=== PATIENT | male | born 1955 | race Caucasian/White ===

== ENCOUNTER 2023-01-08 08:00 | Outpatient (RCR) | payer MEDICARE, SELFPAY | END 2023-01-23 14:00 | disposition home or self-care (01) | LOC: PT 08:00 | DX: M25.512 Pain in left shoulder (principal) | CPT/HCPCS: 97110; 97112; 97140 ==

== ENCOUNTER 2023-05-27 07:27 | Outpatient (OUT) | payer MEDICARE, SELFPAY ==
[2023-05-27 08:05] LABS: Basophils Percent Auto 0.6 % (0.2-2.0); Eosinophils Absolute Auto 0.2 10^3/uL (0.0-0.7); Eosinophils Percent Auto 3.4 % (0.9-7.0); Hematocrit 43.5 % (42.0-54.0); Hemoglobin 14.4 g/dL (14.0-18.0); Immature Granulocytes Abs Auto 0.02 10^3/uL (0.00-0.03); Immature Granulocytes Pct Auto 0.3 % (0.0-0.5); Lymphocytes Absolute Auto 1.5 10^3/uL (1.2-3.8); Mean Corpuscular HGB Conc 33.1 g/dL (29.9-35.2); Mean Corpuscular Hemoglobin 31.3 pg (25.9-34.0); Mean Corpuscular Volume 94.6 fL (80.0-94.0); Mean Platelet Volume 11.4 fL (9.5-13.5); Monocytes Absolute Auto 0.8 10^3/uL (0.3-0.8); Monocytes Percent Auto 12.7 % (1.7-12.0); Neutrophils Absolute Auto 3.9 10^3/uL (1.4-6.5); Platelet Count 239 10^3/uL (150-450); Red Cell Distribution Width 12.6 % (11.0-15.0); White Blood Count 6.5 10^3/uL (4.0-11.0)
[2023-05-27 08:29] LABS: Anion Gap 10.7; BUN Creatinine Ratio 13.5; Calcium 8.6 mg/dL (8.5-10.1); Carbon Dioxide 29.4 mmol/L (21.0-32.0); Chloride 102 mmol/L (98-107); Cholesterol 280 mg/dL (<=200); Estimated GFR (African America >60 (>=60); Estimated GFR (Non-African Ame >60 (>=60); Glucose 114 mg/dL (74-106); HDL Cholesterol 47 mg/dL (40-60); Potassium 4.1 mmol/L (3.5-5.1); Sodium 138 mmol/L (136-145); Triglycerides 90 mg/dL (<=150)
[2023-05-27 08:43] LABS: Estimated Average Glucose 134 mg/dL; Glycohemoglobin A1C 6.3 % (4.5-6.2)
[2023-05-27 09:09] LABS: Prostate Specific Antigen Scrn 1.91 ng/mL (<=4.00)
== END 2023-05-27 07:28 | disposition home or self-care (01) ==
LOC: LAB 07:29
PROVIDERS: PCP Internal Medicine; Visit Provider Internal Medicine
DX: E78.01 Familial hypercholesterolemia (principal); I10 Essential (primary) hypertension; R73.01 Impaired fasting glucose; Z12.5 Encounter for screening for malignant neoplasm of prostate; Z79.899 Other long term (current) drug therapy
CPT/HCPCS: 36415; 80048; 80061; 83036; 85025; G0103

== ENCOUNTER 2023-08-04 10:55 | Emergency (ER) | payer MEDICARE, SELFPAY ==
[2023-08-04 10:57] VITALS: BP 165/108; PULSE 101; RESP 16; TEMP 36.6; O2SAT 97; BMI 25.0
--- NOTE | 2023-08-04 11:09 | CT_ITS ---
[address] [address] Patient Name: DON NATION MRN: [id number] date: 1955 Sex: M Assigned Patient Location: ER Current Patient Location: ER Accession/Order Number: [id number] Exam Date: 08/04/2023 11:50 Report Date: 08/04/2023 12:29 At the request of: BHUPENDRA CALDWELL Procedure: CT abdomen pelvis w con EXAM: CT abdomen pelvis w con HISTORY: midline abdominal pain COMPARISON: CT abdomen and CT pelvis studies dated 12/13/2019 TECHNIQUE: CT abdomen and CT pelvis studies were performed with the use of intravenous contrast. Multiple axial images were obtained. Reformatted coronal and sagittal images were obtained and reviewed. FINDINGS: Abdomen: Mild atelectatic and/or fibrotic changes in the lower lung singleton. Views of the liver demonstrate a few small scattered areas of decreased attenuation measuring 0.6 cm or less, too small to qualify with certainty though likely representing cysts. No obvious splenic mass. Patient status post cholecystectomy. Mildly dilated intrahepatic bile ducts likely related to patient's postcholecystectomy status. Common bile duct grossly unremarkable in size. Adrenal glands appear grossly unremarkable. No obvious pancreatic mass. Mildly dilated pancreatic duct likely related to patient's postcholecystectomy status and similar to prior study. Mild to moderately distended stomach with retained fluid, otherwise unremarkable in appearance. Mild to moderately dilated air and fluid-filled small bowel loops, correlate for gastroenteritis. No obvious small bowel obstruction. Atherosclerotic calcifications in the abdominal aorta. No evidence of aneurysm. No evidence of adenopathy in the retroperitoneum. 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 A few nonobstructing bilateral renal calculi measuring up to 4 mm on the right and 3 mm on the left. No evidence of obstructive uropathy. Areas of decreased attenuation in each kidney, largest on the right measures 1 cm, largest on the left measures 1.1 cm, these likely represent cysts. A few small areas of decreased attenuation in both kidneys measuring less than 0.6 cm 2 small qualify with certainty though likely representing cysts as well. Small fat filled umbilical hernia without bowel content similar to prior study. Pelvis: Bladder appears grossly unremarkable. Prostate gland is mildly enlarged with a few small associated calcifications. A few calcifications compatible with phleboliths. Perirectal fat planes appear grossly intact. Single diverticulum in the sigmoid colon, no definite acute diverticulitis. Mild to moderately dilated fluid-filled small bowel loops with mild degree of fluid in the distal colon. Correlate for gastroenteritis. No obvious bowel obstruction. Atherosclerotic calcifications within portions of the iliofemoral arteries. No evidence of aneurysm. No evidence of adenopathy. The appendix is not definitely identified, no obvious appendicitis. Postoperative changes from L4 through S1 similar to prior study. Slight convexity lower thoracic and lumbar spine to the right. Mild degenerative changes about the hip joints. CT/CT abdomen pelvis w con IMPRESSION: CT abdomen and CT pelvis studies demonstrate findings which can be correlated for gastroenteritis. 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 Likely few small hepatic cysts. Likely bilateral renal cysts. Bilateral nonobstructive renal calculi. No evidence of obstructive uropathy. Single diverticulum in the sigmoid colon, no evidence of acute diverticulitis. Small fat filled umbilical hernia similar to the prior study. Electronically authenticated by: TASHA OLSON Date: 08/04/2023 12:29
[2023-08-04 11:19] VITALS: BP 152/92
[2023-08-04] MEDS: 0.9 % SODIUM CHLORIDE 1,000 ML 999 ML IV (11:21)
[2023-08-04] MEDS: PANTOPRAZOLE SODIUM 40 MG VIAL IV (11:22)
[2023-08-04] MEDS: ONDANSETRON PF 4 MG/2 ML VIAL IV (11:22)
[2023-08-04] MEDS: HYOSCYAMINE SULFATE 0.125 MG TAB.SUBL SL (11:23)
[2023-08-04 11:34] LABS: Alanine Aminotransferase 21 U/L (16-63); Albumin Globulin Ratio 0.8; Albumin Level 3.4 g/dL (3.4-5.0); Alkaline Phosphatase 62 U/L (46-116); Anion Gap 13.3; Aspartate Amino Transferase 10 U/L (15-37); BUN Creatinine Ratio 13.5; Bilirubin Total 0.7 mg/dL (0.2-1.0); Carbon Dioxide 25.9 mmol/L (21.0-32.0); Chloride 99 mmol/L (98-107); Estimated GFR (African America >60 (>=60); Estimated GFR (Non-African Ame >60 (>=60); Globulin 4.5 g/dL; Glucose 120 mg/dL (74-106); Potassium 4.2 mmol/L (3.5-5.1); Sodium 134 mmol/L (136-145); Total Protein 7.9 g/dL (6.4-8.2)
[2023-08-04 11:51] LABS: Basophils Percent Auto 0.2 % (0.2-2.0); Eosinophils Absolute Auto 0.1 10^3/uL (0.0-0.7); Eosinophils Percent Auto 0.9 % (0.9-7.0); Hematocrit 47.8 % (42.0-54.0); Hemoglobin 15.8 g/dL (14.0-18.0); Immature Granulocytes Abs Auto 0.03 10^3/uL (0.00-0.03); Immature Granulocytes Pct Auto 0.3 % (0.0-0.5); Lymphocytes Absolute Auto 0.8 10^3/uL (1.2-3.8); Lymphocytes Percent Auto 9.5 % (20.5-60.0); Mean Corpuscular HGB Conc 33.1 g/dL (29.9-35.2); Mean Corpuscular Hemoglobin 31.3 pg (25.9-34.0); Mean Corpuscular Volume 94.8 fL (80.0-94.0); Mean Platelet Volume 11.4 fL (9.5-13.5); Monocytes Absolute Auto 1.1 10^3/uL (0.3-0.8); Monocytes Percent Auto 12.6 % (1.7-12.0); Neutrophils Absolute Auto 6.6 10^3/uL (1.4-6.5); Neutrophils Percent Auto 76.5 % (43.0-75.0); Platelet Count 230 10^3/uL (150-450); Red Blood Count 5.04 10^6/uL (4.70-6.10); Red Cell Distribution Width 12.1 % (11.0-15.0); White Blood Count 8.6 10^3/uL (4.0-11.0)
[2023-08-04 11:51] LABS: Bilirubin Urine SMALL (NEGATIVE); Blood Urine SMALL (NEGATIVE); Clarity Urine CLEAR (CLEAR); Color Urine YELLOW (YELLOW); Glucose Urine UA NEGATIVE (NEGATIVE); Ketones Urine >=80 mg/dL (NEGATIVE); Leukocyte Esterase Urine NEGATIVE (NEGATIVE); Nitrite Urine NEGATIVE (NEGATIVE); Protein Urine TRACE mg/dL (NEG/TRACE); Specific Gravity Urine >=1.030 (1.005-1.025); Urobilinogen Urine 0.2 EU/dL (0.2-1.0); pH Urine 5.5 (5.0-9.0)
[2023-08-04 11:55] LABS: Urine Microscopic Indicated YES
[2023-08-04 12:10] VITALS: BP 158/81; PULSE 79; RESP 20
[2023-08-04 12:21] LABS: WBC Urine NONE SEEN #/HPF (NONE SEEN)
[2023-08-04 12:22] LABS: Bacteria Urine NONE SEEN #/HPF (NONE SEEN); Mucus Urine LARGE (NONE SEEN); RBC Urine 0-2 #/HPF (0-2); Squamous Epithelial Cell Urine FEW #/LPF (NONE/RARE)
[2023-08-04 12:23] LABS: Urine Culture Indicated NO
--- NOTE | 2023-08-04 13:01 | ED_ITS ---
HPI - General Adult General Chief complaint: Abdominal Pain Stated complaint: STOMACH PAIN Time Seen by Provider: 08/04/23 11:02 Source: patient Mode of arrival: walk-in Limitations: no limitations History of Present Illness HPI narrative: Patient with 2 days of midline abdominal pain and heartburn like symptoms. He had some nausea and diarrhea but no vomiting. No flank pain or urinary symptoms. Diarrhea was watery without blood. No fever or chills. Related Data Home Medications Medication Instructions Recorded Confirmed atenolol 25 mg tablet 25 mg PO Q12H 08/04/23 08/04/23 benazepril 20 mg tablet 20 mg PO DAILY 08/04/23 08/04/23 omeprazole 40 mg capsule,delayed 40 mg PO DAILY 08/04/23 08/04/23 release Previous Rx's Medication Instructions Recorded hyoscyamine sulfate 0.125 mg 0.125 mg PO Q6H PRN abdominal pain 08/04/23 sublingual tablet (Levsin/SL) #20 tabs ondansetron 4 mg disintegrating 4 mg PO Q6H PRN nausea and 08/04/23 tablet vomiting #20 tabs Allergies Allergy/AdvReac Type Severity Reaction Status Date / Time acetaminophen [From Vicodin] AdvReac Severe Vomiting Verified 08/04/23 11:02 codeine AdvReac Severe Vomiting Verified 08/04/23 11:02 hydrocodone [From Vicodin] AdvReac Severe Vomiting Verified 08/04/23 11:02 [facility] PFS Social History Smoking status: Never smoker Exam Narrative Exam Narrative: Nurses notes and vital signs reviewed and patient is not hypoxic. afebrile General: Well-appearing and in no apparent distress. Skin: Warm, dry, no pallor noted. No rash.Eye: Pupils are equal, round and EOMI. No scleral icterus. Ears, Nose, Mouth, and Throat: Oral mucosa is moist Cardiovascular: Regular Rate and Rhythm without murmur, gallop or rub. Respiratory: No accessory muscle use or respiratory distress. Lungs are clear to auscultation, no wheezing, rales or rhonchi Chest Wall: no tenderness Back: No midline thoracic or lumbar vertebral tenderness. No CVA tenderness Musculoskeletal: normal ROM, no calf or popliteal tenderness, no lower extremity edema/swelling GI: Abdomen is soft, non-distended. Normal bowel sounds. No masses appreciated. Epigastric and mid abdominal tenderness to palpation. No rebound, guarding, or rigidity noted. Neurological: A&O x4. No cranial nerve dysfunction observed. No truncal ataxia. Moves all extremities. Sensation intact. Psychiatric: Cooperative and interactive. Normal mood and affect. Constitutional Vital Signs, click to edit/add: Last Vital Signs Temp 97.9 F 08/04/23 10:57 Pulse 79 08/04/23 12:10 Resp 20 08/04/23 12:10 BP 158/81 H 08/04/23 12:10 Pulse Ox 97 08/04/23 10:57 O2 Del Method Room Air 08/04/23 10:57 Course Vital Signs Vital signs: Vital Signs Temperature 97.9 F 08/04/23 10:57 Pulse Rate 101 H 08/04/23 10:57 Respiratory Rate 16 08/04/23 10:57 Blood Pressure 165/108 H 08/04/23 10:57 Pulse Oximetry 97 08/04/23 10:57 Oxygen Delivery Method Room Air 08/04/23 10:57 Temperature 97.9 F 08/04/23 10:57 Pulse Rate 79 08/04/23 12:10 Respiratory Rate 20 08/04/23 12:10 Blood Pressure 158/81 H 08/04/23 12:10 Pulse Oximetry 97 08/04/23 10:57 Oxygen Delivery Method Room Air 08/04/23 10:57 Medical Decision Making MDM Narrative Medical decision making narrative: Peripheral IV was obtained. Blood drawn and sent for evaluation. Urine also obtained and sent for testing. The patient had CT of the abdomen pelvis with IV contrast. He received normal saline IV fluid, IV Protonix and IV Zofran. White blood cell count is normal. Unremarkable CBC. CMP negative. Urinalysis unremarkable. CT shows findings consistent with acute gastroenteritis. The patient was informed of results and given reassurance. He was discharged home with prescription for oral dissolvable Zofran, recommendation to maintain a clear liquid diet for the next 24 hours and then to advance as tolerated. ED return if he worsens. Lab Data Lab results reviewed: Yes I reviewed the patient's lab results Labs: Lab Results 08/04/23 08/04/23 Range/Units 11:11 11:15 WBC 8.6 (4.0-11.0) 10^3/uL RBC 5.04 (4.70-6.10) 10^6/uL Hgb 15.8 (14.0-18.0) g/dL Hct 47.8 (42.0-54.0) % MCV 94.8 H (80.0-94.0) fL MCH 31.3 (25.9-34.0) pg MCHC 33.1 (29.9-35.2) g/dL RDW 12.1 (11.0-15.0) % Plt Count 230 (150-450) 10^3/uL MPV 11.4 (9.5-13.5) fL Neut % (Auto) 76.5 H (43.0-75.0) % Lymph % (Auto) 9.5 L (20.5-60.0) % [place] % (Auto) 12.6 H (1.7-12.0) % Eos % (Auto) 0.9 (0.9-7.0) % Baso % (Auto) 0.2 (0.2-2.0) % Neut # (Auto) 6.6 H (1.4-6.5) 10^3/uL Lymph # (Auto) 0.8 L (1.2-3.8) 10^3/uL [place] # (Auto) 1.1 H (0.3-0.8) 10^3/uL Eos # (Auto) 0.1 (0.0-0.7) 10^3/uL Baso # (Auto) 0.0 (0.0-0.1) 10^3/uL Abs Immat Gran (auto) 0.03 (0.00-0.03) 10^3/uL Imm/Tot Granulo (auto) 0.3 (0.0-0.5) % Sodium 134 L (136-145) mmol/L Potassium 4.2 (3.5-5.1) mmol/L Chloride 99 (98-107) mmol/L Carbon Dioxide 25.9 (21.0-32.0) mmol/L Anion Gap 13.3 BUN 12.0 (7.0-18.0) mg/dL Creatinine 0.89 (0.70-1.30) mg/dL Est GFR ( Amer) >60 (>=60) Est GFR (Non-Af Amer) >60 (>=60) BUN/Creatinine Ratio 13.5 Glucose 120 H (74-106) mg/dL Calcium 10.0 (8.5-10.1) mg/dL Total Bilirubin 0.7 (0.2-1.0) mg/dL AST 10 L (15-37) U/L ALT 21 (16-63) U/L Alkaline Phosphatase 62 (46-116) U/L Total Protein 7.9 (6.4-8.2) g/dL Albumin 3.4 (3.4-5.0) g/dL Globulin 4.5 g/dL Albumin/Globulin Ratio 0.8 Urine Color Yellow (YELLOW) Urine Clarity Clear (CLEAR) Urine pH 5.5 (5.0-9.0) Ur Specific [place] >=1.030 A (1.005-1.025) Urine Protein Trace (NEG/TRACE) mg/dL Urine Glucose (UA) Negative (NEGATIVE) mg/dL Urine Ketones >=80 A (NEGATIVE) mg/dL Urine Occult Blood Small A (NEGATIVE) Urine Nitrite Negative (NEGATIVE) Urine Bilirubin Small A (NEGATIVE) Urine Urobilinogen 0.2 (0.2-1.0) EU/dL Ur Leukocyte Esterase Negative (NEGATIVE) Urine RBC 0-2 (0-2) #/HPF Urine WBC None seen (NONE SEEN) #/HPF Ur Squamous Epith Cells Few A (NONE/RARE) #/LPF Urine Bacteria None seen (NONE SEEN) #/HPF Urine Mucus Large A (NONE SEEN) Ur Culture Indicated? No Imaging Data CT scan - abdomen: Radiologist's impression: Patient Name: DON NATION MRN: [id number] date: 1955 Sex: M Assigned Patient Location: ER Current Patient Location: Accession/Order Number: [id number] Exam Date: 08/04/2023 11:50 Report Date: 08/04/2023 12:29 At the request of: BHUPENDRA CALDWELL Procedure: CT abdomen pelvis w con EXAM: CT abdomen pelvis w con HISTORY: midline abdominal pain COMPARISON: CT abdomen and CT pelvis studies dated 12/13/2019 TECHNIQUE: CT abdomen and CT pelvis studies were performed with the use of intravenous contrast. Multiple axial images were obtained. Reformatted coronal and sagittal images were obtained and reviewed. FINDINGS: Abdomen: Mild atelectatic and/or fibrotic changes in the lower lung singleton. Views of the liver demonstrate a few small scattered areas of decreased attenuation measuring 0.6 cm or less, too small to qualify with certainty though likely representing cysts. No obvious splenic mass. Patient status post cholecystectomy. Mildly dilated intrahepatic bile ducts likely related to patient's postcholecystectomy status. Common bile duct grossly unremarkable in size. Adrenal glands appear grossly unremarkable. No obvious pancreatic mass. Mildly dilated pancreatic duct likely related to patient's postcholecystectomy status and similar to prior study. Mild to moderately distended stomach with retained fluid, otherwise unremarkable in appearance. Mild to moderately dilated air and fluid-filled small bowel loops, correlate for gastroenteritis. No obvious small bowel obstruction. Atherosclerotic calcifications in the abdominal aorta. No evidence of aneurysm. No evidence of adenopathy in the retroperitoneum. 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 A few nonobstructing bilateral renal calculi measuring up to 4 mm on the right and 3 mm on the left. No evidence of obstructive uropathy. Areas of decreased attenuation in each kidney, largest on the right measures 1 cm, largest on the left measures 1.1 cm, these likely represent cysts. A few small areas of decreased attenuation in both kidneys measuring less than 0.6 cm 2 small qualify with certainty though likely representing cysts as well. Small fat filled umbilical hernia without bowel content similar to prior study. Pelvis: Bladder appears grossly unremarkable. Prostate gland is mildly enlarged with a few small associated calcifications. A few calcifications compatible with phleboliths. Perirectal fat planes appear grossly intact. Single diverticulum in the sigmoid colon, no definite acute diverticulitis. Mild to moderately dilated fluid-filled small bowel loops with mild degree of fluid in the distal colon. Correlate for gastroenteritis. No obvious bowel obstruction. Atherosclerotic calcifications within portions of the iliofemoral arteries. No evidence of aneurysm. No evidence of adenopathy. The appendix is not definitely identified, no obvious appendicitis. Postoperative changes from L4 through S1 similar to prior study. Slight convexity lower thoracic and lumbar spine to the right. Mild degenerative changes about the hip joints. IMPRESSION: CT abdomen and CT pelvis studies demonstrate findings which can be correlated for gastroenteritis. 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 Likely few small hepatic cysts. Likely bilateral renal cysts. Bilateral nonobstructive renal calculi. No evidence of obstructive uropathy. Single diverticulum in the sigmoid colon, no evidence of acute diverticulitis. Small fat filled umbilical hernia similar to the prior study. Electronically authenticated by: TASHA OLSON Date: 08/04/2023 12:29 Discharge Plan Discharge Chief Complaint: Abdominal Pain Clinical Impression: Gastroenteritis Patient Disposition: Home, Self-Care Time of Disposition Decision: 13:05 Prescriptions / Home Meds: New ondansetron 4 mg tablet,disintegrating 4 mg PO Q6H PRN (Reason: nausea and vomiting) Qty: 20 0RF hyoscyamine sulfate [Levsin/SL] 0.125 mg tablet, sublingual 0.125 mg PO Q6H PRN (Reason: abdominal pain) Qty: 20 0RF No Action atenolol 25 mg tablet 25 mg PO Q12H benazepril 20 mg tablet 20 mg PO DAILY omeprazole 40 mg capsule,delayed release(DR/EC) 40 mg PO DAILY Instructions: Gastroenteritis (ED) Stand Alone Forms: Portal Instructions Referrals: Tao Martines DO [Primary Care Provider] - 1 week
== END 2023-08-04 13:37 | disposition home or self-care (01) ==
PROVIDERS: Emergency Provider Emergency Medicine; PCP Internal Medicine
DX: K52.9 Noninfective gastroenteritis and colitis, unspecified (principal); Z90.49 Acquired absence of other specified parts of digestive tract
CPT/HCPCS: 36415; 74177; 80053; 81001; 85025; 87507; 96361; 96374; 96375; 99285; Q9967

== ENCOUNTER 2023-11-13 07:20 | Outpatient (OUT) | payer OTHER, SELFPAY ==
--- OUTSIDE RECORDS SUMMARY | 2023-11-13 07:23 | XMS_ITS | CCD ---
Author Organization [facility] Care Team Providers Care Catastrophe Claims Supervisor Name Role Phone TAO MARTINES Primary Care Physician MD Salomon PITTS Attending Unavailable MD Salomon PITTS Attending Unavailable Conrad, Tao Unavailable MARBELLA, DR SERRANO Admitting Unavailable STEPANIC, DR SERRANO Consulting Unavailable STEPOSMANI, DR SERRANO Attending Unavailable BALL, DR LICEA Primary Care Unavailable ZIEBER, DR OLYA West Consulting Unavailable LARA ., DR KIM Campbell Attending Unavailable LARA ., DR KIM Campbell Admitting Unavailable GARCIA ., LIZETT Consulting Unavailable CONRAD, DR LICEA Primary Care Unavailable LARA ., DR KIM Campbell Admitting Unavailable LARA ., DR KIM Campbell Consulting Unavailable LARA ., DR KIM Campbell Attending Unavailable BALL, DR LICEA Primary Care Unavailable LARA ., DR KIM Campbell Consulting Unavailable LARA ., DR KIM Campbell Attending Unavailable LARA ., DR KIM Campbell Admitting Unavailable CONRAD, DR LICEA Primary Care Unavailable ALBERTO IBARRA Consulting Unavailable LARA ., DR KIM Campbell Attending Unavailable LARA ., DR KIM Campbell Admitting Unavailable GARCIA ., LIZETT Consulting Unavailable CONRAD, DR LICEA Primary Care Unavailable CONRAD, DR LICEA Primary Care Unavailable JANESSA ., NICOLE Attending Unavailable JANESSA ., NICOLE Admitting Unavailable MARKER ., DR CHAPMAN Consulting Unavailable CONRAD, DR LICEA Primary Care Unavailable STEPOSMANI, DR SERRANO Attending Unavailable STEPANIC, DR SERRANO Admitting Unavailable JACOBSON ., MR SAMIR Admitting Unavailable JACOBSON ., MR SAMIR Attending Unavailable CONRAD, DR LICEA Primary Care Unavailable CONRAD, DR LICEA Primary Care Unavailable JACOBSON ., MR SAMIR Attending Unavailable JACOBSON ., MR SAMIR Admitting Unavailable PITTS ., DR VOSS Consulting Unavailable PITTS ., DR VOSS Attending Unavailable CONRAD, DR LICEA Primary Care Unavailable KELBY ., DR VOSS Admjaxson Unavailable JOHNIE, DR GLORIA Morin Consulting Unavailable CONRAD, DR LICEA Primary Care Unavailable CONRAD, DR LICEA Consulting Unavailable CONRAD, DR LICEA Attending Unavailable CONRAD, DR LICEA Admitting Unavailable LARA ., DR KIM Campbell Consulting Unavailable JANE ., DR KIM Campbell Attending Unavailable JANE ., DR KIM Campbell Admitting Unavailable DR TAO MARTINES Primary Care Unavailable JANE ., DR KIM Campbell Admitting Unavailable JANE ., DR KIM Campbell Attending Unavailable CONRAD, DR LICEA Primary Care Unavailable Allergies Allergy Classification Reported Allergen(s) Allergy Type Date of Onset Reaction(s) Facility (5 sources) Acetaminophen / HYDROcodone; Translations: [acetaminophen-hy drocodone] Drug Allergy Nausea (finding) [facility] (6 sources) Codeine; Translations: [codeine] Drug Allergy 08-29-19 15 Nausea (finding) [facility] (6 sources) Codeine Drug Allergy Unknown [email or web address] Other (6 sources) HMG-CoA reductase inhibitor Drug allergy Unknown [email or web address] Other (2 sources) Acetaminophen / HYDROcodone Drug Allergy 12-28-19 13 [facility] (2 sources) Codeine Drug Allergy 12-21-19 13 [facility] (4 sources) Vicodin *ANALGESICS - OPIOID* Propensity to adverse reactions 08-29-19 15 Unknown [email or web address] Other (1 source) patient allergy list reviewed by nurse or physicia Propensity to adverse reactions 06-08-20 17 Comment:Done [place] Other Medications Current Medications Medication Drug Class(es) Dates Sig (Normalized) Sig (Original) 24 hr alfuzosin hydrochloride 10 mg extended release oral tablet (1 source) alpha-Adrenergic Melissa Start: 03-21-2022 take 1 tablet by mouth once daily alfuzosin 10 mg ER Tab 10 mg = 1 tab(s), Oral, Daily, # 30 tab(s), Refills(s) 11, Pharmacy: [facility]/pharmacy #[id number], 175, cm, 03/21/22 9:55:00 EDT, Height/Length Dosing, 74, kg, 03/21/22 9:55:00 EDT, Weight Dosing Start Date: 03/21/22 Status: Ordered Atenolol (13 sources) beta-Adrenergic Melissa Start: 12-27-2019 atenolol Oral, Daily, Refills(s) 0 Start Date: 12/27/19 Status: Ordered take 1 tablet by mouth twice chris ly Atenolol 25 MG TAKE 1 TABLET BY MOUTH TWICE A DAY Active Atenolol Not-Fito ing/PRN Atenolol Not-Fito ing benazepril (13 sources) Angiotensin Converting Enzyme Inhibitor Start: 12-27-2019 benazepril Oral, Chris ly, Refills(s) 0 Start Date: 12/27/19 Status: Ordered Benazepril HCl 2 0 MG TAKE 1 TABLET BY MOUTH EVERY DAY FOR 90 DAYS for 90 Active Benazepril HCl N ot-Taking/PRN Benazepril HCl N ot-Taking Zetia (7 sources) Dietary Cholesterol Absorption Inhibitor Start: 06-01-2020 take 1 mg by mouth once daily Zetia mg, Oral, Daily, Refills(s) 0 Start Date: 06/01/20 Status: Ordered Zetia Not-Taking /PRN Zetia Not-Taking Fish Oils (1 source) Start: 12-27-2019 Fish Oil Oral, Refill(s) 0 Start Date: 12/27/19 Status: Ordered hydroCHLOROthiazide 12.5 mg oral capsule (1 source) Thiazide Diuretic Start: 02-17-2022 take 1 capsule by mouth once daily hydrochlorothiazide 12.5 mg Cap 12.5 mg = 1 cap(s), Oral, Daily, # 90 cap(s), Refills(s) 3, Pharmacy: [facility]/pharmacy #[id number], 175, cm, 05/20/21 15:07:00 EDT, Height/Length Dosing, 74, kg, 05/20/21 15:07:00 EDT, Weight Dosing Start Date: 02/17/22 Status: Ordered Omeprazole (13 sources) Proton Pump Inhibitor Start: 06-01-2020 omeprazole Oral, Daily, Refills(s) 0 Start Date: 06/01/20 Status: Ordered Omeprazole 40 MG TAKE 1 CAPSULE DAILY ON AN EMPTY STOMACH FOLLOWED IN 30 MINUTES BY BREAKFAST Active PriLOSEC Not-Fito ing/PRN PriLOSEC Not-Fito ing Protonix (1 source) Proton Pump Inhibitor Start: 12-27-2019 Protonix Oral, Daily, Refills(s) 0 Start Date: 12/27/19 Status: Ordered potassium citrate 10 meq extended release oral tablet (1 source) Start: 05-20-2021 End: 05-15-2022 potassium CITRATE 10 mEq ER Tab 20 mEq, 2 tab(s), Oral, BID for 90 day(s), 360 tab(s), Refill(s) 3, [facility]/pharmacy #[id number], 175, cm, 05/20/21 15:07:00 EDT, Height/Length Dosing, 74, kg, 05/20/21 15:07:00 EDT, Weight Dosing Start Date: 05/20/21 Stop Date: 05/15/22 Status: Ordered rosuvastatin calcium 10 mg oral tablet (1 source) HMG-CoA Reductase Inhibitor Start: 05-28-2023 take 1 tablet by mouth every twenty-four hours Rosuvastatin Calcium 10 MG 1 tablet Orally Once a day for 30 days May, Active traMADol hydrochloride 50 mg oral tablet (3 sources) Opioid Agonist Start: 09-16-2022 take 1 tablet by mouth every twenty-four hours traMADol HCl 50 MG 1 tablet as needed Orally Once a day for 30 days Sep, Active valACYclovir 1000 mg oral tablet (4 sources) Herpesvirus Nucleoside Analog DNA Polymerase Inhibitor, Herpes Simplex Virus Nucleoside Analog DNA Polymerase Inhibitor, Herpes Zoster Virus Nucleoside Analog DNA Polymerase Inhibitor valACYclovir HCl 1 GM TAKE 2 TABLETS BY MOUTH TWICE A DAY Orally Once a day for 1 days Active valACYclovir HCl 1 GM TAKE 2 TABLETS BY MOUTH TWICE A DAY Orally Once a day for 1 days Active Completed/Discontinued Medications Medication Drug Class(es) Dates Sig (Normalized) Sig (Original) paxlovid (300/100) 20 x 150 mg & 10 x 100mg tablet therapy pack (1 source) Start: 07-14-2023 Paxlovid (300/100) 20 x 150 MG & 10 x 100MG as directed Orally bid for 5 days Jul, Not-Taking/PRN tamsulosin (6 sources) alpha-Adrenergic Melissa Flomax Not-Taking/PRN Flomax Not-Takin g Problems Active Problems Problem Classification Problem Date Documented Da te Episodic/Chronic Abdominal pain (20 sources) Abdominal pain; Translations: [Unspecified abdominal pain] Onset: 9 Episodic Acute bronchitis (1 source) Acute bronchitis; Translations: [Acute bronchitis due to other specified organisms] Episodic Anxiety disorders (1 source) Other specified anxiety disorders; Translations: [OTHER SPECIFIED ANXIETY DISORDERS] Onset: 3 Chronic Calculus of urinary tract (20 sources) Kidney stone; Translations: [Calculus of kidney] Onset: 6 Episodic Cardiac dysrhythmias (13 sources) Palpitations; Translations: [Palpitations] Onset: 3 Episodic Diabetes mellitus without complication (9 sources) Impaired fasting glycemia; Translations: [Impaired fasting glucose] Episodic Disorders of lipid metabolism (19 sources) Hyperlipidemia; Translations: [Pure hypercholesterolemia] Onset: 0 12-27-2019 Chronic Esophageal disorders (7 sources) Gastroesophageal reflux disease; Translations: [Gastro-esophageal reflux disease without esophagitis] Onset: 3 12-27-2019 Chronic Essential hypertension (15 sources) Hypertensive disorder; Translations: [Essential hypertension] Onset: 3 12-27-2019 Chronic Gastrointestinal hemorrhage (12 sources) Hemorrhage of rectum and anus; Translations: [Hemorrhage of anus and rectum] Episodic Hyperplasia of prostate (10 sources) Benign prostatic hypertrophy without outflow obstruction; Translations: [Benign prostatic hyperplasia without lower urinary tract symptoms] Onset: 6 Chronic Immunizations and screening for infectious disease (1 source) Vaccination given; Translations: [Encounter for immunization] Episodic Miscellaneous mental health disorders (7 sources) Transient insomnia; Translations: [Adjustment insomnia] Episodic Nonspecific chest pain (1 source) Other chest pain Episodic Other aftercare (2 sources) Other terminal computer operator (current) drug therapy; Translations: [OTH THERAPEUTIC RECREATION SPECIALIST CURRENT DRUG THERAPY] Onset: 3 Episodic Other aftercare (1 source) Long-term current use of drug therapy; Translations: [Other terminal computer operator (current) drug therapy] Episodic Other connective tissue disease (4 sources) Adhesive capsulitis of left shoulder; Translations: [ADHESIVE CAPSULITIS LEFT SHOULDER] Onset: 3 Episodic Other diseases of kidney and ureters (6 sources) Hydroureter; Translations: [Hydroureter] Episodic Other ear and sense organ disorders (7 sources) Hearing loss; Translations: [Unspecified hearing loss, left ear] Chronic Other gastrointestinal disorders (6 sources) Irritable bowel syndrome with diarrhea; Translations: [Irritable bowel syndrome with diarrhea] Chronic Other hereditary and degenerative nervous system conditions (7 sources) Essential tremor; Translations: [Essential tremor] Chronic Other injuries and conditions due to external causes (1 source) History of fall; Translations: [History of falling] Episodic Other lower respiratory disease (1 source) Solitary nodule of lung; Translations: [Solitary pulmonary nodule] Episodic Other nervous system disorders (1 source) Other chronic pain; Translations: [OTHER CHRONIC PAIN] Onset: 2 Chronic Other non-traumatic joint disorders (4 sources) Other specific joint derangements of left shoulder, not elsewhere classified; Translations: [OTH SPEC JOINT DERANG LT SHLDR NEC] Onset: 2 Chronic Other screening for suspected conditions (not mental disorders or infectious disease) (1 source) Radiology result abnormal; Translations: [Other nonspecific (abnormal) findings on radiological and other examination of body structure] Onset: 8 Chronic Other screening for suspected conditions (not mental disorders or infectious disease) (2 sources) Encounter for screening for malignant neoplasm of prostate; Translations: [ENC SCREEN MALIG NEOPLASM PROSTATE] Onset: 2 Episodic Otitis media and related conditions (7 sources) Salpingitis of right eustachian tube; Translations: [Unspecified Eustachian salpingitis, right ear] Episodic Residual codes; unclassified (6 sources) Insomnia co-occurrent and due to medical condition; Translations: [Insomnia due to medical condition] Chronic Residual codes; unclassified (1 source) Insomnia due to medical condition Chronic Residual codes; unclassified (1 source) Acquired absence of other specified parts of digestive tract; Translations: [ACQ ABSENCE OTH PART DIGESTV TRACT] Onset: 3 Episodic Spondylosis; intervertebral disc disorders; other back problems (2 sources) Lumbosacral spondylosis without myelopathy; Translations: [Spondylosis without myelopathy or radiculopathy, lumbar region] Onset: 5 Chronic Substance-related disorders (1 source) Nicotine dependence, cigarettes, uncomplicated; Translations: [NICOTINE DEPEND CIGARETTES UNCOMP] Onset: 3 Chronic Unclassified (1 source) LOW BACK PAIN, UNSPECIFIED; Translations: [LOW BACK PAIN, UNSPECIFIED] Onset: 2 Unclassified (1 source) CONTACT W/AND (SUSP) EXPOS COVID-19; Translations: [CONTACT W/AND (SUSP) EXPOS COVID-19] Onset: 2 Urinary tract infections (1 source) Urinary tract infectious disease; Translations: [Urinary tract infection, site not specified] Episodic Viral infection (8 sources) Herpes simplex type 1 infection; Translations: [Herpesviral infection, unspecified] Episodic Past or Other Problems Problem Classification Problem Date Documented Da te Episodic/Chronic Bacterial infection; unspecified site (1 source) Bacterial infectious disease; Translations: [Bacterial infection, unspecified, in conditions classified elsewhere and of unspecified site] Onset: 03-03-2019 Episodic Conditions associated with dizziness or vertigo (1 source) Benign paroxysmal positional vertigo; Translations: [Benign paroxysmal positional vertigo] Onset: 05-17-2015 Episodic Esophageal disorders (4 sources) Esophageal disorders; Translations: [Gastroesophageal reflux disease with esophagitis without hemorrhage] Fluid and electrolyte disorders (1 source) Dehydration; Translations: [Dehydration] Onset: 08-12-2017 Episodic Intestinal infection (1 source) Viral enteritis; Translations: [Intestinal infection due to other organism, NEC] Onset: 10-20-2017 Episodic Malaise and fatigue (1 source) Malaise and fatigue; Translations: [Other malaise and fatigue] Onset: 10-18-2018 Episodic Nausea and vomiting (1 source) Nausea; Translations: [Nausea] Onset: 08-12-2017 Episodic Other connective tissue disease (4 sources) Other muscle spasm; Translations: [OTHER MUSCLE SPASM] Onset: 02-18-2022 Episodic Other connective tissue disease (1 source) Unspecified rotator cuff tear or rupture of left shoulder, not specified as traumatic; Translations: [UNS ROT CUFF TEAR/RUPT LT SHOULDER] Onset: 02-21-2022 Episodic Other connective tissue disease (1 source) Arthrodesis status; Translations: [ARTHRODESIS STATUS] Onset: 02-21-2022 Episodic Other gastrointestinal disorders (1 source) Diarrhea; Translations: [Diarrhea] Onset: 08-12-2017 Episodic Other liver diseases (1 source) Elevated levels of transaminase & lactic acid dehydrogenase; Translations: [Nonspecific elevation of levels of transaminase or lactic acid dehydrogenase (LDH)] Onset: 11-19-2018 Episodic Other non-traumatic joint disorders (2 sources) Pain in left shoulder; Translations: [PAIN IN LEFT SHOULDER] Onset: 05-26-2022 Episodic Other upper respiratory infections (3 sources) Acute maxillary sinusitis; Translations: [Acute recurrent maxillary sinusitis] Onset: 08-29-2014 Episodic Residual codes; unclassified (4 sources) Other specified postprocedural states; Translations: [OTH SPECIFIED POSTPROCEDURAL STATES] Onset: 08-10-2022 Episodic Spondylosis; intervertebral disc disorders; other back problems (10 sources) Radiculopathy, lumbar region; Translations: [Radiculopathy, lumbosacral region] Onset: 12-27-2013 Episodic Sprains and strains (1 source) Strain of other muscles, fascia and tendons at shoulder and upper arm level, left arm, initial encounter; Translations: [STRN OTH MSC F TEND SHLDR UA LA INT] Onset: 02-21-2022 Episodic Unclassified (1 source) Long-term current use of drug therapy; Translations: [Long-term (current) use of other medications] Onset: 06-22-2016 Viral infection (1 source) COVID-19 Results Test Name Value Interpretation Reference Range Facility CARDIAC LONNIE ADMITon 023 CK [Catalytic activity/Vol] 57 U/L Normal 39-308 [facility] Comment on above: Performed By: #### C ZAC RAY #### [facility] [address] [place] [address] Dr. Sarthak Cleveland CK.MB [Mass/Vol] 0.54 ng/mL Normal <=3.60 [facility] Comment on above: Performed By: #### C CORY, CMP #### [facility] [address] [address] [address] Sarthak Cleveland HSTROP <4.0 Normal 4.0-76.1 [facility] Comment on above: Result Comment: CUT- OFF POINTS HAVE BEEN ESTABLISHED BASED ON THE FOURTH UNIVERSAL DEFINITIONS OF MYOCARDIAL INFARCTION. THE UPPER REFERENCE LIMIT (URL) OF TROPONIN, DEFINED THE 99TH PERCENTILE OF cTnI DISTRIBUTION IN A REFERENCE POPULATION, HAS BEEN CONFIRMED THE DECISION THRESHOLD FOR MT DIAGNOSIS. Performed By: #### C CORY, CMP #### [facility] [address] [address] [address] Sarthak Cleveland MAL 37 ng/mL Normal 16-96 [facility] Comment on above: Performed By: #### C MADM, CMP #### [facility] [address] [place] [address] Dr. Sarthak Clevelnad CBC AUTO DIFFon 11-25-2022 BASO # 0.0 103/ul Normal 0.0-0.1 [facility] Comment on above: Performed By: #### B MP, LIPID, ALT #### [facility] [address] [place] [address] Dr. Sarthak Cleveland Basophils/100 WBC (Bld) 0.5 % Normal 0.2-2.0 [facility] Comment on above: Performed By: #### B MP, LIPID, ALT #### [facility] [address] [place] [address] Dr. Sarthak Cleveland EO # 0.3 103/ul Normal 0.0-0.7 [facility] Comment on above: Performed By: #### B MP, LIPID, ALT #### [facility] [address] [place] [address] Dr. Sarthak Cleveland Eosinophils/100 WBC (Bld) 3.0 % Normal 0.9-7.0 [facility] Comment on above: Performed By: #### B MP, LIPID, ALT #### [facility] [address] [place] [address] Dr. Sarthak Cleveland Erythrocyte distribution width (RBC) [Ratio] 12.4 % Normal 11.0-15.0 [facility] Comment on above: Performed By: #### B MP, LIPID, ALT #### [facility] [address] [place] [address] Dr. Sarthak Cleveland Hematocrit (Bld) [Volume fraction] 47.3 % Normal 42.0-54.0 [facility] Comment on above: Performed By: #### B MP, LIPID, ALT #### [facility] [address] [place] [address] Dr. Sarthak Cleveland Hemoglobin (Bld) [Mass/Vol] 15.9 g/dL Normal 14.0-18.0 [facility] Comment on above: Performed By: #### B MP, LIPID, ALT #### [facility] [address] [address] [address] Sarthak Cleveland IG # 0.04 10e3/ul Critically high 0.00-0.03 [facility] Comment on above: Performed By: #### B MP, LIPID, ALT #### [facility] [address] [address] [address] Sarthak Cleveland IG % 0.5 % Normal 0.0-0.5 [facility] Comment on above: Performed By: #### B MP, LIPID, ALT #### [facility] [address] [address] [address] Sarthak Cleveland LYMPH # 2.2 103/ul Normal 1.2-3.8 [facility] Comment on above: Performed By: #### B MP, LIPID, ALT #### [facility] [address] [address] [address] Sarthak Cleveland Lymphocytes/100 WBC (Bld) 26.6 % Normal 20.5-60.0 [facility] Comment on above: Performed By: #### B MP, LIPID, ALT #### [facility] [address] [address] [address] Sarthak Cleveland MANUAL DIFF REQ NO Normal [facility] Comment on above: Performed By: #### B MP, LIPID, ALT #### [facility] [address] [address] [address] Sarthak Cleveland MCH (RBC) [Entitic mass] 31.7 pg Normal 25.9-34.0 [facility] Comment on above: Performed By: #### B MP, LIPID, ALT #### [facility] [address] [address] [address] Sarthak Cleveland MCHC (RBC) [Mass/Vol] 33.6 g/dL Normal 29.9-35.2 [facility] Comment on above: Performed By: #### B MP, LIPID, ALT #### [facility] [address] [address] [address] Sarthak Cleveland MCV (RBC) [Entitic vol] 94.2 fL Critically high 80.0-94.0 [facility] Comment on above: Performed By: #### B MP, LIPID, ALT #### [facility] [address] [place] [address] Dr. Sarthak Cleveland MONO # 0.8 103/ul Normal 0.3-0.8 [facility] Comment on above: Performed By: #### B MP, LIPID, ALT #### [facility] [address] [place] [address] Dr. Sarthak Cleveland Monocytes/100 WBC (Bld) 9.7 % Normal 1.7-12.0 [facility] Comment on above: Performed By: #### B MP, LIPID, ALT #### [facility] [address] [place] [address] Dr. Sarthak Cleveland NEUT # 5.0 103/ul Normal 1.4-6.5 [facility] Comment on above: Performed By: #### B MP, LIPID, ALT #### [facility] [address] [place] [address] Dr. Sarthak Cleveland Neutrophils/100 WBC (Bld) 59.7 % Normal 43.0-75.0 [facility] Comment on above: Performed By: #### B MP, LIPID, ALT #### [facility] [address] [place] [address] Dr. Sarthak Cleveland Platelet mean volume (Bld) [Entitic vol] 11.0 fL Normal 9.5-13.5 [facility] Comment on above: Performed By: #### B MP, LIPID, ALT #### [facility] [address] [place] [address] Dr. Sarthak Cleveland PLT 241 103/ul Normal 150-450 [facility] Comment on above: Performed By: #### B MP, LIPID, ALT #### [facility] [address] [place] [address] Dr. Sarthak Cleveland RBC 5.02 106/ul Normal 4.70-6.10 [facility] Comment on above: Performed By: #### B MP, LIPID, ALT #### [facility] [address] [place] [address] Dr. Sarthak Cleveland WBC 8.4 103/ul Normal 4.0-11.0 [facility] Comment on above: Performed By: #### B MP, LIPID, ALT #### [facility] [address] [place] [address] Dr. Sarthak Cleveland PROF 14(COMP METB)on 023 Albumin [Mass/Vol] 3.8 g/dL Normal 3.4-5.0 [facility] Comment on above: Performed By: #### C CORY, CMP #### [facility] [address] [place] [address] Dr. Sarthak Cleveland Albumin/Globulin [Mass ratio] 0.9 {ratio} Normal [facility] Comment on above: Performed By: #### C CORY, CMP #### [facility] [address] [place] [address] Dr. Sarthak Cleveland ALP [Catalytic activity/Vol] 57 U/L Normal 46-116 [facility] Comment on above: Performed By: #### C CORY, CMP #### [facility] [address] [place] [address] Dr. Sarthak Cleveland ALT [Catalytic activity/Vol] 21 U/L Normal 16-63 [facility] Comment on above: Performed By: #### C CORY, CMP #### [facility] [address] [place] [address] Dr. Sarthak Cleveland Anion gap [Moles/Vol] 12.3 mmol/L Normal [facility] Comment on above: Performed By: #### C CORY, CMP #### [facility] [address] [place] [address] Dr. Sarthak Cleveland AST [Catalytic activity/Vol] 17 U/L Normal 15-37 [facility] Comment on above: Performed By: #### C CORY, CMP #### [facility] [address] [place] [address] Dr. Sarthak Cleveland Bilirubin [Mass/Vol] 0.3 mg/dL Normal 0.2-1.0 [facility] Comment on above: Performed By: #### C CORY, CMP #### [facility] [address] [place] [address] Dr. Sarthak Cleveland Calcium [Mass/Vol] 9.2 mg/dL Normal 8.5-10.1 [facility] Comment on above: Performed By: #### C CORY, CMP #### [facility] [address] [place] [address] Dr. Sarthak Cleveland Chloride [Moles/Vol] 103 mmol/L Normal 98-107 [facility] Comment on above: Performed By: #### C CORY, CMP #### [facility] [address] [place] [address] Dr. Sarthak Cleveland CO2 [Moles/Vol] 28.7 mmol/L Normal 21.0-32.0 [facility] Comment on above: Performed By: #### C CORY, CMP #### [facility] [address] [place] [address] Dr. Sarthak Cleveland Creatinine [Mass/Vol] 0.83 mg/dL Normal 0.70-1.30 [facility] Comment on above: Performed By: #### C CORY, CMP #### [facility] [address] [place] [address] Dr. Sarthak Cleveland EGFR-AF MICRONESIAN >60 Normal >=60 The [facility] Comment on above: Performed By: #### C CORY, CMP #### [facility] [address] [place] [address] Dr. Sarthak Cleveland EGFR-NON AF MICRONESIAN >60 Normal >=60 [facility] Comment on above: Performed By: #### C CORY, CMP #### [facility] [address] [place] [address] Dr. Sarthak Cleveland Globulin (S) [Mass/Vol] 4.1 g/dL Normal [facility] Comment on above: Performed By: #### C CORY, CMP #### [facility] [address] [place] [address] Dr. Sarthak Cleveland Glucose [Mass/Vol] 89 mg/dL Normal 74-106 [facility] Comment on above: Performed By: #### C CORY, CMP #### [facility] [address] [place] [address] Dr. Sarthak Cleveland Potassium [Moles/Vol] 4.0 mmol/L Normal 3.5-5.1 [facility] Comment on above: Performed By: #### C CORY, CMP #### [facility] [address] [place] [address] Dr. Sarthak Cleveland Protein [Mass/Vol] 7.9 g/dL Normal 6.4-8.2 [facility] Comment on above: Performed By: #### C CORY, CMP #### [facility] [address] [place] [address] Dr. Sarthak Cleveland Sodium [Moles/Vol] 140 mmol/L Normal 136-145 [facility] Comment on above: Performed By: #### C CORY, CMP #### [facility] [address] [place] [address] Dr. Sarthak Cleveland Urea nitrogen [Mass/Vol] 12.0 mg/dL Normal 7.0-18.0 [facility] Comment on above: Performed By: #### Eliana RAY, CMP #### [facility] [address] [place] [address] Dr. Sarthak Cleveland Urea nitrogen/Creatinin e [Mass ratio] 14.5 mg/mg Normal [facility] Comment on above: Performed By: #### C CORY, CMP #### [facility] [address] [place] [address] Dr. Sarthak Cleveland TSHon 11-25-2022 TSH 1.919 uIU/mL Normal 0.358-3.740 [facility] Comment on above: Performed By: #### B MP, LIPID, ALT #### [facility] [address] [place] [address] SHOULDER LT WO CONon 05-10 CT SHOULDER LT WO CON EXAMINATION: CT SHOULDER LT WO CON HISTORY: Derangement of left shoulder joint COMPARISON: No relevant comparison available. TECHNIQUE: Multi-planar CT images were created without IV contrast. Dose reduction techniques were achieved by using automated exposure control and/or adjustment of mA and/or kV according to patient size and/or use of iterative reconstruction technique. FINDINGS: BONES: Moderate degenerative changes of the acromioclavicular joint resulting in mild narrowing of the acromial-humeral interval. Cartilage thinning with marked narrowing of the glenohumeral joint. SOFT TISSUES: Tear of the superior labrum. No appreciable full-thickness tear of the rotator cuff. EFFUSION: No intra-articular contrast within the subacromial-subdeltoid bursa. No joint effusion. OTHER: Negative. IMPRESSION: 1. Superior labral tear. 2. Moderate marked thinning of the glenohumeral articular cartilage. 3. Moderate degenerative change of the acromioclavicular joint. Electronically authenticated by: OLYA PEREYRA Date: 2022-05-27 19:58 Normal [facility] XR ARTHRO SHOULDER LTon 05-10 XR ARTHRO SHOULDER LT EXAMINATION: XR ARTHRO SHOULDER LT HISTORY: Derangement of left shoulder joint COMPARISON: No relevant comparison available. TECHNIQUE: An arthrogram was performed under fluoroscopic guidance using non-ionic contrast material in the usual sterile manner after obtaining informed consent. Standard level fluoroscopic mode of operation utilized. 0.6 minutes fluoroscopy time; 4 images. FINDINGS: JOINT: Left shoulder NEEDLE: 25 gauge, 3.5 spinal needle. MEDICATION: Approximately 8 mL injected into joint space consisting of a mixture of 5 cc Omnipaque-300, 5 cc 1% Xylocaine. TECHNIQUE: Anterior approach under fluoroscopic guidance. CLINICAL: Decreased pain following the injection (7/10 preinjection; 2/10 post injection). COMPLICATIONS: None. BONES: No fracture, significant osseous degenerative changes, or visible bone lesion. BURSA: No visible extension of contrast into the subacromial-subdeltoid bursa at this time. OTHER: Negative. IMPRESSION: 1. Technically successful arthrogram without complication. 2. Please see separate CT arthrogram report. Electronically authenticated by: OLYA PEREYRA Date: 2022-05-27 12:36 Normal [facility] CBC AUTO DIFFon 05-26-2022 BASO # 0.1 103/ul Normal 0.0-0.1 [facility] Comment on above: Performed By: #### B MP, LIPID, ALT #### [facility] [address] [place] [address] Dr. Sarthak Cleveland Basophils/100 WBC (Bld) 0.6 % Normal 0.2-2.0 [facility] Comment on above: Performed By: #### B MP, LIPID, ALT #### [facility] [address] [place] [address] Dr. Sarthak Cleveland EO # 0.2 103/ul Normal 0.0-0.7 [facility] Comment on above: Performed By: #### B MP, LIPID, ALT #### [facility] [address] [place] [address] Dr. Sarthak Cleveland Eosinophils/100 WBC (Bld) 2.4 % Normal 0.9-7.0 [facility] Comment on above: Performed By: #### B MP, LIPID, ALT #### [facility] [address] [place] [address] Dr. Sarthak Cleveland Erythrocyte distribution width (RBC) [Ratio] 12.6 % Normal 11.0-15.0 [facility] Comment on above: Performed By: #### B MP, LIPID, ALT #### [facility] [address] [place] [address] Dr. Sarthak Cleveland Hematocrit (Bld) [Volume fraction] 46.1 % Normal 42.0-54.0 [facility] Comment on above: Performed By: #### B MP, LIPID, ALT #### [facility] [address] [place] [address] Dr. Sarthak Cleveland Hemoglobin (Bld) [Mass/Vol] 15.0 g/dL Normal 14.0-18.0 [facility] Comment on above: Performed By: #### B MP, LIPID, ALT #### [facility] [address] [place] [address] Dr. Sarthak Cleveland IG # 0.07 10e3/ul Critically high 0.00-0.03 [facility] Comment on above: Performed By: #### B MP, LIPID, ALT #### [facility] [address] [place] [address] Dr. Sarthak Cleveland IG % 0.9 % Critically high 0.0-0.5 The [facility] Comment on above: Performed By: #### B MP, LIPID, ALT #### [facility] [address] [address] [address] Sarthak Cleveland LYMPH # 1.9 103/ul Normal 1.2-3.8 [facility] Comment on above: Performed By: #### B MP, LIPID, ALT #### [facility] [address] [address] [address] Sarthak Cleveland Lymphocytes/100 WBC (Bld) 22.7 % Normal 20.5-60.0 [facility] Comment on above: Performed By: #### B MP, LIPID, ALT #### [facility] [address] [address] [address] Sarthak Cleveland MANUAL DIFF REQ NO Normal The [facility] Comment on above: Performed By: #### B MP, LIPID, ALT #### [facility] [address] [place] [address] Dr. Sarthak Cleveland MCH (RBC) [Entitic mass] 31.6 pg Normal 25.9-34.0 [facility] Comment on above: Performed By: #### B MP, LIPID, ALT #### [facility] [address] [place] [address] Dr. Sarthak Cleveland MCHC (RBC) [Mass/Vol] 32.5 g/dL Normal 29.9-35.2 [facility] Comment on above: Performed By: #### B MP, LIPID, ALT #### [facility] [address] [place] [address] Dr. Sarthak Cleveland MCV (RBC) [Entitic vol] 97.1 fL Critically high 80.0-94.0 [facility] Comment on above: Performed By: #### B MP, LIPID, ALT #### [facility] [address] [place] [address] Dr. Sarthak Cleveland MONO # 1.0 103/ul Critically high 0.3-0.8 The [facility] Comment on above: Performed By: #### B MP, LIPID, ALT #### [facility] [address] [place] [address] Dr. Sarthak Cleveland Monocytes/100 WBC (Bld) 11.8 % Normal 1.7-12.0 [facility] Comment on above: Performed By: #### B MP, LIPID, ALT #### [facility] [address] [address] [address] Sarthak Cleveland NEUT # 5.1 103/ul Normal 1.4-6.5 [facility] Comment on above: Performed By: #### B MP, LIPID, ALT #### [facility] [address] [place] [address] Dr. Sarthak Cleveland Neutrophils/100 WBC (Bld) 61.6 % Normal 43.0-75.0 [facility] Comment on above: Performed By: #### B MP, LIPID, ALT #### [facility] [address] [place] [address] Dr. Sarthak Cleveland Platelet mean volume (Bld) [Entitic vol] 10.4 fL Normal 9.5-13.5 [facility] Comment on above: Performed By: #### B MP, LIPID, ALT #### [facility] [address] [place] [address] Dr. Sarthak Cleveland PLT 243 103/ul Normal 150-450 [facility] Comment on above: Performed By: #### B MP, LIPID, ALT #### [facility] [address] [place] [address] Dr. Sarthak Cleveland RBC 4.75 106/ul Normal 4.70-6.10 [facility] Comment on above: Performed By: #### B MP, LIPID, ALT #### [facility] [address] [place] [address] Dr. Sarthak Cleveland WBC 8.2 103/ul Normal 4.0-11.0 [facility] Comment on above: Performed By: #### B MP, LIPID, ALT #### [facility] [address] [place] [address] Dr. Sarthak Cleveland LIPID PROFILEon 05-26-2022 CHOL-HDL RATIO NORM SEE BELOW Normal [facility] Comment on above: Result Comment: 3.3 - 4.4 LOW RISK 4.4 - 7.1 AVERAGE RISK 7.1 - 11.0 MODERATE RISK >11.0 HIGH RISK Performed By: #### B MP, LIPID, ALT #### [facility] [address] [address] [address] Sarthak Cleveland Cholesterol [Mass/Vol] 309 mg/dL Critically high <=200 [facility] Comment on above: Performed By: #### B MP, LIPID, ALT #### [facility] [address] [address] [address] Sarthak Cleveland Cholesterol in HDL [Mass/Vol] 46 mg/dL Normal 40-60 [facility] Comment on above: Performed By: #### B MP, LIPID, ALT #### [facility] [address] [address] [address] Sarthak Cleveland Cholesterol in LDL [Mass/Vol] 242.6 mg/dL Normal [facility] Comment on above: Performed By: #### B MP, LIPID, ALT #### [facility] [address] [address] [address] Sarthak Cleveland Cholesterol.total/ Cholesterol in HDL [Mass ratio] 6.7 {ratio} Normal [facility] Comment on above: Performed By: #### B MP, LIPID, ALT #### [facility] [address] [address] [address] Sarthak Cleveland HDL NORMAL > or = 60 mg/dl - LO W CARDIOVASCULAR RISK <40 mg/dl - HIGH CARDIOVASCULAR RISK Normal [facility] Comment on above: Performed By: #### B MP, LIPID, ALT #### [facility] [address] [address] [address] Sarthak Cleveland LDL CALC NORMAL SEE BELOW Normal The [facility] Comment on above: Result Comment: <100 mg/dl OPTIMAL 100 - 129 mg/dl NEAR OR ABOVE OPTIMAL 130 - 159 mg/dl BORDERLINE HIGH 160 - 189 mg/dl HIGH >190 mg/dl VERY HIGH Performed By: #### B MP, LIPID, ALT #### [facility] [address] [address] [address] Sarthak Cleveland Triglyceride [Mass/Vol] 102 mg/dL Normal <=150 [facility] Comment on above: Performed By: #### B MP, LIPID, ALT #### [facility] [address] [address] [address] Sarthak Cleveland VLDL CALC 20.4 mg/dL Normal [facility] Comment on above: Performed By: #### B MP, LIPID, ALT #### [facility] [address] [address] [address] Sarthak Cleveland PROF CHEM 8 (BAS METB)on Anion gap [Moles/Vol] 11.6 mmol/L Normal [facility] Comment on above: Performed By: #### B MP, LIPID, ALT #### [facility] [address] [place] [address] Dr. Sarthak Cleveland Calcium [Mass/Vol] 8.7 mg/dL Normal 8.5-10.1 [facility] Comment on above: Performed By: #### B MP, LIPID, ALT #### [facility] [address] [place] [address] Dr. Sarthak Cleveland Chloride [Moles/Vol] 104 mmol/L Normal 98-107 [facility] Comment on above: Performed By: #### B MP, LIPID, ALT #### [facility] [address] [place] [address] Dr. Sarthak Cleveland CO2 [Moles/Vol] 28.7 mmol/L Normal 21.0-32.0 The [facility] Comment on above: Performed By: #### B MP, LIPID, ALT #### [facility] [address] [place] [address] Dr. Sarthak Cleveland Creatinine [Mass/Vol] 0.84 mg/dL Normal 0.70-1.30 [facility] Comment on above: Performed By: #### B MP, LIPID, ALT #### [facility] [address] [place] [address] Dr. Sarthak Cleveland EGFR-AF MICRONESIAN >60 Normal >=60 The [facility] Comment on above: Performed By: #### B MP, LIPID, ALT #### [facility] [address] [place] [address] Dr. Sarthak Cleveland EGFR-NON AF MICRONESIAN >60 Normal >=60 [facility] Comment on above: Performed By: #### B MP, LIPID, ALT #### [facility] [address] [address] [address] Sarthak Cleveland Glucose [Mass/Vol] 115 mg/dL Critically high 74-106 [facility] Comment on above: Performed By: #### B MP, LIPID, ALT #### [facility] [address] [place] [address] Dr. Sarthak Cleveland Potassium [Moles/Vol] 4.3 mmol/L Normal 3.5-5.1 [facility] Comment on above: Performed By: #### B MP, LIPID, ALT #### [facility] [address] [place] [address] Dr. Sarthak Cleveland Sodium [Moles/Vol] 140 mmol/L Normal 136-145 [facility] Comment on above: Performed By: #### B MP, LIPID, ALT #### [facility] [address] [place] [address] Dr. Sarthak Cleveland Urea nitrogen [Mass/Vol] 9.0 mg/dL Normal 7.0-18.0 [facility] Comment on above: Performed By: #### B MP, LIPID, ALT #### [facility] [address] [place] [address] Dr. Sarthak Cleveland Urea nitrogen/Creatinin e [Mass ratio] 10.7 mg/mg Normal [facility] Comment on above: Performed By: #### B MP, LIPID, ALT #### [facility] [address] [place] [address] Dr. Sarthak Cleveland PTon 05-26-2022 ALT [Catalytic activity/Vol] 20 U/L Normal 16-63 [facility] Comment on above: Performed By: #### B MP, LIPID, ALT #### [facility] [address] [place] [address] Dr. Sarthak Cleveland [facility] SARS-CoV-2 (COVID-19) RNA LILIANA+probe Ql (Unsp spec) Not detected Normal NOT DETECTED [facility] Comment on above: Result Comment: This test is not yet approved or cleared by the [place] FDA. When there are no FDA-approved or cleared tests available, and other criteria are met, FDA can make tests available under an emergency access mechanism called an Emergency Use Authorization (EUA). The EUA for this test is supported by the Filing Machine Operator of Health and Human Service's (HHS's) declaration that circumstances exist to justify the emergency use of in vitro diagnostics for the detection and/or diagnosis of the virus that causes COVID-19. This EUA will remain in effect (meaning this test can be used) for the duration of the COVID-19 declaration justifying emergency of IVDs, unless it is terminated or revoked by FDA (after which the test may no longer be used). When diagnostic testing is negative, the possibility of a false negative should be considered in the context of a patient's recent exposures and the presence of clinical signs and symptoms consistent with SARS-CoV-2. Performed By: #### [facility] #### [facility] [address] [place] [address] Dr. Sarthak Cleveland RAD - MISCon 03-24-2022 RAD - MIS [id number]: 127 Normal [facility] Ambulatory Visit Summaryon 0 03-21-2022 Ambulatory Visit Summary DON NATION :1955 Visit Date:03/21/2022 Ambulatory Visit Instructions Your Diagnosis BPH without urinary obstruction Kidney stone Tests Performed Urnls Dip Stick Auto w/o Microscopy POC 16648 Your Care Team Attending Physician - Salomon PITTS MD Primary Care Physician - TAO MARTINES DO This Is Your Medications List alfuzosin (alfuzosin 10 mg ER Tab) hydrochlorothiazide (hydrochlorothiazide 12.5 mg Cap) potassium citrate (potassium CITRATE 10 mEq ER Tab) Contact prescribing physician if questions or concerns atenolol benazepril ezetimibe (Zetia) omega-3 polyunsaturated fatty acids (Fish Oil) omeprazole pantoprazole (Protonix) Procedures Performed Fluoroscopy guided ESWL (extracorporeal shockwave lithotripsy) of calculus of right kidney (02/23/2020), ESWL of kidney, Left total orchiectomy, Reconstruction of facial bones, Repair of sliding inguinal hernia. Discharge Vitals Heart Rate (Peripheral) 79 Respiratory Rate 16 Blood Pressure 137/83 Height 175.0 cm Height 175 cm Weight 74.0 kg Weight 74 kg BMI 24.16 What to do next You Need to Schedule the Following Appointments Follow Up with KELBY PULIDO, CLIFF Mario When: In 3 months Comments: f/up new med Where: [address] [place] [id number]- Medications What How Much When Instructions New alfuzosin (alfuzosin 10 mg ER Tab) 1 Tablets By Mouth Every day Refills: 11 Pickup at [facility]/pharmacy #[id number] Unchanged hydrochlorothiazide (hydrochlorothiazide 12.5 mg Cap) 1 Capsules By Mouth Every day Unchanged potassium citrate (potassium CITRATE 10 mEq ER Tab) 2 Tablets By Mouth 2 times a day Duration: 90 Days Unchanged atenolol By Mouth Every day Contact prescribing physician if questions or concerns Unchanged benazepril By Mouth Every day Contact prescribing physician if questions or concerns Unchanged ezetimibe (Zetia) By Mouth Every day Contact prescribing physician if questions or concerns Unchanged omega-3 polyunsaturated fatty acids (Fish Oil) By Mouth Contact prescribing physician if questions or concerns Unchanged omeprazole By Mouth Every day Contact prescribing physician if questions or concerns Unchanged pantoprazole (Protonix) By Mouth Every day Contact prescribing physician if questions or concerns Pharmacy Information [facility]/pharmacy #[id number]: [address], [place] [id number] [phone] Test Results Urnls Dip Stick Auto w/o Microscopy POC 18001 (03/21/2022) Bilirubin Urine Dipstick - Negative Blood Urine Dipstick - Negative Glucose Urine Dipstick - Negative Ketones Urine Dipstick - Negative Leukocytes Urine Dipstick - Negative Nitrite Urine Dipstick - Negative Protein Urine Dipstick - Negative Specific Webster Urine Dipstick - 1.010 Urine Appearance Urine Dipstick - Clear Urine Color Urine Dipstick - Yellow Urobilinogen Urine Dipstick - Normal 0.2-1 EU/dl pH Urine Dipstick - 7 Allergies Vicodin (Nausea) codeine (Nausea) Problems Ongoing - Any problem that you are currently receiving treatment for. BPH without urinary obstruction Kidney stone Historical - Any problem that you are no longer receiving treatment for. Gastro-esophageal reflux Hyperlipidemia Hypertension Education [employer] Benign Prostatic Hyperplasia Benign prostatic hyperplasia (BPH) is an enlarged prostate gland that is caused by the normal aging process and not by cancer. The prostate is a walnut-sized gland that is involved in the production of semen. It is located in front of the rectum and below the bladder. The bladder stores urine and the urethra is the tube that carries the urine out of the body. The prostate may get bigger as a man gets older. An enlarged prostate can press on the urethra. This can make it harder to pass urine. The build-up of urine in the bladder can cause infection. Back pressure and infection may progress to bladder damage and kidney (renal) failure. What are the causes? This condition is part of a normal aging process. However, not all men develop problems from this condition. If the prostate enlarges away from the urethra, urine flow will not be blocked. If it enlarges toward the urethra and compresses it, there will be problems passing urine. What increases the risk? This condition is more likely to develop in men over the age of 50 years. What are the signs or symptoms? Symptoms of this condition include: ? Getting up often during the night to urinate. ? Needing to urinate frequently during the day. ? Difficulty starting urine flow. ? Decrease in size and strength of your urine stream. ? Leaking (dribbling) after urinating. ? Inability to pass urine. This needs immediate treatment. ? Inability to completely empty your bladder. ? Pain when you pass urine. This is more common if there is also an infection. ? Urinary tract infection (UTI). How is this (more content not included)... Normal [facility] Patient Educationon 03-21-20 Patient Education Urology Benign Prostatic Hyperplasia Benign prostatic hyperplasia (BPH) is an enlarged prostate gland that is caused by the normal aging process and not by cancer. The prostate is a walnut-sized gland that is involved in the production of semen. It is located in front of the rectum and below the bladder. The bladder stores urine and the urethra is the tube that carries the urine out of the body. The prostate may get bigger as a man gets older. An enlarged prostate can press on the urethra. This can make it harder to pass urine. The build-up of urine in the bladder can cause infection. Back pressure and infection may progress to bladder damage and kidney (renal) failure. What are the causes? This condition is part of a normal aging process. However, not all men develop problems from this condition. If the prostate enlarges away from the urethra, urine flow will not be blocked. If it enlarges toward the urethra and compresses it, there will be problems passing urine. What increases the risk? This condition is more likely to develop in men over the age of 50 years. What are the signs or symptoms? Symptoms of this condition include: ? Getting up often during the night to urinate. ? Needing to urinate frequently during the day. ? Difficulty starting urine flow. ? Decrease in size and strength of your urine stream. ? Leaking (dribbling) after urinating. ? Inability to pass urine. This needs immediate treatment. ? Inability to completely empty your bladder. ? Pain when you pass urine. This is more common if there is also an infection. ? Urinary tract infection (UTI). How is this diagnosed? This condition is diagnosed based on your medical history, a physical exam, and your symptoms. Tests will also be done, such as: ? A post-void bladder scan. This measures any amount of urine that may remain in your bladder after you finish urinating. ? A digital rectal exam. In a rectal exam, your health care provider checks your prostate by putting a lubricated, gloved finger into your rectum to feel the back of your prostate gland. This exam detects the size of your gland and any abnormal lumps or growths. ? An exam of your urine (urinalysis). ? A prostate specific antigen (PSA) screening. This is a blood test used to screen for prostate cancer. ? An ultrasound. This test uses sound waves to electronically produce a picture of your prostate gland. Your health care provider may refer you to a specialist in kidney and prostate diseases (urologist). How is this treated? Once symptoms begin, your health care provider will monitor your condition (active surveillance or watchful waiting). Treatment for this condition will depend on the severity of your condition. Treatment may include: ? Observation and yearly exams. This may be the only treatment needed if your condition and symptoms are mild. ? Medicines to relieve your symptoms, including: ? Medicines to shrink the prostate. ? Medicines to relax the muscle of the prostate. ? Surgery in severe cases. Surgery may include: ? Prostatectomy. In this procedure, the prostate tissue is removed completely through an open incision or with a laparoscope or robotics. ? Transurethral resection of the prostate (TURP). In this procedure, a tool is inserted through the opening at the tip of the penis (urethra). It is used to cut away tissue of the inner core of the prostate. The pieces are removed through the same opening of the penis. This removes the blockage. ? Transurethral incision (TUIP). In this procedure, small cuts are made in the prostate. This lessens the prostate's pressure on the urethra. ? Transurethral microwave thermotherapy (TUMT). This procedure uses microwaves to create heat. The heat destroys and removes a small amount of prostate tissue. ? Transurethral needle ablation (TUNA). This procedure uses radio frequencies to destroy and remove a small amount of prostate tissue. ? Interstitial laser coagulation (ILC). This procedure uses a laser to destroy and remove a small amount of prostate tissue. ? Transurethral electrovaporization (TUVP). This procedure uses electrodes to destroy and remove a small amount of prostate tissue. ? Prostatic urethral lift. This procedure inserts an implant to push the lobes of the prostate away from the urethra. Follow these instructions at home: ? Take [id number] and prescription medicines only as told by your health care provider. ? Monitor your symptoms for any changes. Contact your health care provider with any changes. ? Avoid drinking large amounts of liquid before going to bed or out in public. ? Avoid or reduce how much caffeine or alcohol you drink. ? Give yourself time when you urinate. ? Keep all follow-up visits as told by your health care provider. This is important. Contact a health care provider if: ? You have unexplained back pain. ? Your symptoms do not get better with treatment. ? You d (more content not included)... [facility] 03-21-2022 Screens [id number]: 127 [facility] Urology Office/Clinic Noteon 03-21-2022 Urology Office/Clinic Note Chief Complaint 10 month follow up with KUB HPI Staff Don is here today for a a 10 month follow up with KULuis. KUB done on 03/20/22 at [facility] impression showed small scattered stable bilateral nephrolithiasis. Previous DX: Kidney stones and BPH without urinary obstruction. S?P ESWL done on 02/23/20. Pt is taking potassium citrate but only takes one pill once a day and HCTZ. Dysuria: _Denies Incomplete bladder emptying: _Denies Hematuria: _Denies Frequency: _Denies Urgency: _Denies Nocturia: _1x Stream: _noticed his stream getting a little weaker but states he does empty Leaking: _Denies Post void dripping: _rare Wearing pads/ Depends: _Denies Urge incontinence: _Denies Stress incontinence: _Denies Incontinence without Sensory Awareness: _Denies Abdominal pain: _Denies Flank pain: _Denies Sexual complaints: _ History of Present Illness Tests reviewed: reviewed UA and KUB. I have reviewed the previous health record information and history for this patient from Dr. Pitts. I have reviewed and verified the staff HPI to be accurate for this encounter. There have been no associated fever, chills, flank pain, or blood in the urine. Denies any urinary infections since last encounter. Review of Systems PHQ Score Initial Depression Screen Score: 0 ROS - Provider Constitutional: denies weight loss, denies hot flashes. Eyes: denies eye problems. Gastrointestinal: denies nausea, denies vomiting. Cardiovascular: denies chest pain or angina. Integumentary: no dryness Musculoskeletal: denies musculoskeletal symptoms. ENMT: denies otolaryngeal symptoms. Respiratory: no shortness of breath. Heme/Lymph: denies easy bleeding tendency, denies easy bruising tendency. Psychiatric: no confusion, no anxiety. Genitourinary: denies dysuria, denies hematuria, denies discharge, denies urinary frequency, denies urinary hesitancy, denies nocturia, denies incontinence, denies genital sores, denies decreased libido, and denies erectile dysfunction. Physical Exam Vitals & Measurements HR: 79(Peripheral) RR: 16 BP: 137/83 HT: 175.0 cm HT: 175 cm WT: 74.0 kg WT: 74 kg BMI: 24.16 General Appearance: alert, no distress, well nourished, well developed male. Genitourinary: normal scrotum, normal testes, normal urethra, normal epididymis, normal vas deferens/spermatic cord. Flank Pain: none. Bladder: nonpalpable. Assessment/Plan 1. BPH without urinary obstruction (N40.0: Benign prostatic hyperplasia without lower urinary tract symptoms) Pt c/o weak stream. Last documented PSA 1.19 drawn 05/2020, pt states he gets it checked annually along with ANNELIESE checks by Dr. Martines. Pt unsure of what the most recent PSA is, will obtain records. IPSS today; 11. Urine clear for infection. Will start Alfuzosin 10mg qd. Discussed the medication side effects, and the patient will monitor closely for these, as well as for symptom improvement. If severe side effects occur, the medication should be stopped and the office notified. [facility] in [place]. All questions/concerns were discussed. Pt. to call the office if he encounters any issues prior. Pt. acknowledges understanding. Will return in 3 months. 2. Kidney stone (N20.0: Calculus of kidney) S/p Rt. ESWL 02/2020. KUB 03/20/22 shows small scattered stable bilat. nephrolithiasis. Pt continues taking HCTZ 12.5mg qd. Pt states shortly after he started Potassium Citrate he passed several stones. Potassium Citrate was prescribed 10mEq 2 tabs BID but pt states when he was taking the prescribed dosage he was having an upset stomach, he decreased to one tab daily. Recommended to increase potassium citrate to BID. Pt to call if this causes an upset stomach. Follow-up With When Contact Information KELBY PULIDO, CL[place] Mario In [address] [place] [address]- Additional Instructions: f/up new med Patient Education Benign Prostatic Hyperplasia IHiwot, personally scribed for Dr. Pitts on 03/21/2022 10:40:40. . Documentation recorded by the scribeHiwot, accurately reflects the services(s) I performed and decisions made by me. Authenticated by Dr. Pitts on 03/21/2022 10:41:49. Problem List/Past Medical History Ongoing BPH without urinary obstruction Kidney stone Historical Gastro-esophageal reflux Hyperlipidemia Hypertension Procedure/Surgical History Fluoroscopy guided ESWL (extracorporeal shockwave lithotripsy) of calculus of right kidney (02/23/2020), ESWL of kidney, Left total orchiectomy, Reconstruction of facial bones, Repair of sliding inguinal hernia. Medications atenolol, Oral, Daily benazepril, Oral, Daily Fish Oil, Oral hydrochlorothiazide 12.5 mg Cap, 12.5 mg= 1 cap(s), Oral, Daily, 3 refills omeprazole, Oral, Daily potassium CITRATE 10 mEq ER Tab, 20 mEq= 2 tab(s), Oral, BID, 3 refills Protonix, Oral, Daily Zetia, Oral, Daily Allergies Vicodin (Naus (more content not included)... [facility] Comment on above: Result Comment: Elec tronically Signed By: Salomon PITTS MD\.br\Date and Time Signed: 03/21/22 10:41 EDT\.br\Electronically Co-Signed By: Hiwot Blank\.br\Date and Time Co-Signed: 03/21/22 10:40 EDT XR KUB 1 VIEWon 03-20-2022 XR KUB 1 VIEW EXAMINATION: XR KUB 1 VIEW HISTORY: Kidney stone COMPARISON: 05/18/2021 FINDINGS: KIDNEY/URETER - RIGHT: Stable nephrolithiasis KIDNEY/URETER - LEFT: Stable punctate nephrolithiasis PELVIS: No visible ureteral calcifications. Any visible calcifications favor phleboliths. BOWEL: No abnormal dilation or deviation. BONES: Lumbosacral decompression and transpedicular fusion OTHER: Negative. No abnormal gaseous collections. IMPRESSION: Small scattered stable bilateral nephrolithiasis Electronically authenticated by: GLORIA JETT Date: 2022-03-20 18:33 Normal [facility] Vital Signs Date Time Vital Sign Value Performing Clinician Facility 05-25-2023 10:00-0400 Body height 175.26 cm [facility] Other [facility] Other 05-25-2023 10:00-0400 Body mass index (BMI) [Ratio] 25.6 kg/m2 [facility] Other [facility] Other 05-25-2023 10:00-0400 Body weight 78.65 kg [facility] Other [facility] Other 05-25-2023 10:00-0400 Diastolic blood pressure 76 mm[Hg] [facility] [employer] Other [facility] Other 05-25-2023 10:00-0400 Respiratory rate 12 /min Tao Ball Other [facility] Other 05-25-2023 10:00-0400 Systolic blood pressure 120 mm[Hg] Tao Ball Other [facility] Other 11-28-2022 11:00-0400 Body height 175.26 cm Tao Ball Other [facility] Other 11-28-2022 11:00-0400 Body mass index (BMI) [Ratio] 24.36 kg/m2 Tao Ball Other [facility] Other 11-28-2022 11:00-0400 Body weight 74.84 kg Tao Ball Other [facility] Other 11-28-2022 11:00-0400 Diastolic blood pressure 76 mm[Hg] Tao Ball Other [facility] Other 11-28-2022 11:00-0400 Respiratory rate 12 /min Tao Ball Other [facility] Other 11-28-2022 11:00-0400 Systolic blood pressure 122 mm[Hg] Tao Ball Other [facility] Other 09-16-2022 15:15-0500 Body height 175.26 cm Tao Ball Other [facility] Other 09-16-2022 15:15-0500 Body mass index (BMI) [Ratio] 24.45 kg/m2 Tao Ball Other [facility] Other 09-16-2022 15:15-0500 Body weight 75.12 kg Tao Ball Other [facility] Other 09-16-2022 15:15-0500 Diastolic blood pressure 70 mm[Hg] Tao Martines Other [facility] Other 09-16-2022 15:15-0500 Respiratory rate 12 /min Tao Martines Other [facility] Other 09-16-2022 15:15-0500 Systolic blood pressure 118 mm[Hg] Tao Martines Other [facility] Other 03-21-2022 09:54-0400 Blood Pressure Location Salomon [employer] [facility] 03-21-2022 09:54-0400 Diastolic blood pressure 83 mm[Hg] Salomon PITTS [facility] 03-21-2022 09:54-0400 Heart rate 79 /min [facility] [employer] [facility] 03-21-2022 09:54-0400 Respiratory rate 16 /min Salomon PITTS [facility] [place] 03-21-2022 09:54-0400 Systolic blood pressure 137 mm[Hg] [facility]omon PITTS [facility] En[facility]ters Encounter Date Encounter Type Care Provider Facility Start: 07-14-2023 End: 07-14-2023 ambulatory Tao Martines Other [facility] Other Start: 07-14-2023 Office outpatient vi sit 15 minutes [facility]ines [facility] Start: 05-28-2023 End: 05-28-2023 ambulatory Tao Martines Other [facility] Other Start: 05-28-2023 Telephone encounter Tao Martines [facility] Start: 05-25-2023 End: 05-25-2023 ambulatory Tao Martines Other [facility] Other Start: 05-25-2023 Patient encounter procedure Tao Martines [facility] Start: 05-04-2023 End: 05-04-2023 ambulatory Tao Martines Other [facility] Other Start: 05-04-2023 Telephone encounter Tao Martines ROB Martines [facility] Start: 12-09-2022 End: 01-07-[address] TAO MARTINES Facility:[facility] Start: 11-28-2022 End: 11-28-2022 ambulatory Tao Martines Other [facility] Other Start: 11-28-2022 Office outpatient vi sit 25 minutes Tao Martines [facility] Start: 11-25-2022 End: 11-26-[address] TAO MARTINES Facility:[facility] Start: 09-16-2022 End: 09-16-2022 ambulatory Tao Martines Other [facility] Other Start: 09-16-2022 Office outpatient vi sit 15 minutes Tao Martines [facility] Start: 08-10-2022 End: 11-08-[address] TAO MARTINES Facility:[facility] Start: 07-30-2022 End: 08-09-2022 ambulatory MR SAMIR JACOBSON . Facility:[facility] Start: 07-11-2022 ambulatory MD Salomon PITTS Fac ility:[facility] Start: 07-10-[address] KIM LARA . Faci lity:[facility] Start: 05-27-2022 End: 05-27-[address] ZACH TYSON Facility:[facility] Start: 05-26-2022 End: 05-27-[address] TAO MARTINES Facility:[facility] Start: 05-22-2022 End: 10-14-[address] KIM LARA . Facility:[facility] Start: 05-22-2022 Adult health examination Eliezer Martines Other [facility] Other Start: 05-06-2022 Encounter for preprocedural laboratory examination DR KIM LARA . [facility] Start: 05-06-2022 End: 05-06-[address] KIM LARA . Facility:[facility] Start: 05-02-2022 End: 05-03-[address] KIM LARA . Facility:[facility] Start: 05-02-2022 End: 05-03-2022 Encounter for preprocedural laboratory examination DR KIM LARA . Facility: Start: 03-21-2022 End: 03-22-2022 ambulatory MD Salomon PITTS Facility:[facility] Start: 03-21-2022 End: 03-21-2022 Patient encounter procedure Salomon PITTS [facility] Start: 03-20-2022 End: 03-21-[address] SALOMON PITTS . Facility: Start: 03-14-[address] KIM LARA . Faci lity:[facility] Start: 02-18-2022 End: 02-19-[address] KIM LARA . Facility: Start: 05-14-2020 End: 05-14-2020 Preoperative cardiovascular examination Tao Martines Other [facility] [email or web address] Other Procedures Date Procedure Procedure Detail Performing Clinician Start: 05-26-[address] ZACH TYSON Comment on above: Performed By: #### B MP, LIPID, ALT #### [facility] [address] [place] [address] Dr. Sarthak Cleveland Start: 02-23-2020 Fluoroscopy guided extracorporeal shockwave lithotripsy of calculus of right kidney Salomon PITTS Comment on above: 2012 Start: 05-02-2016 Screening for malign ant neoplasm of colon Tao Martines Other Start: 05-02-2016 Screening for malign ant neoplasm of prostate Tao Martines Other Start: 03-28-2015 General examination of patient Tao Martines Other Depression screening Valerie Martines Other Extracorporeal shock wave lithotripsy of calculus of kidney Salomon PITTS Left total orchidectomy Patr sasha PITTS Reconstruction of fa cial bones Salomonpatrick PITTS Repair of sliding in guinal hernia Salomon PITTS Screening for malign ant neoplasm of prostate Tao Martines Other Immunizations Immunization Date Immunization Notes Care Provider Shannan meier 06-02-2023 Prevnar 20 Tao Martines Other [facility] Other 05-25-2023 influenza, high dose seasonal, preservative-free Tao Martines Other [facility] Other 05-22-2022 influenza virus vaccine, split virus (incl. purified surface antigen) aTo Martines Other [facility] Other 05-21-2021 influenza virus vaccine, split virus (incl. purified surface antigen) Tao Martines Other [facility] Other Payers Date Payer Category Payer Medicare [id number] 2.1 [id number] 1959 Unknown [id number] 1959 Unknown [id number] [id number] 1955 Unknown [id number] 2.16.8 [id number] 1955 Unknown [id number] 2.16.8 40.1.027489.3.579.2.727 1955 Unknown [id number] 2.16.84 0.1.639835.3.579.2.593 1955 Unknown [id number] 2.16.84 0.1.843692.3.579.2.593 1955 Unknown [id number] 2.16.84 0.1.261780.3.579.2.593 1955 Unknown [id number] 2.16.84 0.1.117536.3.579.2.593 1955 Unknown [id number] 2.16.84 0.1.347558.3.579.2.593 1955 Unknown [id number] 2.16.84 0.1.607049.3.579.2.593 1955 Unknown [id number] 2.16.84 0.1.594652.3.579.2.593 1955 Unknown [id number] 2.16.84 0.1.305514.3.579.2.593 1955 Unknown [id number] 2.16.84 0.1.542585.3.579.2.593 1955 Unknown [id number] 2.16.84 0.1.707260.3.579.2.593 1955 Unknown [id number] 2.16.84 0.1.177538.3.579.2.593 1955 Unknown [id number] 2.16.84 0.1.635073.3.579.2.593 1955 Unknown [id number] 2.16.84 0.1.569546.3.579.2.593 Social History Date Type Detail Facility Start: 03-21-2022 Tobacco smoking status Never s moked tobacco (finding) [facility] Sex Assigned At Male [facility] Functional Status Date Assessment Result Facility 03-21-2022 Functional Status N/A [facility] Clinical Notes 02-18-2022 to 07-14-2023 Note Date & Type Note Facility 07-14-2023 Evaluation note Encounter Date Diagnosis Assessment Notes Jul, COVID-19 (ICD-10 - U07.1) Instructed to use Robitussin or Mucinex for cough, saline or Flonase NS for congestion, Tylenol for pain and fever. Self isolate at home. - Cannot work - avoid contact with others - avoid pets - wipe counters, door knobs if touched - if can't avoid leaving home, must wear mask to protect others - need to stay isolated for 10 days from onset of symptoms - to discontinue isolation must be 5 days AND must be without fever for 24 hours AND symptoms must be improving. Always wear a mask in public places for complete 10 days Jul, Primary hypertension (ICD-10 - I10) Increases risk of complications. Avoid NSAIDs and Sudafed This patient is instructed to consume a healthy, low-fat, low-salt diet. They are also encouraged to continue exercise to achieve/mainta in a normal BMI. [facility] Other 10-19-2023 Evaluation note* Encounter Date Diagnosis Assessment Notes Treatment Notes Treatment Clinical Notes May, Elevated cholesterol (ICD-10 - E78.00) [facility] Other 10-16-2023 Evaluation note* Encounter Date Diagnosis Assessment Notes Treatment Notes Treatment Clinical Notes May, Medicare annual wellness visit, initial (ICD-10 - Z00.00) Personalized health advice was given to the beneficiary including a written plan for screenings discussed and provided. Advanced care planning reviewed and/or information given as requested. Additional counseling was provided here today in regards to, [ ]. The above visit was performed by [ ] under direct supervision of [ ]. Document reviewed and amended by provider signed below. May, IFG (impaired fastin g glucose) (ICD-10 - R73.01) This patient is following a comprehensive diabetic treatment plan. They are checking their feet daily for calluses and nonhealing ulcers. They are being seen for yearly dilated eye examinations. Goals: SBP less than 130, LDL less than 100, FBS less than 140, A1C less than 7%. May, Essential hypertension (ICD-10 - I10) This patient is instructed to consume a healthy, low-fat, low-salt diet. They are also encouraged to continue exercise to achieve/maintain a normal BMI. May, Hyperlipidemia type II (ICD-10 - E78.01) Instructed on diet and exercise with continued statin therapy.Discussed the beneficial effects of lowering cholesterol in reducing the risk for cerebrovascular and cardiovascular disease. May, Palpitation (ICD-10 - R00.2) Avoid stimulants, continue BB May, Gastroesophageal reflux disease with esophagitis without hemorrhage (ICD-10 - K21.00) Diet instructions: Smaller portions, avoid eating and laying flat, avoid eating or drinking prior to bedtime. Weight loss. 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 They are also encouraged to continue exercise to achieve/maintain a normal BMI. Nov, Hyperlipidemia type II (ICD-10 - E78.01) Diet and exercise with continued statin therapy. Nov, Palpitation (ICD-10 - R00.2) No change on telemetry in ER. Continue present meds. Completed Holter in past w/o serious dysrhythmias Nov, Gastroesophageal reflux disease with esophagitis without hemorrhage (ICD-10 - K21.00) Diet instructions: Smaller portions, avoid eating and laying flat, avoid eating or drinking prior to bedtime. Weight loss. Nov, Chest pressure (ICD-10 - R07.89) Stress test once shoulder therapy completed. 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 They are also encouraged to continue exercise to achieve/maintain a normal BMI. [facility] Other 10-13-2022 NoteCONSULTATION CONSULTATION DATE: 05/22/2022 This is a 66-year-old gentleman returning to the clinic status post caudal epidural steroid injection completed on 05/06/2022. The patient had 100% relief and it is ongoing. He is complaining of 7 out of 10 pain today; however, to his left shoulder. He is seeing Dr. Caon for the shoulder and it was noted per imaging he has multiple tears in both . He has a pending shoulder arthroscopy procedure but it is not scheduled yet. Medications currently include antihypertensive and CBD topical rubs. He stopped NSAIDs and Tylenol secondary to GI distress. The patient has no aggravating factors to his back at this time. REVIEW OF SYSTEMS, PAST MEDICAL HISTORY, ALLERGIES AND IMAGES: Have been reviewed and noted in the chart. PHYSICAL EXAM: VITAL SIGNS: Blood pressure 128/80, heart rate is 88, temperature is 97.3. Height is 5'9 , weighs 73.1 kg. GENERAL APPEARANCE: Pleasant, appropriate and in no acute distress. FOCUSED EXAM: BACK: Range of motion is functional to lateral rotation and flexion/extension. Paravertebral muscles are non-spasmodic. Nati's point is nontender bilaterally. MUSCULOSKELETAL: Motor is 5 out of 5 strength bilaterally, slight muscle weakness noted to bilateral anterior tibialis; extensors are intact. The patient walks with a stable gait. NEUROLOGICAL: Radicular sensory is intact. Negative polyneuropathy; 2/2 patellar and Achilles reflexes. DIAGNOSIS: Right L5 radiculitis, chronic lower back pain, left shoulder pain. PLAN: I recommended lidocaine 1% patch to be placed topically over his left shoulder for pain. He will return to the clinic in early July and at that time we will re-evaluate the need for a follow-up, 3-month caudal epidural steroid injection. The patient agrees with the plan of care and all questions were answered.[id number] Discharge instructions Patient Education 03/21/2022 10:30:52 Benign Prostatic Hyperplasia Benign Prostatic Hyperplasia Benign prostatic hyperplasia (BPH) is an enlarged prostate gland that is caused by the normal agingprocess and not by cancer. The prostate is a walnut-sized gland that is involved in the production of semen. It is located in front of the rectum and below the bladder. The bladder stores urine and the urethra is the tube that carries the urine out of the body. The prostate may get bigger as a man gets older. An enlarged prostate can press on the urethra. This can make it harder to pass urine. The build-up of urine in the bladder can cause infection. Back pressure and infection may progress to bladder damage and kidney (renal) failure. What are the causes? This condition is part of a normal aging process. However, not all men develop problems from this condition. If the prostate enlarges away from the urethra, urine flow will not be blocked. If it enlarges toward the urethra and compresses it, there will be problems passing urine. What increases the risk? This condition is more likely to develop in men over the age of 50 years. What are the signs or symptoms? Symptoms of this condition include: Getting up often during the night to urinate. Needing to urinate frequently during the day. Difficulty starting urine flow. Decrease in size and strength of your urine stream. Leaking (dribbling) after urinating. Inability to pass urine. This needs immediate treatment. Inability to completely empty your bladder. Pain when you pass urine. This is more common if there is also an infection. Urinary tract infection (UTI). How is this diagnosed? This condition is diagnosed based on your medical history, a physical exam, and your symptoms. Tests will also be done, such as: A post-void bladder scan. This measures any amount of urine that may remain in your bladder after you finish urinating. A digital rectal exam. In a rectal exam, your health care provider checks your prostate by putting a lubricated, gloved finger into your rectum to feel the back of your prostate gland. This exam detects the size of your gland and any abnormal lumps or growths. An exam of your urine (urinalysis). A prostate specific antigen (PSA) screening. This is a blood test used to screen for prostate cancer. An ultrasound. This test uses sound waves to electronically produce a picture of your prostate gland. Your health care provider may refer you to a specialist in kidney and prostate diseases (urologist). How is this treated? Once symptoms begin, your health care provider will monitor your condition (active surveillance or watchful waiting). Treatment for this condition will depend on the severity of your condition. Treatment may include: Observation and yearly exams. This may be the only treatment needed if your condition and symptoms are mild. Medicines to relieve your symptoms, including: ?Medicines to shrink the prostate. ?Medicines to relax the muscle of the prostate. Surgery in severe cases. Surgery may include: ?Prostatectomy. In this procedure, the prostate tissue is removed completely through an open incision or with a laparoscope or robotics. ?Transurethral resection of the prostate (TURP). In this procedure, a tool is inserted through the opening at the tip of the penis (urethra). It is used to cut away tissue of the inner core of the prostate. The pieces are removed through the same opening of the penis. This removes the blockage. ?Transurethral incision (TUIP). In this procedure, small cuts are made in the prostate. This lessens the prostate's pressure on the urethra. ?Transurethral microwave thermotherapy (TUMT). This procedure uses microwaves to create heat. The heat destroys and removes a small amount of prostate tissue. ?Transurethral needle ablation (TUNA). This procedure uses radio frequencies to destroy and remove a small amount of prostate tissue. ?Interstitial laser coagulation (ILC). This procedure uses a laser to destroy and remove a small amount of prostate tissue. ?Transurethral electrovaporization (TUVP). This procedure uses electrodes to destroy and remove a small amount of prostate tissue. ?Prostatic urethral lift. This procedure inserts an implant to push the lobes of the prostate away from the urethra. Follow these instructions at home: Take [id number] and prescription medicines only as told by your health care provider. Monitor your symptoms for any changes. Contact your health care provider with any changes. Avoid drinking large amounts of liquid before going to bed or out in public. Avoid or reduce how much caffeine or alcohol you drink. Give yourself time when you urinate. Keep all follow-up visits as told by your health care provider. This is important. Contact a health care provider if: You have unexplained back pain. Your symptoms do not get better with treatment. You develop side effects from the medicine you are taking. Your urine becomes very dark or has a bad smell. Your lower abdomen becomes distended and you have trouble passing your urine. Get help right away if: You have a fever or chills. You suddenly cannot urinate. You feel lightheaded, or very dizzy, or you faint. There are large amounts of blood or clots in the urine. Your urinary problems become hard to manage. You develop moderate to severe low back or flank pain. The flank is the side of your body between the ribs and the hip. These symptoms may represent a serious problem that is an emergency. Do not wait to see if the symptoms will go away. Get medical help right away. Call your local emergency services (911 in the [place] Do not drive yourself to the hospital. Summary Benign prostatic hyperplasia (BPH) is an enlarged prostate that is caused by the normal aging process and not by cancer. An enlarged prostate can press on the urethra. This can make it hard to pass urine. This condition is part of a normal aging process and is more likely to develop in men over the age of 50 years. Get help right away if you suddenly cannot urinate. This information is not intended to replace advice given to you by your health care provider. Make sure you discuss any questions you have with your health care provider. Document Released: 07/27/2006 Document Revised: 06/21/2019 Document Reviewed: 08/31/2017 [employer] Patient Education 2020 [employer] Follow Up Care 05/20/2021 16:25:31 With:KELBY PULIDO, Salomon West, URL Address: [address] [place] [id number]- When:Within 3 Month(s) Comments:f/up [facility] 07-12-2022 NoteCONSULTATION PROCEDURE DATE: 02/18/2022 PREOPERATIVE DIAGNOSIS: Left deltoid spasm, deltoid tear. POSTOPERATIVE DIAGNOSIS: Left deltoid spasm, deltoid tear. PROCEDURE: Left deltoid trigger point injection. Subsequent to obtaining informed consent, the patient was placed in the sitting position. Alcohol prep was used to sterilize the site. A 25 gauge needle was advanced and it comes to rest along the left deltoid. Negative aspiration.. Marcaine 0.125% along with Kenalog 20 mg are injected to two separate sites. Negative heme. The patient tolerates the procedure well, without any overt complication. Post procedurally, he reports improvement of his pain symptomatology and range of motion. [facility] Signed and Approved by: DR KIM LARA . 02/25/2022 09:28:00[facility]07-12-2022 NoteCONSULTATION CONSULTATION DATE: 02/18/2022 CHIEF COMPLAINT: 1. Low back pain, right lower extremity pain at times 5-6/10. 2. Left arm pain. HISTORY OF PRESENT ILLNESS: This is a very pleasant, 66-year-old gentleman who is known to the [facility]. The patient has had a remote lumbar fusion and has L5 neuritis, radiculitis on the right hand side. This has been recurring on the patient. The patient has undergone a RACZ procedure which has afforded the patient significant improvement, where the patient has been able to function and maintain his job. The patient recently hurt his left upper arm and has difficulty in being able to lift his left arm. The patient has difficulty in reaching across, daily activity. Heat mitigates the patient's pain symptomatology. The patient has had an injection along the AC joint, which had afforded him relief; however, now the pain is more focused in his deltoid region. The patient currently takes Robaxin on a p.r.n. basis; ibuprofen on a regular basis, along with applying CBD oil. The patient's PAST MEDICAL HISTORY / SURGICAL HISTORY / REVIEW OF SYSTEMS are noted on the chart, along with the MEDICATION LIST / ALLERGIES and RADIOLOGICAL IMAGES. PHYSICAL EXAMINATION: FOCUSED EVALUATION: Upon evaluation of the low back, no overt tenderness is present along the posterior elements bilaterally. No paravertebral spasming. Hypoesthesia is present along the L5 distribution on the left hand side. MUSCULOSKELETAL: Motor is intact. The patient does not have any deficits with the extensor hallucis or extensor digitorum bilaterally. L4 is intact. Anterior tibial is intact. UPPER EXTREMITY: With regards to his upper extremity, the patient has asymmetry and has a retracted muscle along the medial aspect of the deltoid region. This was approximately 3+ months ago. Significant jump response and reproduction of the patient's pain symptomatology is noted with the deltoid tear. The patient would like to maintain a conservative route with regards to the deltoid tear. The patient states he is close to halfway and does not wish to see an orthopedist, where in the past, approximately 13+ years ago, he was seen by Dr. Nakul Wynn, orthopedist, with regards to his right shoulder pain. IMPRESSION: Current working diagnosis on the patient is: 1. Rotator cuff syndrome, tear along the left deltoid. 2. Remote lumbar fusion, lumbar radiculitis L5 on the right hand side. PLAN: We will schedule the patient for a RACZ procedure to be able to attain the L5 nerve root via the caudal canal. We will use Wydase for the scar tissue entrapment along the L5 nerve root. This has afforded the patient significant improvement in the past. In addition to this, we will look to proceed with a left deltoid trigger point injection for the deltoid spasm. The patient understands and would like to proceed. CC: Tao Martines D.O. [facility] Signed and Approved by: DR KIM LARA . 02/25/2022 09:28[facility]00[facility] App[facility]ments Appointment Date:07/11/2022 08:00:00 AM Scheduled Provider:Salomon PITTS MD Location:[facility] Appointment Type:URO Office Visit [facility] evaluation noteNo RawporterNoCasterStats Other History general Narrative - Reported* Type Description Date Medical History History of nephrolithiasis Medical History Tremor, essential Medical History Gastroesophageal ref lux disease with esophagitis without hemorrhage Medical History Benign non-nodular p rostatic hyperplasia with lower urinary tract symptoms Medical History IFG (impaired fasting glucose) Medical History Hyperlipidemia type II Medical History Essential hypertension Medical History 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 st ress Medical History Irritable bowel syndrome with di arrhea Medical History Abdominal pain, right lower quad rant Medical History Herpes simplex type 1 infection Medical History Hearing problem of left ear Medical History Inflammation of right eustachian tube Medical History Left ureteral stone Medical History Hydroureter Medical History Palpitation Medical History Abdominal pain, acute, left lowe r quadrant Surgical History HERNIA REPAIR Surgical History CHOLECYSTECTOMOY Surgical History APPENDECTOMOY Surgical History TESTICLE REMOVED Surgical History FRAGMENTING OF KIDNEY STONE 202 0 Hospitalization History SEE SURGICAL HX [facility] Other Hospital course Narrative No data available for this section [facility] progress note No data available for this section [facility] Summary Purpose Family History No Family History Records FoundNo Family History Records Found Advance Directives No Advanced Directives Records FoundNo Advanced Directives Records Found Additional Source Comments Care Team (unrecognized sect ion and content) Personnel Name: TAO MARTINES DO Address: [facility] (unrecognized sect ion and content) No Status Records FoundNo Status Records Found INFORMATION SOURCE (unrecogn ized section and content) DATE CREATED AUTHOR 07/09/2022 [facility] DATE CREATED AUTHOR AUTHOR'S ORGANIZ ATION 01/16/2023 [facility] REASON FOR VISIT (unrecogniz ed section and content) Not Sleeping WellTBHNo [facility]for [facility] resultsCOVID [phone] FOR RECORDS PERTAINING TO PATIENTS WHO ARE OR HAVE BEEN ENROLLED IN A CHEMICAL DEPENDENCY/SUBSTANCEABUSE PROGRAM, SOME INFORMATION MAY BE OMITTED. This clinical summary was aggregated from multiple sources. Caution should be exercised in using it in the provision of clinical care. This summary normalizes information from multiple sources, and as a consequence, information in this document may materially change the coding, format and clinical context of patient data. In addition, data may be omitted in some cases. CLINICAL DECISIONS SHOULD BE BASED ON THE PRIMARY CLINICAL RECORDS. [employer] provides no warranty or guarantee of the accuracy or completeness of information in this document.
[2023-11-13 08:09] LABS: Chol HDL Ratio 5.4; Cholesterol 284 mg/dL (<=200); HDL Cholesterol 53 mg/dL (40-60); Triglycerides 112 mg/dL (<=150); VLDL CHOLESTEROL 22.4 mg/dL
== END 2023-11-13 07:21 | disposition home or self-care (01) ==
LOC: LAB 07:21
PROVIDERS: PCP Internal Medicine; Visit Provider Internal Medicine
DX: E78.01 Familial hypercholesterolemia (principal)
CPT/HCPCS: 36415; 80061

== ENCOUNTER 2024-05-12 09:23 | Outpatient (OUT) | payer OTHER, SELFPAY ==
--- OUTSIDE RECORDS SUMMARY | 2024-05-12 09:40 | XMS_ITS | CCD ---
Author Organization [facility] [place] [facility] Team Providers Care Motorized Squad Sergeant Name Role Phone TAO MARTINES Primary Care Physician MD Salomon PITTS Attending Unavailable MD Salomon PITTS Attending Unavailable Conrad, Tao Unavailable MARBELLA, DR SERRANO Admitting Unavailable STEPANIC, DR SERRANO Consulting Unavailable STEPOSMANI, DR SERRANO Attending Unavailable BALL, DR LICEA Primary Care Unavailable ZIEBER, DR OLYA West Consulting Unavailable LARA ., DR KIM Campbell Attending Unavailable LARA ., DR KIM Cmapbell Admitting Unavailable GARCIA ., LIZETT Consulting Unavailable CONRAD, DR LICEA Primary Care Unavailable LAAR ., DR KIM Campbell Admitting Unavailable LARA [...] CONRAD, DR LICEA Primary Care Unavailable JANESSA .NICOLE Attending Unavailable JANESSA ., NICOLE Admitting Unavailable [...] Primary Care Unavailable KELBY ., DR VOSS Admitting Unavailable JOHNIE, DR GLORIA Morin Consulting Unavailable [...] Drug Allergy Nausea (finding) [facility] (7 sources) Codeine; Translations: [codeine] Drug Allergy 08-29-19 15 Nausea (finding) [facility] (6 sources) Codeine Drug Allergy Unknown [facility] Offe[facility] Other (6 sources) HMG-CoA reductase inhibitor Drug allergy Unknown [facility] Offees Other (2 sources) Acetaminophen / HYDROcodone Drug Allergy 12-28-19 13 [facility] (2 sources) Codeine Drug Allergy 12-21-19 13 [facility] (4 sources) Vicodin *ANALGESICS - OPIOID* Propensity to adverse reactions 08-29-19 15 Unknown [facility] Other (1 source) patient allergy list reviewed by nurse or physicia Propensity to adverse reactions 06-08-20 17 Comment:Done [facility] Other (1 source) Acetaminophen Drug Allergy 11-14-19 24 Unknown Reaction [facility] (1 source) HYDROcodone Drug Allergy 08-04-20 23 Vomiting [facility] (1 source) Fufhbve-MDB-NqZ Reductase Inhibitor Allergy to substance 11-14-19 24 Unknown Reaction [facility] Medications Current Medications Medication Drug Class(es) Dates Sig (Normalized) Sig (Original) 24 hr alfuzosin hydrochloride 10 mg extended release oral tablet (1 source) alpha-Adrenergic Melissa Start: 03-21-2022 take 1 tablet by mouth once daily alfuzosin 10 mg ER Tab 10 mg = 1 tab(s), Oral, Daily, # 30 tab(s), Refills(s) 11, Pharmacy: [facility]/pharmacy #[id number], 175, cm, 03/21/22 9:55:00 EDT, Height/Length Dosing, 74, kg, 03/21/22 9:55:00 EDT, Weight Dosing Start Date: 03/21/22 Status: Ordered atenolol 25 mg oral tablet (16 sources) beta-Adrenergic Melissa Start: 11-17-2023 take 25 mg by mouth once daily Atenolol Active 25 MG PO Daily November 17, 2023 2:09pm Start: 11-14-2023 End: 11-17-2023 take 25 mg by mouth twice daily Atenolol Discontinued 25 MG PO Twice daily November 14, 2023 12:00am November 17, 2023 2:09pm Start: 12-27-2019 atenolol Oral, Daily, Refills(s) 0 Start Date: 12/27/19 Status: Ordered Start: 11-11-2017 End: 11-14-2023 take 0.5 tablet by mouth once daily in the morning Atenolol Discontinued 0.5 TAB PO Every morning November 11, 2017 12:00am November 14, 2023 9:56am take 1 tablet by armond th twice daily Atenolol 25 MG TAKE 1 TABLET BY MOUTH TWICE A DAY Active Atenolol Not-Fito ing/PRN Atenolol Not-Fito ing benazepril hydrochloride 20 mg oral tablet (15 sources) Angiotensin Converting Enzyme Inhibitor Start: 12-27-2019 benazepril Oral, Daily, Refills(s) 0 Start Date: 12/27/19 Status: Ordered Start: 11-11-2017 End: 11-14-2023 take 20 mg by mouth once daily Benazepril Active 20 MG PO Daily November 14, 2023 12:00am Benazepril HCl N ot-Taking/PRN Benazepril HCl N ot-Taking Zetia (8 sources) Dietary Cholesterol Absorption Inhibitor Start: 06-01-2020 take 1 mg by mouth once daily Zetia mg, Oral, Daily, Refills(s) 0 Start Date: 06/01/20 Status: Ordered Start: 11-11-2017 End: 11-14-2023 Ezetimibe Discontinued 1 CAP PO As Directed November 11, 2017 12:00am November 14, 2023 9:56am Zetia Not-Taking /PRN Zetia Not-Taking Fish Oils (1 source) Start: 12-27-2019 Fish Oil Oral, Refill(s) 0 Start Date: 12/27/19 Status: Ordered hydroCHLOROthiazide 12.5 mg oral capsule (1 source) Thiazide Diuretic Start: 02-17-2022 take 1 capsule by mouth once daily hydrochlorothiazide 12.5 mg Cap 12.5 mg = 1 cap(s), Oral, Daily, # 90 cap(s), Refills(s) 3, Pharmacy: [facility]/pharmacy #[id number], 175, cm, 05/20/21 15:07:00 EDT, Height/Length Dosing, 74, kg, 05/20/21 15:07:00 EDT, Weight Dosing Start Date: 02/17/22 Status: Ordered omeprazole 40 mg delayed release oral capsule (15 sources) Proton Pump Inhibitor Start: 11-14-2023 take 40 mg by mouth once daily Omeprazole Active 40 MG PO Daily November 14, 2023 12:00am Start: 06-01-2020 omeprazole Ora l, Daily, Refills(s) 0 Start Date: 06/01/20 Status: Ordered Start: 05-17-2018 End: 11-14-2023 take 1 tablet by mouth once daily Omeprazole Magnesium (Prilosec Otc) 20 mg Tablet,Delayed Release (Dr/Ec) Discontinued 20 MG PO Daily May 17, 2018 12:00am November 14, 2023 9:57am Omeprazole 40 MG TAKE 1 CAPSULE DAILY [...] for 90 day(s), 360 tab(s), Refill(s) 3, [facility]/pharmacy #[id number], 175, cm, 05/20/21 15:07:00 EDT, Height/Length [...] Sep, Active valACYclovir 1000 mg oral tablet (5 sources) Herpesvirus Nucleoside Analog DNA Polymerase Inhibitor, Herpes Simplex Virus Nucleoside Analog DNA Polymerase Inhibitor, Herpes Zoster Virus Nucleoside Analog DNA Polymerase Inhibitor Start: 11-14-2023 take 2000 mg by mouth twice daily Valacyclovir Active 2000 MG PO Twice daily November 14, 2023 12:00am valACYclovir HCl 1 GM TAKE 2 TABLETS BY MOUTH TWICE A DAY Orally Once a day for 1 days Active valACYclovir HCl 1 GM TAKE 2 TABLETS BY MOUTH TWICE A DAY Orally Once a day for 1 days Active Completed/Discontinued Medications Medication Drug Class(es) Dates Sig (Normalized) Sig (Original) acetaminophen 500 mg oral tablet (1 source) Start: 01-06-2020 End: 11-14-2023 take 2 tablets by mouth every six hours Acetaminophen (Tylenol Extra Strength) 500 mg Tablet Discontinued 1000 MG PO Q6H January 06, 2020 12:00am November 14, 2023 9:56am Cbd Oil (1 source) Start: 01-06-2020 End: 11-14-2023 Cbd Oil Discontinued TOPICAL January 06, 2020 12:00am November 14, 2023 9:56am cephalexin 500 mg oral capsule (3 sources) Cephalosporin Antibacterial Start: 01-11-2020 End: 11-14-2023 take 500 mg by mouth every six hours Cephalexin Discontinued 500 MG PO Q6H January 11, 2020 12:00am November 14, 2023 9:56am Start: 11-16-2017 End: 01-06-2020 take 500 mg by mouth every twelve hours Cephalexin Discontinued 500 MG PO Q12H May 17, 2018 12:00am January 06, 2020 10:29am ketorolac tromethamine 10 mg oral tablet (3 sources) Nonsteroidal Anti-inflammatory Drug, Cyclooxygenase Inhibitor Start: 01-11-2020 End: 11-14-2023 take 10 mg by mouth every six hours Ketorolac Discontinued 10 MG PO Q6H 20 January 11, 2020 12:00am November 14, 2023 9:56am Start: 05-17-2018 End: 05-22-2018 Ketorolac Discontinued 10 MG PO EVERY 4-6 HOURS 20 May 17, 2018 12:00am May 22, 2018 12:02am do not exceed 4 doses per 24 hrs Start: 11-16-2017 End: 11-21-2017 take 10 mg by mouth every six hours Ketorolac Discontinued 10 MG PO Q6H 27 12November 16, 2017 12:00am November 21, 2017 12:01am Multivitamin preparation (1 source) Start: 05-17-2018 End: 01-06-2020 take 1 tablet by mouth once daily Multivitamin Discontinued 1 TAB PO Daily May 17, 2018 12:00am January 06, 2020 10:30am [place] 9-Rxz-Nqg-Fish Oil (Fish Oil) 1,000 mg (120 mg-180 mg) Capsule (1 source) Start: 05-17-2018 End: 11-14-2023 [place] 7-Ysm-Lmy-Fish Oil (Fish Oil) 1,000 mg (120 mg-180 mg) Capsule Discontinued 3000 MG PO Daily May 17, 2018 12:00am November 14, 2023 9:57am paxlovid (300/100) 20 x 150 mg & 10 x 100mg tablet therapy pack (1 source) Start: 07-14-2023 Paxlovid (300/ 100) 20 x 150 MG & 10 x 100MG as directed Orally bid for 5 days Jul, Not-Taking/PRN tamsulosin hydrochloride 0.4 mg oral capsule (7 sources) alpha-Adrenergi c Melissa Start: 11-11-2017 End: 01-06-2020 Tamsulosin Discontinued 1 TAB PO As Directed November 11, 2017 12:00am January 06, 2020 10:31am Flomax Not-Takin g/PRN Flomax Not-Takin g Problems Active Problems Problem [...] of kidney] Onset: 6 Episodic Cardiac dysrhythmias (14 sources) Palpitations; Translations: [Palpitations] Onset: 3 Episodic Diabetes mellitus without complication (11 sources) Impaired fasting glycemia; Translations: [Impaired fasting glucose] Episodic Disorders of lipid metabolism (19 sources) Hyperlipidemia; Translations: [Pure hypercholesterolemia] Onset: 0 12-27-2019 Chronic Esophageal disorders (9 sources) Gastroesophageal reflux disease; Translations: [Gastro-esophageal reflux disease without esophagitis] Onset: 3 12-27-2019 Chronic Essential hypertension (17 sources) Hypertensive disorder; Translations: [Essential hypertension] Onset: 3 12-27-2019 Chronic Gastrointestinal hemorrhage (12 sources) Hemorrhage of rectum and anus; Translations: [Hemorrhage of anus and rectum] Episodic Hyperplasia of prostate (12 sources) Benign prostatic hypertrophy without outflow obstruction; Translations: [Benign prostatic hyperplasia without lower urinary tract symptoms] Onset: 6 Chronic Immunizations and screening for infectious disease (1 source) Vaccination given; Translations: [Encounter for immunization] Episodic Miscellaneous mental health disorders (8 sources) Transient insomnia; Translations: [Adjustment insomnia] 11-14-2023 Episodic Nonspecific chest pain (1 source) Other chest pain Episodic Other aftercare (2 sources) Other long term care administrator (current) drug therapy; Translations: [OTH [facility] CURRENT DRUG THERAPY] Onset: 3 Episodic Other aftercare (1 source) Long-term current use of drug therapy; Translations: [Other custodial (current) drug therapy] Episodic Other connective tissue disease (4 sources) Adhesive capsulitis of left shoulder; Translations: [ADHESIVE CAPSULITIS LEFT SHOULDER] Onset: 3 Episodic Other diseases of kidney and ureters (6 sources) Hydroureter; Translations: [Hydroureter] Episodic Other ear and sense organ disorders (7 sources) Hearing loss; Translations: [Unspecified hearing loss, left ear] Chronic Other gastrointestinal disorders (7 sources) Irritable bowel syndrome with diarrhea; Translations: [Irritable bowel syndrome with diarrhea] 11-14-2023 Chronic Other hereditary and degenerative nervous system conditions (8 sources) Essential tremor; Translations: [Essential tremor] 11-14-2023 Chronic Other injuries and conditions due to [...] infection, site not specified] Episodic Viral infection (9 sources) Herpes simplex type 1 infection; Translations: [...] Test Name Value Interpretation Reference Range Facility Cholesterol in LDL Calc [Mas s/Vol]on 11-13-2023 Cholesterol in LDL [Mass/Vol] 209.0 mg/dL [facility] Comment on above: <100 mg/dl [id number] 0-129 mg/dl NEAR OR ABOVE [id number] mg/dl BORDERLINE [id number] mg/dl HIGH>190 mg/dl VERY HIGH Cholesterol in VLDL Calc [Ma ss/Vol]on 11-13-2023 Cholesterol in VLDL [Mass/Vol] 22.4 mg/dL [facility] Laboratory - Chemistry and C hemistry - challengeon 11-13-2023 Cholesterol [Mass/Vol] 284 mg/dL <=200 [facility] Cholesterol in HDL [Mass/Vol] 53 mg/dL 40-60 [facility] Comment on above: > or =60 mg/dl - LOW CARDIOVASCULAR RISK<40 mg/dl - HIGH CARDIOVASCULAR RISK Triglyceride [Mass/Vol] 112 mg/dL <=150 [facility] No Panel Informationon 11-12 Prostate Specific Antigen Screen 1.00 ng/mL <=4.00 [facility] Serum or plasma total choles terol/high density lipoprotein (HDL) cholesterol mass mahamed 11-13-2023 Cholesterol.total/ Cholesterol in HDL [Mass ratio] 5.4 {ratio} [facility] Comment on above: 3.3 - 4.4 LOW RISK4. 4 - 7.1 AVERAGE RISK7.1 - 11.0 MODERATE RISK>11.0 HIGH RISK CARDIAC LONNIE ADMITon 023 CK [Catalytic activity/Vol] 57 U/L Normal 39-308 [facility] Comment on above: Performed By: #### C CORY, CMP #### [facility] [address] [place] [address] Dr. Sarthak Cleveland CK.MB [Mass/Vol] 0.54 ng/mL Normal <=3.60 [facility] Comment on above: Performed By: #### C CORY, CMP #### [facility] [address] [address] [address] Sarthak Cleveland HSTROP <4.0 Normal 4.0-76.1 [facility] Comment on above: Result Comment: CUT- OFF POINTS HAVE BEEN ESTABLISHED BASED ON THE FOURTH UNIVERSAL DEFINITIONS OF MYOCARDIAL INFARCTION. THE UPPER REFERENCE LIMIT (URL) OF TROPONIN, DEFINED THE 99TH PERCENTILE OF cTnI DISTRIBUTION IN A REFERENCE POPULATION, HAS BEEN CONFIRMED THE DECISION THRESHOLD FOR [place] DIAGNOSIS. Performed By: #### C CORY, CMP #### [facility] [address] [address] [address] Sarthak Cleveland MAL 37 ng/mL Normal 16-96 [facility] Comment on above: Performed By: #### C EDISONM, CMP #### [facility] [address] [place] [address] Dr. Sarthak Cleveland CBC AUTO DIFFon 11-25-2022 BASO # 0.0 103/ul Normal 0.0-0.1 [facility] Comment on above: Performed By: #### B MP, LIPID, ALT #### [facility] [address] [address] [address] Sarthak Cleveland Basophils/100 WBC (Bld) 0.5 % Normal 0.2-2.0 [facility] Comment on above: Performed By: #### B MP, LIPID, ALT #### [facility] [address] [place] [address] Dr. Sarthak Cleveland EO # 0.3 103/ul Normal 0.0-0.7 [facility] Comment on above: Performed By: #### B MP, LIPID, ALT #### [facility] [address] [place] [address] Dr. Sarthak Cleveland Eosinophils/100 WBC (Bld) 3.0 % Normal 0.9-7.0 [facility] Comment on above: Performed By: #### B MP, LIPID, ALT #### [facility] [address] [place] [address] Dr. Sarthak Cleveland Erythrocyte distribution width (RBC) [Ratio] 12.4 % Normal 11.0-15.0 [facility] Comment on above: Performed By: #### B MP, LIPID, ALT #### [facility] [address] [place] [address] Dr. Sarthak Cleveland Hematocrit (Bld) [Volume fraction] 47.3 % Normal 42.0-54.0 [facility] Comment on above: Performed By: #### B MP, LIPID, ALT #### [facility] [address] [place] [address] Dr. Sarthak Cleveland Hemoglobin (Bld) [Mass/Vol] 15.9 g/dL Normal 14.0-18.0 [facility] Comment on above: Performed By: #### B MP, LIPID, ALT #### [facility] [address] [place] [address] Dr. Sarthak Cleveland IG # 0.04 10e3/ul Critically high 0.00-0.03 [facility] Comment on above: Performed By: #### B MP, LIPID, ALT #### [facility] [address] [place] [address] Dr. Sarthak Cleveland IG % 0.5 % Normal 0.0-0.5 [facility] Comment on above: Performed By: #### B MP, LIPID, ALT #### [facility] [address] [place] [address] Dr. Sarthak Cleveland LYMPH # 2.2 103/ul Normal 1.2-3.8 [facility] Comment on above: Performed By: #### B MP, LIPID, ALT #### [facility] [address] [place] [address] Dr. Sarthak Cleveland Lymphocytes/100 WBC (Bld) 26.6 % Normal 20.5-60.0 [facility] Comment on above: Performed By: #### B MP, LIPID, ALT #### [facility] [address] [place] [address] Dr. Sarthak Cleveland MANUAL DIFF REQ NO Normal [facility] Comment on above: Performed By: #### B MP, LIPID, ALT #### [facility] [address] [place] [address] Dr. Sarthak Cleveland MCH (RBC) [Entitic mass] 31.7 pg Normal 25.9-34.0 [facility] Comment on above: Performed By: #### B MP, LIPID, ALT #### [facility] [address] [place] [address] Dr. Sarthak Cleveland MCHC (RBC) [Mass/Vol] 33.6 g/dL Normal 29.9-35.2 [facility] Comment on above: Performed By: #### B MP, LIPID, ALT #### [facility] [address] [place] [address] Dr. Sarthak Cleveland MCV (RBC) [Entitic vol] 94.2 fL Critically high 80.0-94.0 [facility] Comment on above: Performed By: #### B MP, LIPID, ALT #### [facility] [address] [place] [address] Dr. Sarthak Cleveland MONO # 0.8 103/ul Normal 0.3-0.8 [facility] Comment on above: Performed By: #### B MP, LIPID, ALT #### [facility] [address] [place] [address] Dr. Sarthak Cleveland Monocytes/100 WBC (Bld) 9.7 % Normal 1.7-12.0 [facility] Comment on above: Performed By: #### B MP, LIPID, ALT #### [facility] [address] [address] [address] Sarthak Cleveland NEUT # 5.0 103/ul Normal 1.4-6.5 [facility] Comment on above: Performed By: #### B MP, LIPID, ALT #### [facility] [address] [place] [address] Dr. Sarthak Cleveland Neutrophils/100 WBC (Bld) 59.7 % Normal 43.0-75.0 [facility] Comment on above: Performed By: #### B MP, LIPID, ALT #### [facility] [address] [place] [address] Dr. Sarthak Cleveland Platelet mean volume (Bld) [Entitic vol] 11.0 fL Normal 9.5-13.5 [facility] Comment on above: Performed By: #### B MP, LIPID, ALT #### [facility] [address] [place] [address] Dr. Sarthak Cleveland PLT 241 103/ul Normal 150-450 [facility] Comment on above: Performed By: #### B MP, LIPID, ALT #### [facility] [address] [place] [address] Dr. Sarthak Cleveland RBC 5.02 106/ul Normal 4.70-6.10 [facility] Comment on above: Performed By: #### B MP, LIPID, ALT #### [facility] [address] [address] [address] Sarthak Cleveland WBC 8.4 103/ul Normal 4.0-11.0 [facility] Comment on above: Performed By: #### B MP, LIPID, ALT #### [facility] [address] [place] [address] Dr. Sarthak Cleveland PROF 14(COMP METB)on 023 Albumin [Mass/Vol] 3.8 g/dL Normal 3.4-5.0 [facility] Comment on above: Performed By: #### C MADM, CMP #### [facility] [address] [place] [address] Dr. Sarthak Cleveland Albumin/Globulin [Mass ratio] 0.9 {ratio} Normal [facility] Comment on above: Performed By: #### C MADM, CMP #### [facility] [address] [place] [address] Dr. Sarthak Cleveland ALP [Catalytic activity/Vol] 57 U/L Normal 46-116 [facility] Comment on above: Performed By: #### C MADM, CMP #### [facility] [address] [place] [address] Dr. Sarthak Cleveland ALT [Catalytic activity/Vol] 21 U/L Normal 16-63 [facility] Comment on above: Performed By: #### C MADM, CMP #### [facility] [address] [place] [address] Dr. Sarthak Cleveland Anion gap [Moles/Vol] 12.3 mmol/L Normal [facility] Comment on above: Performed By: #### C MADM, CMP #### [facility] [address] [place] [address] Dr. Sarthak Cleveland AST [Catalytic activity/Vol] 17 U/L Normal 15-37 [facility] Comment on above: Performed By: #### C MADM, CMP #### [facility] [address] [place] [address] Dr. Sarthak Cleveland Bilirubin [Mass/Vol] 0.3 mg/dL Normal 0.2-1.0 [facility] Comment on above: Performed By: #### C MADM, CMP #### [facility] [address] [place] [address] Dr. Sarthak Cleveland Calcium [Mass/Vol] 9.2 mg/dL Normal 8.5-10.1 [facility] Comment on above: Performed By: #### C MADM, CMP #### [facility] [address] [place] [address] Dr. Sarthak Cleveland Chloride [Moles/Vol] 103 mmol/L Normal 98-107 [facility] Comment on above: Performed By: #### C MADM, CMP #### [facility] [address] [place] [address] Dr. Sarthak Cleveland CO2 [Moles/Vol] 28.7 mmol/L Normal 21.0-32.0 [facility] Comment on above: Performed By: #### C EDISONM, CMP #### [facility] [address] [place] [address] Dr. Sarthak Cleveland Creatinine [Mass/Vol] 0.83 mg/dL Normal 0.70-1.30 [facility] Comment on above: Performed By: #### C MADM, CMP #### [facility] [address] [address] [address] Sarthak Cleveland EGFR-AF CITIZEN [place] >60 Normal >=60 [facility] Comment on above: Performed By: #### C EDISONM, CMP #### [facility] [address] [place] [address] Dr. Sarthak Cleveland EGFR-NON AF CITIZEN OF [place] >60 Normal >=60 [facility] Comment on above: Performed By: #### C EDISONM, CMP #### [facility] [address] [place] [address] Dr. Sarthak Cleveland Globulin (S) [Mass/Vol] 4.1 g/dL Normal [facility] Comment on above: Performed By: #### C EDISONM, CMP #### [facility] [address] [place] [address] Dr. Sarthak Cleveland Glucose [Mass/Vol] 89 mg/dL Normal 74-106 [facility] Comment on above: Performed By: #### C EDISONM, CMP #### [facility] [address] [place] [address] Dr. Sarthak Cleveland Potassium [Moles/Vol] 4.0 mmol/L Normal 3.5-5.1 [facility] Comment on above: Performed By: #### C MADM, CMP #### [facility] [address] [place] [address] Dr. Sarthak Cleveland Protein [Mass/Vol] 7.9 g/dL Normal 6.4-8.2 [facility] Comment on above: Performed By: #### C MADM, CMP #### [facility] [address] [place] [address] Dr. Sarthak Cleveland Sodium [Moles/Vol] 140 mmol/L Normal 136-145 [facility] Comment on above: Performed By: #### C CORY, CMP #### [facility] [address] [place] [address] Dr. Sarthak Cleveland Urea nitrogen [Mass/Vol] 12.0 mg/dL Normal 7.0-18.0 [facility] Comment on above: Performed By: #### C CORY, CMP #### [facility] [address] [place] [address] Dr. Sarthak Cleveland Urea nitrogen/Creatinin e [Mass ratio] 14.5 mg/mg Normal [facility] Comment on above: Performed By: #### C CORY, CMP #### [facility] [address] [place] [address] Dr. Sarthak Cleveland TSHon 11-25-2022 TSH 1.919 uIU/mL Normal 0.358-3.740 [facility] Comment on above: Performed By: #### B MP, LIPID, ALT #### [facility] [address] [place] [address] [address] SHOULDER LT WO [...] by: OLYA PEREYRA Date: 2022-05-27 19:58 Normal [facility] XR ARTHRO SHOULDER LTon 05-10 XR ARTHRO [...] OLYA PEREYRA Date: 2022-05-27 12:36 Normal [facility] CBC AUTO DIFFon 05-26-2022 BASO # 0.1 103/ul Normal 0.0-0.1 [facility] Comment on above: Performed By: #### B MP, LIPID, ALT #### [facility] [address] [address] [address] Sarthak Cleveland Basophils/100 WBC (Bld) 0.6 % Normal 0.2-2.0 [facility] Comment on above: Performed By: #### B MP, LIPID, ALT #### [facility] [address] [address] [address] Sarthak Cleveland EO # 0.2 103/ul Normal 0.0-0.7 [facility] Comment on above: Performed By: #### B MP, LIPID, ALT #### [facility] [address] [address] [address] Sarthak Cleveland Eosinophils/100 WBC (Bld) 2.4 % Normal 0.9-7.0 [facility] Comment on above: Performed By: #### B MP, LIPID, ALT #### [facility] [address] [address] [address] Sarthak Cleveland Erythrocyte distribution width (RBC) [Ratio] 12.6 % Normal 11.0-15.0 [facility] Comment on above: Performed By: #### B MP, LIPID, ALT #### [facility] [address] [place] [address] Dr. Sarthak Cleveland Hematocrit (Bld) [Volume fraction] 46.1 % Normal 42.0-54.0 [facility] Comment on above: Performed By: #### B MP, LIPID, ALT #### [facility] [address] [place] [address] Dr. Sarthak Cleveland Hemoglobin (Bld) [Mass/Vol] 15.0 g/dL Normal 14.0-18.0 [facility] Comment on above: Performed By: #### B MP, LIPID, ALT #### [facility] [address] [place] [address] Dr. Sarthak Cleveland IG # 0.07 10e3/ul Critically high 0.00-0.03 [facility] Comment on above: Performed By: #### B MP, LIPID, ALT #### [facility] [address] [place] [address] Dr. Sarthak Cleveland IG % 0.9 % Critically high 0.0-0.5 [facility] Comment on above: Performed By: #### B MP, LIPID, ALT #### [facility] [address] [place] [address] Dr. Sarthak Cleveland LYMPH # 1.9 103/ul Normal 1.2-3.8 [facility] Comment on above: Performed By: #### B MP, LIPID, ALT #### [facility] [address] [place] [address] Dr. Sarthak Cleveland Lymphocytes/100 WBC (Bld) 22.7 % Normal 20.5-60.0 [facility] Comment on above: Performed By: #### B MP, LIPID, ALT #### [facility] [address] [place] [address] Dr. Sarthak Cleveland MANUAL DIFF REQ NO Normal [facility] Comment on above: Performed By: #### B MP, LIPID, ALT #### [facility] [address] [address] [address] Sarthak Cleveland MCH (RBC) [Entitic mass] 31.6 pg Normal 25.9-34.0 [facility] Comment on above: Performed By: #### B MP, LIPID, ALT #### [facility] [address] [address] [address] Sarthak Cleveland MCHC (RBC) [Mass/Vol] 32.5 g/dL Normal 29.9-35.2 [facility] Comment on above: Performed By: #### B MP, LIPID, ALT #### [facility] [address] [place] [address] Dr. Sarthak Cleveland MCV (RBC) [Entitic vol] 97.1 fL Critically high 80.0-94.0 [facility] Comment on above: Performed By: #### B MP, LIPID, ALT #### [facility] [address] [place] [address] Dr. Sarthak Cleveland MONO # 1.0 103/ul Critically high 0.3-0.8 [facility] Comment on above: Performed By: #### B MP, LIPID, ALT #### [facility] [address] [place] [address] Dr. Sarthak Cleveland Monocytes/100 WBC (Bld) 11.8 % Normal 1.7-12.0 [facility] Comment on above: Performed By: #### B MP, LIPID, ALT #### [facility] [address] [place] [address] Dr. Sarthak Cleveland NEUT # 5.1 103/ul Normal 1.4-6.5 [facility] Comment on above: Performed By: #### B MP, LIPID, ALT #### [facility] [address] [address] [address] Sarthak Cleveland Neutrophils/100 WBC (Bld) 61.6 % Normal 43.0-75.0 [facility] Comment on above: Performed By: #### B MP, LIPID, ALT #### [facility] [address] [address] [address] Sarthak Cleveland Platelet mean volume (Bld) [Entitic vol] 10.4 fL Normal 9.5-13.5 [facility] Comment on above: Performed By: #### B MP, LIPID, ALT #### [facility] [address] [address] [address] Sarthak Cleveland PLT 243 103/ul Normal 150-450 [facility] Comment on above: Performed By: #### B MP, LIPID, ALT #### [facility] [address] [address] [address] Sarthak Cleveland RBC 4.75 106/ul Normal 4.70-6.10 [facility] Comment on above: Performed By: #### B MP, LIPID, ALT #### [facility] [address] [place] [address] Dr. Sarthak Cleveland WBC 8.2 103/ul Normal 4.0-11.0 [facility] Comment on above: Performed By: #### B MP, LIPID, ALT #### [facility] [address] [place] [address] Dr. Sarthak Cleveland LIPID PROFILEon 05-26-2022 CHOL-HDL RATIO NORM SEE BELOW Normal [facility] Comment on above: Result Comment: 3.3 - 4.4 LOW RISK 4.4 - 7.1 AVERAGE RISK 7.1 - 11.0 MODERATE RISK >11.0 HIGH RISK Performed By: #### B MP, LIPID, ALT #### [facility] [address] [place] [address] Dr. Sarthak Cleveland Cholesterol [Mass/Vol] 309 mg/dL Critically high <=200 [facility] Comment on above: Performed By: #### B MP, LIPID, ALT #### [facility] [address] [place] [address] Dr. Sarthak Cleveland Cholesterol in HDL [Mass/Vol] 46 mg/dL Normal 40-60 [facility] Comment on above: Performed By: #### B MP, LIPID, ALT #### [facility] [address] [address] [address] Sarthak Cleveland Cholesterol in LDL [Mass/Vol] 242.6 mg/dL Normal [facility] Comment on above: Performed By: #### B MP, LIPID, ALT #### [facility] [address] [address] [address] Sarthak Cleveland Cholesterol.total/ Cholesterol in HDL [Mass ratio] 6.7 {ratio} Normal [facility] Comment on above: Performed By: #### B MP, LIPID, ALT #### [facility] [address] [address] [address] Sarthak Cleveland HDL NORMAL > or = 60 mg/dl - LO W CARDIOVASCULAR RISK <40 mg/dl - HIGH CARDIOVASCULAR RISK Normal [facility] Comment on above: Performed By: #### B MP, LIPID, ALT #### [facility] [address] [address] [address] Sarthak Cleveland LDL CALC NORMAL SEE BELOW Normal [facility] Comment on above: Result Comment: <100 mg/dl OPTIMAL 100 - 129 mg/dl NEAR OR ABOVE OPTIMAL 130 - 159 mg/dl BORDERLINE HIGH 160 - 189 mg/dl HIGH >190 mg/dl VERY HIGH Performed By: #### B MP, LIPID, ALT #### [facility] [address] [address] [address] Sarthak Cleveland Triglyceride [Mass/Vol] 102 mg/dL Normal <=150 [facility] Comment on above: Performed By: #### B MP, LIPID, ALT #### [facility] [address] [address] [address] Sarthak Cleveland VLDL CALC 20.4 mg/dL Normal [facility] Comment on above: Performed By: #### B MP, LIPID, ALT #### [facility] [address] [address] [address] Sarthak Cleveland PROF CHEM 8 (BAS METB)on Anion gap [Moles/Vol] 11.6 mmol/L Normal [facility] Comment on above: Performed By: #### B MP, LIPID, ALT #### [facility] [address] [address] [address] Sarthak Cleveland Calcium [Mass/Vol] 8.7 mg/dL Normal 8.5-10.1 [facility] Comment on above: Performed By: #### B MP, LIPID, ALT #### [facility] [address] [address] [address] Sarthak Cleveland Chloride [Moles/Vol] 104 mmol/L Normal 98-107 [facility] Comment on above: Performed By: #### B MP, LIPID, ALT #### [facility] [address] [address] [address] Sarthak Cleveland CO2 [Moles/Vol] 28.7 mmol/L Normal 21.0-32.0 [facility] Comment on above: Performed By: #### B MP, LIPID, ALT #### [facility] [address] [place] [address] Dr. Sarthak Cleveland Creatinine [Mass/Vol] 0.84 mg/dL Normal 0.70-1.30 [facility] Comment on above: Performed By: #### B MP, LIPID, ALT #### [facility] [address] [place] [address] Dr. Sarthak Cleveland EGFR-AF CITIZEN [place] >60 Normal >=60 [facility] Comment on above: Performed By: #### B MP, LIPID, ALT #### [facility] [address] [place] [address] Dr. Sarthak Cleveland EGFR-NON AF CITIZEN OF [place] >60 Normal >=60 [facility] Comment on above: Performed By: #### B MP, LIPID, ALT #### [facility] [address] [address] [address] Sarthak Cleveland Glucose [Mass/Vol] 115 mg/dL Critically high 74-106 [facility] Comment on above: Performed By: #### B MP, LIPID, ALT #### [facility] [address] [place] [address] Dr. Sarthak Cleveland Potassium [Moles/Vol] 4.3 mmol/L Normal 3.5-5.1 [facility] Comment on above: Performed By: #### B MP, LIPID, ALT #### [facility] [address] [place] [address] Dr. Sarthak Cleveland Sodium [Moles/Vol] 140 mmol/L Normal 136-145 [facility] Comment on above: Performed By: #### B MP, LIPID, ALT #### [facility] [address] [address] [address] Sarthak Cleveland Urea nitrogen [Mass/Vol] 9.0 mg/dL Normal 7.0-18.0 [facility] Comment on above: Performed By: #### B MP, LIPID, ALT #### [facility] [address] [address] [address] Sarthak Cleveland Urea nitrogen/Creatinin e [Mass ratio] 10.7 mg/mg Normal [facility] Comment on above: Performed By: #### B MP, LIPID, ALT #### [facility] [address] [place] [address] Dr. Sarthak Cleveland SGPTon 05-26-2022 ALT [Catalytic activity/Vol] 20 U/L Normal 16-63 [facility] Comment on above: Performed By: #### B MP, LIPID, ALT #### [facility] [address] [address] [address] Sarthak Cleveland [facility] SARS-CoV-2 (COVID-19) RNA LILIANA+probe Ql (Unsp spec) Not detected Normal NOT DETECTED [facility] Comment on above: Result Comment: This test is not yet approved or cleared by the [place] FDA. When there are no FDA-approved or cleared tests available, and other criteria are met, FDA can make tests available under an emergency access mechanism called an Emergency Use Authorization (EUA). The EUA for this test is supported by the Site Director of Health and Human Service's (HHS's) declaration [...] consistent with SARS-CoV-2. Performed By: #### C [facility] #### [facility] [address] [place] [address] Dr. Sarthak Cleveland RAD - MISCon 03-24-2022 RAD - MIS [id number]: 127 Normal [facility] Ambulatory Visit Summaryon 0 03-21-2022 Ambulatory Visit Summary DON NATION :1955 Visit Date:03/21/2022 Ambulatory Visit Instructions Your Diagnosis BPH without urinary obstruction Kidney stone Tests Performed Urnls Dip Stick Auto w/o Microscopy POC 53809 Your Care Team Attending Physician - KELBY PULIDO, Salomon West Primary Care Physician - TAO MARTINES DO [...] Following Appointments Follow Up with KELBY PULIDO, Salomon West, CLIFF When: In 3 months Comments: f/up [facility] Where: [facility] [place] [address]- Medications What How Much When Instructions New alfuzosin (alfuzosin 10 mg ER Tab) 1 Tablets By Mouth Every day Refills: 11 Pickup at [facility]/pharmacy #[id number] Unchanged hydrochlorothiazide (hydrochlorothiazide 12.5 mg Cap) 1 [...] physician if questions or concerns Pharmacy Information [facility]/pharmacy #[id number]: [address], [place] [id number] [phone] Test Results Urnls Dip Stick Auto w/o Microscopy POC 91366 (03/21/2022) Bilirubin Urine Dipstick - Negative Blood Urine Dipstick - Negative Glucose Urine Dipstick - Negative Ketones Urine Dipstick - Negative Leukocytes Urine Dipstick - Negative Nitrite Urine Dipstick - Negative Protein Urine Dipstick - Negative Specific Rippey Urine Dipstick - 1.010 Urine Appearance Urine [...] is this (more content not included)... Normal [facility] Patient Educationon 03-21-20 Patient Education Urology Benign [...] Follow these instructions at home: ? Take glez-hhb-khablfg and prescription medicines only as told by [...] You d (more content not included)... Normal [facility] Screenson 03-21-2022 Screens [id number]: 127 Normal [facility] Urology Office/Clinic Noteon 03-21-2022 Urology Office/Clinic Note Chief Complaint 10 month follow up with KUB HPI Staff Don is here today for a a 10 month follow up with KUB. KUB done on 03/20/22 at [facility] impression showed small scattered stable bilateral nephrolithiasis. [...] should be stopped and the office notified. [facility] [place]. All questions/concerns were discussed. Pt. to call [...] upset stomach. Follow-up With When Contact Information Salomon PITTS MD, URL In [address] [place] [address]- Additional Instructions: f/up new med Patient Education Benign Prostatic Hyperplasia I, Hiwot Blank, personally scribed for Dr. Pitts on 03/21/2022 [...] Vicodin (Naus (more content not included)... Normal [facility] Comment on above: Result Comment: Elec tronically Signed By: Salomon PITTS MD\.br\Date and Time Signed: 03/21/22 10:41 EDT\.br\Electronically Co-Signed By: Hiwot Blank\Date and Time Co-Signed: 03/21/22 10:40 EDT XR [...] by: GLORIA JETT Date: 2022-03-20 18:33 Normal [facility] Vital Signs Date Time Vital Sign Value Performing Clinician Facility 11-17-2023 14:10-0400 Body height 175.26 cm [facility] 11-17-2023 14:10-0400 Body mass index (BMI) [Ratio] 25.5 kg/m2 [facility] 11-17-2023 14:10-0400 Body weight 78.58 kg [facility] 11-17-2023 14:10-0400 Diastolic blood pressure 75 mm[Hg] [facility] 11-17-2023 14:10-0400 Heart rate 61 /min [facility] 11-17-2023 14:10-0400 Respiratory rate 12 /min [facility] 11-17-2023 14:10-0400 Systolic blood pressure 145 mm[Hg] [facility] 05-25-2023 10:00-0400 Body height 175.26 cm [employer] Other [facility] Other 05-25-2023 10:00-0400 Body mass index (BMI) [Ratio] 25.6 kg/m2 [employer] Other [facility] Other 05-25-2023 10:00-0400 Body weight 78.65 kg Tao Ball Other [facility] Other 05-25-2023 10:00-0400 Diastolic blood pressure 76 mm[Hg] Tao Ball Other [facility] Other 05-25-2023 10:00-0400 Respiratory rate 12 /min Tao Ball Other [facility] Other 05-25-2023 10:00-0400 Systolic blood pressure 120 mm[Hg] Tao Ball Other [facility] Other 11-28-2022 11:00-0400 Body height 175.26 cm Tao Ball Other [facility] Other 11-28-2022 11:00-0400 Body mass index (BMI) [Ratio] 24.36 kg/m2 Tao Ball Other [facility] Other 11-28-2022 11:00-0400 Body weight 74.84 kg Tao Ball Other [facility] Other 11-28-2022 11:00-0400 Diastolic blood pressure 76 mm[Hg] Tao Ball Other [facility] Other 11-28-2022 11:00-0400 Respiratory rate 12 /min Tao Ball Other [facility] Other 11-28-2022 11:00-0400 Systolic blood pressure 122 mm[Hg] Tao Ball Other [facility] Other 09-16-2022 15:15-0500 Body height 175.26 cm Tao Ball Other [facility] Other 09-16-2022 15:15-0500 Body mass index (BMI) [Ratio] 24.45 kg/m2 Tao Ball Other [facility] Other 09-16-2022 15:15-0500 Body weight 75.12 kg Tao Ball Other [facility] Other 09-16-2022 15:15-0500 Diastolic blood pressure 70 mm[Hg] Tao Ball Other [facility] Other 09-16-2022 15:15-0500 Respiratory rate 12 /min Tao Ball Other [facility] Other 09-16-2022 15:15-0500 Systolic blood pressure 118 mm[Hg] Tao Ball Other [facility] Other 03-21-2022 09:54-0400 Blood Pressure Location Salomon PITTS [facility] 03-21-2022 09:54-0400 Diastolic blood pressure 83 mm[Hg] Salomonpatrick PITTS [facility] 03-21-2022 09:54-0400 Heart rate 79 /min Salomon PITTS [facility] 03-21-2022 09:54-0400 Respiratory rate 16 /min Salomon PITTS [facility] 03-21-2022 09:54-0400 Systolic blood pressure 137 mm[Hg] Salomon PITTS [facility] Encounters Encounter Date Encounter Type Care Provider Facility Start: 11-17-2023 End: 11-17-2023 [facility] Work Phone: Start: 11-17-2023 End: 11-17-2023 Patient encounter procedure [facility] Work Phone: Start: 11-13-2023 Non-patient / Non-visit [facility] Work Phone: Start: 07-14-2023 End: 07-14-2023 ambulatory Tao Martines Other [facility] Other Start: 07-14-2023 Office outpatient vi sit 15 minutes Tao Ball [facility] Start: 05-28-2023 End: 05-28-2023 ambulatory Tao Martines Other [facility] Other Start: 05-28-2023 Telephone encounter Tao Martines [facility] Start: 05-25-2023 End: 05-25-2023 ambulatory Tao Martines Other [facility] Other Start: 05-25-2023 Patient encounter procedure Tao Martines [facility] Start: 05-04-2023 End: 05-04-2023 ambulatory Tao Martines Other [facility] Other Start: 05-04-2023 Telephone encounter Tao Martines [facility] Start: 12-09-2022 End: 01-07-[address] TAO MARTINES Facility:[facility] Start: 11-28-2022 End: 11-28-2022 ambulatory Tao Martines Other [facility] Other Start: 11-28-2022 Office outpatient vi sit 25 minutes Tao Martines [facility] Start: 11-25-2022 End: 11-26-[address] TAO MARTINES Facility:[facility] Start: 09-16-2022 End: 09-16-2022 ambulatory Tao Martines Other [facility] Other Start: 09-16-2022 Office outpatient vi sit 15 minutes Tao Martines [facility] Start: 08-10-2022 End: 11-08-[address] TAO MARTINES Facility:[facility] Start: 07-30-2022 End: 08-09-2022 ambulatory MR SAMIR JACOBSON . Facility:[facility] Start: 07-11-2022 ambulatory MD Salomon PITTS Fac ility:[facility] Start: 07-10-[address] KIM LARA . Faci lity:[facility] Start: 05-27-2022 End: 05-27-[address] ZACH TYSON Facility:[facility] Start: 05-26-2022 End: 05-27-[address] TAO MARTINES Facility:[facility] Start: 05-22-2022 End: 05-23-[address] KIM LARA . Facility:[facility] Start: 05-22-2022 Adult health examination Eliezer Martines Other [facility] Other Start: 05-06-2022 Encounter for preprocedural laboratory examination DR KIM LARA . [facility] Start: 05-06-2022 End: 05-06-[address] KIM LARA . Facility:[facility] Start: 05-02-2022 End: 05-03-[address] KIM LARA . Facility:[facility] Start: 05-02-2022 End: 05-03-2022 Encounter for preprocedural laboratory examination DR KIM LARA . Facility:[facility] Start: 03-21-2022 End: 03-22-2022 ambulatory MD Salomon PITTS Facility:[facility] Start: 03-21-2022 End: 03-21-2022 Patient encounter procedure Salomon PITTS [facility] Start: 03-20-2022 End: 03-21-[address] SALOMON PITTS . Facility:[facility] Start: 03-14-[address] KIM LARA . Faci lity:[facility] Start: 02-18-2022 End: 02-19-[address] KIM LARA . Facility:[facility] Start: 05-14-2020 End: 05-14-2020 Preoperative cardiovascular examination Tao Martines Other [facility] Other Procedures Date Procedure Procedure Detail Performing Clinician Start: 05-26-[address] ZACH TYSON Comment on above: Performed By: #### B MP, LIPID, ALT #### [facility] [address] [address] [address] Sarthak Cleveland Start: 02-23-2020 Fluoroscopy guided [...] kidney Salomon PITTS Left total orchidectomy Patr ick PITTS Reconstruction of fa cial bones Salomonpatrick PITTS Repair of sliding in guinal hernia Salomonpatrick PITTS Screening for malign ant neoplasm of prostate Tao Martines Other Immunizations Immunization Date Immunization Notes Care Provider Shannan meier 06-02-2023 Prevnar 20 Tao Martines Other [facility] 05-25-2023 influenza virus vaccine, unspecified formulation [facility] 05-25-2023 influenza, high dose seasonal, preservative-free Tao Martines Other [facility] Other 05-22-2022 influenza virus vaccine, split virus (incl. purified surface antigen) Tao Martines Other [facility] Other 05-22-2022 influenza virus vaccine, unspecified formulation [facility] 05-21-2021 influenza virus vaccine, split virus (incl. purified surface antigen) Tao Martines Other [facility] Other 05-21-2021 influenza virus vaccine, unspecified formulation [facility] Payers Date Payer Category Payer Medicare [id number] 1959 Unknown [id number] 1959 Unknown [id number] 2.16 .[id number] 1955 Unknown [id number] 2.16.840.1.924361.3.579.2.727 1955 Unknown [id number] 2.16.840.1.310853.3.579.2.727 1955 Unknown [id number] 2.16.840.1.792205.3.579.2.593 1955 Unknown [id number] 2.16.840.1.283113.3.579.2.593 1955 Unknown [id number] 2.16.840.1.011437.3.579.2.593 1955 Unknown [id number] 2.16.840.1.273313.3.579.2.593 1955 Unknown [id number] 2.16.840.1.631003.3.579.2.593 1955 Unknown [id number] 2.16.840.1.074646.3.579.2.593 1955 Unknown [id number] 2.16.840.1.848491.3.579.2.593 1955 Unknown [id number] 2.16.840.1.677989.3.579.2.593 1955 Unknown [id number] 2.16.840.1.440544.3.579.2.593 1955 Unknown [id number] 2.16.840.1.624205.3.579.2.593 1955 Unknown [id number] 2.16.840.1.442776.3.579.2.593 1955 Unknown [id number] 2.16.840.1.720262.3.579.2.593 1955 Unknown [id number] 2.16.840.1.124932.3.579.2.593 Medicare [facility] PF [id number] [id number] Self-pay Self Pay [id number] Social History Date Type Detail Facility Start: 03-21-2022 End: 08-04-2023 Tobacco smoking status Never smoked tobacco (finding) [facility] Sex Assigned At Male [facility] Start: 1955 Sex Assigned At Male F [facility] Functional Status Date Assessment Result Facility 03-21-2022 Functional Status N/A [facility] Clinical Notes 02-18-2022 to 07-14-2023 Note Date [...] exercise to achieve/mainta in a normal BMI. [facility] Other 10-19-2023 Evaluation note* Encounter Date Diagnosis Assessment Notes Treatment Notes Treatment Clinical Notes May, Elevated cholesterol (ICD-10 - E78.00) [facility] Other 10-16-2023 Evaluation note* Encounter Date Diagnosis [...] use (ICD-10 - Z79.899) Check labs: CBC 16 May, 2023 Screening PSA (prostate specific antigen) (ICD-10 - Z12.5) yearly ANNELIESE and PSA [facility] Other 04-21-2023 Evaluation note* Encounter Date Diagnosis [...] for increased CP, dyspnea, palpitations or lightheadedness [facility] Other 02-07-2023 Evaluation note* Encounter Date Diagnosis [...] continue exercise to achieve/maintain a normal BMI. [facility] Other 10-13-2022 NoteCONSULTATION CONSULTATION DATE: 05/22/2022 This is a 66-year-old gentleman returning to the clinic status post caudal epidural steroid injection completed on 05/06/2022. The patient had 100% relief and it is ongoing. He is complaining of 7 out of 10 pain today; however, to his left shoulder. He is seeing Dr. Cano for the shoulder and it was noted [...] of care and all questions were answered.[id number] Discharge instructions Patient Education 03/21/2022 10:30:52 [...] urethra. Follow these instructions at home: Take tumk-ccq-edhqhap and prescription medicines only as told by [...] 07/27/2006 Document Revised: 06/21/2019 Document Reviewed: 08/31/2017 [employer] Patient Education 2020 [employer]. Follow Up Care 05/20/2021 16:25:31 With:KELBY PULIDO, Salomon West, URL Address: [address] [place] [address]- When:Within 3 Month(s) Comments:f/up [facility] 07-12-2022 NoteCONSULTATION PROCEDURE DATE: 02/18/2022 PREOPERATIVE [...] his pain symptomatology and range of motion. [facility] Signed and Approved by: DR KIM LARA . 02/25/2022 09:28:00[facility]07-12-2022 NoteCONSULTATION CONSULTATION DATE: 02/18/2022 CHIEF COMPLAINT: [...] The patient states he is close to alf and does not wish to see an [...] like to proceed. CC: Tao Martines D.O. [facility] Signed and Approved by: DR KIM LARA . 02/25/2022 09:28:00[facility] Future Appointments Appointment Date:07/11/2022 08:00:00 AM Scheduled Provider:Salomon PITTS MD Location:[facility] Appointment Type:URO Office Visit [facility] evaluation noteNo InformationNortLiveData Other Evaluation note* Diagnosis Onset Date Resolution Status Benign prostatic hyperplasia with lower urinary tract symptoms acute Gastroesophageal reflux dise ase with esophagitis without hemorrhage acute IFG (impaired fasting glucose) acute Primary hypertension acute [facility] Work Phone: History general Narrative - Reported* Type Description [...] 202 0 Hospitalization History SEE SURGICAL HX H2scan Other Hospital course Narrative No data available for this section [facility] progress note No data available for this section [facility] Summary Purpose Family History Relationship Condition Age at Onset Recorded Date/T nicholas father Myocardial infarction Unknown Not Specified Diabetes mellitus Unknown Status post carotid endarterectomy Unknow n Hypertension Unknown brother Malignant neoplasm Unknown Diabetes mellitus Unknown Calculus of kidney Unknown brother Diabetes mellitus Unknown sister Fibromyalgia Unknown sister Migraine headache Unknown sister Calculus of kidney Unknown father Unknown Heart disease Unknown Advance Directives Advance Directive Response Recorded Date/ Time Advance Directives No November 11 9:00am Chief Complaint and Reason for Visit Chief Complaint 6 month Reason for Visit Benign prostatic hyp erplasia with lower urinary tract symptoms Gastroesophageal reflux disease with esophagitis without hemorrhage IFG (impaired fasting glucose) Primary hypertension Additional Source Comments Care Team (unrecognized sect ion and content) Team Status: Active Member Role Status Dates Tao Martines DO Primary Care Provider Active Team Status: Active Member Role Status Dates Tao Martines DO Primary Care Provide r, Attending Provider Active Start: November 13, 2023 Team Status: Inactive Member Role Status Dates Tao Martines DO Primary Care Provide r, Attending Provider Active Start: November 17, 2023 End: November 17, 2023 (unrecognized sect ion and content) No Status Records FoundNo Status Records Found INFORMATION SOURCE (unrecogn ized section and content) DATE CREATED AUTHOR 07/09/2022 [facility] DATE CREATED AUTHOR AUTHOR'S ORGANIZ ATION 01/16/2023 [facility] REASON FOR VISIT (unrecogniz ed section and content) Not Sleeping WellTBHNo [facility]for [facility] resultsCOVID [phone] Goals (unrecognized section and content) Goals may be documented in a n alternate section FOR RECORDS PERTAINING TO PATIENTS WHO ARE [...] BE BASED ON THE PRIMARY CLINICAL RECORDS. [facility]. provides no warranty or guarantee of the accuracy or completeness of information in this document.
--- NOTE | 2024-05-12 09:59 | P.CN_ITS ---
Consult Note: HPI Data of Consult Patient: known to practice within the last 3 years Requesting Physician: Priya Sky NP Primary Care Provider: Tao Martines, Consult Narrative Reason for consult: re-establish Narrative: Go Martinez a pleasant 68 year old male with longstanding low back pain post L4-5 L5-S1 fusion, historically has had significant improvement with caudal ESIs >50% improvement greater than 3 months. Patient has noticed over the last 2 weeks increasing pain, today pain tightness increasing to 8/10 with twisting, pulling, sitting, car rides, bending, activity, lifting. pain improved with sleep and lying. Patient has longstanding hx of numbness tingling and weakness to bilateral legs/feet. Patient failed tylenol and motrin, as well as topical lidocaine. no falls since last visit. has engaged in HEP greater than 6 weeks without benefit. cc:: CC: Priya Sky NP Review of Systems ROS Status of ROS 10 or more systems reviewed and unremark able except as noted in history and below Musculoskeletal Reports: back pain, extremity pain and joint pain PFSH PFSH Social History Smoking status: Never smoker Meds Home Medications and Allergies Home Medications ?Medication ?Instructions ?Recorded ?Confirmed ?Type atenolol 25 mg tablet 25 mg PO Q12H 08/04/23 08/04/23 History benazepril 20 mg tablet 20 mg PO DAILY 08/04/23 08/04/23 History hyoscyamine sulfate 0.125 mg 0.125 mg PO Q6H PRN abdominal pain 08/04/23 Rx sublingual tablet (Levsin/SL) #20 tabs omeprazole 40 mg capsule,delayed 40 mg PO DAILY 08/04/23 08/04/23 History release ondansetron 4 mg disintegrating 4 mg PO Q6H PRN nausea and 08/04/23 Rx tablet vomiting #20 tabs Allergies Allergy/AdvReac Type Severity Reaction Status Date / Time acetaminophen [From Vicodin] AdvReac Severe Vomiting Verified 08/04/23 11:02 codeine AdvReac Severe Vomiting Verified 08/04/23 11:02 hydrocodone [From Vicodin] AdvReac Severe Vomiting Verified 08/04/23 11:02 Exam Constitutional Documenting provider has reviewed patient's vital signs: yes Common normals: no apparent distress, oriented x3, healthy appearing, alert and well nourished General appearance: cooperative HENMT Common normals: normocephalic, hearing grossly normal bilaterally and moist oral mucous membranes Head and scalp: normocephalic Eye Common normals: PERRL Pupil: PERRL Neck & C-Spine Common normals: full ROM General: normal visual inspection Chest Common normals: inspection of chest normal Respiratory Common normals: normal respiratory effort, no retractions and no use of accessory muscles Back & Pelvis Lumbar spine/lower back: ROM limited, pain with ROM, straight leg raise positive right and straight leg raise positive left Sacroiliac joints: SI joint(s) abnormal Other: bilateral sij positive letty(patricks), gaenslens, thigh thrust, compression test, left greater than right decreased sensation to L5-S1 pattern strength 4/5 in BLE Extremity Common normals: normal to inspection and full ROM Neuro Common normals: oriented x3, CN's II-XII intact bilaterally, moves all extremities, no focal motor deficits, no sensory deficits noted and deep tendon reflexes 2+ bilaterally Sensorium/orientation: alert Motor exam: no movement abnormalities noted and strength abnormal Psych Common normals: mental status grossly normal, thought process normal, cooperative, affect normal, speech normal and activity/motor behavior normal Speech: normal speech Thought process: normal thought process Results Additional Findings Additional findings: If on a controlled substance or opioids, I have checked an [place] report on this patient and there are no aberrancies noted in the prescribing history.??If on a controlled substance or opioid a drug screen was completed and reviewed within the last year, and if there has not been a drug screen completed we ordered one today to monitor higher risk, state monitored pain medication use. As part of providing excellent, safe, comprehensive care, the following was completed at our patient's visit: 1. A medication reconciliation and review to ensure accurate knowledge of current/active medications, including asking our patients to inform us about any [id number] medications or herbal remedies/nutritional supplements/alternative remedies. 2. A review to specifically ensure our patients have had annual screening for screening for depression, screening for tobacco use, and screening for unhealthy alcohol use. For concerning screenings had a discussion with the patient, provided patient education, and recommended follow-up with primary care provider when appropriate. If patient noted with a risk of falling, they received education on strength, gait, and balance training to prevent future risk of falling. Assessment and Plan Assessment and Plan (1) Sacroiliac joint dysfunction: (2) Lumbar radiculopathy: (3) Failed back syndrome: Plan bilateral SIJ injection under fluoroscopy, risks vs benefits reviewed consider caudal ZEKE if needed defer medication management per pt request continue HEP as tolerated f/u after injection
== END 2024-05-12 09:24 | disposition home or self-care (01) ==
LOC: PM 09:24
PROVIDERS: PCP Internal Medicine; Visit Provider Nurse Practitioner
DX: M53.3 Sacrococcygeal disorders, not elsewhere classified (principal); M54.16 Radiculopathy, lumbar region; M96.1 Postlaminectomy syndrome, not elsewhere classified
CPT/HCPCS: G0463

== ENCOUNTER 2024-05-23 06:55 | Day surgery (SDC) | payer OTHER, SELFPAY ==
--- OUTSIDE RECORDS SUMMARY | 2024-05-23 06:58 | XMS_ITS | CCD ---
Author Organization [facility] Team Providers Care Timber Skidder Name Role Phone TAO MARTINES Primary Care [...] Drug Allergy Nausea (finding) [facility] (7 sources) Codeine; Translations: [codeine] Drug Allergy 08-29-19 15 Nausea (finding) [facility] (6 sources) Codeine Drug Allergy Unknown [facility] Other (6 sources) HMG-CoA reductase inhibitor Drug allergy Unknown [facility] Other (2 sources) Acetaminophen / HYDROcodone Drug Allergy 12-28-19 13 [facility] Rep[facility] (2 sources) Codeine Drug Allergy 12-21-19 13 [facility] (4 sources) Vicodin *ANALGESICS - OPIOID* Propensity to adverse reactions 08-29-19 15 Unknown [email or web address] Other (1 source) patient allergy list reviewed by nurse or physicia Propensity to adverse reactions 06-08-20 17 Comment:Done [facility] Other (1 source) Acetaminophen Drug Allergy 11-14-19 24 Unknown Reaction [facility] (1 source) HYDROcodone Drug Allergy 08-04-20 23 Vomiting [facility] (1 source) Qjyimvi-FID-LvM Reductase Inhibitor Allergy to substance 11-14-19 24 Unknown Reaction [facility] Medications Current Medications Medication Drug Class(es) Dates Sig (Normalized) Sig (Original) 24 hr alfuzosin hydrochloride 10 mg extended release oral tablet (1 source) alpha-Adrenergic Melissa Start: 03-21-2022 take 1 tablet by mouth once daily alfuzosin 10 mg ER Tab 10 mg = 1 tab(s), Oral, Daily, # 30 tab(s), Refills(s) 11, Pharmacy: [facility]/pharmacy #[id number], 175, cm, 03/21/22 9:55:00 EDT, Height/Length [...] Daily, # 90 cap(s), Refills(s) 3, Pharmacy: [facility]/pharmacy #[id number], 175, cm, 05/20/21 15:07:00 EDT, Height/Length [...] for 90 day(s), 360 tab(s), Refill(s) 3, [facility]/pharmacy #[id number], 175, cm, 05/20/21 15:07:00 EDT, Height/Length [...] 17, 2018 12:00am January 06, 2020 10:30am [place] 6-Acb-Nmz-Fish Oil (Fish Oil) 1,000 mg (120 mg-180 mg) Capsule (1 source) Start: 05-17-2018 End: 11-14-2023 [place] 1-Myq-Vap-Fish Oil (Fish Oil) 1,000 mg (120 mg-180 [...] pain Episodic Other aftercare (2 sources) Other fpc (current) drug therapy; 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] Onset: 3 Episodic Other aftercare (1 source) Long-term current use of drug therapy; 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] Episodic Other connective [...] 11-13-2023 Cholesterol in LDL [Mass/Vol] 209.0 mg/dL [facility] Comment on above: <100 mg/dl [id number] 0-129 mg/dl NEAR OR ABOVE [id number] mg/dl BORDERLINE [id number] mg/dl HIGH>190 mg/dl VERY HIGH Cholesterol in VLDL Calc [Ma ss/Vol]on 11-13-2023 Cholesterol in VLDL [Mass/Vol] 22.4 mg/dL [facility] Laboratory - Chemistry and C hemistry - challengeon 11-13-2023 Cholesterol [Mass/Vol] 284 mg/dL <=200 [facility] Cholesterol in HDL [Mass/Vol] 53 mg/dL 40-60 [facility] Comment on above: > or =60 mg/dl - LOW CARDIOVASCULAR RISK<40 mg/dl - HIGH CARDIOVASCULAR RISK Triglyceride [Mass/Vol] 112 mg/dL <=150 [facility] No Panel Informationon 11-12 Prostate Specific Antigen Screen 1.00 ng/mL <=4.00 [facility] Serum or plasma total choles terol/high density lipoprotein (HDL) cholesterol mass mahamed 11-13-2023 Cholesterol.total/ Cholesterol in HDL [Mass ratio] 5.4 {ratio} [facility] Comment on above: 3.3 - 4.4 LOW RISK4. 4 - 7.1 AVERAGE RISK7.1 - 11.0 MODERATE RISK>11.0 HIGH RISK CARDIAC LONNIE ADMITon 023 CK [Catalytic activity/Vol] 57 U/L Normal 39-308 [facility] Comment on above: Performed By: #### C CORY, CMP #### [facility] [address] [place] [address] Dr. Sarthak Cleveland CK.MB [Mass/Vol] 0.54 ng/mL Normal <=3.60 [facility] Comment on above: Performed By: #### C CORY, CMP #### [facility] [address] [address] [address] Sarthak Celveland HSTROP <4.0 Normal 4.0-76.1 [facility] Comment on above: Result Comment: CUT- OFF POINTS HAVE BEEN ESTABLISHED BASED ON THE FOURTH UNIVERSAL DEFINITIONS OF MYOCARDIAL INFARCTION. THE UPPER REFERENCE LIMIT (URL) OF TROPONIN, DEFINED THE 99TH PERCENTILE OF cTnI DISTRIBUTION IN A REFERENCE POPULATION, HAS BEEN CONFIRMED THE DECISION THRESHOLD FOR [place] DIAGNOSIS. Performed By: #### C CORY, CMP #### [facility] [address] [address] [address] Sarthak Cleveland MAL 37 ng/mL Normal 16-96 [facility] Comment on above: Performed By: #### C EDISONM, CMP #### [facility] [address] [place] [address] Dr. Sarthak Cleveland CBC AUTO DIFFon 11-25-2022 BASO # 0.0 103/ul Normal 0.0-0.1 [facility] Comment on above: Performed By: #### B MP, LIPID, ALT #### [facility] [address] [address] [address] Sarthak Cleveland Basophils/100 WBC (Bld) 0.5 % Normal 0.2-2.0 [facility] Comment on above: Performed By: #### B MP, LIPID, ALT #### [facility] [address] [place] [address] Dr. Sarthak Cleveland EO # 0.3 103/ul Normal 0.0-0.7 [facility] Comment on above: Performed By: #### B MP, LIPID, ALT #### [facility] [address] [place] [address] Dr. Sarthak Cleveland Eosinophils/100 WBC (Bld) 3.0 % Normal 0.9-7.0 [facility] Comment on above: Performed By: #### B MP, LIPID, ALT #### [facility] [address] [place] [address] Dr. Sarthak Cleveland Erythrocyte distribution width (RBC) [Ratio] 12.4 % Normal 11.0-15.0 [facility] Comment on above: Performed By: #### B MP, LIPID, ALT #### [facility] [address] [place] [address] Dr. Sarthak Cleveland Hematocrit (Bld) [Volume fraction] 47.3 % Normal 42.0-54.0 [facility] Comment on above: Performed By: #### B MP, LIPID, ALT #### [facility] [address] [place] [address] Dr. Sarthak Cleveland Hemoglobin (Bld) [Mass/Vol] 15.9 g/dL Normal 14.0-18.0 [facility] Comment on above: Performed By: #### B MP, LIPID, ALT #### [facility] [address] [place] [address] Dr. Sarthak Cleveland IG # 0.04 10e3/ul Critically high 0.00-0.03 [facility] Comment on above: Performed By: #### B MP, LIPID, ALT #### [facility] [address] [place] [address] Dr. Sarthak Cleveland IG % 0.5 % Normal 0.0-0.5 [facility] Comment on above: Performed By: #### B MP, LIPID, ALT #### [facility] [address] [place] [address] Dr. Sarthak Cleveland LYMPH # 2.2 103/ul Normal 1.2-3.8 [facility] Comment on above: Performed By: #### B MP, LIPID, ALT #### [facility] [address] [place] [address] Dr. Sarthak Cleveland Lymphocytes/100 WBC (Bld) 26.6 % Normal 20.5-60.0 [facility] Comment on above: Performed By: #### B MP, LIPID, ALT #### [facility] [address] [place] [address] Dr. Sarthak Cleveland MANUAL DIFF REQ NO Normal [facility] Comment on above: Performed By: #### B MP, LIPID, ALT #### [facility] [address] [place] [address] Dr. Sarthak Cleveland MCH (RBC) [Entitic mass] 31.7 pg Normal 25.9-34.0 [facility] Comment on above: Performed By: #### B MP, LIPID, ALT #### [facility] [address] [place] [address] Dr. Sarthak Cleveland MCHC (RBC) [Mass/Vol] 33.6 g/dL Normal 29.9-35.2 [facility] Comment on above: Performed By: #### B MP, LIPID, ALT #### [facility] [address] [place] [address] Dr. Sarthak Cleveland MCV (RBC) [Entitic vol] 94.2 fL Critically high 80.0-94.0 [facility] Comment on above: Performed By: #### B MP, LIPID, ALT #### [facility] [address] [place] [address] Dr. Sarthak Cleveland MONO # 0.8 103/ul Normal 0.3-0.8 [facility] Comment on above: Performed By: #### B MP, LIPID, ALT #### [facility] [address] [place] [address] Dr. Sarthak Cleveland Monocytes/100 WBC (Bld) 9.7 % Normal 1.7-12.0 [facility] Comment on above: Performed By: #### B MP, LIPID, ALT #### [facility] [address] [address] [address] Sarthak Cleveland NEUT # 5.0 103/ul Normal 1.4-6.5 [facility] Comment on above: Performed By: #### B MP, LIPID, ALT #### [facility] [address] [place] [address] Dr. Sarthak Cleveland Neutrophils/100 WBC (Bld) 59.7 % Normal 43.0-75.0 [facility] Comment on above: Performed By: #### B MP, LIPID, ALT #### [facility] [address] [place] [address] Dr. Sarthak Cleveland Platelet mean volume (Bld) [Entitic vol] 11.0 fL Normal 9.5-13.5 [facility] Comment on above: Performed By: #### B MP, LIPID, ALT #### [facility] [address] [place] [address] Dr. Sarthak Cleveland PLT 241 103/ul Normal 150-450 [facility] Comment on above: Performed By: #### B MP, LIPID, ALT #### [facility] [address] [place] [address] Dr. Sarthak Cleveland RBC 5.02 106/ul Normal 4.70-6.10 [facility] Comment on above: Performed By: #### B MP, LIPID, ALT #### [facility] [address] [address] [address] Sarthak Cleveland WBC 8.4 103/ul Normal 4.0-11.0 [facility] Comment on above: Performed By: #### B MP, LIPID, ALT #### [facility] [address] [place] [address] Dr. Sarthak Cleveland PROF 14(COMP METB)on 023 Albumin [Mass/Vol] 3.8 g/dL Normal 3.4-5.0 [facility] Comment on above: Performed By: #### C MADM, CMP #### [facility] [address] [place] [address] Dr. Sarthak Cleveland Albumin/Globulin [Mass ratio] 0.9 {ratio} Normal [facility] Comment on above: Performed By: #### C MADM, CMP #### [facility] [address] [place] [address] Dr. Sarthak Cleveland ALP [Catalytic activity/Vol] 57 U/L Normal 46-116 [facility] Comment on above: Performed By: #### C MADM, CMP #### [facility] [address] [place] [address] Dr. Sarthak Cleveland ALT [Catalytic activity/Vol] 21 U/L Normal 16-63 [facility] Comment on above: Performed By: #### C MADM, CMP #### [facility] [address] [place] [address] Dr. Sarthak Cleveland Anion gap [Moles/Vol] 12.3 mmol/L Normal [facility] Comment on above: Performed By: #### C MADM, CMP #### [facility] [address] [place] [address] Dr. Sarthak Cleveland AST [Catalytic activity/Vol] 17 U/L Normal 15-37 [facility] Comment on above: Performed By: #### C MADM, CMP #### [facility] [address] [place] [address] Dr. Sarthak Cleveland Bilirubin [Mass/Vol] 0.3 mg/dL Normal 0.2-1.0 [facility] Comment on above: Performed By: #### C MADM, CMP #### [facility] [address] [place] [address] Dr. Sarthak Cleveland Calcium [Mass/Vol] 9.2 mg/dL Normal 8.5-10.1 [facility] Comment on above: Performed By: #### C MADM, CMP #### [facility] [address] [place] [address] Dr. Sarthak Cleveland Chloride [Moles/Vol] 103 mmol/L Normal 98-107 [facility] Comment on above: Performed By: #### C MADM, CMP #### [facility] [address] [place] [address] Dr. Sarthak Cleveland CO2 [Moles/Vol] 28.7 mmol/L Normal 21.0-32.[address] [facility] Comment on above: Performed By: #### C EDISONM, CMP #### [facility] [address] [place] [address] Dr. Sarthak Cleveland Creatinine [Mass/Vol] 0.83 mg/dL Normal 0.70-1.30 [facility] Comment on above: Performed By: #### C MADM, CMP #### [facility] [address] [address] [address] Sarthak Cleveland EGFR-AF [place] >60 Normal >=[address] [facility] Comment on above: Performed By: #### C EDISONM, CMP #### [facility] [address] [place] [address] Dr. Sarthak Cleveland EGFR-NON AF [place] >60 Normal >=60 [facility] Comment on above: Performed By: #### C EDISONM, CMP #### [facility] [address] [place] [address] Dr. Sarthak Cleveland Globulin (S) [Mass/Vol] 4.1 g/dL Normal [facility] Comment on above: Performed By: #### C EDISONM, CMP #### [facility] [address] [place] [address] Dr. Sarthak Cleveland Glucose [Mass/Vol] 89 mg/dL Normal 74-106 [facility] Comment on above: Performed By: #### C EDISONM, CMP #### [facility] [address] [place] [address] Dr. Sarthak Cleveland Potassium [Moles/Vol] 4.0 mmol/L Normal 3.5-5.1 [facility] Comment on above: Performed By: #### C MADM, CMP #### [facility] [address] [place] [address] Dr. Sarthak Cleveland Protein [Mass/Vol] 7.9 g/dL Normal 6.4-8.2 [facility] Comment on above: Performed By: #### C MADM, CMP #### [facility] [address] [place] [address] Dr. Sarthak Cleveland Sodium [Moles/Vol] 140 mmol/L Normal 136-145 [facility] Comment on above: Performed By: #### C CORY, CMP #### [facility] [address] [place] [address] Dr. Sarthak Cleveland Urea nitrogen [Mass/Vol] 12.0 mg/dL Normal 7.0-18.0 [facility] Comment on above: Performed By: #### C CORY, CMP #### [facility] [address] [place] [address] Dr. Sarthak Cleveland Urea nitrogen/Creatinin e [Mass ratio] 14.5 mg/mg Normal [facility] Comment on above: Performed By: #### C CORY, CMP #### [facility] [address] [place] [address] Dr. Sarthak Cleveland TSHon 11-25-2022 TSH 1.919 uIU/mL Normal 0.358-3.740 [facility] Comment on above: Performed By: #### B MP, LIPID, ALT #### [facility] [address] [place] [address] SHOULDER LT WO [...] by: OLYA PEREYRA Date: 2022-05-27 19:58 Normal [facility] XR ARTHRO SHOULDER LTon 05-10 [...] OLYA PEREYRA Date: 2022-05-27 12:36 Normal [facility] CBC AUTO DIFFon 05-26-2022 BASO # 0.1 103/ul Normal 0.0-0.1 [facility] Comment on above: Performed By: #### B MP, LIPID, ALT #### [facility] [address] [address] [address] Sarthak Cleveland Basophils/100 WBC (Bld) 0.6 % Normal 0.2-2.0 [facility] Comment on above: Performed By: #### B MP, LIPID, ALT #### [facility] [address] [address] [address] Sarthak Cleveland EO # 0.2 103/ul Normal 0.0-0.7 [facility] Comment on above: Performed By: #### B MP, LIPID, ALT #### [facility] [address] [address] [address] Sarthak Cleveland Eosinophils/100 WBC (Bld) 2.4 % Normal 0.9-7.0 [facility] Comment on above: Performed By: #### B MP, LIPID, ALT #### [facility] [address] [address] [address] Sarthak Cleveland Erythrocyte distribution width (RBC) [Ratio] 12.6 % Normal 11.0-15.0 [facility] Comment on above: Performed By: #### B MP, LIPID, ALT #### [facility] [address] [place] [address] Dr. Sarthak Cleveland Hematocrit (Bld) [Volume fraction] 46.1 % Normal 42.0-54.0 [facility] Comment on above: Performed By: #### B MP, LIPID, ALT #### [facility] [address] [place] [address] Dr. Sarthak Cleveland Hemoglobin (Bld) [Mass/Vol] 15.0 g/dL Normal 14.0-18.0 [facility] Comment on above: Performed By: #### B MP, LIPID, ALT #### [facility] [address] [place] [address] Dr. Sarthak Cleveland IG # 0.07 10e3/ul Critically high 0.00-0.03 [facility] Comment on above: Performed By: #### B MP, LIPID, ALT #### [facility] [address] [place] [address] Dr. Sarthak Cleveland IG % 0.9 % Critically high 0.0-0.5 [facility] Comment on above: Performed By: #### B MP, LIPID, ALT #### [facility] [address] [place] [address] Dr. Sarthak Cleveland LYMPH # 1.9 103/ul Normal 1.2-3.8 [facility] Comment on above: Performed By: #### B MP, LIPID, ALT #### [facility] [address] [place] [address] Dr. Sarthak Cleveland Lymphocytes/100 WBC (Bld) 22.7 % Normal 20.5-60.0 [facility] Comment on above: Performed By: #### B MP, LIPID, ALT #### [facility] [address] [place] [address] Dr. Sarthak Cleveland MANUAL DIFF REQ NO Normal [facility] Comment on above: Performed By: #### B MP, LIPID, ALT #### [facility] [address] [address] [address] Sarthak Cleveland MCH (RBC) [Entitic mass] 31.6 pg Normal 25.9-34.0 [facility] Comment on above: Performed By: #### B MP, LIPID, ALT #### [facility] [address] [address] [address] Sarthak Cleveland MCHC (RBC) [Mass/Vol] 32.5 g/dL Normal 29.9-35.2 [facility] Comment on above: Performed By: #### B MP, LIPID, ALT #### [facility] [address] [place] [address] Dr. Sarthak Cleveland MCV (RBC) [Entitic vol] 97.1 fL Critically high 80.0-94.0 [facility] Comment on above: Performed By: #### B MP, LIPID, ALT #### [facility] [address] [place] [address] Dr. Sarthak Cleveland MONO # 1.0 103/ul Critically high 0.3-0.8 [facility] Comment on above: Performed By: #### B MP, LIPID, ALT #### [facility] [address] [place] [address] Dr. Sarthak Cleveland Monocytes/100 WBC (Bld) 11.8 % Normal 1.7-12.0 [facility] Comment on above: Performed By: #### B MP, LIPID, ALT #### [facility] [address] [place] [address] Dr. Sarthak Cleveland NEUT # 5.1 103/ul Normal 1.4-6.5 [facility] Comment on above: Performed By: #### B MP, LIPID, ALT #### [facility] [address] [address] [address] Sarthak Cleveland Neutrophils/100 WBC (Bld) 61.6 % Normal 43.0-75.0 [facility] Comment on above: Performed By: #### B MP, LIPID, ALT #### [facility] [address] [address] [address] Sarthak Cleveland Platelet mean volume (Bld) [Entitic vol] 10.4 fL Normal 9.5-13.5 [facility] Comment on above: Performed By: #### B MP, LIPID, ALT #### [facility] [address] [address] [address] Sarthak Cleveland PLT 243 103/ul Normal 150-450 [facility] Comment on above: Performed By: #### B MP, LIPID, ALT #### [facility] [address] [address] [address] Sarthak Cleveland RBC 4.75 106/ul Normal 4.70-6.10 [facility] Comment on above: Performed By: #### B MP, LIPID, ALT #### [facility] [address] [place] [address] Dr. Sarthak Cleveland WBC 8.2 103/ul Normal 4.0-11.0 [facility] Comment on above: Performed By: #### B MP, LIPID, ALT #### [facility] [address] [place] [address] Dr. Sarthak Cleveland LIPID PROFILEon 05-26-2022 CHOL-HDL RATIO NORM SEE BELOW Normal [facility] Comment on above: Result Comment: 3.3 - 4.4 LOW RISK 4.4 - 7.1 AVERAGE RISK 7.1 - 11.0 MODERATE RISK >11.0 HIGH RISK Performed By: #### B MP, LIPID, ALT #### [facility] [address] [place] [address] Dr. Sarthak Cleveland Cholesterol [Mass/Vol] 309 mg/dL Critically high <=200 [facility] Comment on above: Performed By: #### B MP, LIPID, ALT #### [facility] [address] [place] [address] Dr. Sarthak Cleveland Cholesterol in HDL [Mass/Vol] 46 mg/dL Normal 40-60 [facility] Comment on above: Performed By: #### B MP, LIPID, ALT #### [facility] [address] [address] [address] Sarthak Cleveland Cholesterol in LDL [Mass/Vol] 242.6 mg/dL Normal [facility] Comment on above: Performed By: #### B MP, LIPID, ALT #### [facility] [address] [address] [address] Sarthak Cleveland Cholesterol.total/ Cholesterol in HDL [Mass ratio] 6.7 {ratio} Normal [facility] Comment on above: Performed By: #### B MP, LIPID, ALT #### [facility] [address] [address] [address] Sarthak Cleveland HDL NORMAL > or = 60 mg/dl - LO W CARDIOVASCULAR RISK <40 mg/dl - HIGH CARDIOVASCULAR RISK Normal [facility] Comment on above: Performed By: #### B MP, LIPID, ALT #### [facility] [address] [address] [address] Sarthak Cleveland LDL CALC NORMAL SEE BELOW Normal [facility] Comment on above: Result Comment: <100 mg/dl OPTIMAL 100 - 129 mg/dl NEAR OR ABOVE OPTIMAL 130 - 159 mg/dl BORDERLINE HIGH 160 - 189 mg/dl HIGH >190 mg/dl VERY HIGH Performed By: #### B MP, LIPID, ALT #### [facility] [address] [address] [address] Sarthak Cleveland Triglyceride [Mass/Vol] 102 mg/dL Normal <=150 [facility] Comment on above: Performed By: #### B MP, LIPID, ALT #### [facility] [address] [address] [address] Sarthak Cleveland VLDL CALC 20.4 mg/dL Normal [facility] Comment on above: Performed By: #### B MP, LIPID, ALT #### [facility] [address] [address] [address] Sarthak Cleveland PROF CHEM 8 (BAS METB)on Anion gap [Moles/Vol] 11.6 mmol/L Normal [facility] Comment on above: Performed By: #### B MP, LIPID, ALT #### [facility] [address] [address] [address] Sarthak Cleveland Calcium [Mass/Vol] 8.7 mg/dL Normal 8.5-10.1 [facility] Comment on above: Performed By: #### B MP, LIPID, ALT #### [facility] [address] [address] [address] Sarthak Cleveland Chloride [Moles/Vol] 104 mmol/L Normal 98-107 [facility] Comment on above: Performed By: #### B MP, LIPID, ALT #### [facility] [address] [address] [address] Sarthak Cleveland CO2 [Moles/Vol] 28.7 mmol/L Normal 21.0-32.0 [facility] Comment on above: Performed By: #### B MP, LIPID, ALT #### [facility] [address] [place] [address] Dr. Sarthak Cleveland Creatinine [Mass/Vol] 0.84 mg/dL Normal 0.70-1.30 [facility] Comment on above: Performed By: #### B MP, LIPID, ALT #### [facility] [address] [place] [address] Dr. Sarthak Cleveland EGFR-AF [place] >60 Normal >=60 [facility] Comment on above: Performed By: #### B MP, LIPID, ALT #### [facility] [address] [place] [address] Dr. Sarthak Cleveland EGFR-NON AF [place] >60 Normal >=60 [facility] Comment on above: Performed By: #### B MP, LIPID, ALT #### [facility] [address] [address] [address] Sarthak Cleveland Glucose [Mass/Vol] 115 mg/dL Critically high 74-106 [facility] Comment on above: Performed By: #### B MP, LIPID, ALT #### [facility] [address] [place] [address] Dr. Sarthak Cleveland Potassium [Moles/Vol] 4.3 mmol/L Normal 3.5-5.1 [facility] Comment on above: Performed By: #### B MP, LIPID, ALT #### [facility] [address] [place] [address] Dr. Sarthak Cleveland Sodium [Moles/Vol] 140 mmol/L Normal 136-145 [facility] Comment on above: Performed By: #### B MP, LIPID, ALT #### [facility] [address] [address] [address] Sarthak Cleveland Urea nitrogen [Mass/Vol] 9.0 mg/dL Normal 7.0-18.0 [facility] Comment on above: Performed By: #### B MP, LIPID, ALT #### [facility] [address] [address] [address] Sarthak Cleveland Urea nitrogen/Creatinin e [Mass ratio] 10.7 mg/mg Normal [facility] Comment on above: Performed By: #### B MP, LIPID, ALT #### [facility] [address] [place] [address] Dr. Sarthak Cleveland SGPTon 05-26-2022 ALT [Catalytic activity/Vol] 20 U/L Normal 16-63 [facility] Comment on above: Performed By: #### B MP, LIPID, ALT #### [facility] [address] [address] [address] Sarthak Cleveland [facility] SARS-CoV-2 (COVID-19) RNA LILIANA+probe Ql (Unsp spec) Not detected Normal NOT DETECTED [facility] Comment on above: Result Comment: This test is not yet approved or cleared by the [place] FDA. When there are no FDA-approved or cleared tests available, and other criteria are met, FDA can make tests available under an emergency access mechanism called an Emergency Use Authorization (EUA). The EUA for this test is supported by the Machine Operator Transplanter of Health and Human Service's (HHS's) declaration [...] consistent with SARS-CoV-2. Performed By: #### C [facility] #### [facility] [address] [place] [address] Dr. Sarthak Cleveland RAD - MISCon 03-24-2022 RAD - MIS [id number]: 127 Normal [facility] Ambulatory Visit Summaryon 0 03-21-2022 Ambulatory Visit Summary DON NATION :1955 Visit Date:03/21/2022 Ambulatory Visit Instructions Your Diagnosis BPH without urinary obstruction Kidney stone Tests Performed Urnls Dip Stick Auto w/o Microscopy POC 62188 Your Care Team Attending Physician - KELBY [...] When: In 3 months Comments: f/up [facility] Where: [facility] [place] [address]- Medications What How Much When Instructions New alfuzosin (alfuzosin 10 mg ER Tab) 1 Tablets By Mouth Every day Refills: 11 Pickup at [facility]/pharmacy #[id number] Unchanged hydrochlorothiazide (hydrochlorothiazide 12.5 mg Cap) 1 [...] physician if questions or concerns Pharmacy Information [facility]/pharmacy #[id number]: [address], [place] [id number] [phone] Test Results Urnls Dip Stick Auto w/o Microscopy POC 29725 (03/21/2022) Bilirubin Urine Dipstick - Negative Blood Urine Dipstick - Negative Glucose Urine Dipstick - Negative Ketones Urine Dipstick - Negative Leukocytes Urine Dipstick - Negative Nitrite Urine Dipstick - Negative Protein Urine Dipstick - Negative Specific Colt Urine Dipstick - 1.010 Urine Appearance Urine [...] is this (more content not included)... Normal [facility] Patient Educationon 03-21-20 Patient Education Urology Benign [...] Follow these instructions at home: ? Take ljzf-zxq-ffwkdpg and prescription medicines only as told by [...] You d (more content not included)... Normal [facility] Screenson 03-21-2022 Screens [id number]: 127 Normal [facility] Urology Office/Clinic Noteon 03-21-2022 Urology Office/Clinic Note Chief Complaint 10 month follow up with KUB HPI Staff Don is here today for a a 10 month follow up with KUB. KUB done on 03/20/22 at [facility] impression showed small scattered stable bilateral [...] stopped and the office notified. [facility] [place]. All questions/concerns were discussed. Pt. to call [...] Salomon PITTS MD, URL In [address] [place] [address]- Additional Instructions: f/up new med Patient Education [...] Vicodin (Naus (more content not included)... Normal [facility] Comment on above: Result Comment: Elec tronically [...] by: GLORIA JETT Date: 2022-03-20 18:33 Normal [facility] Vital Signs Date Time Vital Sign Value Performing Clinician Facility 11-17-2023 14:10-0400 Body height 175.26 cm [facility] 11-17-2023 14:10-0400 Body mass index (BMI) [Ratio] 25.5 kg/m2 [facility] 11-17-2023 14:10-0400 Body weight 78.58 kg [facility] 11-17-2023 14:10-0400 Diastolic blood pressure 75 mm[Hg] [facility] 11-17-2023 14:10-0400 Heart rate 61 /min [facility] 11-17-2023 14:10-0400 Respiratory rate 12 /min [facility] 11-17-2023 14:10-0400 Systolic blood pressure 145 mm[Hg] [facility] 05-25-2023 10:00-0400 Body height 175.26 cm [employer] Other [facility] [employer] Other 05-25-2023 10:00-0400 Body mass index (BMI) [Ratio] 25.6 kg/m2 [employer] Other [facility] Other 05-25-2023 10:00-0400 Body weight 78.65 kg Tao Ball Other [facility] Other 05-25-2023 10:00-0400 Diastolic blood pressure 76 mm[Hg] Tao Ball Other [facility] Other 05-25-2023 10:00-0400 Respiratory rate 12 /min Tao Ball Other [facility] Other 05-25-2023 10:00-0400 Systolic blood pressure 120 mm[Hg] Tao Ball Other [facility] Other 11-28-2022 11:00-0400 Body height 175.26 cm Tao Ball Other [facility] Other 11-28-2022 11:00-0400 Body mass index (BMI) [Ratio] 24.36 kg/m2 Tao Ball Other [facility] Other 11-28-2022 11:00-0400 Body weight 74.84 kg Tao Ball Other [facility] Other 11-28-2022 11:00-0400 Diastolic blood pressure 76 mm[Hg] Tao Ball Other [facility] Other 11-28-2022 11:00-0400 Respiratory rate 12 /min Tao Ball Other [facility] Other 11-28-2022 11:00-0400 Systolic blood pressure 122 mm[Hg] Tao Ball Other [facility] Other 09-16-2022 15:15-0500 Body height 175.26 cm Tao Ball Other [facility] Other 09-16-2022 15:15-0500 Body mass index (BMI) [Ratio] 24.45 kg/m2 Tao Ball Other [facility] Other 09-16-2022 15:15-0500 Body weight 75.12 kg Tao Ball Other [facility] Other 09-16-2022 15:15-0500 Diastolic blood pressure 70 mm[Hg] Tao Ball Other [facility] Other 09-16-2022 15:15-0500 Respiratory rate 12 /min Tao Ball Other [facility] Other 09-16-2022 15:15-0500 Systolic blood pressure 118 mm[Hg] Tao Ball Other [facility] Other 03-21-2022 09:54-0400 Blood Pressure Location Salomon PITTS [facility] 03-21-2022 09:54-0400 Diastolic blood pressure 83 mm[Hg] Salomonpatrick PITTS [facility] 03-21-2022 09:54-0400 Heart rate 79 /min Salomon PITTS [facility] 03-21-2022 09:54-0400 Respiratory rate 16 /min Salomon PITTS [facility] 03-21-2022 09:54-0400 Systolic blood pressure 137 mm[Hg] Salomon PITTS [facility] Encounters Encounter Date Encounter Type Care Provider Facility Start: 11-17-2023 End: 11-17-2023 [facility] Work Phone: Start: 11-17-2023 End: 11-17-2023 Patient encounter procedure [facility] Work Phone: Start: 11-13-2023 Non-patient / Non-visit [facility] Work Phone: Start: 07-14-2023 End: 07-14-2023 ambulatory Tao Martines Other [facility] Other Start: 07-14-2023 Office outpatient vi sit 15 minutes Tao Ball [facility] Start: 05-28-2023 End: 05-28-2023 ambulatory Tao Martines Other [facility] Other Start: 05-28-2023 Telephone encounter Tao Martines [facility] Start: 05-25-2023 End: 05-25-2023 ambulatory Tao Martines Other [facility] Other Start: 05-25-2023 Patient encounter procedure Tao Martines [facility] Start: 05-04-2023 End: 05-04-2023 ambulatory Tao Martines Other [facility] Other Start: 05-04-2023 Telephone encounter Tao Martines [facility] Start: 12-09-2022 End: 01-07-[address] TAO MARTINES Facility:[facility] Start: 11-28-2022 End: 11-28-2022 ambulatory Tao Martines Other [facility] Other Start: 11-28-2022 Office outpatient vi sit 25 minutes Tao Martines [facility] Start: 11-25-2022 End: 11-26-[address] TAO MARTINES Facility:[facility] Start: 09-16-2022 End: 09-16-2022 ambulatory Tao Martines Other [facility] Other Start: 09-16-2022 Office outpatient vi sit 15 minutes Tao Martines [facility] Start: 08-10-2022 End: 11-08-[address] TAO MARTINES Facility:[facility] Start: 07-30-2022 End: 08-09-2022 ambulatory MR SAMIR JACOBSON . Facility:[facility] Start: 07-11-2022 ambulatory MD Salomon PITTS Fac ility:[facility] Start: 07-10-[address] KIM LARA . Faci lity:[facility] Start: 05-27-2022 End: 05-27-[address] ZACH TYSON Facility:[facility] Start: 05-26-2022 End: 05-27-[address] TAO MARTINES Facility:[facility] Start: 05-22-2022 End: 05-23-[address] KIM LARA . Facility:[facility] Start: 05-22-2022 Adult health examination Eliezer Martines Other [facility] Other Start: 05-06-2022 Encounter for preprocedural laboratory examination DR KIM LARA . [facility] Start: 05-06-2022 End: 05-06-[address] KIM LARA . Facility:[facility] Start: 05-02-2022 End: 05-03-[address] KIM LARA . Facility:[facility] Start: 05-02-2022 End: 05-03-2022 Encounter for preprocedural laboratory examination DR KIM LARA . Facility:[facility] Start: 03-21-2022 End: 03-22-2022 ambulatory MD Salomon PITTS Facility:[facility] Start: 03-21-2022 End: 03-21-2022 Patient encounter procedure Salomon PITTS [facility] Start: 03-20-2022 End: 03-21-[address] SALOMON PITTS . Facility:[facility] Start: 03-14-[address] KIM LARA . Faci lity:[facility] Start: 02-18-2022 End: 02-19-[address] KIM LARA . Facility:[facility] Start: 05-14-2020 End: 05-14-2020 Preoperative cardiovascular examination Tao Martines Other [email or web address] Other Procedures Date Procedure Procedure Detail Performing Clinician Start: 05-26-[address] ZACH TYSON Comment on above: Performed By: #### B MP, LIPID, ALT #### [facility] [address] [address] [address] Sarthak Cleveland Start: 02-23-2020 Fluoroscopy guided [...] meier 06-02-2023 Prevnar 20 Tao Martines Other [facility] 05-25-2023 influenza virus vaccine, unspecified formulation [facility] 05-25-2023 influenza, high dose seasonal, preservative-free Tao Martines Other [facility] Other 05-22-2022 influenza virus vaccine, split virus (incl. purified surface antigen) Tao Martines Other [facility] Other 05-22-2022 influenza virus vaccine, unspecified formulation [facility] 05-21-2021 influenza virus vaccine, split virus (incl. purified surface antigen) Tao Martines Other [facility] Other 05-21-2021 influenza virus vaccine, unspecified formulation [facility] Payers Date Payer Category Payer Medicare [id number] 1959 Unknown [id number] 1959 Unknown [id number] 2.16 .[id number] 1955 Unknown [id number] 2.16.840.1.203461.3.579.2.727 1955 Unknown [id number] 2.16.840.1.945585.3.579.2.727 1955 Unknown [id number] 2.16.840.1.785459.3.579.2.593 1955 Unknown [id number] 2.16.840.1.747057.3.579.2.593 1955 Unknown [id number] 2.16.840.1.191861.3.579.2.593 1955 Unknown [id number] 2.16.840.1.639996.3.579.2.593 1955 Unknown [id number] 2.16.840.1.616221.3.579.2.593 1955 Unknown [id number] 2.16.840.1.973112.3.579.2.593 1955 Unknown [id number] 2.16.840.1.685315.3.579.2.593 1955 Unknown [id number] 2.16.840.1.024423.3.579.2.593 1955 Unknown [id number] 2.16.840.1.861205.3.579.2.593 1955 Unknown [id number] 2.16.840.1.011266.3.579.2.593 1955 Unknown [id number] 2.16.840.1.010605.3.579.2.593 1955 Unknown [id number] 2.16.840.1.188870.3.579.2.593 1955 Unknown [id number] 2.16.840.1.407585.3.579.2.593 Medicare [employer] [facility] PF [id number] [id number] Self-pay Self Pay [id number] Social History Date Type Detail Facility Start: 03-21-2022 End: 08-04-2023 Tobacco smoking status Never smoked tobacco (finding) [facility] Sex Assigned At Male [facility] Start: 1955 Sex Assigned At Male F [facility] Functional Status Date Assessment Result Facility 03-21-2022 Functional Status N/A [facility] Clinical Notes 02-18-2022 to 07-14-2023 Note [...] exercise to achieve/mainta in a normal BMI. [facility] Other 10-19-2023 Evaluation note* Encounter Date Diagnosis Assessment Notes Treatment Notes Treatment Clinical Notes May, Elevated cholesterol (ICD-10 - E78.00) [facility] Other 10-16-2023 Evaluation note* Encounter Date Diagnosis [...] (ICD-10 - Z12.5) yearly ANNELIESE and PSA [facility] Other 04-21-2023 Evaluation note* Encounter Date Diagnosis [...] for increased CP, dyspnea, palpitations or lightheadedness [facility] Other 02-07-2023 Evaluation note* Encounter Date Diagnosis [...] continue exercise to achieve/maintain a normal BMI. [facility] Other 10-13-2022 NoteCONSULTATION CONSULTATION DATE: 05/22/2022 This [...] of care and all questions were answered.[id number] Hospital Discharge instructions Patient Education 03/21/2022 10:30:52 [...] urethra. Follow these instructions at home: Take kvpp-rlk-kmdlvdq and prescription medicines only as told by [...] 07/27/2006 Document Revised: 06/21/2019 Document Reviewed: 08/31/2017 [employer] Patient Education 2020 [employer]. Follow Up Care 05/20/2021 16:25:31 With:KELBY PULIDO, Salomon West, URL Address: [address] [place] [address]- When:Within 3 Month(s) Comments:f/up [facility] 07-12-2022 NoteCONSULTATION PROCEDURE DATE: 02/18/2022 PREOPERATIVE [...] his pain symptomatology and range of motion. [facility] Signed and Approved by: DR KIM LARA . 02/25/2022 09:28:00[facility]07-12-2022 NoteCONSULTATION CONSULTATION DATE: 02/18/2022 CHIEF COMPLAINT: 1. [...] The patient states he is close to correction and does not wish to see an [...] like to proceed. CC: Tao Martines D.O. [facility] Signed and Approved by: DR KIM LARA . 02/25/2022 09:28:00[facility] Future Appointments Appointment Date:07/11/2022 08:00:00 AM Scheduled Provider:Salomon PITTS MD Location:[facility] Appointment Type:URO Office Visit [facility] evaluation noteNo InformationNortHOTEL Top-Level Domain Other Evaluation note* Diagnosis Onset Date Resolution Status Benign prostatic hyperplasia with lower urinary tract symptoms acute Gastroesophageal reflux dise ase with esophagitis without hemorrhage acute IFG (impaired fasting glucose) acute Primary hypertension acute [facility] Work Phone: History general Narrative - Reported* [...] 202 0 Hospitalization History SEE SURGICAL HX [facility] Other Hospital course Narrative No data available for this section [facility] progress note No data available for this section [facility] Summary Purpose Family History Relationship Condition [...] section and content) DATE CREATED AUTHOR 07/09/2022 [facility] DATE CREATED AUTHOR AUTHOR'S ORGANIZ ATION 01/16/2023 [facility] REASON FOR VISIT (unrecogniz ed section and content) Not Sleeping WellTBHNo Infor [facility] resultsCOVID [phone] Goals (unrecognized section and content) Goals may [...] BE BASED ON THE PRIMARY CLINICAL RECORDS. [employer] [facility]. provides no warranty or guarantee of the accuracy or completeness of information in this document.
[2024-05-23 07:04] VITALS: BP 122/80; PULSE 60; TEMP 36.3; O2SAT 99
[2024-05-23 07:41] VITALS: BP 131/71; PULSE 62; O2SAT 94
[2024-05-23 07:42] VITALS: BP 138/76; PULSE 62; O2SAT 94
[2024-05-23] MEDS: LIDOCAINE HCL 2% 400 MG/20 ML MDV INJ (07:44)
[2024-05-23] MEDS: TRIAMCINOLONE ACETONIDE 40 MG/ML VIAL 80 MG INJ (07:44)
[2024-05-23] MEDS: IOHEXOL 240 MG/ML - 10 ML VIAL 24 MG INJ (07:44)
[2024-05-23] MEDS: BUPIVACAINE HCL 0.25% PF 25 MG/10 ML VIAL 4 ML INJ (07:44)
--- NOTE | 2024-05-23 07:46 | W.PM.PROCNOT ---
Date of procedure: 05/23/24 Pre-op diagnosis: Pain due to bilateral sacroiliitis Post-op diagnosis: same as pre-op Procedure: Procedure: Bilateral sacroiliac joint injection Medications: Bupivacaine 0.25% 3cc, kenalog 40mg x2 After informed consent was obtained, the patient was brought to the medical procedure unit and placed in the prone position, when a timeout was completed verifying correct patient, procedure, site, positioning, implant, and/or special equipment.? The skin overlying the area was prepped and draped in standard sterile fashion using alcohol.? A 25-gauge needle was inserted towards the left sacroiliac joint under direct fluoroscopic imaging.? Needle tip was advanced until the joint was encountered.? We instilled a total of 2 mL of solution.? The same procedure was then completed on the right side.? Postoperatively needles were removed.? The patient tolerated the procedure well without complication.? The patient reported reduction in pain symptoms postoperatively. Anesthesia: Local Surgeon: Belgica Cano Pathology: none sent Condition: stable Disposition: no change
== END 2024-05-23 07:50 | disposition home or self-care (01) ==
LOC: SURGOUT 06:55
PROVIDERS: PCP Internal Medicine; Visit Provider Anesthesiology
DX: M46.1 Sacroiliitis, not elsewhere classified (principal)
CPT/HCPCS: 27096; J0665; J3301; Q9966

== ENCOUNTER 2024-05-31 09:17 | Outpatient (OUT) | payer OTHER, SELFPAY ==
--- OUTSIDE RECORDS SUMMARY | 2024-05-31 09:21 | XMS_ITS | CCD ---
Author Organization [facility] Team Providers Care Patient Services Clerk Name Role Phone TAO MARTINES Primary Care [...] JANE ., DR KIM Campbell Admitting Unavailable CONRAD, DR LICEA Primary Care Unavailable JANE ., DR KIM Campbell Admitting Unavailable JANE ., DR KIM Campbell Attending Unavailable CONRAD, DR LICEA Primary Care Unavailable Allergies Allergy Classification Reported Allergen(s) Allergy Type Date of Onset Reaction(s) Facility (5 sources) Acetaminophen / HYDROcodone; Translations: [acetaminophen-hy drocodone] Drug Allergy Nausea (finding) [facility] (8 sources) Codeine; Translations: [codeine] Drug Allergy 08-29-19 15 Nausea (finding) [facility] (6 sources) Codeine Drug Allergy Unknown [employer] [facility] Other (6 sources) HMG-CoA reductase inhibitor Drug allergy Unknown [employer] [facility] Other (2 sources) Acetaminophen / HYDROcodone Drug Allergy 12-28-19 13 [facility] (2 sources) Codeine Drug Allergy 12-21-19 13 [facility] (4 sources) Vicodin *ANALGESICS - OPIOID* Propensity to adverse reactions 08-29-19 15 Unknown [facility] Other (1 source) patient allergy list reviewed by nurse or physicia Propensity to adverse reactions 06-08-20 17 Comment:Done [facility] Other (2 sources) Acetaminophen Drug Allergy 11-14-19 24 Unknown Reaction [facility] (2 sources) HYDROcodone Drug Allergy 08-04-20 23 Vomiting [facility] (2 sources) Dpgvbhm-MMT-ZsE Reductase Inhibitor Allergy to substance 11-14-19 24 Unknown Reaction [facility] Medications Current Medications Medication Drug Class(es) Dates Sig (Normalized) Sig (Original) 24 hr alfuzosin hydrochloride 10 mg extended release oral tablet (1 source) alpha-Adrenergic Melissa Start: 03-21-2022 take 1 tablet by mouth once daily alfuzosin 10 mg ER Tab 10 mg = 1 tab(s), Oral, Daily, # 30 tab(s), Refills(s) 11, Pharmacy: [facility]/pharmacy #[id number], 175, cm, 03/21/22 9:55:00 EDT, Height/Length Dosing, 74, kg, 03/21/22 9:55:00 EDT, Weight Dosing Start Date: 03/21/22 Status: Ordered atenolol 25 mg oral tablet (20 sources) beta-Adrenergic Melissa Start: 03-17-2024 take 1 tablet by mouth twice daily Atenolol Active 0 .ROUTE .COMPLEX 180 March 17, 2024 9:51am TAKE 1 TABLET BY MOUTH TWICE A DAY Start: 11-17-2023 End: 03-17-2024 take 25 mg by mouth once daily Atenolol Discontinued 2 5 MG PO Daily November 17, 2023 2:09pm March 17, 2024 9:51am Start: 11-14-2023 End: 11-17-2023 take 25 mg [...] ing benazepril hydrochloride 20 mg oral tablet (17 sources) Angiotensin Converting Enzyme Inhibitor Start: 12-27-2019 benazepril Oral, Daily, Refills(s) 0 Start Date: 12/27/19 Status: Ordered Start: 11-11-2017 End: 11-14-2023 take 20 mg by mouth once daily Benazepril Active 20 MG PO Daily November 14, 2023 12:00am Benazepril HCl N ot-Taking/PRN Benazepril HCl N ot-Taking Zetia (9 sources) Dietary Cholesterol Absorption Inhibitor Start: 06-01-2020 [...] Daily, # 90 cap(s), Refills(s) 3, Pharmacy: [facility]/pharmacy #[id number], 175, cm, 05/20/21 15:07:00 EDT, Height/Length Dosing, 74, kg, 05/20/21 15:07:00 EDT, Weight Dosing Start Date: 02/17/22 Status: Ordered omeprazole 40 mg delayed release oral capsule (18 sources) Proton Pump Inhibitor Start: 04-27-2024 Omeprazole Active 0 .ROUTE .COMPLEX 90 April 27, 2024 8:36am TAKE 1 CAPSULE DAILY ON AN EMPTY STOMACH FOLLOWED IN 30 MINUTES BY BREAKFAST Start: 11-14-2023 End: 04-27-2024 take 40 mg by mouth once daily Omeprazole Discontinued 40 MG PO Daily November 14, 2023 12:00am April 27, 2024 8:36am Start: 06-01-2020 omeprazole Ora l, Daily, Refills(s) [...] for 90 day(s), 360 tab(s), Refill(s) 3, [facility]/pharmacy #[id number], 175, cm, 05/20/21 15:07:00 EDT, [...] a day for 30 days Sep, Active Completed/Discontinued Medications Medication Drug Class(es) Dates Sig (Normalized) Sig (Original) acetaminophen 500 mg oral tablet (2 sources) Start: 01-06-2020 End: 11-14-2023 take 2 tablets by mouth every six hours Acetaminophen (Tylenol Extra Strength) 500 mg Tablet Discontinued 1000 MG PO Q6H January 06, 2020 12:00am November 14, 2023 9:56am Cbd Oil (2 sources) Start: 01-06-2020 End: 11-14-2023 Cbd Oil Discontinued TOPICAL January 06, 2020 12:00am November 14, 2023 9:56am cephalexin 500 mg oral capsule (6 sources) Cephalosporin Antibacterial Start: 01-11-2020 End: 11-14-2023 take 500 mg by mouth every six hours Cephalexin Discontinued 500 MG PO Q6H January 11, 2020 12:00am November 14, 2023 9:56am Start: 11-16-2017 End: 01-06-2020 take 500 mg by mouth every twelve hours Cephalexin Discontinued 500 MG PO Q12H May 17, 2018 12:00am January 06, 2020 10:29am ketorolac tromethamine 10 mg oral tablet (6 sources) Nonsteroidal Anti-inflammatory Drug, Cyclooxygenase Inhibitor Start: [...] 12:00am November 21, 2017 12:01am Multivitamin preparation (2 sources) Start: 05-17-2018 End: 01-06-2020 take 1 tablet by mouth once daily Multivitamin Discontinued 1 TAB PO Daily May 17, 2018 12:00am January 06, 2020 10:30am [place] 6-Top-Nft-Fish Oil (Fish Oil) 1,000 mg (120 mg-180 mg) Capsule (2 sources) Start: 05-17-2018 End: 11-14-2023 [place] 7-Uvj-Pxg-Fish Oil (Fish Oil) 1,000 mg (120 mg-180 [...] Not-Taking/PRN tamsulosin hydrochloride 0.4 mg oral capsule (8 sources) alpha-Adrenergi c Melissa Start: 11-11-2017 End: 01-06-2020 Tamsulosin Discontinued 1 TAB PO As Directed November 11, 2017 12:00am January 06, 2020 10:31am Flomax Not-Takin g/PRN Flomax Not-Takin g valACYclovir 1000 mg oral tablet (7 sources) Herpesvirus Nucleoside Analog DNA Polymerase Inhibitor, Herpes Simplex Virus Nucleoside Analog DNA Polymerase Inhibitor, Herpes Zoster Virus Nucleoside Analog DNA Polymerase Inhibitor Start: 04-27-2024 End: 05-31-2024 take 2 tablets by mouth twice daily Valacyclovir Discontinued 0 .ROUTE .COMPLEX 4 April 27, 2024 10:26pm May 31, 2024 8:34am TAKE 2 TABLETS BY MOUTH TWICE A DAY FOR 1 DAY Start: 11-14-2023 End: 04-27-2024 take 2000 mg by mouth twice daily Valacyclovir Discontinued 2000 MG PO Twice daily November 14, 2023 12:00am April 27, 2024 10:26pm valACYclovir HCl 1 GM TAKE 2 TABLETS BY MOUTH TWICE A DAY Orally Once a day for 1 days Active valACYclovir HCl 1 GM TAKE 2 TABLETS BY MOUTH TWICE A DAY Orally Once a day for 1 days Active Problems Active Problems Problem Classification Problem Date [...] of kidney] Onset: 6 Episodic Cardiac dysrhythmias (15 sources) Palpitations; Translations: [Palpitations] Onset: 3 Episodic Diabetes mellitus without complication (13 sources) Impaired fasting glycemia; Translations: [Impaired fasting glucose] Episodic Disorders of lipid metabolism (20 sources) Hyperlipidemia; Translations: [Pure hypercholesterolemia] Onset: 0 12-27-2019 Chronic Esophageal disorders (11 sources) Gastroesophageal reflux disease; Translations: [Gastro-esophageal reflux disease without esophagitis] Onset: 3 12-27-2019 Chronic Essential hypertension (19 sources) Hypertensive disorder; Translations: [Essential hypertension] Onset: 3 12-27-2019 Chronic Gastrointestinal hemorrhage (12 sources) Hemorrhage of rectum and anus; Translations: [Hemorrhage of anus and rectum] Episodic Hyperplasia of prostate (14 sources) Benign prostatic hypertrophy without outflow obstruction; Translations: [Benign prostatic hyperplasia without lower urinary tract symptoms] Onset: 6 Chronic Immunizations and screening for infectious disease (1 source) Vaccination given; Translations: [Encounter for immunization] Episodic Miscellaneous mental health disorders (9 sources) Transient insomnia; Translations: [Adjustment insomnia] 11-14-2023 Episodic Nonspecific chest pain (1 source) Other chest pain Episodic Other aftercare (2 sources) Other long term care administrator (current) drug therapy; Translations: [OTH FORK LIFT MECHANIC CURRENT DRUG THERAPY] Onset: 3 Episodic Other aftercare (1 source) Long-term current use of drug therapy; Translations: [Other longterm (current) drug therapy] Episodic Other connective tissue disease (4 sources) Adhesive capsulitis of left shoulder; Translations: [ADHESIVE CAPSULITIS LEFT SHOULDER] Onset: 3 Episodic Other diseases of kidney and ureters (6 sources) Hydroureter; Translations: [Hydroureter] Episodic Other ear and sense organ disorders (7 sources) Hearing loss; Translations: [Unspecified hearing loss, left ear] Chronic Other gastrointestinal disorders (8 sources) Irritable bowel syndrome with diarrhea; Translations: [Irritable bowel syndrome with diarrhea] 11-14-2023 Chronic Other hereditary and degenerative nervous system conditions (9 sources) Essential tremor; Translations: [Essential tremor] 11-14-2023 [...] conditions (not mental disorders or infectious disease) (6 sources) Encounter for screening for malignant neoplasm of prostate; Translations: [Patient encounter status] Onset: 2 Episodic Otitis media and related [...] OTH PART DIGESTV TRACT] Onset: 3 Episodic Residual codes; unclassified (5 sources) Other specified postprocedural states; Translations: [Other postprocedural status] Onset: 3 Episodic Residual codes; unclassified (1 source) History of colonoscopy; Translations: [Other specified postprocedural states] 05-31-2024 Episodic Spondylosis; intervertebral disc disorders; other back [...] infection, site not specified] Episodic Viral infection (10 sources) Herpes simplex type 1 infection; Translations: [...] [Acute recurrent maxillary sinusitis] Onset: 08-29-2014 Episodic Spondylosis; intervertebral disc disorders; other back [...] 11-13-2023 Cholesterol in LDL [Mass/Vol] 209.0 mg/dL [facility] Comment on above: <100 mg/dl [id number] 0-129 mg/dl NEAR OR ABOVE [id number] mg/dl BORDERLINE [id number] mg/dl HIGH>190 mg/dl VERY HIGH Cholesterol in VLDL Calc [Ma ss/Vol]on 11-13-2023 Cholesterol in VLDL [Mass/Vol] 22.4 mg/dL [facility] Laboratory - Chemistry and C hemistry - challengeon 11-13-2023 Cholesterol [Mass/Vol] 284 mg/dL <=200 [facility] Cholesterol in HDL [Mass/Vol] 53 mg/dL 40-60 [facility] Comment on above: > or =60 mg/dl - LOW CARDIOVASCULAR RISK<40 mg/dl - HIGH CARDIOVASCULAR RISK Triglyceride [Mass/Vol] 112 mg/dL <=150 [facility] No Panel Informationon 11-12 Prostate Specific Antigen Screen 1.00 ng/mL <=4.00 [facility] Serum or plasma total choles terol/high density lipoprotein (HDL) cholesterol mass mahamed 11-13-2023 Cholesterol.total/ Cholesterol in HDL [Mass ratio] 5.4 {ratio} [facility] Comment on above: 3.3 - 4.4 LOW RISK4. 4 - 7.1 AVERAGE RISK7.1 - 11.0 MODERATE RISK>11.0 HIGH RISK CARDIAC LONNIE ADMITon 023 CK [Catalytic activity/Vol] 57 U/L Normal 39-308 [facility] Comment on above: Performed By: #### C CORY CMP #### [facility] [address] [address] [address] Sarthak Cleveland CK.MB [Mass/Vol] 0.54 ng/mL Normal <=3.60 [facility] Comment on above: Performed By: #### C CORY, CMP #### [facility] [address] [address] [address] Sarthak Cleveland HSTROP <4.0 Normal 4.0-76.1 [facility] Comment on above: Result Comment: CUT- OFF POINTS HAVE BEEN ESTABLISHED BASED ON THE FOURTH UNIVERSAL DEFINITIONS OF MYOCARDIAL INFARCTION. THE UPPER REFERENCE LIMIT (URL) OF TROPONIN, DEFINED THE 99TH PERCENTILE OF cTnI DISTRIBUTION IN A REFERENCE POPULATION, HAS BEEN CONFIRMED THE DECISION THRESHOLD FOR CA DIAGNOSIS. Performed By: #### C CORY, CMP #### [facility] [address] [place] [address] Dr. Sarthak Cleveland MAL 37 ng/mL Normal 16-96 [facility] Comment on above: Performed By: #### C EDISONM, CMP #### [facility] [address] [place] [address] Dr. Sarthak Cleveland CBC AUTO DIFFon 11-25-2022 BASO # 0.0 103/ul Normal 0.0-0.1 [facility] Comment on above: Performed By: #### B MP, LIPID, ALT #### [facility] [address] [place] [address] Dr. Sarthak Cleveland Basophils/100 WBC (Bld) 0.5 % Normal 0.2-2.0 [facility] Comment on above: Performed By: #### B MP, LIPID, ALT #### [facility] [address] [place] [address] Dr. Sarthak Cleveland EO # 0.3 103/ul Normal 0.0-0.7 [facility] Comment on above: Performed By: #### B MP, LIPID, ALT #### [facility] [address] [place] [address] Dr. Sarthak Cleveland Eosinophils/100 WBC (Bld) 3.0 % Normal 0.9-7.0 [facility] Comment on above: Performed By: #### B MP, LIPID, ALT #### [facility] [address] [place] [address] Dr. Sarthak Cleveland Erythrocyte distribution width (RBC) [Ratio] 12.4 % Normal 11.0-15.0 [facility] Comment on above: Performed By: #### B MP, LIPID, ALT #### [facility] [address] [place] [address] Dr. Sarthak Cleveland Hematocrit (Bld) [Volume fraction] 47.3 % Normal 42.0-54.0 [facility] Comment on above: Performed By: #### B MP, LIPID, ALT #### [facility] [address] [address] [address] Sarthak Cleveland Hemoglobin (Bld) [Mass/Vol] 15.9 g/dL Normal 14.0-18.0 [facility] Comment on above: Performed By: #### B MP, LIPID, ALT #### [facility] [address] [place] [address] Dr. Sarthak Cleveland IG # 0.04 10e3/ul Critically high 0.00-0.03 [facility] Comment on above: Performed By: #### B MP, LIPID, ALT #### [facility] [address] [place] [address] Dr. Sarthak Cleveland IG % 0.5 % Normal 0.0-0.5 [facility] Comment on above: Performed By: #### B MP, LIPID, ALT #### [facility] [address] [place] [address] Dr. Sarthak Cleveland LYMPH # 2.2 103/ul Normal 1.2-3.8 [facility] Comment on above: Performed By: #### B MP, LIPID, ALT #### [facility] [address] [place] [address] Dr. Sarthak Cleveland Lymphocytes/100 WBC (Bld) 26.6 % Normal 20.5-60.0 [facility] Comment on above: Performed By: #### B MP, LIPID, ALT #### [facility] [address] [place] [address] Dr. Sarthak Cleveland MANUAL DIFF REQ NO Normal [facility] Comment on above: Performed By: #### B MP, LIPID, ALT #### [facility] [address] [place] [address] Dr. Sarthak Cleveland MCH (RBC) [Entitic mass] 31.7 pg Normal 25.9-34.0 [facility] Comment on above: Performed By: #### B MP, LIPID, ALT #### [facility] [address] [place] [address] Dr. Sarthak Cleveland MCHC (RBC) [Mass/Vol] 33.6 g/dL Normal 29.9-35.2 [facility] Comment on above: Performed By: #### B MP, LIPID, ALT #### [facility] [address] [place] [address] Dr. Sarthak Cleveland MCV (RBC) [Entitic vol] 94.2 fL Critically high 80.0-94.0 [facility] Comment on above: Performed By: #### B MP, LIPID, ALT #### [facility] [address] [place] [address] Dr. Sarthak Cleveland MONO # 0.8 103/ul Normal 0.3-0.8 [facility] Comment on above: Performed By: #### B MP, LIPID, ALT #### [facility] [address] [place] [address] Dr. Sarthak Cleveland Monocytes/100 WBC (Bld) 9.7 % Normal 1.7-12.0 [facility] Comment on above: Performed By: #### B MP, LIPID, ALT #### [facility] [address] [place] [address] Dr. Sarthak Cleveland NEUT # 5.0 103/ul Normal 1.4-6.5 [facility] Comment on above: Performed By: #### B MP, LIPID, ALT #### [facility] [address] [place] [address] Dr. Sarthak Cleveland Neutrophils/100 WBC (Bld) 59.7 % Normal 43.0-75.0 [facility] Comment on above: Performed By: #### B MP, LIPID, ALT #### [facility] [address] [place] [address] Dr. Sarthak Cleveland Platelet mean volume (Bld) [Entitic vol] 11.0 fL Normal 9.5-13.5 [facility] Comment on above: Performed By: #### B MP, LIPID, ALT #### [facility] [address] [place] [address] Dr. Sarthak Cleveland PLT 241 103/ul Normal 150-450 [facility] Comment on above: Performed By: #### B MP, LIPID, ALT #### [facility] [address] [address] [address] Sarthak Cleveland RBC 5.02 106/ul Normal 4.70-6.10 [facility] Comment on above: Performed By: #### B MP, LIPID, ALT #### [facility] [address] [address] [address] Sarthak Cleveland WBC 8.4 103/ul Normal 4.0-11.0 [facility] Comment on above: Performed By: #### B MP, LIPID, ALT #### [facility] [address] [address] [address] Sarthak Cleveland PROF 14(COMP METB)on 023 Albumin [Mass/Vol] 3.8 g/dL Normal 3.4-5.0 [facility] Comment on above: Performed By: #### C MADM, CMP #### [facility] [address] [place] [address] Dr. Sarthak Cleveland Albumin/Globulin [Mass ratio] 0.9 {ratio} Normal [facility] Comment on above: Performed By: #### C MADM, CMP #### [facility] [address] [address] [address] Sarthak Cleveland ALP [Catalytic activity/Vol] 57 U/L Normal 46-116 [facility] Comment on above: Performed By: #### C MADM, CMP #### [facility] [address] [address] [address] Sarthak Cleveland ALT [Catalytic activity/Vol] 21 U/L Normal 16-63 [facility] Comment on above: Performed By: #### C MADM, CMP #### [facility] [address] [address] [address] Sarthak Cleveland Anion gap [Moles/Vol] 12.3 mmol/L Normal [facility] Comment on above: Performed By: #### C MADM, CMP #### [facility] [address] [address] [address] Sarthak Cleveland AST [Catalytic activity/Vol] 17 U/L Normal 15-37 [facility] Comment on above: Performed By: #### C MADM, CMP #### [facility] [address] [address] [address] Sarthak Cleveland Bilirubin [Mass/Vol] 0.3 mg/dL Normal 0.2-1.0 [facility] Comment on above: Performed By: #### C MADM, CMP #### [facility] [address] [place] [address] Dr. Sarthak Cleveland Calcium [Mass/Vol] 9.2 mg/dL Normal 8.5-10.1 [facility] Comment on above: Performed By: #### C MADM, CMP #### [facility] [address] [place] [address] Dr. Sarthak Cleveland Chloride [Moles/Vol] 103 mmol/L Normal 98-107 [facility] Comment on above: Performed By: #### C MADM, CMP #### [facility] [address] [place] [address] Dr. Sarthak Cleveland CO2 [Moles/Vol] 28.7 mmol/L Normal 21.0-32.0 [facility] Comment on above: Performed By: #### C MADM, CMP #### [facility] [address] [place] [address] Dr. Sarthak Cleveland Creatinine [Mass/Vol] 0.83 mg/dL Normal 0.70-1.30 [facility] Comment on above: Performed By: #### C MADM, CMP #### [facility] [address] [place] [address] Dr. Sarthak Cleveland EGFR-AF CAMEROONIAN >60 Normal >=60 [facility] Comment on above: Performed By: #### C MADM, CMP #### [facility] [address] [place] [address] Dr. Sarthak Cleveland EGFR-NON AF CAMEROONIAN >60 Normal >=60 [facility] Comment on above: Performed By: #### C MADM, CMP #### [facility] [address] [place] [address] Dr. Sarthak Cleveland Globulin (S) [Mass/Vol] 4.1 g/dL Normal [facility] Comment on above: Performed By: #### C MADM, CMP #### [facility] [address] [address] [address] Sarthak Cleveland Glucose [Mass/Vol] 89 mg/dL Normal 74-106 [facility] Comment on above: Performed By: #### C MADM, CMP #### [facility] [address] [address] [address] Sarthak Cleveland Potassium [Moles/Vol] 4.0 mmol/L Normal 3.5-5.1 [facility] Comment on above: Performed By: #### C MADM, CMP #### [facility] [address] [address] [address] Sarthak Cleveland Protein [Mass/Vol] 7.9 g/dL Normal 6.4-8.2 [facility] Comment on above: Performed By: #### C EDISONM, CMP #### [facility] [address] [address] [address] Sarthak Cleveland Sodium [Moles/Vol] 140 mmol/L Normal 136-145 [facility] Comment on above: Performed By: #### C EDISONM, CMP #### [facility] [address] [address] [address] Sarthak Cleveland Urea nitrogen [Mass/Vol] 12.0 mg/dL Normal 7.0-18.0 [facility] Comment on above: Performed By: #### C EDISONM, CMP #### [facility] [address] [address] [address] Sarthak Cleveland Urea nitrogen/Creatinin e [Mass ratio] 14.5 mg/mg Normal [facility] Comment on above: Performed By: #### C EDISONM, CMP #### [facility] [address] [address] [address] Sarthak Cleveland TSHon 11-25-2022 TSH 1.919 uIU/mL Normal 0.358-3.740 [facility] Comment on above: Performed By: #### B MP, LIPID, ALT #### [facility] [address] [address] [address] SHOULDER LT WO CONon 10-2 CT SHOULDER LT WO CON EXAMINATION: CT [...] by: OLYA PEREYRA Date: 2022-05-27 19:58 Normal [facility] XR ARTHRO SHOULDER LTon 05-10 XR [...] by: OLYA PEREYRA Date: 2022-05-27 12:36 Normal [facility] CBC AUTO DIFFon 05-26-2022 BASO # 0.1 103/ul Normal 0.0-0.1 [facility] Comment on above: Performed By: #### B MP, LIPID, ALT #### [facility] [address] [place] [address] Dr. Sarthak Cleveland Basophils/100 WBC (Bld) 0.6 % Normal 0.2-2.0 [facility] Comment on above: Performed By: #### B MP, LIPID, ALT #### [facility] [address] [place] [address] Dr. Sarthak Cleveland EO # 0.2 103/ul Normal 0.0-0.7 [facility] Comment on above: Performed By: #### B MP, LIPID, ALT #### [facility] [address] [place] [address] Dr. Sarthak Cleveland Eosinophils/100 WBC (Bld) 2.4 % Normal 0.9-7.0 [facility] Comment on above: Performed By: #### B MP, LIPID, ALT #### [facility] [address] [place] [address] Dr. Sarthak Cleveland Erythrocyte distribution width (RBC) [Ratio] 12.6 % Normal 11.0-15.0 [facility] Comment on above: Performed By: #### B MP, LIPID, ALT #### [facility] [address] [place] [address] Dr. Sarthak Cleveland Hematocrit (Bld) [Volume fraction] 46.1 % Normal 42.0-54.0 [facility] Comment on above: Performed By: #### B MP, LIPID, ALT #### [facility] [address] [place] [address] Dr. Sarthak Cleveland Hemoglobin (Bld) [Mass/Vol] 15.0 g/dL Normal 14.0-18.0 [facility] Comment on above: Performed By: #### B MP, LIPID, ALT #### [facility] [address] [place] [address] Dr. Sarthak Cleveland IG # 0.07 10e3/ul Critically high 0.00-0.03 [facility] Comment on above: Performed By: #### B MP, LIPID, ALT #### [facility] [address] [address] [address] Sarthak Cleveland IG % 0.9 % Critically high 0.0-0.5 [facility] Comment on above: Performed By: #### B MP, LIPID, ALT #### [facility] [address] [address] [address] Sarthak Cleveland LYMPH # 1.9 103/ul Normal 1.2-3.8 [facility] Comment on above: Performed By: #### B MP, LIPID, ALT #### [facility] [address] [place] [address] Dr. Sarthak Cleveland Lymphocytes/100 WBC (Bld) 22.7 % Normal 20.5-60.0 [facility] Comment on above: Performed By: #### B MP, LIPID, ALT #### [facility] [address] [place] [address] Dr. Sarthak Cleveland MANUAL DIFF REQ NO Normal [facility] Comment on above: Performed By: #### B MP, LIPID, ALT #### [facility] [address] [place] [address] Dr. Sarthak Cleveland MCH (RBC) [Entitic mass] 31.6 pg Normal 25.9-34.0 [facility] Comment on above: Performed By: #### B MP, LIPID, ALT #### [facility] [address] [place] [address] Dr. Sarthak Cleveland MCHC (RBC) [Mass/Vol] 32.5 g/dL Normal 29.9-35.2 [facility] Comment on above: Performed By: #### B MP, LIPID, ALT #### [facility] [address] [place] [address] Dr. Sarthak Cleveland MCV (RBC) [Entitic vol] 97.1 fL Critically high 80.0-94.0 [facility] Comment on above: Performed By: #### B MP, LIPID, ALT #### [facility] [address] [place] [address] Dr. Sarthak Cleveland MONO # 1.0 103/ul Critically high 0.3-0.8 [facility] Comment on above: Performed By: #### B MP, LIPID, ALT #### [facility] [address] [address] [address] Sarthak Cleveland Monocytes/100 WBC (Bld) 11.8 % Normal 1.7-12.0 [facility] Comment on above: Performed By: #### B MP, LIPID, ALT #### [facility] [address] [place] [address] Dr. Sarthak Cleveland NEUT # 5.1 103/ul Normal 1.4-6.5 [facility] Comment on above: Performed By: #### B MP, LIPID, ALT #### [facility] [address] [place] [address] Dr. Sarthak Cleveland Neutrophils/100 WBC (Bld) 61.6 % Normal 43.0-75.0 [facility] Comment on above: Performed By: #### B MP, LIPID, ALT #### [facility] [address] [place] [address] Dr. Sarthak Cleveland Platelet mean volume (Bld) [Entitic vol] 10.4 fL Normal 9.5-13.5 [facility] Comment on above: Performed By: #### B MP, LIPID, ALT #### [facility] [address] [place] [address] Dr. Sarthak Cleveland PLT 243 103/ul Normal 150-450 [facility] Comment on above: Performed By: #### B MP, LIPID, ALT #### [facility] [address] [place] [address] Dr. Sarthak Cleveland RBC 4.75 106/ul Normal 4.70-6.10 [facility] Comment on above: Performed By: #### B MP, LIPID, ALT #### [facility] [address] [place] [address] Dr. Sarthak Cleveland WBC 8.2 103/ul Normal 4.0-11.0 [facility] Comment on above: Performed By: #### B MP, LIPID, ALT #### [facility] [address] [place] [address] Dr. Sarthak Cleveland LIPID PROFILEon 05-26-2022 CHOL-HDL RATIO NORM SEE BELOW Normal [facility] Comment on above: Result Comment: 3.3 - 4.4 LOW RISK 4.4 - 7.1 AVERAGE RISK 7.1 - 11.0 MODERATE RISK >11.0 HIGH RISK Performed By: #### B MP, LIPID, ALT #### [facility] [address] [address] [address] Sarthak Cleveland Cholesterol [Mass/Vol] 309 mg/dL Critically high <=200 [facility] Comment on above: Performed By: #### B MP, LIPID, ALT #### [facility] [address] [address] [address] Sarthak Cleveland Cholesterol in HDL [Mass/Vol] 46 mg/dL Normal 40-60 [facility] Comment on above: Performed By: #### B MP, LIPID, ALT #### [facility] [address] [place] [address] Dr. Sarthak Cleveland Cholesterol in LDL [Mass/Vol] 242.6 mg/dL Normal [facility] Comment on above: Performed By: #### B MP, LIPID, ALT #### [facility] [address] [place] [address] Dr. Sarthak Cleveland Cholesterol.total/ Cholesterol in HDL [Mass ratio] 6.7 {ratio} Normal [facility] Comment on above: Performed By: #### B MP, LIPID, ALT #### [facility] [address] [place] [address] Dr. Sarthak Cleveland HDL NORMAL > or = 60 mg/dl - LO W CARDIOVASCULAR RISK <40 mg/dl - HIGH CARDIOVASCULAR RISK Normal [facility] Comment on above: Performed By: #### B MP, LIPID, ALT #### [facility] [address] [place] [address] Dr. Sarthak Cleveland LDL CALC NORMAL SEE BELOW Normal [facility] Comment on above: Result Comment: <100 mg/dl OPTIMAL 100 - 129 mg/dl NEAR OR ABOVE OPTIMAL 130 - 159 mg/dl BORDERLINE HIGH 160 - 189 mg/dl HIGH >190 mg/dl VERY HIGH Performed By: #### B MP, LIPID, ALT #### [facility] [address] [address] [address] Sarthak Cleveland Triglyceride [Mass/Vol] 102 mg/dL Normal <=150 [facility] Comment on above: Performed By: #### B MP, LIPID, ALT #### [facility] [address] [address] [address] Sarthak Cleveland VLDL CALC 20.4 mg/dL Normal [facility] Comment on above: Performed By: #### B MP, LIPID, ALT #### [facility] [address] [address] [address] Sarthak Cleveland PROF CHEM 8 (BAS METB)on Anion gap [Moles/Vol] 11.6 mmol/L Normal [facility] Comment on above: Performed By: #### B MP, LIPID, ALT #### [facility] [address] [address] [address] Sarthak Cleveland Calcium [Mass/Vol] 8.7 mg/dL Normal 8.5-10.1 [facility] Comment on above: Performed By: #### B MP, LIPID, ALT #### [facility] [address] [address] [address] Sarthak Cleveland Chloride [Moles/Vol] 104 mmol/L Normal 98-107 [facility] Comment on above: Performed By: #### B MP, LIPID, ALT #### [facility] [address] [address] [address] Sarthak Cleveland CO2 [Moles/Vol] 28.7 mmol/L Normal 21.0-32.0 [facility] Comment on above: Performed By: #### B MP, LIPID, ALT #### [facility] [address] [address] [address] Sarthak Cleveland Creatinine [Mass/Vol] 0.84 mg/dL Normal 0.70-1.30 [facility] Comment on above: Performed By: #### B MP, LIPID, ALT #### [facility] [address] [address] [address] Sarthak Cleveland EGFR-AF CAMEROONIAN >60 Normal >=60 [facility] Comment on above: Performed By: #### B MP, LIPID, ALT #### [facility] [address] [address] [address] Sarthak Cleveland EGFR-NON AF CAMEROONIAN >60 Normal >=60 [facility] Comment on above: Performed By: #### B MP, LIPID, ALT #### [facility] [address] [address] [address] Sarthak Cleveland Glucose [Mass/Vol] 115 mg/dL Critically high 74-106 [facility] Comment on above: Performed By: #### B MP, LIPID, ALT #### [facility] [address] [address] [address] Sarthak Cleveland Potassium [Moles/Vol] 4.3 mmol/L Normal 3.5-5.1 [facility] Comment on above: Performed By: #### B MP, LIPID, ALT #### [facility] [address] [place] [address] Dr. Sarthak Cleveland Sodium [Moles/Vol] 140 mmol/L Normal 136-145 [facility] Comment on above: Performed By: #### B MP, LIPID, ALT #### [facility] [address] [place] [address] Dr. Sarthak Cleveland Urea nitrogen [Mass/Vol] 9.0 mg/dL Normal 7.0-18.0 [facility] Comment on above: Performed By: #### B MP, LIPID, ALT #### [facility] [address] [place] [address] Dr. Sarthak Cleveland Urea nitrogen/Creatinin e [Mass ratio] 10.7 mg/mg Normal [facility] Comment on above: Performed By: #### B MP, LIPID, ALT #### [facility] [address] [place] [address] Dr. Sarthak Cleveland [facility] 05-26-2022 ALT [Catalytic activity/Vol] 20 U/L Normal 16-63 [facility] Comment on above: Performed By: #### B MP, LIPID, ALT #### [facility] [address] [place] [address] Dr. Sarthak Cleveland Covid-19 PCR (CVDTB)on 04-11 SARS-CoV-2 (COVID-19) RNA LILIANA+probe Ql (Unsp spec) Not detected Normal NOT DETECTED [facility] Comment on above: Result Comment: This test is not yet approved or cleared by the [place] FDA. When there are no FDA-approved or cleared tests available, and other criteria are met, FDA can make tests available under an emergency access mechanism called an Emergency Use Authorization (EUA). The EUA for this test is supported by the [employer] of Health and Human Service's (HHS's) declaration [...] consistent with SARS-CoV-2. Performed By: #### [facility] #### [facility] [address] [place] [address] Dr. Sarthak Cleveland [facility] RAD - MIS [id number]: 127 Normal [facility] Ambulatory Visit Summaryon 0 03-21-2022 Ambulatory Visit Summary DON NATION :1955 Visit Date:03/21/2022 Ambulatory Visit Instructions Your Diagnosis BPH without urinary obstruction Kidney stone Tests Performed Urnls Dip Stick Auto w/o Microscopy POC 14814 Your Care Team Attending Physician - KELBY [...] 3 months Comments: f/up new med Where: [facility] [id number]- Medications What How Much When Instructions New alfuzosin (alfuzosin 10 mg ER Tab) 1 Tablets By Mouth Every day Refills: 11 Pickup at [facility]/pharmacy #[id number] Unchanged hydrochlorothiazide (hydrochlorothiazide 12.5 mg Cap) [...] physician if questions or concerns Pharmacy Information [facility]/pharmacy #[id number]: [address], [place] [phone] Test Results Urnls Dip Stick Auto w/o Microscopy POC 56313 (03/21/2022) Bilirubin Urine Dipstick - Negative Blood Urine Dipstick - Negative Glucose Urine Dipstick - Negative Ketones Urine Dipstick - Negative Leukocytes Urine Dipstick - Negative Nitrite Urine Dipstick - Negative Protein Urine Dipstick - Negative Specific [place] Urine Dipstick - 1.010 Urine Appearance Urine [...] is this (more content not included)... Normal [facility] Patient Educationon 03-21-20 Patient Education Urology Benign [...] Follow these instructions at home: ? Take rmhv-ucq-cfplqzy and prescription medicines only as told by [...] You d (more content not included)... Normal [facility] Screenson 03-21-2022 Screens [id number]: 127 Normal [facility] Urology Office/Clinic Noteon 03-21-2022 Urology Office/Clinic Note Chief Complaint 10 month follow up with KUB HPI Staff Don is here today for a a 10 month follow up with KUB. KUB done on 03/20/22 at [facility] impression showed small scattered stable bilateral [...] stopped and the office notified. [facility] [place]. All questions/concerns were discussed. Pt. to call [...] Follow-up With When Contact Information KELBY PULIDO, Salomon [place], [place] In [address] [place], [place] [id number]- Additional Instructions: f/up new med Patient Education Benign Prostatic Hyperplasia I, Hiwot Blank, personally scribed for Dr. Pitts on 03/21/2022 10:40:40. . Documentation recorded by the scribe, Hiwot Blank, accurately reflects the services(s) I performed and [...] Vicodin (Naus (more content not included)... Normal [facility] Comment on above: Result Comment: Elec tronically Signed By: Salomon PITTS MD\.br\Date and Time Signed: 03/21/22 10:41 EDT\.br\Electronically Co-Signed By: Hiwot Blank.br\Date and Time Co-Signed: 03/21/22 10:40 EDT XR [...] by: GLORIA JETT Date: 2022-03-20 18:33 Normal [facility] Vital Signs Date Time Vital Sign Value Performing Clinician Facility 05-31-2024 08:33-0400 Body height 175.26 cm [facility] 05-31-2024 08:33-0400 Body mass index (BMI) [Ratio] 24.7 kg/m2 [facility] 05-31-2024 08:33-0400 Body weight 75.97 kg [facility] 05-31-2024 08:33-0400 Diastolic blood pressure 79 mm[Hg] [facility] 05-31-2024 08:33-0400 Heart rate 56 /min [facility] 05-31-2024 08:33-0400 Respiratory rate 12 /min [facility] 05-31-2024 08:33-0400 Systolic blood pressure 133 mm[Hg] [facility] 11-17-2023 14:10-0400 Body height 175.26 cm [facility] 11-17-2023 14:10-0400 Body mass index (BMI) [Ratio] 25.5 kg/m2 [facility] 11-17-2023 14:10-0400 Body weight 78.58 kg [facility] 11-17-2023 14:10-0400 Diastolic blood pressure 75 mm[Hg] [facility] 11-17-2023 14:10-0400 Heart rate 61 /min [facility] 11-17-2023 14:10-0400 Respiratory rate 12 /min [facility] 11-17-2023 14:10-0400 Systolic blood pressure 145 mm[Hg] [facility] 05-25-2023 10:00-0400 Body height 175.26 cm Tao Ball Other [facility] Other 05-25-2023 10:00-0400 Body mass index (BMI) [Ratio] 25.6 kg/m2 Tao Ball Other [facility] Other 05-25-2023 10:00-0400 Body weight 78.65 kg Tao Ball Other [employer] [facility] Other 05-25-2023 10:00-0400 Diastolic blood pressure 76 mm[Hg] Tao Ball Other [facility] Other 05-25-2023 10:00-0400 Respiratory rate 12 /min Tao Ball Other [facility] Other 05-25-2023 10:00-0400 Systolic blood pressure 120 mm[Hg] Tao Ball Other [facility] Other 11-28-2022 11:00-0400 Body height 175.26 cm Tao Ball Other [facility] Other 11-28-2022 11:00-0400 Body mass index (BMI) [Ratio] 24.36 kg/m2 Tao Ball Other [facility] Other 11-28-2022 11:00-0400 Body weight 74.84 kg Tao Ball Other [facility] Other 11-28-2022 11:00-0400 Diastolic blood pressure 76 mm[Hg] Tao Ball Other [facility] Other 11-28-2022 11:00-0400 Respiratory rate 12 /min Tao Ball Other [facility] Other 11-28-2022 11:00-0400 Systolic blood pressure 122 mm[Hg] Tao Ball Other [facility] Other 09-16-2022 15:15-0500 Body height 175.26 cm Tao Ball Other [facility] Other 09-16-2022 15:15-0500 Body mass index (BMI) [Ratio] 24.45 kg/m2 Tao Ball Other [facility] Other 09-16-2022 15:15-0500 Body weight 75.12 kg Tao Ball Other [facility] Other 09-16-2022 15:15-0500 Diastolic blood pressure 70 mm[Hg] Tao Ball Other [facility] Other 09-16-2022 15:15-0500 Respiratory rate 12 /min Tao Martines Other [facility] Other 09-16-2022 15:15-0500 Systolic blood pressure 118 mm[Hg] Tao Martines Other [facility] Other 03-21-2022 09:54-0400 Blood Pressure Location Salomon PITTS [facility] 03-21-2022 09:54-0400 Diastolic blood pressure 83 mm[Hg] Salomon PITTS [facility] 03-21-2022 09:54-0400 Heart rate 79 /min Salomonpatrick PITTS [facility] 03-21-2022 09:54-0400 Respiratory rate 16 /min Salomon PITTS [facility] 03-21-2022 09:54-0400 Systolic blood pressure 137 mm[Hg] Salomon PITTS [facility] Encounters Encounter Date Encounter Type Care Provider Facility Start: 05-31-2024 End: 05-31-2024 ambulatory [facility] Work Phone: Start: 05-31-2024 End: 05-31-2024 Patient encounter procedure [facility] Work Phone: Start: 05-27-2024 Patient encounter procedure [facility] Start: 11-17-2023 End: 11-17-2023 ambulatory [facility] Work Phone: Start: 11-17-2023 End: 11-17-2023 Patient encounter procedure [facility] Work Phone: Start: 11-13-2023 Non-patient / Non-visit [facility] [employer] [facility] Work Phone: Start: 07-14-2023 End: 07-14-2023 ambulatory Tao Martines Other [facility] Other Start: 07-14-2023 Office outpatient vi sit 15 minutes Tao Martines [facility] Start: 05-28-2023 End: 05-28-2023 ambulatory Tao Martines Other [facility] Other Start: 05-28-2023 Telephone encounter Tao Martines [facility] Start: 05-25-2023 End: 05-25-2023 ambulatory Tao Martines Other [facility] Other Start: 05-25-2023 Patient encounter procedure Tao Martines [facility] Start: 05-04-2023 End: 05-04-2023 ambulatory Tao Martines Other [facility] Other Start: 05-04-2023 Telephone encounter Tao Conrad [facility] Start: 12-09-2022 End: 01-07-[address] TAO MARTINES Facility:[facility] Start: 11-28-2022 End: 11-28-2022 ambulatory Tao Martines Other [facility] Other Start: 11-28-2022 Office outpatient vi sit 25 minutes Tao Martines [facility] Start: 11-25-2022 End: 11-26-[address] TAO MARTINES Facility:[facility] Start: 09-16-2022 End: 09-16-2022 ambulatory Tao Martines Other [facility] Other Start: 09-16-2022 Office outpatient vi sit 15 minutes Tao Martines [facility] Start: 08-10-2022 End: 11-08-[address] TAO MARTINES Facility:[facility] Start: 07-30-2022 End: 08-09-2022 ambulatory MR SAMIR JACOBSON . Facility:[facility] Start: 07-11-2022 ambulatory MD Salomon PITTS Fac ility:[facility] Start: 07-10-[address] KIM LARA . Faci lity:[facility] Start: 05-27-2022 End: 05-27-[address] ZACH TYSON Facility:[facility] Start: 05-26-2022 End: 05-27-[address] TAO MARTINES Facility:[facility] Start: 05-22-2022 End: 05-23-[address] KIM LARA . Facility:[facility] Start: 05-22-2022 Adult health examination Eliezer Martines Other [facility] Other Start: 05-06-2022 Encounter for preprocedural laboratory examination DR KIM LARA . [facility] Start: 05-06-2022 End: 05-06-[address] KIM LARA . Facility:[facility] Start: 05-02-2022 End: 05-03-[address] KIM LARA . Facility:[facility] Start: 05-02-2022 End: 05-03-2022 Encounter for preprocedural laboratory examination DR KIM LARA . Facility:[facility] Start: 03-21-2022 End: 03-22-2022 ambulatory MD Salomon PITTS Facility:[facility] Start: 03-21-2022 End: 03-21-2022 Patient encounter procedure Salomon PITTS [facility] Start: 03-20-2022 End: 03-21-[address] SALOMON PITTS . Facility:[facility] Start: 03-14-[address] KIM LARA . Faci lity:[facility] Start: 02-18-2022 End: 02-19-[address] KIM LARA . Facility:[facility] Start: 05-14-2020 End: 05-14-2020 Preoperative cardiovascular examination Tao Martines Other [facility] Other Procedures Date Procedure Procedure Detail Performing Clinician Start: 05-26-[address] ZACH TYSON Comment on above: Performed By: #### B MP, LIPID, ALT #### [facility] [address] [place] [address] Dr. Sarthak Cleveland Start: 02-23-2020 Fluoroscopy guided [...] ant neoplasm of prostate Tao Martines Other Plan of Treatment Date Care Activity Detail Author Comprehensive metabo lic 2000 panel - Serum or Plasma [facility] Immunizations Immunization Date Immunization Notes Care Provider Shannan meier 05-31-2024 influenza, high dose seasonal, preservative-free [facility] 06-02-2023 Prevnar 20 Tao Martines Other [facility] 05-25-2023 influenza virus vaccine, unspecified formulation [facility] 05-25-2023 influenza, high dose seasonal, preservative-free Tao Martines Other [facility] Other 05-22-2022 influenza virus vaccine, split virus (incl. purified surface antigen) Tao Martines Other [facility] Other 05-22-2022 influenza virus vaccine, unspecified formulation [facility] 05-21-2021 influenza virus vaccine, split virus (incl. purified surface antigen) Tao Ball Other [facility] Other 05-21-2021 influenza virus vaccine, unspecified formulation [facility] Payers Date Payer Category Payer Medicare [id number] 1959 Unknown [id number] 1959 Unknown [id number] 2.16 .840.1.125714.19 1955 Unknown [id number] 2.16.840.1.183604.3.579.2.727 1955 Unknown [id number] 2.16.840.1.436999.3.579.2.727 1955 Unknown [id number] 2.16.840.1.066524.3.579.2.593 1955 Unknown [id number] 2.16.840.1.873645.3.579.2.593 1955 Unknown [id number] 2.16.840.1.725721.3.579.2.593 1955 Unknown [id number] 2.16.840.1.403155.3.579.2.593 1955 Unknown [id number] 2.16.840.1.344647.3.579.2.593 1955 Unknown [id number] 2.16.840.1.744831.3.579.2.593 1955 Unknown [id number] 2.16.840.1.667732.3.579.2.593 1955 Unknown [id number] 2.16.840.1.566021.3.579.2.593 1955 Unknown [id number] 2.16.840.1.338560.3.579.2.593 1955 Unknown [id number] 2.16.840.1.323268.3.579.2.593 1955 Unknown [id number] 2.16.840.1.638986.3.579.2.593 1955 Unknown [id number] 2.16.840.1.030868.3.579.2.593 1955 Unknown [id number] 2.16.840.1.850743.3.579.2.593 Medicare [employer] [facility] [id number] [id number] Self-pay Self Pay [id number] Social History Date Type Detail Facility Start: 03-21-2022 End: 08-04-2023 Tobacco smoking status Never smoked tobacco (finding) [facility] Sex Assigned At Male [facility] Start: 1955 Sex Assigned At Male [facility] Functional Status Date Assessment Result Facility 03-21-2022 Functional Status N/A [facility] Clinical Notes 02-18-2022 to 07-14-2023 Note Date [...] exercise to achieve/mainta in a normal BMI. [facility] Other 10-19-2023 Evaluation note* Encounter Date Diagnosis Assessment Notes Treatment Notes Treatment Clinical Notes May, Elevated cholesterol (ICD-10 - E78.00) [facility] Other 10-16-2023 Evaluation note* Encounter Date Diagnosis [...] (ICD-10 - Z12.5) yearly ANNELIESE and PSA [facility] Other 04-21-2023 Evaluation note* Encounter Date Diagnosis [...] for increased CP, dyspnea, palpitations or lightheadedness [facility] Other 02-07-2023 Evaluation note* Encounter Date Diagnosis [...] continue exercise to achieve/maintain a normal BMI. [facility] Other 10-13-2022 NoteCONSULTATION CONSULTATION DATE: 05/22/2022 This [...] of care and all questions were answered.[id number] Discharge instructions Patient Education 03/21/2022 10:30:52 [...] urethra. Follow these instructions at home: Take hfia-dly-bnhvmdm and prescription medicines only as told by [...] 07/27/2006 Document Revised: 06/21/2019 Document Reviewed: 08/31/2017 [employer] Patient Education [employer]. Follow Up Care 05/20/2021 16:25:31 With:KELBY PULIDO, Salomon West, URL Address: [address] [place] [address]- When:Within 3 Month(s) Comments:f/up [facility] 07-12-2022 NoteCONSULTATION PROCEDURE DATE: 02/18/2022 PREOPERATIVE DIAGNOSIS: [...] his pain symptomatology and range of motion. [facility] Signed and Approved by: DR KIM LARA . 02/25/2022 09:28:00[facility]07-12-2022 NoteCONSULTATION CONSULTATION DATE: 02/18/2022 CHIEF COMPLAINT: 1. Low back pain, right lower extremity pain at times 5-/10. 2. Left arm pain. HISTORY OF PRESENT [...] The patient states he is close to [facility]dc and does not wish to see an [...] like to proceed. CC: Tao Martines D.O. [facility] Signed and Approved by: DR KIM LARA . 02/25/2022 09:28[facility]00[facility] Future App[facility]ments Appointment Date:07/11/2022 08:00:00 AM Scheduled Provider:Salomon PITTS MD Location:[facility] Appointment Type:URO Office Visit [facility] evaluation noteNo As It IsNoSwitchboard Other Evaluation note* Diagnosis Onset Date Resolution Status Benign prostatic hyperplasia with lower urinary tract symptoms acute Gastroesophageal reflux dise ase with esophagitis without hemorrhage acute IFG (impaired fasting glucose) acute Primary hypertension acute [facility] Work Phone: Evaluation note* Diagnosis Onset Date Resolution Status Benign prostatic hyperplasia with lower urinary tract symptoms acute Gastroesophageal reflux dise ase with esophagitis without hemorrhage acute H/O colonoscopy acute Hypercholesterolemia acute IFG (impaired fasting glucose) acute Medicare annual wellness visit, subsequent acute Primary hypertension acute Screening for colon cancer a cute Screening PSA (prostate specific antigen) [facility] Work Phone: History general Narrative - Reported* [...] 202 0 Hospitalization History SEE SURGICAL HX [facility] Other Hospital course Narrative No data available for this section [facility] [place] progress note No data available for this section [facility] Summary Purpose Family History Relationship Condition Age at Onset Recorded Date/T nicholas father Myocardial infarction Unknown Not Specified Diabetes mellitus Unknown Status post carotid endarterectomy Unknow n Hypertension Unknown brother Malignant neoplasm Unknown Diabetes mellitus Unknown Calculus of kidney Unknown brother Diabetes mellitus Unknown sister Fibromyalgia Unknown sister Migraine headache Unknown sister Calculus of kidney Unknown father Unknown Heart disease Unknown Relationship Condition Age at Onset Recorded Date/T nicholas father Myocardial infarction Unknown mother Diabetes mellitus Unknown Status post carotid endarterectomy Unknow n Hypertension Unknown brother Malignant neoplasm Unknown Diabetes mellitus Unknown Calculus of kidney Unknown brother Diabetes mellitus Unknown sister Fibromyalgia Unknown sister Migraine headache Unknown sister Calculus of kidney Unknown father Unknown Heart disease Unknown Advance Directives Advance Directive Response Recorded Date/ Time Advance Directives No November 11 18 9:00am Chief Complaint and Reason for Visit Chief Complaint 6 month Reason for Visit Benign prostatic hyp erplasia with lower urinary tract symptoms Gastroesophageal reflux disease with esophagitis without hemorrhage IFG (impaired fasting glucose) Primary hypertension Chief Complaint Medicare Wellness Reason for Visit Benign prostatic hyp erplasia with lower urinary tract symptoms Gastroesophageal reflux disease with esophagitis without hemorrhage H/O colonoscopy Hypercholesterolemia IFG (impaired fasting glucose) Medicare annual wellness visit, subsequent Primary hypertension Screening for colon cancer Screening PSA (prostate specific antigen) Additional Source Comments Care Team (unrecognized sect ion and content) Team Status: Active Member Role Status Dates Tao Martines DO Primary Care Provider Active Team Status: Inactive Member Role Status Dates Tao Martines DO Primary Care Provide r, Attending Provider Active Start: May 31, 2024 End: May 31, 2024 Team Status: Active Member Role Status Dates Tao Martines DO Primary Care Provider Active Team Status: Active Member Role Status Dates Tao Martines DO Primary Care Provide r, Attending Provider Active Start: November 13, 2023 Team Status: Inactive Member Role Status Dates Tao Martines DO Primary Care Provide r, Attending Provider Active Start: November 17, 2023 End: November 17, 2023 Team Status: Inactive Member Role Status Dates Tao Martines Primary Care Provide r, Attending Provider Active Start: May 31, 2024 End: May 31, 2024 (unrecognized sect ion and content) No Status Records FoundNo Status Records Found INFORMATION SOURCE (unrecogn ized section and content) DATE CREATED AUTHOR 07/09/[address] [facility] DATE CREATED AUTHOR AUTHOR'S ORGANIZ ATION 01/16/2023 [facility] REASON FOR VISIT (unrecogniz ed section and content) Not [facility]ing [employer] [facility] resultsCOVID [phone] Goals (unrecognized section and content) Goals may [...] BE BASED ON THE PRIMARY CLINICAL RECORDS. [employer] [facility]. provides no warranty or guarantee of the accuracy or completeness of information in this document.
[2024-05-31 09:40] LABS: Basophils Percent Auto 0.2 % (0.2-2.0); Eosinophils Percent Auto 0.3 % (0.9-7.0); Hematocrit 47.6 % (42.0-54.0); Hemoglobin 15.9 g/dL (14.0-18.0); Immature Granulocytes Abs Auto 0.16 10^3/uL (0.00-0.03); Immature Granulocytes Pct Auto 1.2 % (0.0-0.5); Lymphocytes Absolute Auto 1.9 10^3/uL (1.2-3.8); Lymphocytes Percent Auto 13.3 % (20.5-60.0); Mean Corpuscular HGB Conc 33.4 g/dL (29.9-35.2); Mean Corpuscular Hemoglobin 31.6 pg (25.9-34.0); Mean Corpuscular Volume 94.6 fL (80.0-94.0); Mean Platelet Volume 10.7 fL (9.5-13.5); Monocytes Absolute Auto 1.1 10^3/uL (0.3-0.8); Monocytes Percent Auto 7.8 % (1.7-12.0); Neutrophils Absolute Auto 10.8 10^3/uL (1.4-6.5); Neutrophils Percent Auto 77.2 % (43.0-75.0); Platelet Count 268 10^3/uL (150-450); Red Blood Count 5.03 10^6/uL (4.70-6.10); Red Cell Distribution Width 12.6 % (11.0-15.0); White Blood Count 13.9 10^3/uL (4.0-11.0)
[2024-05-31 09:56] LABS: Alanine Aminotransferase 28 U/L (16-63); Albumin Globulin Ratio 0.8; Albumin Level 3.4 g/dL (3.4-5.0); Alkaline Phosphatase 54 U/L (46-116); Anion Gap 11.6; Aspartate Amino Transferase 13 U/L (15-37); BUN Creatinine Ratio 15.3; Bilirubin Total 0.5 mg/dL (0.2-1.0); Calcium 9.2 mg/dL (8.5-10.1); Carbon Dioxide 29.8 mmol/L (21.0-32.0); Chloride 103 mmol/L (98-107); Chol HDL Ratio 4.7; Cholesterol 283 mg/dL (<=200); Estimated GFR (African America >60 (>=60 mL/min/1.73m^2); Estimated GFR (Non-African Ame >60 (>=60 mL/min/1.73m^2); Globulin 4.2 g/dL; Glucose 111 mg/dL (74-106); HDL Cholesterol 60 mg/dL (40-60); Potassium 4.4 mmol/L (3.5-5.1); Sodium 140 mmol/L (136-145); Total Protein 7.6 g/dL (6.4-8.2); Triglycerides 86 mg/dL (<=150); VLDL CHOLESTEROL 17.2 mg/dL
[2024-05-31 10:36] LABS: Prostate Specific Antigen Scrn 0.76 ng/mL (<=4.00)
[2024-05-31 10:54] LABS: Estimated Average Glucose 131 mg/dL; Glycohemoglobin A1C 6.2 % (4.5-6.2)
== END 2024-05-31 09:18 | disposition home or self-care (01) ==
LOC: LAB 09:18
PROVIDERS: PCP Internal Medicine; Visit Provider Internal Medicine
DX: R73.01 Impaired fasting glucose (principal); I10 Essential (primary) hypertension; E78.00 Pure hypercholesterolemia, unspecified; Z12.5 Encounter for screening for malignant neoplasm of prostate
CPT/HCPCS: 36415; 80053; 80061; 83036; 85025; G0103

== ENCOUNTER 2024-06-01 08:22 | Outpatient (OUT) | payer OTHER, SELFPAY ==
--- OUTSIDE RECORDS SUMMARY | 2024-06-01 08:26 | XMS_ITS | CCD ---
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 Generating Station Mechanic Name Role Phone TAO MARTINES Primary Care Physician [phone] MD Salomon PITTS Attending Unavailable MD Salomon [...] Drug Allergy Nausea (finding) [facility] (8 sources) Codeine; Translations: [codeine] Drug Allergy 08-29-19 15 Nausea (finding) [facility] (6 sources) Codeine Drug Allergy Unknown [facility] Other (6 sources) HMG-CoA reductase inhibitor Drug allergy Unknown [facility] Other (2 sources) Acetaminophen / HYDROcodone Drug Allergy 12-28-19 13 [facility] (2 sources) Codeine Drug Allergy 12-21-19 13 [facility] (4 sources) Vicodin *ANALGESICS - OPIOID* Propensity to adverse reactions 08-29-19 15 Unknown [employer] Other (1 source) patient allergy list reviewed by nurse or physicia Propensity to adverse reactions 06-08-20 17 Comment:Done [employer] Other (2 sources) Acetaminophen Drug Allergy 11-14-19 24 Unknown Reaction [facility] (2 sources) HYDROcodone Drug Allergy 08-04-20 23 Vomiting [facility] (2 sources) Vuueefi-EPX-VyM Reductase Inhibitor Allergy to substance 11-14-19 24 Unknown Reaction [facility] Medications Current Medications Medication Drug Class(es) Dates Sig (Normalized) Sig (Original) 24 hr alfuzosin hydrochloride 10 mg extended release oral tablet (1 source) alpha-Adrenergic Melissa Start: 03-21-2022 take 1 tablet by mouth once daily alfuzosin 10 mg ER Tab 10 mg = 1 tab(s), Oral, Daily, # 30 tab(s), Refills(s) 11, Pharmacy: [facility]/pharmacy #[id number], 175, cm, 03/21/22 9:55:00 EDT, [...] Daily, # 90 cap(s), Refills(s) 3, Pharmacy: [facility]/pharmacy #[id number], 175, cm, 05/20/21 15:07:00 EDT, [...] for 90 day(s), 360 tab(s), Refill(s) 3, [facility]/pharmacy #[id number], 175, cm, 05/20/21 15:07:00 EDT, [...] 17, 2018 12:00am January 06, 2020 10:30am [place] 9-Ptx-Qbx-Fish Oil (Fish Oil) 1,000 mg (120 mg-180 mg) Capsule (2 sources) Start: 05-17-2018 End: 11-14-2023 [place] 1-Mmo-Csn-Fish Oil (Fish Oil) 1,000 mg (120 mg-180 [...] Episodic Other aftercare (2 sources) 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; 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] Onset: 3 Episodic Other [...] 11-13-2023 Cholesterol in LDL [Mass/Vol] 209.0 mg/dL [facility] Comment on above: <100 mg/dl [id number] 0-129 mg/dl NEAR OR ABOVE [id number] mg/dl BORDERLINE [id number] mg/dl HIGH>190 mg/dl VERY HIGH Cholesterol in VLDL Calc [Ma ss/Vol]on 11-13-2023 Cholesterol in VLDL [Mass/Vol] 22.4 mg/dL [facility] Laboratory - Chemistry and C hemistry - challengeon 11-13-2023 Cholesterol [Mass/Vol] 284 mg/dL <=200 [facility] Cholesterol in HDL [Mass/Vol] 53 mg/dL 40-60 [facility] Comment on above: > or =60 mg/dl - LOW CARDIOVASCULAR RISK<40 mg/dl - HIGH CARDIOVASCULAR RISK Triglyceride [Mass/Vol] 112 mg/dL <=150 [facility] No Panel Informationon 11-12 Prostate Specific Antigen Screen 1.00 ng/mL <=4.00 [facility] Serum or plasma total choles terol/high density lipoprotein (HDL) cholesterol mass mahamed 11-13-2023 Cholesterol.total/ Cholesterol in HDL [Mass ratio] 5.4 {ratio} [facility] Comment on above: 3.3 - 4.4 LOW RISK4. 4 - 7.1 AVERAGE RISK7.1 - 11.0 MODERATE RISK>11.0 HIGH RISK CARDIAC LONNIE ADMITon 023 CK [Catalytic activity/Vol] 57 U/L Normal 39-308 [facility] Comment on above: Performed By: #### C CORY CMP #### [facility] [address] [address] [address] Sarthak Cleveland CK.MB [Mass/Vol] 0.54 ng/mL Normal <=3.60 [facility] Comment on above: Performed By: #### C CORY, CMP #### [facility] [address] [address] [address] Sarthak Cleveland HSTROP <4.0 Normal 4.0-76.1 [facility] Comment on above: Result Comment: CUT- OFF POINTS HAVE BEEN ESTABLISHED BASED ON THE FOURTH UNIVERSAL DEFINITIONS OF MYOCARDIAL INFARCTION. THE UPPER REFERENCE LIMIT (URL) OF TROPONIN, DEFINED THE 99TH PERCENTILE OF cTnI DISTRIBUTION IN A REFERENCE POPULATION, HAS BEEN CONFIRMED THE DECISION THRESHOLD FOR PA DIAGNOSIS. Performed By: #### C CORY, CMP #### [facility] [address] [place] [address] Dr. Sarthak Cleveland MAL 37 ng/mL Normal 16-96 [facility] Comment on above: Performed By: #### C EDISONM, CMP #### [facility] [address] [place] [address] Dr. Sarthak Cleveland CBC AUTO DIFFon 11-25-2022 BASO # 0.0 103/ul Normal 0.0-0.1 [facility] Comment on above: Performed By: #### B MP, LIPID, ALT #### [facility] [address] [place] [address] Dr. Sarthak Cleveland Basophils/100 WBC (Bld) 0.5 % Normal 0.2-2.0 [facility] Comment on above: Performed By: #### B MP, LIPID, ALT #### [facility] [address] [place] [address] Dr. Sarthak Cleveland EO # 0.3 103/ul Normal 0.0-0.7 [facility] Comment on above: Performed By: #### B MP, LIPID, ALT #### [facility] [address] [place] [address] Dr. Sarthak Cleveland Eosinophils/100 WBC (Bld) 3.0 % Normal 0.9-7.0 [facility] Comment on above: Performed By: #### B MP, LIPID, ALT #### [facility] [address] [place] [address] Dr. Sarthak Cleveland Erythrocyte distribution width (RBC) [Ratio] 12.4 % Normal 11.0-15.0 [facility] Comment on above: Performed By: #### B MP, LIPID, ALT #### [facility] [address] [place] [address] Dr. Sarthak Cleveland Hematocrit (Bld) [Volume fraction] 47.3 % Normal 42.0-54.0 [facility] Comment on above: Performed By: #### B MP, LIPID, ALT #### [facility] [address] [address] [address] Sarthak Cleveland Hemoglobin (Bld) [Mass/Vol] 15.9 g/dL Normal 14.0-18.0 [facility] Comment on above: Performed By: #### B MP, LIPID, ALT #### [facility] [address] [place] [address] Dr. Sarthak Cleveland IG # 0.04 10e3/ul Critically high 0.00-0.03 [facility] Comment on above: Performed By: #### B MP, LIPID, ALT #### [facility] [address] [place] [address] Dr. Sarthak Cleveland IG % 0.5 % Normal 0.0-0.5 [facility] Comment on above: Performed By: #### B MP, LIPID, ALT #### [facility] [address] [place] [address] Dr. Sarthak Cleveland LYMPH # 2.2 103/ul Normal 1.2-3.8 [facility] Comment on above: Performed By: #### B MP, LIPID, ALT #### [facility] [address] [place] [address] Dr. Sarthak Cleveland Lymphocytes/100 WBC (Bld) 26.6 % Normal 20.5-60.0 [facility] Comment on above: Performed By: #### B MP, LIPID, ALT #### [facility] [address] [place] [address] Dr. Sarthak Cleveland MANUAL DIFF REQ NO Normal [facility] Comment on above: Performed By: #### B MP, LIPID, ALT #### [facility] [address] [place] [address] Dr. Sarthak Cleveland MCH (RBC) [Entitic mass] 31.7 pg Normal 25.9-34.0 [facility] Comment on above: Performed By: #### B MP, LIPID, ALT #### [facility] [address] [place] [address] Dr. Sarthak Cleveland MCHC (RBC) [Mass/Vol] 33.6 g/dL Normal 29.9-35.2 [facility] Comment on above: Performed By: #### B MP, LIPID, ALT #### [facility] [address] [place] [address] Dr. Sarthak Cleveland MCV (RBC) [Entitic vol] 94.2 fL Critically high 80.0-94.0 [facility] Comment on above: Performed By: #### B MP, LIPID, ALT #### [facility] [address] [place] [address] Dr. Sarthak Cleveland MONO # 0.8 103/ul Normal 0.3-0.8 [facility] Comment on above: Performed By: #### B MP, LIPID, ALT #### [facility] [address] [place] [address] Dr. Sarthak Cleveland Monocytes/100 WBC (Bld) 9.7 % Normal 1.7-12.0 [facility] Comment on above: Performed By: #### B MP, LIPID, ALT #### [facility] [address] [place] [address] Dr. Sarthak Cleveland NEUT # 5.0 103/ul Normal 1.4-6.5 [facility] Comment on above: Performed By: #### B MP, LIPID, ALT #### [facility] [address] [place] [address] Dr. Sarthak Cleveland Neutrophils/100 WBC (Bld) 59.7 % Normal 43.0-75.0 [facility] Comment on above: Performed By: #### B MP, LIPID, ALT #### [facility] [address] [place] [address] Dr. Sarthak Cleveland Platelet mean volume (Bld) [Entitic vol] 11.0 fL Normal 9.5-13.5 [facility] Comment on above: Performed By: #### B MP, LIPID, ALT #### [facility] [address] [place] [address] Dr. Sarthak Cleveland PLT 241 103/ul Normal 150-450 [facility] Comment on above: Performed By: #### B MP, LIPID, ALT #### [facility] [address] [address] [address] Sarthak Cleveland RBC 5.02 106/ul Normal 4.70-6.10 [facility] Comment on above: Performed By: #### B MP, LIPID, ALT #### [facility] [address] [address] [address] Sarthak Cleveland WBC 8.4 103/ul Normal 4.0-11.0 [facility] Comment on above: Performed By: #### B MP, LIPID, ALT #### [facility] [address] [address] [address] Sarthak Cleveland PROF 14(COMP METB)on 023 Albumin [Mass/Vol] 3.8 g/dL Normal 3.4-5.0 [facility] Comment on above: Performed By: #### C MADM, CMP #### [facility] [address] [place] [address] Dr. Sarthak Cleveland Albumin/Globulin [Mass ratio] 0.9 {ratio} Normal [facility] Comment on above: Performed By: #### C MADM, CMP #### [facility] [address] [address] [address] Sarthak Cleveland ALP [Catalytic activity/Vol] 57 U/L Normal 46-116 [facility] Comment on above: Performed By: #### C MADM, CMP #### [facility] [address] [address] [address] Sarthak Cleveland ALT [Catalytic activity/Vol] 21 U/L Normal 16-63 [facility] Comment on above: Performed By: #### C MADM, CMP #### [facility] [address] [address] [address] Sarthak Cleveland Anion gap [Moles/Vol] 12.3 mmol/L Normal [facility] Comment on above: Performed By: #### C MADM, CMP #### [facility] [address] [address] [address] Sarthak Cleveland AST [Catalytic activity/Vol] 17 U/L Normal 15-37 [facility] Comment on above: Performed By: #### C MADM, CMP #### [facility] [address] [address] [address] Sarthak Cleveland Bilirubin [Mass/Vol] 0.3 mg/dL Normal 0.2-1.0 [facility] Comment on above: Performed By: #### C MADM, CMP #### [facility] [address] [place] [address] Dr. Sarthak Cleveland Calcium [Mass/Vol] 9.2 mg/dL Normal 8.5-10.1 [facility] Comment on above: Performed By: #### C MADM, CMP #### [facility] [address] [place] [address] Dr. Sarthak Cleveland Chloride [Moles/Vol] 103 mmol/L Normal 98-107 [facility] Comment on above: Performed By: #### C MADM, CMP #### [facility] [address] [place] [address] Dr. Sarthak Cleveland CO2 [Moles/Vol] 28.7 mmol/L Normal 21.0-32.0 [facility] Comment on above: Performed By: #### C MADM, CMP #### [facility] [address] [place] [address] Dr. Sarthak Cleveland Creatinine [Mass/Vol] 0.83 mg/dL Normal 0.70-1.30 [facility] Comment on above: Performed By: #### C MADM, CMP #### [facility] [address] [place] [address] Dr. Sarthak Cleveland EGFR-AF [place] >60 Normal >=60 [facility] Comment on above: Performed By: #### C MADM, CMP #### [facility] [address] [place] [address] Dr. Sarthak Cleveland EGFR-NON AF [place] >60 Normal >=60 [facility] Comment on above: Performed By: #### C MADM, CMP #### [facility] [address] [place] [address] Dr. Sarthak Cleveland Globulin (S) [Mass/Vol] 4.1 g/dL Normal [facility] Comment on above: Performed By: #### C MADM, CMP #### [facility] [address] [address] [address] Sarthak Cleveland Glucose [Mass/Vol] 89 mg/dL Normal 74-106 [facility] Comment on above: Performed By: #### C MADM, CMP #### [facility] [address] [address] [address] Sarthak Cleveland Potassium [Moles/Vol] 4.0 mmol/L Normal 3.5-5.1 [facility] Comment on above: Performed By: #### C MADM, CMP #### [facility] [address] [address] [address] Sarthak Cleveland Protein [Mass/Vol] 7.9 g/dL Normal 6.4-8.2 [facility] Comment on above: Performed By: #### C EDISONM, CMP #### [facility] [address] [address] [address] Sarthak Cleveland Sodium [Moles/Vol] 140 mmol/L Normal 136-145 [facility] Comment on above: Performed By: #### C EDISONM, CMP #### [facility] [address] [address] [address] Sarthak Cleveland Urea nitrogen [Mass/Vol] 12.0 mg/dL Normal 7.0-18.0 [facility] Comment on above: Performed By: #### C EDISONM, CMP #### [facility] [address] [address] [address] Sarthak Clevealnd Urea nitrogen/Creatinin e [Mass ratio] 14.5 mg/mg Normal [facility] Comment on above: Performed By: #### C EDISONM, CMP #### [facility] [address] [address] [address] Sarthak Cleveland TSHon 11-25-2022 TSH 1.919 uIU/mL Normal 0.358-3.740 [facility] Comment on above: Performed By: #### B MP, LIPID, ALT #### [facility] [address] [address] [address] SHOULDER LT WO [...] by: OLYA PEREYRA Date: 2022-05-27 19:58 Normal [facility] XR ARTHRO SHOULDER LTon 05-10 [...] by: OLYA PEREYRA Date: 2022-05-27 12:36 Normal [facility] CBC AUTO DIFFon 05-26-2022 BASO # 0.1 103/ul Normal 0.0-0.1 [facility] Comment on above: Performed By: #### B MP, LIPID, ALT #### [facility] [address] [place] [address] Dr. Sarthak Cleveland Basophils/100 WBC (Bld) 0.6 % Normal 0.2-2.0 [facility] Comment on above: Performed By: #### B MP, LIPID, ALT #### [facility] [address] [place] [address] Dr. Sarthak Cleveland EO # 0.2 103/ul Normal 0.0-0.7 [facility] Comment on above: Performed By: #### B MP, LIPID, ALT #### [facility] [address] [place] [address] Dr. Sarthak Cleveland Eosinophils/100 WBC (Bld) 2.4 % Normal 0.9-7.0 [facility] Comment on above: Performed By: #### B MP, LIPID, ALT #### [facility] [address] [place] [address] Dr. Sarthak Cleveland Erythrocyte distribution width (RBC) [Ratio] 12.6 % Normal 11.0-15.0 [facility] Comment on above: Performed By: #### B MP, LIPID, ALT #### [facility] [address] [place] [address] Dr. Sarthak Cleveland Hematocrit (Bld) [Volume fraction] 46.1 % Normal 42.0-54.0 [facility] Comment on above: Performed By: #### B MP, LIPID, ALT #### [facility] [address] [place] [address] Dr. Sarthak Cleveland Hemoglobin (Bld) [Mass/Vol] 15.0 g/dL Normal 14.0-18.0 [facility] Comment on above: Performed By: #### B MP, LIPID, ALT #### [facility] [address] [place] [address] Dr. Sarthak Cleveland IG # 0.07 10e3/ul Critically high 0.00-0.03 [facility] Comment on above: Performed By: #### B MP, LIPID, ALT #### [facility] [address] [address] [address] Sarthak Cleveland IG % 0.9 % Critically high 0.0-0.5 [facility] Comment on above: Performed By: #### B MP, LIPID, ALT #### [facility] [address] [address] [address] Sarthak Cleveland LYMPH # 1.9 103/ul Normal 1.2-3.8 [facility] Comment on above: Performed By: #### B MP, LIPID, ALT #### [facility] [address] [place] [address] Dr. Sarthak Cleveland Lymphocytes/100 WBC (Bld) 22.7 % Normal 20.5-60.0 [facility] Comment on above: Performed By: #### B MP, LIPID, ALT #### [facility] [address] [place] [address] Dr. Sarthak Cleveland MANUAL DIFF REQ NO Normal [facility] Comment on above: Performed By: #### B MP, LIPID, ALT #### [facility] [address] [place] [address] Dr. Sarthak Cleveland MCH (RBC) [Entitic mass] 31.6 pg Normal 25.9-34.0 [facility] Comment on above: Performed By: #### B MP, LIPID, ALT #### [facility] [address] [place] [address] Dr. Sarthak Cleveland MCHC (RBC) [Mass/Vol] 32.5 g/dL Normal 29.9-35.2 [facility] Comment on above: Performed By: #### B MP, LIPID, ALT #### [facility] [address] [place] [address] Dr. Sarthak Cleveland MCV (RBC) [Entitic vol] 97.1 fL Critically high 80.0-94.0 [facility] Comment on above: Performed By: #### B MP, LIPID, ALT #### [facility] [address] [place] [address] Dr. Sarthak Cleveland MONO # 1.0 103/ul Critically high 0.3-0.8 [facility] Comment on above: Performed By: #### B MP, LIPID, ALT #### [facility] [address] [address] [address] Sarthak Cleveland Monocytes/100 WBC (Bld) 11.8 % Normal 1.7-12.0 [facility] Comment on above: Performed By: #### B MP, LIPID, ALT #### [facility] [address] [place] [address] Dr. Sarthak Cleveland NEUT # 5.1 103/ul Normal 1.4-6.5 [facility] Comment on above: Performed By: #### B MP, LIPID, ALT #### [facility] [address] [place] [address] Dr. Sarthak Cleveland Neutrophils/100 WBC (Bld) 61.6 % Normal 43.0-75.0 [facility] Comment on above: Performed By: #### B MP, LIPID, ALT #### [facility] [address] [place] [address] Dr. Sarthak Cleveland Platelet mean volume (Bld) [Entitic vol] 10.4 fL Normal 9.5-13.5 [facility] Comment on above: Performed By: #### B MP, LIPID, ALT #### [facility] [address] [place] [address] Dr. Sarthak Cleveland PLT 243 103/ul Normal 150-450 [facility] Comment on above: Performed By: #### B MP, LIPID, ALT #### [facility] [address] [place] [address] Dr. Sarthak Cleveland RBC 4.75 106/ul Normal 4.70-6.10 [facility] Comment on above: Performed By: #### B MP, LIPID, ALT #### [facility] [address] [place] [address] Dr. Sarthak Cleveland WBC 8.2 103/ul Normal 4.0-11.0 [facility] Comment on above: Performed By: #### B MP, LIPID, ALT #### [facility] [address] [place] [address] Dr. Sarthak Cleveland LIPID PROFILEon 05-26-2022 CHOL-HDL RATIO NORM SEE BELOW Normal [facility] Comment on above: Result Comment: 3.3 - 4.4 LOW RISK 4.4 - 7.1 AVERAGE RISK 7.1 - 11.0 MODERATE RISK >11.0 HIGH RISK Performed By: #### B MP, LIPID, ALT #### [facility] [address] [address] [address] Sarthak Cleveland Cholesterol [Mass/Vol] 309 mg/dL Critically high <=200 [facility] Comment on above: Performed By: #### B MP, LIPID, ALT #### [facility] [address] [address] [address] Sarthak Cleveland Cholesterol in HDL [Mass/Vol] 46 mg/dL Normal 40-60 [facility] Comment on above: Performed By: #### B MP, LIPID, ALT #### [facility] [address] [place] [address] Dr. Sarthak Cleveland Cholesterol in LDL [Mass/Vol] 242.6 mg/dL Normal [facility] Comment on above: Performed By: #### B MP, LIPID, ALT #### [facility] [address] [place] [address] Dr. Sarthak Cleveland Cholesterol.total/ Cholesterol in HDL [Mass ratio] 6.7 {ratio} Normal [facility] Comment on above: Performed By: #### B MP, LIPID, ALT #### [facility] [address] [place] [address] Dr. Sarthak Cleveland HDL NORMAL > or = 60 mg/dl - LO W CARDIOVASCULAR RISK <40 mg/dl - HIGH CARDIOVASCULAR RISK Normal [facility] Comment on above: Performed By: #### B MP, LIPID, ALT #### [facility] [address] [place] [address] Dr. Sarthak Cleveland LDL CALC NORMAL SEE BELOW Normal [facility] Comment on above: Result Comment: <100 mg/dl OPTIMAL 100 - 129 mg/dl NEAR OR ABOVE OPTIMAL 130 - 159 mg/dl BORDERLINE HIGH 160 - 189 mg/dl HIGH >190 mg/dl VERY HIGH Performed By: #### B MP, LIPID, ALT #### [facility] [address] [address] [address] Sarthak Cleveland Triglyceride [Mass/Vol] 102 mg/dL Normal <=150 [facility] Comment on above: Performed By: #### B MP, LIPID, ALT #### [facility] [address] [address] [address] Sarthak Cleveland VLDL CALC 20.4 mg/dL Normal [facility] Comment on above: Performed By: #### B MP, LIPID, ALT #### [facility] [address] [address] [address] Sarthak Cleveland PROF CHEM 8 (BAS METB)on Anion gap [Moles/Vol] 11.6 mmol/L Normal [facility] Comment on above: Performed By: #### B MP, LIPID, ALT #### [facility] [address] [address] [address] Sarthak Cleveland Calcium [Mass/Vol] 8.7 mg/dL Normal 8.5-10.1 [facility] Comment on above: Performed By: #### B MP, LIPID, ALT #### [facility] [address] [address] [address] Sarthak Cleveland Chloride [Moles/Vol] 104 mmol/L Normal 98-107 [facility] Comment on above: Performed By: #### B MP, LIPID, ALT #### [facility] [address] [address] [address] Sarthak Cleveland CO2 [Moles/Vol] 28.7 mmol/L Normal 21.0-32.0 [facility] Comment on above: Performed By: #### B MP, LIPID, ALT #### [facility] [address] [address] [address] Sarthak Cleveland Creatinine [Mass/Vol] 0.84 mg/dL Normal 0.70-1.30 [facility] Comment on above: Performed By: #### B MP, LIPID, ALT #### [facility] [address] [address] [address] Sarthak Cleveland EGFR-AF [place]IZ[place] >60 Normal >=60 [facility] Comment on above: Performed By: #### B MP, LIPID, ALT #### [facility] [address] [address] [address] Sarthak Cleveland EGFR-NON AF [place] CITIZ[place] >60 Normal >=60 [facility] Comment on above: Performed By: #### B MP, LIPID, ALT #### [facility] [address] [address] [address] Sarthak Cleveland Glucose [Mass/Vol] 115 mg/dL Critically high 74-106 [facility] Comment on above: Performed By: #### B MP, LIPID, ALT #### [facility] [address] [address] [address] Sarthak Cleveland Potassium [Moles/Vol] 4.3 mmol/L Normal 3.5-5.1 [facility] Comment on above: Performed By: #### B MP, LIPID, ALT #### [facility] [address] [place] [address] Dr. Sarthak Cleveland Sodium [Moles/Vol] 140 mmol/L Normal 136-145 [facility] Comment on above: Performed By: #### B MP, LIPID, ALT #### [facility] [address] [place] [address] Dr. Sarthak Cleveland Urea nitrogen [Mass/Vol] 9.0 mg/dL Normal 7.0-18.0 [facility] Comment on above: Performed By: #### B MP, LIPID, ALT #### [facility] [address] [place] [address] Dr. Sarthak Cleveland Urea nitrogen/Creatinin e [Mass ratio] 10.7 mg/mg Normal [facility] Comment on above: Performed By: #### B MP, LIPID, ALT #### [facility] [address] [place] [address] [facility] 05-26-2022 ALT [Catalytic activity/Vol] 20 U/L Normal 16-63 [facility] Comment on above: Performed By: #### B MP, LIPID, ALT #### [facility] [address] [place] [address] Dr. Sarthak Cleveland Covid-19 PCR (CVDTB)on 04-11 SARS-CoV-2 (COVID-19) RNA LILIANA+probe Ql (Unsp spec) Not detected Normal NOT DETECTED [facility] Comment on above: Result Comment: This test is not yet approved or cleared by the [place] FDA. When there are no FDA-approved or cleared tests available, and other criteria are met, FDA can make tests available under an emergency access mechanism called an Emergency Use Authorization (EUA). The EUA for this test is supported by the Handle Rounder Operator of Health and Human Service's (HHS's) [...] consistent with SARS-CoV-2. Performed By: #### [facility] #### [facility] [address] [place] [address] Dr. Sarthak Cleveland [facility] - MIS [id number]: 127 Normal [facility] Ambulatory Visit Summaryon 0 03-21-2022 Ambulatory Visit Summary DON NATION :1955 Visit Date:03/21/2022 Ambulatory Visit Instructions Your Diagnosis BPH without urinary obstruction Kidney stone Tests Performed Urnls Dip Stick Auto w/o Microscopy POC 62137 Your Care Team Attending Physician - KELBY [...] 3 months Comments: f/up new med Where: [facility] [address] [id number]- Medications What How Much When Instructions New alfuzosin (alfuzosin 10 mg ER Tab) 1 Tablets By Mouth Every day Refills: 11 Pickup at [facility]/pharmacy #[id number] Unchanged hydrochlorothiazide (hydrochlorothiazide 12.5 mg Cap) [...] physician if questions or concerns Pharmacy Information [facility]/pharmacy #[id number]: [address], [place] [id number] [phone] Test Results Urnls Dip Stick Auto w/o Microscopy POC 49351 (03/21/2022) Bilirubin Urine Dipstick - Negative Blood Urine Dipstick - Negative Glucose Urine Dipstick - Negative Ketones Urine Dipstick - Negative Leukocytes Urine Dipstick - Negative Nitrite Urine Dipstick - Negative Protein Urine Dipstick - Negative Specific [place] Urine Dipstick - 1.010 Urine Appearance Urine [...] is this (more content not included)... Normal [facility] Patient Educationon 03-21-20 Patient Education Urology [...] Follow these instructions at home: ? Take qocp-vew-plohioy and prescription medicines only as told by [...] You d (more content not included)... Normal [facility] Screenson 03-21-2022 Screens [id number]: 127 Normal [facility] Urology Office/Clinic Noteon 03-21-2022 Urology Office/Clinic Note Chief Complaint 10 month follow up with KUB HPI Staff Don is here today for a a 10 month follow up with KUB. KUB done on 03/20/22 at [facility] impression showed small scattered stable bilateral nephrolithiasis. [...] stopped and the office notified. [facility] [place]. All questions/concerns were discussed. Pt. to call [...] PULIDO, Salomon West, CLIFF In [address] [place], [place] [id number]- Additional Instructions: f/up new med Patient Education [...] Vicodin (Naus (more content not included)... Normal [facility] Comment on above: Result Comment: Elec [...] by: GLORIA JETT Date: 2022-03-20 18:33 Normal [facility] Vital Signs Date Time Vital Sign Value Performing Clinician Facility 05-31-2024 08:33-0400 Body height 175.26 cm [facility] 05-31-2024 08:33-0400 Body mass index (BMI) [Ratio] 24.7 kg/m2 [facility] 05-31-2024 08:33-0400 Body weight 75.97 kg [facility] 05-31-2024 08:33-0400 Diastolic blood pressure 79 mm[Hg] [facility] 05-31-2024 08:33-0400 Heart rate 56 /min [facility] 05-31-2024 08:33-0400 Respiratory rate 12 /min [facility] 05-31-2024 08:33-0400 Systolic blood pressure 133 mm[Hg] [facility] 11-17-2023 14:10-0400 Body height 175.26 cm [facility] 11-17-2023 14:10-0400 Body mass index (BMI) [Ratio] 25.5 kg/m2 [facility] 11-17-2023 14:10-0400 Body weight 78.58 kg [facility] 11-17-2023 14:10-0400 Diastolic blood pressure 75 mm[Hg] [facility] 11-17-2023 14:10-0400 Heart rate 61 /min [facility] 11-17-2023 14:10-0400 Respiratory rate 12 /min [facility] 11-17-2023 14:10-0400 Systolic blood pressure 145 mm[Hg] [facility] 05-25-2023 10:00-0400 Body height 175.26 cm Tao Ball Other [facility] [employer] Other 05-25-2023 10:00-0400 Body mass index (BMI) [Ratio] 25.6 kg/m2 Tao Ball Other [facility] [employer] Other 05-25-2023 10:00-0400 Body weight 78.65 kg Tao Ball Other [facility] [employer] Other 05-25-2023 10:00-0400 Diastolic blood pressure 76 mm[Hg] Tao Ball Other [facility] [employer] Other 05-25-2023 10:00-0400 Respiratory rate 12 /min Tao Ball Other [facility] [employer] Other 05-25-2023 10:00-0400 Systolic blood pressure 120 mm[Hg] Tao Ball Other [employer] Other 11-28-2022 11:00-0400 Body height 175.26 cm Tao Ball Other [employer] Other 11-28-2022 11:00-0400 Body mass index (BMI) [Ratio] 24.36 kg/m2 Tao Ball Other [employer] Other 11-28-2022 11:00-0400 Body weight 74.84 kg Tao Ball Other [employer] Other 11-28-2022 11:00-0400 Diastolic blood pressure 76 mm[Hg] Tao Ball Other [employer] Other 11-28-2022 11:00-0400 Respiratory rate 12 /min Tao Ball Other [employer] Other 11-28-2022 11:00-0400 Systolic blood pressure 122 mm[Hg] Tao Ball Other [employer] Other 09-16-2022 15:15-0500 Body height 175.26 cm Tao Ball Other [employer] Other 09-16-2022 15:15-0500 Body mass index (BMI) [Ratio] 24.45 kg/m2 Tao Ball Other [employer] Other 09-16-2022 15:15-0500 Body weight 75.12 kg Tao Ball Other [employer] Other 09-16-2022 15:15-0500 Diastolic blood pressure 70 mm[Hg] Tao Ball Other [employer] Other 09-16-2022 15:15-0500 Respiratory rate 12 /min Tao Martines Other [facility] [employer] Other 09-16-2022 15:15-0500 Systolic blood pressure 118 mm[Hg] Tao Martines Other [facility] [employer] Other 03-21-2022 09:54-0400 Blood Pressure Location Salomon PITTS [facility] 03-21-2022 09:54-0400 Diastolic blood pressure 83 mm[Hg] Salomon PITTS [facility] 03-21-2022 09:54-0400 Heart rate 79 /min Salomonpatrick PITTS [facility] 03-21-2022 09:54-0400 Respiratory rate 16 /min Salomon PITTS [facility] 03-21-2022 09:54-0400 Systolic blood pressure 137 mm[Hg] Salomon PITTS [facility] Encounters Encounter Date Encounter Type Care Provider Facility Start: 05-31-2024 End: 05-31-2024 ambulatory [facility] Work Phone: Start: 05-31-2024 End: 05-31-2024 Patient encounter procedure [facility] Physician [facility] Work Phone: Start: 05-27-2024 Patient encounter procedure [facility] Start: 11-17-2023 End: 11-17-2023 ambulatory [facility] Work Phone: Start: 11-17-2023 End: 11-17-2023 Patient encounter procedure [facility] Physician [facility] Work Phone: Start: 11-13-2023 Non-patient / Non-visit [facility] [employer] Work Phone: Start: 07-14-2023 End: 07-14-2023 ambulatory Tao Martines Other [employer] Other Start: 07-14-2023 Office outpatient vi sit 15 minutes Tao Martines [facility] Start: 05-28-2023 End: 05-28-2023 ambulatory Tao Martines Other [employer] Other Start: 05-28-2023 Telephone encounter Tao Martines [facility] Start: 05-25-2023 End: 05-25-2023 ambulatory Tao Martines Other [employer] Other Start: 05-25-2023 Patient encounter procedure Tao Martines [facility] Start: 05-04-2023 End: 05-04-2023 ambulatory Tao Martines Other [employer] Other Start: 05-04-2023 Telephone encounter Tao Conrad [facility] Start: 12-09-2022 End: 01-07-[address] TAO MARTINES Facility:[facility] Start: 11-28-2022 End: 11-28-2022 ambulatory Tao Martines Other [employer] Other Start: 11-28-2022 Office outpatient vi sit 25 minutes Tao Martines [facility] Start: 11-25-2022 End: 11-26-[address] TAO MARTINES Facility:[facility] Start: 09-16-2022 End: 09-16-2022 ambulatory Tao Martines Other [employer] Other Start: 09-16-2022 Office outpatient vi sit 15 minutes Tao Martines [facility] Start: 08-10-2022 End: 11-08-[address] TAO MARTINES Facility:[facility] Start: 07-30-2022 End: 08-09-2022 ambulatory MR SAMIR JACOBSON . Facility:[facility] Start: 07-11-2022 ambulatory MD Salomon PITTS Fac ility:[facility] Start: 07-10-[address] KIM LARA . Faci lity:[facility] Start: 05-27-2022 End: 05-27-[address] ZACH TYSON Facility:[facility] Start: 05-26-2022 End: 05-27-[address] TAO MARTINES Facility:[facility] Start: 05-22-2022 End: 05-23-[address] KIM LARA . Facility:[facility] Start: 05-22-2022 Adult health examination Eliezer Martines Other [employer] Other Start: 05-06-2022 Encounter for preprocedural laboratory examination DR KIM LARA . [facility] Start: 05-06-2022 End: 05-06-[address] KIM LARA . Facility:[facility] Start: 05-02-2022 End: 05-03-[address] KIM LARA . Facility:[facility] Start: 05-02-2022 End: 05-03-2022 Encounter for preprocedural laboratory examination DR KIM LARA . Facility:[facility] Start: 03-21-2022 End: 03-22-2022 ambulatory MD Salomon PITTS Facility:[facility] Start: 03-21-2022 End: 03-21-2022 Patient encounter procedure Salomon PITTS [facility] Start: 03-20-2022 End: 03-21-[address] SALOMON PITTS . Facility:[facility] Start: 03-14-[address] KIM LARA . Faci lity:[facility] Start: 02-18-2022 End: 02-19-[address] KIM LARA . Facility:[facility] Start: 05-14-2020 End: 05-14-2020 Preoperative cardiovascular examination Tao Martines Other [employer] Other Procedures Date Procedure Procedure Detail Performing Clinician Start: 05-26-[address] ZACH TYSON Comment on above: Performed By: #### B MP, LIPID, ALT #### [facility] [address] [place] [address] Dr. Sarthak Cleveland Start: 02-23-2020 Fluoroscopy guided [...] lic 2000 panel - Serum or Plasma [facility] Immunizations Immunization Date Immunization Notes Care Provider Shannan meier 05-31-2024 influenza, high dose seasonal, preservative-free [facility] 06-02-2023 Prevnar 20 Tao Martines Other [facility] 05-25-2023 influenza virus vaccine, unspecified formulation [facility] 05-25-2023 influenza, high dose seasonal, preservative-free Tao Martines Other [employer] Other 05-22-2022 influenza virus vaccine, split virus (incl. purified surface antigen) Tao Martines Other [employer] Other 05-22-2022 influenza virus vaccine, unspecified formulation [facility] 05-21-2021 influenza virus vaccine, split virus (incl. purified surface antigen) Tao Ball Other [employer] Other 05-21-2021 influenza virus vaccine, unspecified formulation [facility] Payers Date Payer Category Payer Medicare [id number] 1959 Unknown [id number] 1959 Unknown [id number] 2.16 .[id number] 1955 Unknown [id number] 2.16.840.1.888382.3.579.2.727 1955 Unknown [id number] 2.16.840.1.835846.3.579.2.727 1955 Unknown [id number] 2.16.840.1.183410.3.579.2.593 1955 Unknown [id number] 2.16.840.1.550513.3.579.2.593 1955 Unknown [id number] 2.16.840.1.740015.3.579.2.593 1955 Unknown [id number] 2.16.840.1.544298.3.579.2.593 1955 Unknown [id number] 2.16.840.1.971428.3.579.2.593 1955 Unknown [id number] 2.16.840.1.606032.3.579.2.593 1955 Unknown [id number] 2.16.840.1.386780.3.579.2.593 1955 Unknown [id number] 2.16.840.1.609457.3.579.2.593 1955 Unknown [id number] 2.16.840.1.917241.3.579.2.593 1955 Unknown [id number] 2.16.840.1.443333.3.579.2.593 1955 Unknown [id number] 2.16.840.1.425083.3.579.2.593 1955 Unknown [id number] 2.16.840.1.922567.3.579.2.593 1955 Unknown [id number] 2.16.840.1.813085.3.579.2.593 Medicare [facility] DEGWGF [id number] Self-pay Self Pay [id number] Social History Date Type Detail Facility Start: 03-21-2022 End: 08-04-2023 Tobacco smoking status Never smoked tobacco (finding) [facility] Sex Assigned At Male [facility] Start: 1955 Sex Assigned At Male F [facility] Functional Status Date Assessment Result Facility 03-21-2022 Functional Status N/A [facility] Clinical Notes 02-18-2022 to 07-14-2023 Note [...] exercise to achieve/mainta in a normal BMI. [employer] Other 10-19-2023 Evaluation note* Encounter Date Diagnosis Assessment Notes Treatment Notes Treatment Clinical Notes May, Elevated cholesterol (ICD-10 - E78.00) [employer] Other 10-16-2023 Evaluation note* Encounter Date Diagnosis [...] (ICD-10 - Z12.5) yearly ANNELIESE and PSA [employer] Other 04-21-2023 Evaluation note* Encounter Date Diagnosis [...] for increased CP, dyspnea, palpitations or lightheadedness [employer] Other 02-07-2023 Evaluation note* Encounter Date Diagnosis [...] continue exercise to achieve/maintain a normal BMI. [employer] Other 10-13-2022 NoteCONSULTATION CONSULTATION DATE: 05/22/2022 This [...] of care and all questions were answered.[id number] Discharge instructions Patient Education 03/21/2022 10:30:52 [...] urethra. Follow these instructions at home: Take xjwn-whs-mnfgckx and prescription medicines only as told by [...] 07/27/2006 Document Revised: 06/21/2019 Document Reviewed: 08/31/2017 [employer] Patient Education [employer]. Follow Up Care 05/20/2021 16:25:31 With:KELBY PULIDO, Salomon West, URL Address: [address] [place] [address]- When:Within 3 Month(s) Comments:f/up [facility] 07-12-2022 NoteCONSULTATION PROCEDURE DATE: 02/18/2022 PREOPERATIVE [...] his pain symptomatology and range of motion. [facility] Signed and Approved by: DR KIM LARA . 02/25/2022 09:28:00[facility]07-12-2022 NoteCONSULTATION CONSULTATION DATE: 02/18/2022 CHIEF [...] The patient states he is close to longterm and does not wish to see an [...] like to proceed. CC: Tao Martines D.O. [facility] Signed and Approved by: DR KIM LARA . 02/25/2022 09:28:00[facility] Future Appointments Appointment Date:07/11/2022 08:00:00 AM Scheduled Provider:Salomon PITTS MD Location:[facility] Appointment Type:URO Office Visit [facility] evaluation noteNo DoYouRememberNoEventials Other Evaluation note* Diagnosis Onset Date Resolution Status Benign prostatic hyperplasia with lower urinary tract symptoms acute Gastroesophageal reflux dise ase with esophagitis without hemorrhage acute IFG (impaired fasting glucose) acute Primary hypertension acute [facility] Work Phone: Evaluation note* Diagnosis Onset Date Resolution Status Benign prostatic hyperplasia with lower urinary tract symptoms acute Gastroesophageal reflux dise ase with esophagitis without hemorrhage acute H/O colonoscopy acute Hypercholesterolemia acute IFG (impaired fasting glucose) acute Medicare annual wellness visit, subsequent acute Primary hypertension acute Screening for colon cancer a cute Screening PSA (prostate specific antigen) [facility] Work Phone: History general Narrative - Reported* [...] 202 0 Hospitalization History SEE SURGICAL HX [employer] Other Hospital course Narrative No data available for this section [facility] [place] progress note No data available for this section [facility] Summary Purpose Family History Relationship Condition [...] and content) DATE CREATED AUTHOR 07/09/[address] [facility] DATE CREATED AUTHOR AUTHOR'S ORGANIZ ATION 01/16/2023 [facility] [place] [facility] REASON FOR VISIT (unrecogniz ed section and content) Not Sleeping WellTBo Infor [facility] resultsCOVID [phone] Goals (unrecognized section and content) Goals may [...] BE BASED ON THE PRIMARY CLINICAL RECORDS. [facility]. provides no warranty or guarantee of the accuracy or completeness of information in this document.
--- NOTE | 2024-06-01 08:31 | PM.CN ---
Consult Note: HPI Data of Consult Patient: known to practice within the last 3 years Requesting Physician: Priya Sky NP Primary Care Provider: Tao Martines DO Consult Narrative Reason for consult: low back, SIJ pain Narrative: Go Martinez a pleasant 68 year old male with longstanding low back pain post L4-5 L5-S1 fusion, historically has had significant improvement with caudal ESIs >50% improvement greater than 3 months. Patient has longstanding hx of numbness tingling and weakness to bilateral legs/feet. Patient failed tylenol and motrin, as well as topical lidocaine. no falls since last visit. has engaged in HEP greater than 6 weeks without benefit. recently underwent bilateral SIJ injection with 90% improvement ongoing, patient noticing significant pain relief and improved ability to complete ADLs cc:: CC: Priya Sky NP Review of Systems ROS Status of ROS 10 or more systems reviewed and unremarkable except as noted in history and below Musculoskeletal Reports: back pain, extremity pain and joint pain PFSH PFSH Social History Smoking status: Never smoker Meds Home Medications and Allergies Home Medications ?Medication ?Instructions ?Recorded ?Confirmed ?Type atenolol 25 mg tablet 25 mg PO Q12H 08/04/23 05/23/24 History benazepril 20 mg tablet 20 mg PO DAILY 08/04/23 05/23/24 History hyoscyamine sulfate 0.125 mg 0.125 mg PO Q6H PRN abdominal pain 08/04/23 05/23/24 Rx sublingual tablet (Levsin/SL) #20 tabs omeprazole 40 mg capsule,delayed 40 mg PO DAILY 08/04/23 05/23/24 History release ondansetron 4 mg disintegrating 4 mg PO Q6H PRN nausea and 08/04/23 05/23/24 Rx tablet vomiting #20 tabs Allergies Allergy/AdvReac Type Severity Reaction Status Date / Time acetaminophen (From Vicodin) AdvReac Severe Vomiting Verified 05/23/24 07:07 codeine AdvReac Severe Vomiting Verified 05/23/24 07:07 hydrocodone (From Vicodin) AdvReac Severe Vomiting Verified 05/23/24 07:07 Exam Constitutional Documenting provider has reviewed patient's vital signs: yes Common normals: no apparent distress, oriented x3, healthy appearing, alert and well nourished General appearance: cooperative HENMT Common normals: normocephalic, hearing grossly normal bilaterally and moist oral mucous membranes Head and scalp: normocephalic Eye Common normals: PERRL Pupil: PERRL Neck & C-Spine Common normals: full ROM General: normal visual inspection Chest Common normals: inspection of chest normal Respiratory Common normals: normal respiratory effort, no retractions and no use of accessory muscles Back & Pelvis Lumbar spine/lower back: ROM limited and pain with ROM Sacroiliac joints: SI joints normal Other: bilateral sij negative letty(patricks), gaenslens, thigh thrust, compression test decreased sensation to L5-S1 pattern strength 5/5 in BLE Extremity Common normals: normal to inspection and full ROM Neuro Common normals: oriented x3, CN's II-XII intact bilaterally, moves all extremities, no focal motor deficits, no sensory deficits noted and deep tendon reflexes 2+ bilaterally Sensorium/orientation: alert Motor exam: strength 5/5 throughout and no movement abnormalities noted Psych Common normals: mental status grossly normal, thought process normal, cooperative, affect normal, speech normal and activity/motor behavior normal Speech: normal speech Thought process: normal thought process Results Additional Findings Additional findings: If on a controlled substance or opioids, I have checked an [place] report on this patient and there are no aberrancies noted in the prescribing history.??If on a controlled substance or opioid a drug screen was completed and reviewed within the last year, and if there has not been a drug screen completed we ordered one today to monitor higher risk, state monitored pain medication use. As part of providing excellent, safe, comprehensive care, the following was completed at our patient's visit: 1. A medication reconciliation and review to ensure accurate knowledge of current/active medications, including asking our patients to inform us about any [id number] medications or herbal remedies/nutritional supplements/alternative remedies. 2. A review to specifically ensure our patients have had annual screening for screening for depression, screening for tobacco use, and screening for unhealthy alcohol use. For concerning screenings had a discussion with the patient, provided patient education, and recommended follow-up with primary care provider when appropriate. If patient noted with a risk of falling, they received education on strength, gait, and balance training to prevent future risk of falling. Assessment and Plan Assessment and Plan (1) Sacroiliac joint dysfunction: (2) Lumbar radiculopathy: (3) Failed back syndrome: Plan bilateral SIJ injection providing significant ongoing relief defer medication management per pt request continue HEP as tolerated f/u 3 months, sooner if needed
== END 2024-06-01 08:23 | disposition home or self-care (01) ==
LOC: PM 08:23
PROVIDERS: PCP Internal Medicine; Visit Provider Nurse Practitioner
DX: M53.3 Sacrococcygeal disorders, not elsewhere classified (principal); M54.16 Radiculopathy, lumbar region; M96.1 Postlaminectomy syndrome, not elsewhere classified
CPT/HCPCS: G0463

== ENCOUNTER 2024-06-03 08:56 | Outpatient (OUT) | payer OTHER, SELFPAY ==
--- OUTSIDE RECORDS SUMMARY | 2024-06-03 09:14 | XMS_ITS | CCD ---
Author Organization [facility] Providers Care Instructor [employer] Name Role Phone TAO MARTINES Primary Care [...] Allergy Nausea (finding) [facility] (8 sources) Codeine; Translations: [codeine] Drug Allergy 08-29-19 15 Nausea (finding) [facility] (6 sources) Codeine Drug Allergy Unknown [employer] [facility] Other (6 sources) HMG-CoA reductase inhibitor Drug allergy Unknown [employer] [facility] [employer] Other (2 sources) Acetaminophen / HYDROcodone Drug Allergy 12-28-19 13 [facility] (2 sources) Codeine Drug Allergy 12-21-19 13 [facility] (4 sources) Vicodin *ANALGESICS - OPIOID* Propensity to adverse reactions 08-29-19 15 Unknown [place] Other (1 source) patient allergy list reviewed by nurse or physicia Propensity to adverse reactions 06-08-20 17 Comment:Done [place] Other (2 sources) Acetaminophen Drug Allergy 11-14-19 24 Unknown Reaction [facility] (2 sources) HYDROcodone Drug Allergy 08-04-20 23 Vomiting [facility] (2 sources) Sxknvas-OQF-TrZ Reductase Inhibitor Allergy to substance 11-14-19 24 Unknown Reaction [facility] Medications Current Medications Medication Drug Class(es) Dates Sig (Normalized) Sig (Original) 24 hr alfuzosin hydrochloride 10 mg extended release oral tablet (1 source) alpha-Adrenergic Melissa Start: 03-21-2022 take 1 tablet by mouth once daily alfuzosin 10 mg ER Tab 10 mg = 1 tab(s), Oral, Daily, # 30 tab(s), Refills(s) 11, Pharmacy: [facility]/pharmacy #[id number], 175, cm, 03/21/22 9:55:00 EDT, Height/Length [...] Daily, # 90 cap(s), Refills(s) 3, Pharmacy: [facility]/pharmacy #[id number], 175, cm, 05/20/21 15:07:00 EDT, Height/Length [...] for 90 day(s), 360 tab(s), Refill(s) 3, [facility]/pharmacy #[id number], 175, cm, 05/20/21 15:07:00 EDT, Height/Length [...] 17, 2018 12:00am January 06, 2020 10:30am [place] 9-Swn-Ixg-Fish Oil (Fish Oil) 1,000 mg (120 mg-180 mg) Capsule (2 sources) Start: 05-17-2018 End: 11-14-2023 [place] 2-Oxw-Bma-Fish Oil (Fish Oil) 1,000 mg (120 mg-180 [...] pain Episodic Other aftercare (2 sources) Other terminologist (current) drug therapy; Translations: [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 CURRENT DRUG THERAPY] Onset: 3 Episodic Other aftercare (1 source) Long-term current use of drug therapy; Translations: [Other nursing home (current) drug therapy] Episodic Other connective tissue [...] 11-13-2023 Cholesterol in LDL [Mass/Vol] 209.0 mg/dL [facility] Comment on above: <100 mg/dl [id number] 0-129 mg/dl NEAR OR ABOVE [id number] mg/dl BORDERLINE [id number] mg/dl HIGH>190 mg/dl VERY HIGH Cholesterol in VLDL Calc [Ma ss/Vol]on 11-13-2023 Cholesterol in VLDL [Mass/Vol] 22.4 mg/dL [facility] Laboratory - Chemistry and C hemistry - challengeon 11-13-2023 Cholesterol [Mass/Vol] 284 mg/dL <=200 [facility] Cholesterol in HDL [Mass/Vol] 53 mg/dL 40-60 [facility] Comment on above: > or =60 mg/dl - LOW CARDIOVASCULAR RISK<40 mg/dl - HIGH CARDIOVASCULAR RISK Triglyceride [Mass/Vol] 112 mg/dL <=150 [facility] No Panel Informationon 11-12 Prostate Specific Antigen Screen 1.00 ng/mL <=4.00 [facility] Serum or plasma total choles terol/high density lipoprotein (HDL) cholesterol mass mahamed 11-13-2023 Cholesterol.total/ Cholesterol in HDL [Mass ratio] 5.4 {ratio} [facility] Comment on above: 3.3 - 4.4 LOW RISK4. 4 - 7.1 AVERAGE RISK7.1 - 11.0 MODERATE RISK>11.0 HIGH RISK CARDIAC LONNIE ADMITon 023 CK [Catalytic activity/Vol] 57 U/L Normal 39-308 [facility] Comment on above: Performed By: #### C CORY CMP #### [facility] [address] [address] [address] Sarthak Cleveland CK.MB [Mass/Vol] 0.54 ng/mL Normal <=3.60 [facility] Comment on above: Performed By: #### C CORY, CMP #### [facility] [address] [address] [address] Sarthak Cleveland HSTROP <4.0 Normal 4.0-76.1 [facility] Comment on above: Result Comment: CUT- OFF POINTS HAVE BEEN ESTABLISHED BASED ON THE FOURTH UNIVERSAL DEFINITIONS OF MYOCARDIAL INFARCTION. THE UPPER REFERENCE LIMIT (URL) OF TROPONIN, DEFINED THE 99TH PERCENTILE OF cTnI DISTRIBUTION IN A REFERENCE POPULATION, HAS BEEN CONFIRMED THE DECISION THRESHOLD FOR CT DIAGNOSIS. Performed By: #### C CORY, CMP #### [facility] [address] [place] [address] Dr. Sarthak Cleveland MAL 37 ng/mL Normal 16-96 [facility] Comment on above: Performed By: #### C EDISONM, CMP #### [facility] [address] [place] [address] Dr. Sarthak Cleveland CBC AUTO DIFFon 11-25-2022 BASO # 0.0 103/ul Normal 0.0-0.1 [facility] Comment on above: Performed By: #### B MP, LIPID, ALT #### [facility] [address] [place] [address] Dr. Sarthak Cleveland Basophils/100 WBC (Bld) 0.5 % Normal 0.2-2.0 [facility] Comment on above: Performed By: #### B MP, LIPID, ALT #### [facility] [address] [place] [address] Dr. Sarthak Cleveland EO # 0.3 103/ul Normal 0.0-0.7 [facility] Comment on above: Performed By: #### B MP, LIPID, ALT #### [facility] [address] [place] [address] Dr. Sarthak Cleveland Eosinophils/100 WBC (Bld) 3.0 % Normal 0.9-7.0 [facility] Comment on above: Performed By: #### B MP, LIPID, ALT #### [facility] [address] [place] [address] Dr. Sarthak Cleveland Erythrocyte distribution width (RBC) [Ratio] 12.4 % Normal 11.0-15.0 [facility] Comment on above: Performed By: #### B MP, LIPID, ALT #### [facility] [address] [place] [address] Dr. Sarthak Cleveland Hematocrit (Bld) [Volume fraction] 47.3 % Normal 42.0-54.0 [facility] Comment on above: Performed By: #### B MP, LIPID, ALT #### [facility] [address] [address] [address] Sarthak Cleveland Hemoglobin (Bld) [Mass/Vol] 15.9 g/dL Normal 14.0-18.0 [facility] Comment on above: Performed By: #### B MP, LIPID, ALT #### [facility] [address] [place] [address] Dr. Sarthak Cleveland IG # 0.04 10e3/ul Critically high 0.00-0.03 [facility] Comment on above: Performed By: #### B MP, LIPID, ALT #### [facility] [address] [place] [address] Dr. Sarthak Cleveland IG % 0.5 % Normal 0.0-0.5 [facility] Comment on above: Performed By: #### B MP, LIPID, ALT #### [facility] [address] [place] [address] Dr. Sarthak Cleveland LYMPH # 2.2 103/ul Normal 1.2-3.8 [facility] Comment on above: Performed By: #### B MP, LIPID, ALT #### [facility] [address] [place] [address] Dr. Sarthak Cleveland Lymphocytes/100 WBC (Bld) 26.6 % Normal 20.5-60.0 [facility] Comment on above: Performed By: #### B MP, LIPID, ALT #### [facility] [address] [place] [address] Dr. Sarthak Cleveland MANUAL DIFF REQ NO Normal [facility] Comment on above: Performed By: #### B MP, LIPID, ALT #### [facility] [address] [place] [address] Dr. Sarthak Clevealnd MCH (RBC) [Entitic mass] 31.7 pg Normal 25.9-34.0 [facility] Comment on above: Performed By: #### B MP, LIPID, ALT #### [facility] [address] [place] [address] Dr. Sarthak Cleveland MCHC (RBC) [Mass/Vol] 33.6 g/dL Normal 29.9-35.2 [facility] Comment on above: Performed By: #### B MP, LIPID, ALT #### [facility] [address] [place] [address] Dr. Sarthak Cleveland MCV (RBC) [Entitic vol] 94.2 fL Critically high 80.0-94.0 [facility] Comment on above: Performed By: #### B MP, LIPID, ALT #### [facility] [address] [place] [address] Dr. Sarthak Cleveland MONO # 0.8 103/ul Normal 0.3-0.8 [facility] Comment on above: Performed By: #### B MP, LIPID, ALT #### [facility] [address] [place] [address] Dr. Sarthak Cleveland Monocytes/100 WBC (Bld) 9.7 % Normal 1.7-12.0 [facility] Comment on above: Performed By: #### B MP, LIPID, ALT #### [facility] [address] [place] [address] Dr. Sarthak Cleveland NEUT # 5.0 103/ul Normal 1.4-6.5 [facility] Comment on above: Performed By: #### B MP, LIPID, ALT #### [facility] [address] [place] [address] Dr. Sarthak Cleveland Neutrophils/100 WBC (Bld) 59.7 % Normal 43.0-75.0 [facility] Comment on above: Performed By: #### B MP, LIPID, ALT #### [facility] [address] [place] [address] Dr. Sarthak Cleveland Platelet mean volume (Bld) [Entitic vol] 11.0 fL Normal 9.5-13.5 [facility] Comment on above: Performed By: #### B MP, LIPID, ALT #### [facility] [address] [place] [address] Dr. Sarthak Cleveland PLT 241 103/ul Normal 150-450 [facility] Comment on above: Performed By: #### B MP, LIPID, ALT #### [facility] [address] [address] [address] Sarthak Cleveland RBC 5.02 106/ul Normal 4.70-6.10 [facility] Comment on above: Performed By: #### B MP, LIPID, ALT #### [facility] [address] [address] [address] Sarthak Cleveland WBC 8.4 103/ul Normal 4.0-11.0 [facility] Comment on above: Performed By: #### B MP, LIPID, ALT #### [facility] [address] [address] [address] Sarthak Cleveland PROF 14(COMP METB)on 023 Albumin [Mass/Vol] 3.8 g/dL Normal 3.4-5.0 [facility] Comment on above: Performed By: #### C MADM, CMP #### [facility] [address] [place] [address] Dr. Sarthak Cleveland Albumin/Globulin [Mass ratio] 0.9 {ratio} Normal [facility] Comment on above: Performed By: #### C MADM, CMP #### [facility] [address] [address] [address] Sarthak Cleveland ALP [Catalytic activity/Vol] 57 U/L Normal 46-116 [facility] Comment on above: Performed By: #### C MADM, CMP #### [facility] [address] [address] [address] Sarthak Cleveland ALT [Catalytic activity/Vol] 21 U/L Normal 16-63 [facility] Comment on above: Performed By: #### C MADM, CMP #### [facility] [address] [address] [address] Sarthak Cleveland Anion gap [Moles/Vol] 12.3 mmol/L Normal [facility] Comment on above: Performed By: #### C MADM, CMP #### [facility] [address] [address] [address] Sarthak Cleveland AST [Catalytic activity/Vol] 17 U/L Normal 15-37 [facility] Comment on above: Performed By: #### C MADM, CMP #### [facility] [address] [address] [address] Sarthak Cleveland Bilirubin [Mass/Vol] 0.3 mg/dL Normal 0.2-1.0 [facility] Comment on above: Performed By: #### C MADM, CMP #### [facility] [address] [place] [address] Dr. Sarthak Cleveland Calcium [Mass/Vol] 9.2 mg/dL Normal 8.5-10.1 [facility] Comment on above: Performed By: #### C MADM, CMP #### [facility] [address] [place] [address] Dr. Sarthak Cleveland Chloride [Moles/Vol] 103 mmol/L Normal 98-107 [facility] Comment on above: Performed By: #### C MADM, CMP #### [facility] [address] [place] [address] Dr. Sarthak Cleveland CO2 [Moles/Vol] 28.7 mmol/L Normal 21.0-32.0 [facility] Comment on above: Performed By: #### C MADM, CMP #### [facility] [address] [place] [address] Dr. Sarthak Cleveland Creatinine [Mass/Vol] 0.83 mg/dL Normal 0.70-1.30 [facility] Comment on above: Performed By: #### C MADM, CMP #### [facility] [address] [place] [address] Dr. Sarthak Cleveland EGFR-AF IVORIAN >60 Normal >=60 [facility] Comment on above: Performed By: #### C MADM, CMP #### [facility] [address] [place] [address] Dr. Sarthak Cleveland EGFR-NON AF IVORIAN >60 Normal >=60 [facility] Comment on above: Performed By: #### C MADM, CMP #### [facility] [address] [place] [address] Dr. Sarthak Cleveland Globulin (S) [Mass/Vol] 4.1 g/dL Normal [facility] Comment on above: Performed By: #### C MADM, CMP #### [facility] [address] [address] [address] Sarthak Cleveland Glucose [Mass/Vol] 89 mg/dL Normal 74-106 [facility] Comment on above: Performed By: #### C MADM, CMP #### [facility] [address] [address] [address] Sarthak Cleveland Potassium [Moles/Vol] 4.0 mmol/L Normal 3.5-5.1 [facility] Comment on above: Performed By: #### C MADM, CMP #### [facility] [address] [address] [address] Sarthak Cleveland Protein [Mass/Vol] 7.9 g/dL Normal 6.4-8.2 [facility] Comment on above: Performed By: #### C EDISONM, CMP #### [facility] [address] [address] [address] Sarthak Cleveland Sodium [Moles/Vol] 140 mmol/L Normal 136-145 [facility] Comment on above: Performed By: #### C EDISONM, CMP #### [facility] [address] [address] [address] Sarthak Cleveland Urea nitrogen [Mass/Vol] 12.0 mg/dL Normal 7.0-18.0 [facility] Comment on above: Performed By: #### C EDISONM, CMP #### [facility] [address] [address] [address] Sarthak Cleveland Urea nitrogen/Creatinin e [Mass ratio] 14.5 mg/mg Normal [facility] Comment on above: Performed By: #### C EDISONM, CMP #### [facility] [address] [address] [address] Sarthak Cleveland TSHon 11-25-2022 TSH 1.919 uIU/mL Normal 0.358-3.740 [facility] Comment on above: Performed By: #### B MP, LIPID, ALT #### [facility] [address] [address] [address] SHOULDER LT WO [...] by: OLYA PEREYRA Date: 2022-05-27 19:58 Normal [facility] XR ARTHRO SHOULDER LTon 05-10 XR [...] by: OLYA PEREYRA Date: 2022-05-27 12:36 Normal [facility] CBC AUTO DIFFon 05-26-2022 BASO # 0.1 103/ul Normal 0.0-0.1 [facility] Comment on above: Performed By: #### B MP, LIPID, ALT #### [facility] [address] [place] [address] Dr. Sarthak Cleveland Basophils/100 WBC (Bld) 0.6 % Normal 0.2-2.0 [facility] Comment on above: Performed By: #### B MP, LIPID, ALT #### [facility] [address] [place] [address] Dr. Sarthak Cleveland EO # 0.2 103/ul Normal 0.0-0.7 [facility] Comment on above: Performed By: #### B MP, LIPID, ALT #### [facility] [address] [place] [address] Dr. Sarthak Cleveland Eosinophils/100 WBC (Bld) 2.4 % Normal 0.9-7.0 [facility] Comment on above: Performed By: #### B MP, LIPID, ALT #### [facility] [address] [place] [address] Dr. Sarthak Cleveland Erythrocyte distribution width (RBC) [Ratio] 12.6 % Normal 11.0-15.0 [facility] Comment on above: Performed By: #### B MP, LIPID, ALT #### [facility] [address] [place] [address] Dr. Sarthak Cleveland Hematocrit (Bld) [Volume fraction] 46.1 % Normal 42.0-54.0 [facility] Comment on above: Performed By: #### B MP, LIPID, ALT #### [facility] [address] [place] [address] Dr. Sarthak Cleveland Hemoglobin (Bld) [Mass/Vol] 15.0 g/dL Normal 14.0-18.0 [facility] Comment on above: Performed By: #### B MP, LIPID, ALT #### [facility] [address] [place] [address] Dr. Sarthak Cleveland IG # 0.07 10e3/ul Critically high 0.00-0.03 [facility] Comment on above: Performed By: #### B MP, LIPID, ALT #### [facility] [address] [address] [address] Sarthak Cleveland IG % 0.9 % Critically high 0.0-0.5 [facility] Comment on above: Performed By: #### B MP, LIPID, ALT #### [facility] [address] [address] [address] Sarthak Cleveland LYMPH # 1.9 103/ul Normal 1.2-3.8 [facility] Comment on above: Performed By: #### B MP, LIPID, ALT #### [facility] [address] [place] [address] Dr. Sarthak Cleveland Lymphocytes/100 WBC (Bld) 22.7 % Normal 20.5-60.0 [facility] Comment on above: Performed By: #### B MP, LIPID, ALT #### [facility] [address] [place] [address] Dr. Sarthak Cleveland MANUAL DIFF REQ NO Normal [facility] Comment on above: Performed By: #### B MP, LIPID, ALT #### [facility] [address] [place] [address] Dr. Sarthak Cleveland MCH (RBC) [Entitic mass] 31.6 pg Normal 25.9-34.0 [facility] Comment on above: Performed By: #### B MP, LIPID, ALT #### [facility] [address] [place] [address] Dr. Sarthak Cleveland MCHC (RBC) [Mass/Vol] 32.5 g/dL Normal 29.9-35.2 [facility] Comment on above: Performed By: #### B MP, LIPID, ALT #### [facility] [address] [place] [address] Dr. Sarthak Cleveland MCV (RBC) [Entitic vol] 97.1 fL Critically high 80.0-94.0 [facility] Comment on above: Performed By: #### B MP, LIPID, ALT #### [facility] [address] [place] [address] Dr. Sarthak Cleveland MONO # 1.0 103/ul Critically high 0.3-0.8 [facility] Comment on above: Performed By: #### B MP, LIPID, ALT #### [facility] [address] [address] [address] Sarthak Cleveland Monocytes/100 WBC (Bld) 11.8 % Normal 1.7-12.0 [facility] Comment on above: Performed By: #### B MP, LIPID, ALT #### [facility] [address] [place] [address] Dr. Sarthak Cleveland NEUT # 5.1 103/ul Normal 1.4-6.5 [facility] Comment on above: Performed By: #### B MP, LIPID, ALT #### [facility] [address] [place] [address] Dr. Sarthak Cleveland Neutrophils/100 WBC (Bld) 61.6 % Normal 43.0-75.0 [facility] Comment on above: Performed By: #### B MP, LIPID, ALT #### [facility] [address] [place] [address] Dr. Sarthak Cleveland Platelet mean volume (Bld) [Entitic vol] 10.4 fL Normal 9.5-13.5 [facility] Comment on above: Performed By: #### B MP, LIPID, ALT #### [facility] [address] [place] [address] Dr. Sarthak Cleveland PLT 243 103/ul Normal 150-450 [facility] Comment on above: Performed By: #### B MP, LIPID, ALT #### [facility] [address] [place] [address] Dr. Sarthak Cleveland RBC 4.75 106/ul Normal 4.70-6.10 [facility] Comment on above: Performed By: #### B MP, LIPID, ALT #### [facility] [address] [place] [address] Dr. Sarthak Cleveland WBC 8.2 103/ul Normal 4.0-11.0 [facility] Comment on above: Performed By: #### B MP, LIPID, ALT #### [facility] [address] [place] [address] Dr. Sarthak Cleveland LIPID PROFILEon 05-26-2022 CHOL-HDL RATIO NORM SEE BELOW Normal [facility] Comment on above: Result Comment: 3.3 - 4.4 LOW RISK 4.4 - 7.1 AVERAGE RISK 7.1 - 11.0 MODERATE RISK >11.0 HIGH RISK Performed By: #### B MP, LIPID, ALT #### [facility] [address] [address] [address] Sarthak Cleveland Cholesterol [Mass/Vol] 309 mg/dL Critically high <=200 [facility] Comment on above: Performed By: #### B MP, LIPID, ALT #### [facility] [address] [address] [address] Sarthak Cleveland Cholesterol in HDL [Mass/Vol] 46 mg/dL Normal 40-60 [facility] Comment on above: Performed By: #### B MP, LIPID, ALT #### [facility] [address] [place] [address] Dr. Sarthak Cleveland Cholesterol in LDL [Mass/Vol] 242.6 mg/dL Normal [facility] Comment on above: Performed By: #### B MP, LIPID, ALT #### [facility] [address] [place] [address] Dr. Sarthak Cleveland Cholesterol.total/ Cholesterol in HDL [Mass ratio] 6.7 {ratio} Normal [facility] Comment on above: Performed By: #### B MP, LIPID, ALT #### [facility] [address] [place] [address] Dr. Sarthak Cleveland HDL NORMAL > or = 60 mg/dl - LO W CARDIOVASCULAR RISK <40 mg/dl - HIGH CARDIOVASCULAR RISK Normal [facility] Comment on above: Performed By: #### B MP, LIPID, ALT #### [facility] [address] [place] [address] Dr. Sarthak Cleveland LDL CALC NORMAL SEE BELOW Normal [facility] Comment on above: Result Comment: <100 mg/dl OPTIMAL 100 - 129 mg/dl NEAR OR ABOVE OPTIMAL 130 - 159 mg/dl BORDERLINE HIGH 160 - 189 mg/dl HIGH >190 mg/dl VERY HIGH Performed By: #### B MP, LIPID, ALT #### [facility] [address] [address] [address] Sarthak Cleveland Triglyceride [Mass/Vol] 102 mg/dL Normal <=150 [facility] Comment on above: Performed By: #### B MP, LIPID, ALT #### [facility] [address] [address] [address] Sarthak Cleveland VLDL CALC 20.4 mg/dL Normal [facility] Comment on above: Performed By: #### B MP, LIPID, ALT #### [facility] [address] [address] [address] Sarthak Cleveland PROF CHEM 8 (BAS METB)on Anion gap [Moles/Vol] 11.6 mmol/L Normal [facility] Comment on above: Performed By: #### B MP, LIPID, ALT #### [facility] [address] [address] [address] Sarthak Cleveland Calcium [Mass/Vol] 8.7 mg/dL Normal 8.5-10.1 [facility] Comment on above: Performed By: #### B MP, LIPID, ALT #### [facility] [address] [address] [address] Sarthak Cleveland Chloride [Moles/Vol] 104 mmol/L Normal 98-107 [facility] Comment on above: Performed By: #### B MP, LIPID, ALT #### [facility] [address] [address] [address] Sarthak Cleveland CO2 [Moles/Vol] 28.7 mmol/L Normal 21.0-32.0 [facility] Comment on above: Performed By: #### B MP, LIPID, ALT #### [facility] [address] [address] [address] Sarthak Cleveland Creatinine [Mass/Vol] 0.84 mg/dL Normal 0.70-1.30 [facility] Comment on above: Performed By: #### B MP, LIPID, ALT #### [facility] [address] [address] [address] Sarthak Cleveland EGFR-AF IVORIAN >60 Normal >=60 [facility] Comment on above: Performed By: #### B MP, LIPID, ALT #### [facility] [address] [address] [address] Sarthak Cleveland EGFR-NON AF IVORIAN >60 Normal >=60 [facility] Comment on above: Performed By: #### B MP, LIPID, ALT #### [facility] [address] [address] [address] Sarthak Cleveland Glucose [Mass/Vol] 115 mg/dL Critically high 74-106 [facility] Comment on above: Performed By: #### B MP, LIPID, ALT #### [facility] [address] [address] [address] Sarthak Cleveland Potassium [Moles/Vol] 4.3 mmol/L Normal 3.5-5.1 [facility] Comment on above: Performed By: #### B MP, LIPID, ALT #### [facility] [address] [place] [address] Dr. Sarthak Cleveland Sodium [Moles/Vol] 140 mmol/L Normal 136-145 [facility] Comment on above: Performed By: #### B MP, LIPID, ALT #### [facility] [address] [place] [address] Dr. Sarthak Cleveland Urea nitrogen [Mass/Vol] 9.0 mg/dL Normal 7.0-18.0 [facility] Comment on above: Performed By: #### B MP, LIPID, ALT #### [facility] [address] [place] [address] Dr. Sarthak Cleveland Urea nitrogen/Creatinin e [Mass ratio] 10.7 mg/mg Normal [facility] Comment on above: Performed By: #### B MP, LIPID, ALT #### [facility] [address] [place] [address] Dr. Sarthak Cleveland [employer] [facility] [employer] [facility] 05-26-2022 ALT [Catalytic activity/Vol] 20 U/L Normal 16-63 [facility] Comment on above: Performed By: #### B MP, LIPID, ALT #### [facility] [address] [place] [address] Dr. Sarthak Cleveland Covid-19 PCR (CVDTB)on 04-11 SARS-CoV-2 (COVID-19) RNA LILIANA+probe Ql (Unsp spec) Not detected Normal NOT DETECTED [facility] Comment on above: Result Comment: This test is not yet approved or cleared by the [place] FDA. When there are no FDA-approved or cleared tests available, and other criteria are met, FDA can make tests available under an emergency access mechanism called an Emergency Use Authorization (EUA). The EUA for this test is supported by the [employer] Clerk of Health and Human Service's (HHS's) declaration [...] consistent with SARS-CoV-2. Performed By: #### [facility] #### [facility] [address] [place] [address] Dr. Sarthak Cleveland RAD - MISFormerly [facility] 03-24-2022 RAD - MIS [id number]: 127 Normal [facility] Ambulatory Visit Summaryon 0 03-21-2022 Ambulatory Visit Summary DON NATION :1955 Visit Date:03/21/2022 Ambulatory Visit Instructions Your Diagnosis BPH without urinary obstruction Kidney stone Tests Performed Urnls Dip Stick Auto w/o Microscopy POC 56678 Your Care Team Attending Physician - KELBY [...] 3 months Comments: f/up new med Where: [facility] [id number]- Medications What How Much When Instructions New alfuzosin (alfuzosin 10 mg ER Tab) 1 Tablets By Mouth Every day Refills: 11 Pickup at [facility]/pharmacy #[id number] Unchanged hydrochlorothiazide (hydrochlorothiazide 12.5 mg Cap) [...] physician if questions or concerns Pharmacy Information [facility]/pharmacy #[id number]: [address], [place] [id number] [phone] Test Results Urnls Dip Stick Auto w/o Microscopy POC 66678 (03/21/2022) Bilirubin Urine Dipstick - Negative Blood Urine Dipstick - Negative Glucose Urine Dipstick - Negative Ketones Urine Dipstick - Negative Leukocytes Urine Dipstick - Negative Nitrite Urine Dipstick - Negative Protein Urine Dipstick - Negative Specific Ocate Urine Dipstick - 1.010 Urine Appearance Urine [...] is this (more content not included)... Normal [facility] Patient Educationon 03-21-20 Patient Education [...] Follow these instructions at home: ? Take uyvy-ekh-dmgoxha and prescription medicines only as told by [...] You d (more content not included)... Normal [facility] Screenson 03-21-2022 Screens [id number]: 127 Normal [facility] Urology Office/Clinic Noteon 03-21-2022 Urology Office/Clinic Note Chief Complaint 10 month follow up with KUB HPI Staff Don is here today for a a 10 month follow up with KUB. KUB done on 03/20/22 at [facility] impression showed small scattered stable bilateral [...] stopped and the office notified. [facility] [place]. All questions/concerns were discussed. Pt. to call [...] PULIDO, Salomon [place], CLIFF In [address] [place], [place] [id number]- Additional Instructions: f/up new med Patient Education [...] Vicodin (Naus (more content not included)... Normal [facility] Comment on above: Result Comment: [...] by: GLORIA JETT Date: 2022-03-20 18:33 Normal [facility] Vital Signs Date Time Vital Sign Value Performing Clinician Facility 05-31-2024 08:33-0400 Body height 175.26 cm [facility] 05-31-2024 08:33-0400 Body mass index (BMI) [Ratio] 24.7 kg/m2 [facility] 05-31-2024 08:33-0400 Body weight 75.97 kg [facility] 05-31-2024 08:33-0400 Diastolic blood pressure 79 mm[Hg] [facility] 05-31-2024 08:33-0400 Heart rate 56 /min [facility] 05-31-2024 08:33-0400 Respiratory rate 12 /min [facility] 05-31-2024 08:33-0400 Systolic blood pressure 133 mm[Hg] [facility] 11-17-2023 14:10-0400 Body height 175.26 cm [facility] 11-17-2023 14:10-0400 Body mass index (BMI) [Ratio] 25.5 kg/m2 [facility] 11-17-2023 14:10-0400 Body weight 78.58 kg [facility] 11-17-2023 14:10-0400 Diastolic blood pressure 75 mm[Hg] [facility] 11-17-2023 14:10-0400 Heart rate 61 /min [facility] 11-17-2023 14:10-0400 Respiratory rate 12 /min [facility] 11-17-2023 14:10-0400 Systolic blood pressure 145 mm[Hg] [facility] 05-25-2023 10:00-0400 Body height 175.26 cm Tao Ball Other [facility] [employer] Other 05-25-2023 10:00-0400 Body mass index (BMI) [Ratio] 25.6 kg/m2 Tao Ball Other [facility] [employer] Other 05-25-2023 10:00-0400 Body weight 78.65 kg Tao Ball Other [employer] [facility] [employer] Other 05-25-2023 10:00-0400 Diastolic blood pressure 76 mm[Hg] Tao Ball Other [facility] [employer] Other 05-25-2023 10:00-0400 Respiratory rate 12 /min Tao Ball Other [facility] [employer] Other 05-25-2023 10:00-0400 Systolic blood pressure 120 mm[Hg] Tao Ball Other [place] Other 11-28-2022 11:00-0400 Body height 175.26 cm Tao Ball Other [place] Other 11-28-2022 11:00-0400 Body mass index (BMI) [Ratio] 24.36 kg/m2 Tao Ball Other [place] Other 11-28-2022 11:00-0400 Body weight 74.84 kg Tao Ball Other [place] Other 11-28-2022 11:00-0400 Diastolic blood pressure 76 mm[Hg] Tao Ball Other [place] Other 11-28-2022 11:00-0400 Respiratory rate 12 /min Tao Ball Other [place] Other 11-28-2022 11:00-0400 Systolic blood pressure 122 mm[Hg] Tao Ball Other [place] Other 09-16-2022 15:15-0500 Body height 175.26 cm Tao Ball Other [place] Other 09-16-2022 15:15-0500 Body mass index (BMI) [Ratio] 24.45 kg/m2 Tao Ball Other [place] Other 09-16-2022 15:15-0500 Body weight 75.12 kg Tao Ball Other [place] Other 09-16-2022 15:15-0500 Diastolic blood pressure 70 mm[Hg] Tao Ball Other [place] Other 09-16-2022 15:15-0500 Respiratory rate 12 /min Tao Martines Other [facility] [employer] Other 09-16-2022 15:15-0500 Systolic blood pressure 118 mm[Hg] Tao Martines Other [facility] [employer] Other 03-21-2022 09:54-0400 Blood Pressure Location Salomon PITTS [facility] 03-21-2022 09:54-0400 Diastolic blood pressure 83 mm[Hg] Salomon PITTS [facility] 03-21-2022 09:54-0400 Heart rate 79 /min Salomonpatrick PITTS [facility] 03-21-2022 09:54-0400 Respiratory rate 16 /min Salomon PITTS [facility] 03-21-2022 09:54-0400 Systolic blood pressure 137 mm[Hg] Salomon PITTS [facility] Encounters Encounter Date Encounter Type Care Provider Facility Start: 05-31-2024 End: 05-31-2024 ambulatory [facility] Work Phone: Start: 05-31-2024 End: 05-31-2024 Patient encounter procedure [facility] Work Phone: Start: 05-27-2024 Patient encounter procedure [facility] Start: 11-17-2023 End: 11-17-2023 ambulatory [facility] Work Phone: Start: 11-17-2023 End: 11-17-2023 Patient encounter procedure [facility] Work Phone: Start: 11-13-2023 Non-patient / Non-visit [facility] [employer] Work Phone: Start: 07-14-2023 End: 07-14-2023 ambulatory Tao Martines Other [place] Other Start: 07-14-2023 Office outpatient vi sit 15 minutes Tao Martines [facility] Start: 05-28-2023 End: 05-28-2023 ambulatory Tao Martines Other [place] Other Start: 05-28-2023 Telephone encounter Tao Martines [facility] Start: 05-25-2023 End: 05-25-2023 ambulatory Tao Martines Other [place] Other Start: 05-25-2023 Patient encounter procedure Tao Martines [facility] Start: 05-04-2023 End: 05-04-2023 ambulatory Tao Martines Other [place] Other Start: 05-04-2023 Telephone encounter Tao Conrad [facility] Start: 12-09-2022 End: 01-07-[address] TAO MARTINES Facility:[facility] Start: 11-28-2022 End: 11-28-2022 ambulatory Tao Martines Other [place] Other Start: 11-28-2022 Office outpatient vi sit 25 minutes Tao Martines [facility] Start: 11-25-2022 End: 11-26-[address] TAO MARTINES Facility:[facility] Start: 09-16-2022 End: 09-16-2022 ambulatory Tao Martines Other [place] Other Start: 09-16-2022 Office outpatient vi sit 15 minutes Tao Martines [facility] Start: 08-10-2022 End: 11-08-[address] TAO MARTINES Facility:[facility] Start: 07-30-2022 End: 08-09-2022 ambulatory MR SAMIR JACOBSON . Facility:[facility] Start: 07-11-2022 ambulatory MD Salomon PITTS Fac ility:[facility] Start: 07-10-[address] KIM LARA . Faci lity:[facility] Start: 05-27-2022 End: 05-27-[address] ZACH TYSON Facility:[facility] Start: 05-26-2022 End: 05-27-[address] TAO MARTINES Facility:[facility] Start: 05-22-2022 End: 05-23-[address] KIM LARA . Facility:[facility] Start: 05-22-2022 Adult health examination Eliezer Martines Other [place] Other Start: 05-06-2022 Encounter for preprocedural laboratory examination DR KIM LARA . [facility] Start: 05-06-2022 End: 05-06-[address] KIM LARA . Facility:[facility] Start: 05-02-2022 End: 05-03-[address] KIM LARA . Facility:[facility] Start: 05-02-2022 End: 05-03-2022 Encounter for preprocedural laboratory examination DR KIM LARA . Facility:[facility] Start: 03-21-2022 End: 03-22-2022 ambulatory MD Salomon PITTS Facility:[facility] Start: 03-21-2022 End: 03-21-2022 Patient encounter procedure Salomon PITTS [facility] Start: 03-20-2022 End: 03-21-[address] SALOMON PITTS . Facility:[facility] Start: 03-14-[address] KIM LARA . Faci lity:[facility] Start: 02-18-2022 End: 02-19-[address] KIM LARA . Facility:[facility] Start: 05-14-2020 End: 05-14-2020 Preoperative cardiovascular examination Tao Martines Other [place] Other Procedures Date Procedure Procedure Detail Performing Clinician Start: 05-26-[address] ZACH TYSON Comment on above: Performed By: #### B MP, LIPID, ALT #### [facility] [address] [place] [address] Dr. Sarthak Cleveland Start: 02-23-2020 Fluoroscopy guided [...] lic 2000 panel - Serum or Plasma [facility] Immunizations Immunization Date Immunization Notes Care Provider Shannan meier 05-31-2024 influenza, high dose seasonal, preservative-free [facility] 06-02-2023 Prevnar 20 Tao Martines Other [facility] 05-25-2023 influenza virus vaccine, unspecified formulation [facility] 05-25-2023 influenza, high dose seasonal, preservative-free Tao Martines Other [place] Other 05-22-2022 influenza virus vaccine, split virus (incl. purified surface antigen) Tao Martines Other [place] Other 05-22-2022 influenza virus vaccine, unspecified formulation [facility] 05-21-2021 influenza virus vaccine, split virus (incl. purified surface antigen) Tao Ball Other [place] Other 05-21-2021 influenza virus vaccine, unspecified formulation [facility] Payers Date Payer Category Payer Medicare [id number] 1959 Unknown [id number] 1959 Unknown [id number] 2.16 .[id number] 1955 Unknown [id number] 2.16.840.1.895309.3.579.2.727 1955 Unknown [id number] 2.16.840.1.763536.3.579.2.727 1955 Unknown [id number] 2.16.840.1.882295.3.579.2.593 1955 Unknown [id number] 2.16.840.1.769910.3.579.2.593 1955 Unknown [id number] 2.16.840.1.323825.3.579.2.593 1955 Unknown [id number] 2.16.840.1.355385.3.579.2.593 1955 Unknown [id number] 2.16.840.1.421959.3.579.2.593 1955 Unknown [id number] 2.16.840.1.654886.3.579.2.593 1955 Unknown [id number] 2.16.840.1.612430.3.579.2.593 1955 Unknown [id number] 2.16.840.1.718063.3.579.2.593 1955 Unknown [id number] 2.16.840.1.160006.3.579.2.593 1955 Unknown [id number] 2.16.840.1.677333.3.579.2.593 1955 Unknown [id number] 2.16.840.1.017771.3.579.2.593 1955 Unknown [id number] 2.16.840.1.920296.3.579.2.593 1955 Unknown [id number] 2.16.840.1.415694.3.579.2.593 Medicare [facility] DEGWGF [id number] Self-pay Self Pay [id number] Social History Date Type Detail Facility Start: 03-21-2022 End: 08-04-2023 Tobacco smoking status Never smoked tobacco (finding) [facility] Sex Assigned At Male [facility] Start: 1955 Sex Assigned At Male F [facility] Functional Status Date Assessment Result Facility 03-21-2022 Functional Status N/A [facility] Clinical Notes 02-18-2022 to 07-14-2023 Note [...] exercise to achieve/mainta in a normal BMI. [facility] Other 10-19-2023 Evaluation note* Encounter Date Diagnosis Assessment Notes Treatment Notes Treatment Clinical Notes May, Elevated cholesterol (ICD-10 - E78.00) [facility] Other 10-16-2023 Evaluation note* Encounter Date Diagnosis [...] (ICD-10 - Z12.5) yearly ANNELIESE and PSA [facility] Other 04-21-2023 Evaluation note* Encounter Date Diagnosis [...] for increased CP, dyspnea, palpitations or lightheadedness [facility] Other 02-07-2023 Evaluation note* Encounter Date Diagnosis [...] continue exercise to achieve/maintain a normal BMI. [facility] Other 10-13-2022 NoteCONSULTATION CONSULTATION DATE: 05/22/2022 This [...] of care and all questions were answered.[id number] Discharge instructions Patient Education 03/21/2022 10:30:52 [...] urethra. Follow these instructions at home: Take yxfr-tlz-oaineld and prescription medicines only as told by [...] 07/27/2006 Document Revised: 06/21/2019 Document Reviewed: 08/31/2017 [email or web address] Patient Education [employer]. Follow Up Care 05/20/2021 16:25:31 With:KELBY PULIDO, Salomon [place], URL Address: [address] [place] [address]- When:Within 3 Month(s) Comments:f/up [facility] 07-12-2022 NoteCONSULTATION PROCEDURE DATE: 02/18/2022 PREOPERATIVE [...] his pain symptomatology and range of motion. [facility] Signed and Approved by: DR KIM LARA . 02/25/2022 09:28:00[facility]07-12-2022 NoteCONSULTATION CONSULTATION DATE: 02/18/2022 CHIEF COMPLAINT: [...] The patient states he is close to [facility] and does not wish to see an [...] like to proceed. CC: Tao Martines D.O. [facility] Signed and Approved by: DR KIM LARA . 02/25/2022 09:28:00[facility] Future Appointments Appointment Date:07/11/2022 08:00:00 AM Scheduled Provider:Salomon PITTS MD Location:[facility] Appointment Type:URO Office Visit [facility] evaluation noteNo [employer] Other Evaluation note* Diagnosis Onset Date Resolution Status Benign prostatic hyperplasia with lower urinary tract symptoms acute Gastroesophageal reflux dise ase with esophagitis without hemorrhage acute IFG (impaired fasting glucose) acute Primary hypertension acute [facility] Work Phone: Evaluation note* Diagnosis Onset Date Resolution Status Benign prostatic hyperplasia with lower urinary tract symptoms acute Gastroesophageal reflux dise ase with esophagitis without hemorrhage acute H/O colonoscopy acute Hypercholesterolemia acute IFG (impaired fasting glucose) acute Medicare annual wellness visit, subsequent acute Primary hypertension acute Screening for colon cancer a cute Screening PSA (prostate specific antigen) [place] Work Phone: History general Narrative - Reported* [...] 202 0 Hospitalization History SEE SURGICAL HX [place] Other Hospital course Narrative No data available for this section [facility] [place] progress note No data available for this section [facility] Summary Purpose Family History Relationship Condition [...] and content) DATE CREATED AUTHOR 07/09/2022 [facility] DATE CREATED AUTHOR AUTHOR'S ORGANIZ ATION 01/16/2023 [facility] [place] [facility] REASON FOR VISIT (unrecogniz ed section and content) Not Sleeping WellTBo [facility] resultsCOVID [phone] Goals (unrecognized section and content) Goals may [...] BE BASED ON THE PRIMARY CLINICAL RECORDS. [facility]. provides no warranty or guarantee of the accuracy or completeness of information in this document.
[2024-06-03 09:19] LABS: Bilirubin Urine NEGATIVE (NEGATIVE); Blood Urine NEGATIVE (NEGATIVE); Clarity Urine CLEAR (CLEAR); Color Urine LT. YELLOW (YELLOW); Glucose Urine UA NEGATIVE (NEGATIVE); Ketones Urine NEGATIVE (NEGATIVE); Leukocyte Esterase Urine NEGATIVE (NEGATIVE); Nitrite Urine NEGATIVE (NEGATIVE); Protein Urine NEGATIVE (NEG/TRACE); Urobilinogen Urine 0.2 EU/dL (0.2-1.0)
[2024-06-03 09:31] LABS: Bacteria Urine NONE SEEN #/HPF (NONE SEEN); Cast Seen? NONE SEEN #/LPF (NONE SEEN); Crystals Seen? None Seen #/HPF (None Seen); Mucus Urine TRACE (NONE SEEN); RBC Urine NONE SEEN #/HPF (0-2); Squamous Epithelial Cell Urine NONE SEEN #/LPF (NONE/RARE); WBC Urine 0-2 #/HPF (NONE SEEN)
== END 2024-06-03 08:57 | disposition home or self-care (01) ==
LOC: LAB 08:59
PROVIDERS: PCP Internal Medicine; Visit Provider Internal Medicine
DX: R35.89 Other polyuria (principal)
CPT/HCPCS: 81001; 87086

== ENCOUNTER 2024-08-31 08:09 | Outpatient (OUT) | payer OTHER, SELFPAY ==
--- OUTSIDE RECORDS SUMMARY | 2024-08-31 08:19 | XMS_ITS | CCD ---
Author Organization [facility] Team Providers Care Revenue Officer Name Role Phone TAO MARTINES Primary Care [...] DR KIM Campbell Admitting Unavailable CONRAD, DR LCIEA Primary Care Unavailable ALBERTO IBARRA Consulting Unavailable [...] Unavailable CONRAD, DR LICEA Primary Care Unavailable Rachael PULIDO, Belgica Campos Attending Unavailable Allergies Allergy Classification Reported Allergen(s) Allergy Type Date of Onset Reaction(s) Facility (5 sources) Acetaminophen / HYDROcodone; Translations: [acetaminophen-hy drocodone] Drug Allergy Nausea (finding) [facility] (8 sources) Codeine; Translations: [codeine] Drug Allergy 08-29-19 15 Nausea (finding) [facility] (6 sources) Codeine Drug Allergy Unknown [facility] Other (6 sources) HMG-CoA reductase inhibitor Drug allergy Unknown [facility] Other (2 sources) Acetaminophen / HYDROcodone Drug Allergy 12-28-19 13 [facility] (2 sources) Codeine Drug Allergy 12-21-19 13 [facility] (4 sources) Vicodin *ANALGESICS - OPIOID* Propensity to adverse reactions 08-29-19 15 Unknown [facility] Other (1 source) patient allergy list reviewed by nurse or physicia Propensity to adverse reactions 06-08-20 17 Comment:Done [facility] Other (2 sources) Acetaminophen Drug Allergy 11-14-19 24 Unknown Reaction [facility] (2 sources) HYDROcodone Drug Allergy 08-04-20 23 Vomiting [facility] (2 sources) Fugoxwo-SNK-ZdL Reductase Inhibitor Allergy to substance 11-14-19 24 Unknown Reaction [facility] Medications Current Medications Medication Drug Class(es) Dates Sig (Normalized) Sig (Original) 24 hr alfuzosin hydrochloride 10 mg extended release oral tablet (1 source) alpha-Adrenergic Melissa Start: 03-21-2022 take 1 tablet by mouth once daily alfuzosin 10 mg ER Tab 10 mg = 1 tab(s), Oral, Daily, # 30 tab(s), Refills(s) 11, Pharmacy: [facility]/pharmacy #[id number], 175, cm, 03/21/22 9:55:00 EDT, Height/Length [...] Daily, # 90 cap(s), Refills(s) 3, Pharmacy: [facility]/pharmacy #[id number], 175, cm, 05/20/21 15:07:00 EDT, Height/Length [...] for 90 day(s), 360 tab(s), Refill(s) 3, [facility]/pharmacy #[id number], 175, cm, 05/20/21 15:07:00 EDT, Height/Length [...] 17, 2018 12:00am January 06, 2020 10:30am [place] 6-Bat-Dql-Fish Oil (Fish Oil) 1,000 mg (120 mg-180 mg) Capsule (2 sources) Start: 05-17-2018 End: 11-14-2023 [place] 7-Iyy-Kyt-Fish Oil (Fish Oil) 1,000 mg (120 mg-180 [...] pain Episodic Other aftercare (2 sources) 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; Translations: [OTH [facility] CURRENT DRUG THERAPY] Onset: 3 Episodic Other aftercare (1 source) Long-term current use of drug therapy; Translations: [Other usp (current) drug therapy] Episodic Other connective tissue [...] 11-13-2023 Cholesterol in LDL [Mass/Vol] 209.0 mg/dL [facility] Comment on above: <100 mg/dl [id number] 0-129 mg/dl NEAR OR ABOVE [id number] mg/dl BORDERLINE [id number] mg/dl HIGH>190 mg/dl VERY HIGH Cholesterol in VLDL Calc [Ma ss/Vol]on 11-13-2023 Cholesterol in VLDL [Mass/Vol] 22.4 mg/dL [facility] Laboratory - Chemistry and C hemistry - challengeon 11-13-2023 Cholesterol [Mass/Vol] 284 mg/dL <=200 [facility] Cholesterol in HDL [Mass/Vol] 53 mg/dL 40-60 [facility] Comment on above: > or =60 mg/dl - LOW CARDIOVASCULAR RISK<40 mg/dl - HIGH CARDIOVASCULAR RISK Triglyceride [Mass/Vol] 112 mg/dL <=150 [facility] No Panel Informationon 11-12 Prostate Specific Antigen Screen 1.00 ng/mL <=4.00 [facility] Serum or plasma total choles terol/high density lipoprotein (HDL) cholesterol mass mahamed 11-13-2023 Cholesterol.total/ Cholesterol in HDL [Mass ratio] 5.4 {ratio} [facility] Comment on above: 3.3 - 4.4 LOW RISK4. 4 - 7.1 AVERAGE RISK7.1 - 11.0 MODERATE RISK>11.0 HIGH RISK CARDIAC LONNIE ADMITon 023 CK [Catalytic activity/Vol] 57 U/L Normal 39-308 [facility] Comment on above: Performed By: #### C CORY, CMP #### [facility] [address] [address] [address] Sarthak Cleveland CK.MB [Mass/Vol] 0.54 ng/mL Normal <=3.60 [facility] Comment on above: Performed By: #### C CORY, CMP #### [facility] [address] [place], [place] [address] Dr. Sarthak Cleveland HSTROP <4.0 Normal 4.0-76.1 [facility] Comment on above: Result Comment: CUT- OFF POINTS HAVE BEEN ESTABLISHED BASED ON THE FOURTH UNIVERSAL DEFINITIONS OF MYOCARDIAL INFARCTION. THE UPPER REFERENCE LIMIT (URL) OF TROPONIN, DEFINED THE 99TH PERCENTILE OF cTnI DISTRIBUTION IN A REFERENCE POPULATION, HAS BEEN CONFIRMED THE DECISION THRESHOLD FOR PA DIAGNOSIS. Performed By: #### C MADM, CMP #### [facility] [address] [place] [address] Dr. Sarthak Cleveland MAL 37 ng/mL Normal 16-96 [facility] Comment on above: Performed By: #### C MADM, CMP #### [facility] [address] [address] [address] Sarthak Cleveland CBC AUTO DIFFon 11-25-2022 BASO # 0.0 103/ul Normal 0.0-0.1 [facility] Comment on above: Performed By: #### B MP, LIPID, ALT #### [facility] [address] [place] [address] Dr. Sarthak Cleveland Basophils/100 WBC (Bld) 0.5 % Normal 0.2-2.0 [facility] Comment on above: Performed By: #### B MP, LIPID, ALT #### [facility] [address] [address] [address] Sarthak Cleveland EO # 0.3 103/ul Normal 0.0-0.7 [facility] Comment on above: Performed By: #### B MP, LIPID, ALT #### [facility] [address] [place] [address] Dr. Sarthak Cleveland Eosinophils/100 WBC (Bld) 3.0 % Normal 0.9-7.0 [facility] Comment on above: Performed By: #### B MP, LIPID, ALT #### [facility] [address] [place] [address] Dr. Sarthak Cleveland Erythrocyte distribution width (RBC) [Ratio] 12.4 % Normal 11.0-15.0 [facility] Comment on above: Performed By: #### B MP, LIPID, ALT #### [facility] [address] [place] [address] Dr. Sarthak Cleveland Hematocrit (Bld) [Volume fraction] 47.3 % Normal 42.0-54.0 [facility] Comment on above: Performed By: #### B MP, LIPID, ALT #### [facility] [address] [place] [address] Dr. Sarthak Cleveland Hemoglobin (Bld) [Mass/Vol] 15.9 g/dL Normal 14.0-18.0 [facility] Comment on above: Performed By: #### B MP, LIPID, ALT #### [facility] [address] [place] [address] Dr. Sarthak Cleveland IG # 0.04 10e3/ul Critically high 0.00-0.03 [facility] Comment on above: Performed By: #### B MP, LIPID, ALT #### [facility] [address] [place] [address] Dr. Sarthak Cleveland IG % 0.5 % Normal 0.0-0.5 [facility] Comment on above: Performed By: #### B MP, LIPID, ALT #### [facility] [address] [place] [address] Dr. Sarthak Cleveland LYMPH # 2.2 103/ul Normal 1.2-3.8 [facility] Comment on above: Performed By: #### B MP, LIPID, ALT #### [facility] [address] [place] [address] Dr. Sarthak Cleveland Lymphocytes/100 WBC (Bld) 26.6 % Normal 20.5-60.0 [facility] Comment on above: Performed By: #### B MP, LIPID, ALT #### [facility] [address] [place] [address] Dr. Sarthak Cleveland MANUAL DIFF REQ NO Normal [facility] Comment on above: Performed By: #### B MP, LIPID, ALT #### [facility] [address] [place] [address] Dr. Sarthak Cleveland MCH (RBC) [Entitic mass] 31.7 pg Normal 25.9-34.0 [facility] Comment on above: Performed By: #### B MP, LIPID, ALT #### [facility] [address] [place] [address] Dr. Sarthak Cleveland MCHC (RBC) [Mass/Vol] 33.6 g/dL Normal 29.9-35.2 [facility] Comment on above: Performed By: #### B MP, LIPID, ALT #### [facility] [address] [place] [address] Dr. Sarthak Cleveland MCV (RBC) [Entitic vol] 94.2 fL Critically high 80.0-94.0 [facility] Comment on above: Performed By: #### B MP, LIPID, ALT #### [facility] [address] [place] [address] Dr. Sarthak Cleveland MONO # 0.8 103/ul Normal 0.3-0.8 [facility] Comment on above: Performed By: #### B MP, LIPID, ALT #### [facility] [address] [place] [address] Dr. Sarthak Cleveland Monocytes/100 WBC (Bld) 9.7 % Normal 1.7-12.0 [facility] Comment on above: Performed By: #### B MP, LIPID, ALT #### [facility] [address] [place] [address] Dr. Sarthak Cleveland NEUT # 5.0 103/ul Normal 1.4-6.5 [facility] Comment on above: Performed By: #### B MP, LIPID, ALT #### [facility] [address] [place] [address] Dr. Sarthak Cleveland Neutrophils/100 WBC (Bld) 59.7 % Normal 43.0-75.0 [facility] Comment on above: Performed By: #### B MP, LIPID, ALT #### [facility] [address] [place] [address] Dr. Sarthak Cleveland Platelet mean volume (Bld) [Entitic vol] 11.0 fL Normal 9.5-13.5 [facility] Comment on above: Performed By: #### B MP, LIPID, ALT #### [facility] [address] [place] [address] Dr. Sarthak Cleveland PLT 241 103/ul Normal 150-450 [facility] Comment on above: Performed By: #### B MP, LIPID, ALT #### [facility] [address] [address] [address] Sarthak Cleveland RBC 5.02 106/ul Normal 4.70-6.10 [facility] Comment on above: Performed By: #### B MP, LIPID, ALT #### [facility] [address] [place] [address] Dr. Sarthak Cleveland WBC 8.4 103/ul Normal 4.0-11.0 [facility] Comment on above: Performed By: #### B MP, LIPID, ALT #### [facility] [address] [address] [address] Sarthak Cleveland PROF 14(COMP METB)on 023 Albumin [Mass/Vol] 3.8 g/dL Normal 3.4-5.0 [facility] Comment on above: Performed By: #### C MADM, CMP #### [facility] [address] [place] [address] Dr. Sarthak Cleveland Albumin/Globulin [Mass ratio] 0.9 {ratio} Normal [facility] Comment on above: Performed By: #### C MADM, CMP #### [facility] [address] [place] [address] Dr. Sarthak Cleveland ALP [Catalytic activity/Vol] 57 U/L Normal 46-116 [facility] Comment on above: Performed By: #### C MADM, CMP #### [facility] [address] [address] [address] Sarthak Cleveland ALT [Catalytic activity/Vol] 21 U/L Normal 16-63 [facility] Comment on above: Performed By: #### C MADM, CMP #### [facility] [address] [address] [address] Sarthak Cleveland Anion gap [Moles/Vol] 12.3 mmol/L Normal [facility] Comment on above: Performed By: #### C MADM, CMP #### [facility] [address] [place] [address] Dr. Sarthak Cleveland AST [Catalytic activity/Vol] 17 U/L Normal 15-37 [facility] Comment on above: Performed By: #### C MADM, CMP #### [facility] [address] [address] [address] Sarthak Cleveland Bilirubin [Mass/Vol] 0.3 mg/dL Normal 0.2-1.0 [facility] Comment on above: Performed By: #### C MADM, CMP #### [facility] [address] [place] [address] Dr. Sarthak Cleveland Calcium [Mass/Vol] 9.2 mg/dL Normal 8.5-10.1 [facility] Comment on above: Performed By: #### C MADM, CMP #### [facility] [address] [place] [address] Dr. Sarthak Cleveland Chloride [Moles/Vol] 103 mmol/L Normal 98-107 [facility] Comment on above: Performed By: #### C MADM, CMP #### [facility] [address] [place] [address] Dr. Sarthak Cleveland CO2 [Moles/Vol] 28.7 mmol/L Normal 21.0-32.0 [facility] Comment on above: Performed By: #### C MADM, CMP #### [facility] [address] [place] [address] Dr. Sarthak Cleveland Creatinine [Mass/Vol] 0.83 mg/dL Normal 0.70-1.30 [facility] Comment on above: Performed By: #### C EDISONM, CMP #### [facility] [address] [place] [address] Dr. Sarthak Cleveland EGFR-AF GUATEMALAN >60 Normal >=60 [facility] Comment on above: Performed By: #### C MADM, CMP #### [facility] [address] [place] [address] Dr. Sarthak Cleveland EGFR-NON AF GUATEMALAN >60 Normal >=60 [facility] Comment on above: Performed By: #### C MADM, CMP #### [facility] [address] [place] [address] Dr. Sarthak Cleveland Globulin (S) [Mass/Vol] 4.1 g/dL Normal [facility] Comment on above: Performed By: #### C MADM, CMP #### [facility] [address] [address] [address] Sarthak Cleveland Glucose [Mass/Vol] 89 mg/dL Normal 74-106 [facility] Comment on above: Performed By: #### C EDISONM, CMP #### [facility] [address] [place] [address] Dr. Sarthak Cleveland Potassium [Moles/Vol] 4.0 mmol/L Normal 3.5-5.1 [facility] Comment on above: Performed By: #### C EDISONM, CMP #### [facility] [address] [place] [address] Dr. Sarthak Cleveland Protein [Mass/Vol] 7.9 g/dL Normal 6.4-8.2 [facility] Comment on above: Performed By: #### C EDISONM, CMP #### [facility] [address] [place] [address] Dr. Sarthak Cleveland Sodium [Moles/Vol] 140 mmol/L Normal 136-145 [facility] Comment on above: Performed By: #### C CORY, CMP #### [facility] [address] [place] [address] Dr. Sarthak Cleveland Urea nitrogen [Mass/Vol] 12.0 mg/dL Normal 7.0-18.0 [facility] Comment on above: Performed By: #### C CORY, CMP #### [facility] [address] [place] [address] Dr. Sarthak Cleveland Urea nitrogen/Creatinin e [Mass ratio] 14.5 mg/mg Normal [facility] Comment on above: Performed By: #### C EDISONM, CMP #### [facility] [address] [place] [address] Dr. Sarthak Cleveland TSHon 11-25-2022 TSH 1.919 uIU/mL Normal 0.358-3.740 [facility] Comment on above: Performed By: #### B MP, LIPID, ALT #### [facility] [address] [place] [address] [address] SHOULDER LT WO [...] by: OLYA PEREYRA Date: 2022-05-27 19:58 Normal [facility] XR ARTHRO SHOULDER LTon 05-10 XR [...] OLYA PEREYRA Date: 2022-05-27 12:36 Normal [facility] CBC AUTO DIFFon 05-26-2022 BASO # 0.1 103/ul Normal 0.0-0.1 [facility] Comment on above: Performed By: #### B MP, LIPID, ALT #### [facility] [address] [place] [address] Dr. Sarthak Cleveland Basophils/100 WBC (Bld) 0.6 % Normal 0.2-2.0 [facility] Comment on above: Performed By: #### B MP, LIPID, ALT #### [facility] [address] [place] [address] Dr. Sarthak Cleveland EO # 0.2 103/ul Normal 0.0-0.7 [facility] Comment on above: Performed By: #### B MP, LIPID, ALT #### [facility] [address] [place] [address] Dr. Sarthak Cleveland Eosinophils/100 WBC (Bld) 2.4 % Normal 0.9-7.0 [facility] Comment on above: Performed By: #### B MP, LIPID, ALT #### [facility] [address] [place] [address] Dr. Sarthak Cleveland Erythrocyte distribution width (RBC) [Ratio] 12.6 % Normal 11.0-15.0 [facility] Comment on above: Performed By: #### B MP, LIPID, ALT #### [facility] [address] [place] [address] Dr. Sarthak Cleveland Hematocrit (Bld) [Volume fraction] 46.1 % Normal 42.0-54.0 [facility] Comment on above: Performed By: #### B MP, LIPID, ALT #### [facility] [address] [place] [address] Dr. Sarthak Cleveland Hemoglobin (Bld) [Mass/Vol] 15.0 g/dL Normal 14.0-18.0 [facility] Comment on above: Performed By: #### B MP, LIPID, ALT #### [facility] [address] [place] [address] Dr. Sarthak Cleveland IG # 0.07 10e3/ul Critically high 0.00-0.03 [facility] Comment on above: Performed By: #### B MP, LIPID, ALT #### [facility] [address] [place] [address] Dr. Sarthak Cleveland IG % 0.9 % Critically high 0.0-0.5 [facility] Comment on above: Performed By: #### B MP, LIPID, ALT #### [facility] [address] [place] [address] Dr. Sarthak Cleveland LYMPH # 1.9 103/ul Normal 1.2-3.8 [facility] Comment on above: Performed By: #### B MP, LIPID, ALT #### [facility] [address] [place] [address] Dr. Sarthak Cleveland Lymphocytes/100 WBC (Bld) 22.7 % Normal 20.5-60.0 [facility] Comment on above: Performed By: #### B MP, LIPID, ALT #### [facility] [address] [place] [address] Dr. Sarthak Cleveland MANUAL DIFF REQ NO Normal [facility] Comment on above: Performed By: #### B MP, LIPID, ALT #### [facility] [address] [place] [address] Dr. Sarthak Cleveland MCH (RBC) [Entitic mass] 31.6 pg Normal 25.9-34.0 [facility] Comment on above: Performed By: #### B MP, LIPID, ALT #### [facility] [address] [place] [address] Dr. Sarthak Cleveland MCHC (RBC) [Mass/Vol] 32.5 g/dL Normal 29.9-35.2 [facility] Comment on above: Performed By: #### B MP, LIPID, ALT #### [facility] [address] [place] [address] Dr. Sarthak Cleveland MCV (RBC) [Entitic vol] 97.1 fL Critically high 80.0-94.0 [facility] Comment on above: Performed By: #### B MP, LIPID, ALT #### [facility] [address] [address] [address] Sarthak lCeveland MONO # 1.0 103/ul Critically high 0.3-0.8 [facility] Comment on above: Performed By: #### B MP, LIPID, ALT #### [facility] [address] [place] [address] Dr. Sarthak Cleveland Monocytes/100 WBC (Bld) 11.8 % Normal 1.7-12.0 [facility] Comment on above: Performed By: #### B MP, LIPID, ALT #### [facility] [address] [place] [address] Dr. Sarthak Cleveland NEUT # 5.1 103/ul Normal 1.4-6.5 [facility] Comment on above: Performed By: #### B MP, LIPID, ALT #### [facility] [address] [place] [address] Dr. Sarthak Cleveland Neutrophils/100 WBC (Bld) 61.6 % Normal 43.0-75.0 [facility] Comment on above: Performed By: #### B MP, LIPID, ALT #### [facility] [address] [place] [address] Dr. Sarthak Cleveland Platelet mean volume (Bld) [Entitic vol] 10.4 fL Normal 9.5-13.5 [facility] Comment on above: Performed By: #### B MP, LIPID, ALT #### [facility] [address] [place] [address] Dr. Sarthak Cleveland PLT 243 103/ul Normal 150-450 [facility] Comment on above: Performed By: #### B MP, LIPID, ALT #### [facility] [address] [place] [address] Dr. Sarthak Cleveland RBC 4.75 106/ul Normal 4.70-6.10 [facility] Comment on above: Performed By: #### B MP, LIPID, ALT #### [facility] [address] [place] [address] Dr. Sarthak Cleveland WBC 8.2 103/ul Normal 4.0-11.0 [facility] Comment on above: Performed By: #### B MP, LIPID, ALT #### [facility] [address] [address] [address] Sarthak Cleveland LIPID PROFILEon 05-26-2022 CHOL-HDL RATIO NORM SEE BELOW Normal [facility] Comment on above: Result Comment: 3.3 - 4.4 LOW RISK 4.4 - 7.1 AVERAGE RISK 7.1 - 11.0 MODERATE RISK >11.0 HIGH RISK Performed By: #### B MP, LIPID, ALT #### [facility] [address] [address] [address] Sarthak Cleveland Cholesterol [Mass/Vol] 309 mg/dL Critically high <=200 [facility] Comment on above: Performed By: #### B MP, LIPID, ALT #### [facility] [address] [address] [address] Sarthak Cleveland Cholesterol in HDL [Mass/Vol] 46 mg/dL Normal 40-60 [facility] Comment on above: Performed By: #### B MP, LIPID, ALT #### [facility] [address] [address] [address] Sarthak Cleveland Cholesterol in LDL [Mass/Vol] 242.6 mg/dL Normal [facility] Comment on above: Performed By: #### B MP, LIPID, ALT #### [facility] [address] [address] [address] Sarthak Cleveland Cholesterol.total/ Cholesterol in HDL [Mass ratio] 6.7 {ratio} Normal [facility] Comment on above: Performed By: #### B MP, LIPID, ALT #### [facility] [address] [address] [address] Sarthak Cleveland HDL NORMAL > or = 60 mg/dl - LO W CARDIOVASCULAR RISK <40 mg/dl - HIGH CARDIOVASCULAR RISK Normal [facility] Comment on above: Performed By: #### B MP, LIPID, ALT #### [facility] [address] [place] [address] Dr. Sarthak Cleveland LDL CALC NORMAL SEE BELOW Normal [facility] Comment on above: Result Comment: <100 mg/dl OPTIMAL 100 - 129 mg/dl NEAR OR ABOVE OPTIMAL 130 - 159 mg/dl BORDERLINE HIGH 160 - 189 mg/dl HIGH >190 mg/dl VERY HIGH Performed By: #### B MP, LIPID, ALT #### [facility] [address] [address] [address] Sarthak Cleveland Triglyceride [Mass/Vol] 102 mg/dL Normal <=150 [facility] Comment on above: Performed By: #### B MP, LIPID, ALT #### [facility] [address] [address] [address] Sarthak Cleveland VLDL CALC 20.4 mg/dL Normal [facility] Comment on above: Performed By: #### B MP, LIPID, ALT #### [facility] [address] [address] [address] Sarthak Cleveland PROF CHEM 8 (BAS METB)on Anion gap [Moles/Vol] 11.6 mmol/L Normal [facility] Comment on above: Performed By: #### B MP, LIPID, ALT #### [facility] [address] [place] [address] Dr. Sarthak Cleveland Calcium [Mass/Vol] 8.7 mg/dL Normal 8.5-10.1 [facility] Comment on above: Performed By: #### B MP, LIPID, ALT #### [facility] [address] [place] [address] Dr. Sarthak Cleveland Chloride [Moles/Vol] 104 mmol/L Normal 98-107 [facility] Comment on above: Performed By: #### B MP, LIPID, ALT #### [facility] [address] [address] [address] Sarthak Cleveland CO2 [Moles/Vol] 28.7 mmol/L Normal 21.0-32.0 [facility] Comment on above: Performed By: #### B MP, LIPID, ALT #### [facility] [address] [place] [address] Dr. Sarthak Cleveland Creatinine [Mass/Vol] 0.84 mg/dL Normal 0.70-1.30 [facility] Comment on above: Performed By: #### B MP, LIPID, ALT #### [facility] [address] [place] [address] Dr. Sarthak Cleveland EGFR-AF GUATEMALAN >60 Normal >=60 [facility] Comment on above: Performed By: #### B MP, LIPID, ALT #### [facility] [address] [place] [address] Dr. Sarthak Cleveland EGFR-NON AF GUATEMALAN >60 Normal >=60 [facility] Comment on above: Performed By: #### B MP, LIPID, ALT #### [facility] [address] [place] [address] Dr. Sarthak Cleveland Glucose [Mass/Vol] 115 mg/dL Critically high 74-106 [facility] Comment on above: Performed By: #### B MP, LIPID, ALT #### [facility] [address] [place] [address] Dr. Sarthak Cleveland Potassium [Moles/Vol] 4.3 mmol/L Normal 3.5-5.1 [facility] Comment on above: Performed By: #### B MP, LIPID, ALT #### [facility] [address] [place] [address] Dr. Sarthak Cleveland Sodium [Moles/Vol] 140 mmol/L Normal 136-145 [facility] Comment on above: Performed By: #### B MP, LIPID, ALT #### [facility] [address] [place] [address] Dr. Sarthak Cleveland Urea nitrogen [Mass/Vol] 9.0 mg/dL Normal 7.0-18.0 [facility] Comment on above: Performed By: #### B MP, LIPID, ALT #### [facility] [address] [place] [address] Dr. Sarthak Cleveland Urea nitrogen/Creatinin e [Mass ratio] 10.7 mg/mg Normal [facility] Comment on above: Performed By: #### B MP, LIPID, ALT #### [facility] [address] [place] [address] Dr. Sarthak Cleveland [facility] 05-26-2022 ALT [Catalytic activity/Vol] 20 U/L Normal 16-63 [facility] Comment on above: Performed By: #### B MP, LIPID, ALT #### [facility] [address] [place] [address] Sarthak Cleveland Covid-19 PCR (CVDTB)on 04-11 SARS-CoV-2 (COVID-19) RNA LILIANA+probe Ql (Unsp spec) Not detected Normal NOT DETECTED [facility] Comment on above: Result Comment: This test is not yet approved or cleared by the [place] FDA. When there are no FDA-approved or cleared tests available, and other criteria are met, FDA can make tests available under an emergency access mechanism called an Emergency Use Authorization (EUA). The EUA for this test is supported by the [place] of Health and Human Service's (HHS's) declaration [...] consistent with SARS-CoV-2. Performed By: #### [facility] #### [facility] [address] [place], [place] [id number] Dr. Sarthak Cleveland RAD - MISCon 03-24-2022 RAD - MISC [id number]: 127 Normal [facility] Ambulatory Visit Summaryon 0 03-21-2022 Ambulatory Visit Summary DON NATION :1955 Visit Date:03/21/2022 Ambulatory Visit Instructions Your Diagnosis BPH without urinary obstruction Kidney stone Tests Performed Urnls Dip Stick Auto w/o Microscopy POC 42778 Your Care Team Attending Physician - KELBY [...] Mario When: In 3 months Comments: f/up [facility] Where: [facility] [place] [address]- Medications What How Much When Instructions New alfuzosin (alfuzosin 10 mg ER Tab) 1 Tablets By Mouth Every day Refills: 11 Pickup at [facility]/pharmacy #[id number] Unchanged hydrochlorothiazide (hydrochlorothiazide 12.5 mg Cap) [...] physician if questions or concerns Pharmacy Information [facility]/pharmacy #[id number]: [address] [place], [place] [id number] [phone] Test Results Urnls Dip Stick Auto w/o Microscopy POC 79230 (03/21/2022) Bilirubin Urine Dipstick - Negative Blood Urine Dipstick - Negative Glucose Urine Dipstick - Negative Ketones Urine Dipstick - Negative Leukocytes Urine Dipstick - Negative Nitrite Urine Dipstick - Negative Protein Urine Dipstick - Negative Specific [place] Urine Dipstick - 1.010 Urine Appearance Urine [...] is this (more content not included)... Normal [facility] Patient Educationon 03-21-20 Patient Education Urology Benign [...] Follow these instructions at home: ? Take rtxy-yrj-rqtnrua and prescription medicines only as told by [...] You d (more content not included)... Normal [facility] Screenson 03-21-2022 Screens [id number]: 127 Normal [facility] Urology Office/Clinic Noteon 03-21-2022 Urology Office/Clinic Note Chief Complaint 10 month follow up with KUB HPI Staff Don is here today for a a 10 month follow up with KUB. KUB done on 03/20/22 at [facility] impression showed small scattered stable bilateral [...] stopped and the office notified. [facility] [place]. All questions/concerns were discussed. Pt. to call [...] PULIDO, [place], CLIFF In 3 months [facility] [address] [place] [id number]- Additional Instructions: f/up new med Patient Education [...] Vicodin (Naus (more content not included)... Normal [facility] Comment on above: Result Comment: Elec tronically [...] by: GLORIA JETT Date: 2022-03-20 18:33 Normal [facility] Vital Signs Date Time Vital Sign Value Performing Clinician Facility 05-31-2024 08:33-0400 Body height 175.26 cm [facility] 05-31-2024 08:33-0400 Body mass index (BMI) [Ratio] 24.7 kg/m2 [facility] 05-31-2024 08:33-0400 Body weight 75.97 kg [facility] 05-31-2024 08:33-0400 Diastolic blood pressure 79 mm[Hg] [facility] 05-31-2024 08:33-0400 Heart rate 56 /min [facility] 05-31-2024 08:33-0400 Respiratory rate 12 /min [facility] 05-31-2024 08:33-0400 Systolic blood pressure 133 mm[Hg] [facility] 11-17-2023 14:10-0400 Body height 175.26 cm [facility] 11-17-2023 14:10-0400 Body mass index (BMI) [Ratio] 25.5 kg/m2 [facility] 11-17-2023 14:10-0400 Body weight 78.58 kg [facility] 11-17-2023 14:10-0400 Diastolic blood pressure 75 mm[Hg] [facility] 11-17-2023 14:10-0400 Heart rate 61 /min [facility] 11-17-2023 14:10-0400 Respiratory rate 12 /min [facility] 11-17-2023 14:10-0400 Systolic blood pressure 145 mm[Hg] [facility] 05-25-2023 10:00-0400 Body height 175.26 cm Tao Ball Other [facility] Other 05-25-2023 10:00-0400 Body mass index (BMI) [Ratio] 25.6 kg/m2 Tao Ball Other [facility] Other 05-25-2023 10:00-0400 Body weight 78.65 kg Tao Ball Other [facility] Other 05-25-2023 10:00-0400 Diastolic blood pressure 76 mm[Hg] Tao Ball Other [facility] Other 05-25-2023 10:00-0400 Respiratory rate 12 /min Tao Ball Other [facility] [facility] Other 05-25-2023 10:00-0400 Systolic blood pressure 120 mm[Hg] Tao Ball Other [facility] Other 11-28-2022 11:00-0400 Body height 175.26 cm Tao Ball Other [facility] Other 11-28-2022 11:00-0400 Body mass index (BMI) [Ratio] 24.36 kg/m2 Tao Ball Other [facility] Other 11-28-2022 11:00-0400 Body weight 74.84 kg Tao Ball Other [facility] Other 11-28-2022 11:00-0400 Diastolic blood pressure 76 mm[Hg] Tao Ball Other [facility] Other 11-28-2022 11:00-0400 Respiratory rate 12 /min Tao Ball Other [facility] Other 11-28-2022 11:00-0400 Systolic blood pressure 122 mm[Hg] Tao Ball Other [facility] Other 09-16-2022 15:15-0500 Body height 175.26 cm Tao Ball Other [facility] Other 09-16-2022 15:15-0500 Body mass index (BMI) [Ratio] 24.45 kg/m2 Tao Ball Other [facility] Other 09-16-2022 15:15-0500 Body weight 75.12 kg Tao Ball Other [facility] Other 09-16-2022 15:15-0500 Diastolic blood pressure 70 mm[Hg] Tao Ball Other [facility] Other 09-16-2022 15:15-0500 Respiratory rate 12 /min Tao Martines Other [facility] Other 09-16-2022 15:15-0500 Systolic blood pressure 118 mm[Hg] Tao Conrad Other [facility] Other 03-21-2022 09:54-0400 Blood Pressure Location Salomon PITTS [facility] 03-21-2022 09:54-0400 Diastolic blood pressure 83 mm[Hg] Salomon PITTS [facility] 03-21-2022 09:54-0400 Heart rate 79 /min Salomon PITTS [facility] 03-21-2022 09:54-0400 Respiratory rate 16 /min Salomon PITTS [facility] 03-21-2022 09:54-0400 Systolic blood pressure 137 mm[Hg] Salomon PITTS [facility] Encounters Encounter Date Encounter Type Care Provider Facility Start: 05-31-2024 End: 05-31-2024 ambulatory [facility] Work Phone: Start: 05-31-2024 End: 05-31-2024 Patient encounter procedure [facility] Work Phone: Start: 05-27-2024 Patient encounter procedure [facility] Start: 05-23-2024 End: 05-23-2024 ambulatory Andrius Vytautas Giedraitis MD Facility:[facility] Start: 11-17-2023 End: 11-17-2023 ambulatory [facility] Work Phone: Start: 11-17-2023 End: 11-17-2023 Patient encounter procedure [facility] Work Phone: Start: 11-13-2023 Non-patient / Non-visit [facility] [place] Work Phone: Start: 07-14-2023 End: 07-14-2023 ambulatory Tao Martines Other [facility] Other Start: 07-14-2023 Office outpatient vi sit 15 minutes Tao Martines [facility] Start: 05-28-2023 End: 05-28-2023 ambulatory Tao Martines Other [facility] Other Start: 05-28-2023 Telephone encounter Tao Martines [facility] Start: 05-25-2023 End: 05-25-2023 ambulatory Tao Martines Other [facility] Other Start: 05-25-2023 Patient encounter procedure Tao Martines [facility] Start: 05-04-2023 End: 05-04-2023 ambulatory Tao Martines Other [facility] Other Start: 05-04-2023 Telephone encounter Tao RIVAS [facility] Start: 12-09-2022 End: 01-07-[address] TAO MARTINES Facility:[facility] Start: 11-28-2022 End: 11-28-2022 ambulatory Tao Martines Other [facility] Other Start: 11-28-2022 Office outpatient vi sit 25 minutes Tao Martines [facility] Start: 11-25-2022 End: 11-26-[address] TAO MARTINES Facility:[facility] Start: 09-16-2022 End: 09-16-2022 ambulatory Tao Martines Other [facility] Other Start: 09-16-2022 Office outpatient vi sit 15 minutes Tao Martines [facility] Start: 08-10-2022 End: 11-08-[address] TAO MARTINES Facility:[facility] Start: 07-30-2022 End: 08-09-2022 ambulatory MR SAMIR JACOBSON . Facility:[facility] Start: 07-11-2022 ambulatory MD Salomon PITTS Fac ility:[facility] Start: 07-10-[address] KIM LARA . Faci lity:[facility] Start: 05-27-2022 End: 05-27-[address] ZACH TYSON Facility:[facility] Start: 05-26-2022 End: 05-27-[address] TAO MARTINES Facility:[facility] Start: 05-22-2022 End: 05-23-[address] KIM LARA . Facility:[facility] Start: 05-22-2022 Adult health examination Eliezer Martines Other [facility] Other Start: 05-06-2022 Encounter for preprocedural laboratory examination DR KIM LARA . [facility] Start: 05-06-2022 End: 05-06-[address] KIM LARA . Facility:[facility] Start: 05-02-2022 End: 05-03-[address] KIM LARA . Facility:[facility] Start: 05-02-2022 End: 05-03-2022 Encounter for preprocedural laboratory examination DR KIM LARA . Facility:[facility] Start: 03-21-2022 End: 03-22-2022 ambulatory MD Salomon PITTS Facility:[facility] Start: 03-21-2022 End: 03-21-2022 Patient encounter procedure Salomon PITTS [facility] Start: 03-20-2022 End: 03-21-[address] SALOMON PITTS . Facility:[facility] Start: 03-14-[address] KIM LARA . Faci lity:[facility] Start: 02-18-2022 End: 02-19-[address] KIM LARA . Facility: Start: 05-14-2020 End: 05-14-2020 Preoperative cardiovascular examination Tao Martines Other [facility] Other Procedures Date Procedure Procedure Detail Performing Clinician Start: 05-26-[address] ZACH TYSON Comment on above: Performed By: #### B MP, LIPID, ALT #### [facility] [address] [place] [address] Dr. Sarthak Cleveland Start: 02-23-2020 Fluoroscopy guided [...] Salomon PITTS Left total orchidectomy Patr ick KELBY Reconstruction of fa cial bones Salomon PITTS Repair of sliding in guinal hernia Salomon PITTS Screening for malign ant neoplasm of prostate Tao Martines Other Plan of Treatment Date Care Activity Detail Author Comprehensive metabo lic 2000 panel - Serum or Plasma [facility] Immunizations Immunization Date Immunization Notes Care Provider Fa cility 05-31-2024 influenza, high dose seasonal, preservative-free [facility] 06-02-2023 Prevnar 20 Tao Martines Other [facility] 05-25-2023 influenza virus vaccine, unspecified formulation [facility] 05-25-2023 influenza, high dose seasonal, preservative-free Tao Martines Other [facility] Other 05-22-2022 influenza virus vaccine, split virus (incl. purified surface antigen) Tao Martines Other [facility] Other 05-22-2022 influenza virus vaccine, unspecified formulation [facility] 05-21-2021 influenza virus vaccine, split virus (incl. purified surface antigen) Tao Martines Other [facility] Other 05-21-2021 influenza virus vaccine, unspecified formulation [facility] Payers Date Payer Category Payer Medicare 1959 Medicare [id number] 1959 Unknown [id number] 1959 Unknown [id number] 2.16 .840.1.245000.19 1955 Unknown [id number] 2.16.840.1.096997.3.579.2.727 1955 Unknown [id number] 2.16.840.1.788835.3.579.2.727 1955 Unknown [id number] 2.16.840.1.440808.3.579.2.593 1955 Unknown [id number] 2.16.840.1.099620.3.579.2.593 1955 Unknown [id number] 2.16.840.1.772921.3.579.2.593 1955 Unknown [id number] 2.16.840.1.160113.3.579.2.593 1955 Unknown [id number] 2.16.840.1.999412.3.579.2.59 1955 Unknown [id number] 2.16.840.1.132936.3.579.2.593 1955 Unknown [id number] 2.16.840.1.219587.3.579.2.593 1955 Unknown [id number] 2.16.840.1.994291.3.579.2.593 1955 Unknown [id number] 2.16.840.1.355324.3.579.2.593 1955 Unknown [id number] 2.16.840.1.128568.3.579.2.593 1955 Unknown [id number] 2.16.840.1.685312.3.579.2.593 1955 Unknown [id number] 2.16.840.1.017296.3.579.2.593 1955 Unknown [id number] 2.16.840.1.878512.3.579.2.593 1955 Unknown [id number] 2.16.840.1.115141.3.579.2.196 Medicare [employer] MCR PFFS DEGWGF [id number] Self-pay Self Pay [id number] Social History Date Type Detail Facility Start: 03-21-2022 End: 08-04-2023 Tobacco smoking status Never smoked tobacco (finding) [facility] Sex Assigned At Male [facility] Start: 1955 Sex Assigned At Male F [facility] Functional Status Date Assessment Result Facility 03-21-2022 Functional Status N/A [facility] Clinical Notes 02-18-2022 to 07-14-2023 [...] exercise to achieve/mainta in a normal BMI. [facility] Other 10-19-2023 Evaluation note* Encounter Date Diagnosis Assessment Notes Treatment Notes Treatment Clinical Notes May, Elevated cholesterol (ICD-10 - E78.00) [facility] Other 10-16-2023 Evaluation note* Encounter Date Diagnosis [...] (ICD-10 - Z12.5) yearly ANNELIESE and PSA [facility] Other 04-21-2023 Evaluation note* Encounter Date Diagnosis [...] for increased CP, dyspnea, palpitations or lightheadedness [facility] Other 02-07-2023 Evaluation note* Encounter Date Diagnosis [...] continue exercise to achieve/maintain a normal BMI. [facility] Other 10-13-2022 NoteCONSULTATION CONSULTATION DATE: 05/22/2022 This [...] of care and all questions were answered.[facility] [place] [address]-12-2022 Hospital Discharge instructions Patient Education 03/21/2022 10:30:52 [...] urethra. Follow these instructions at home: Take hcxv-xyi-sivmnkr and prescription medicines only as told by [...] 07/27/2006 Document Revised: 06/21/2019 Document Reviewed: 08/31/2017 [employer] Patient Education 2020 [employer]. Follow Up Care 05/20/2021 16:25:31 With:KELBY PULIDO, [place]omon [place], URL Address: [address] [place], [place] [id number]- When:Within 3 Month(s) Comments:f/up [facility] 07-12-2022 NoteCONSULTATION PROCEDURE DATE: 02/18/2022 [...] his pain symptomatology and range of motion. [facility] Signed and Approved by: DR KIM LARA . 02/25/2022 09:28:00[facility]07-12-2022 NoteCONSULTATION CONSULTATION DATE: 02/18/2022 CHIEF COMPLAINT: [...] The patient states he is close to senior living and does not wish to see an [...] like to proceed. CC: Tao Martines D.O. IFC Signed and Approved by: DR KIM LARA . 02/25/2022 09:28:00[facility] Future Appointments Appointment Date:07/11/2022 08:00:00 AM Scheduled Provider:Salomon PITTS MD Location:[facility] Appointment Type:URO Office Visit [facility] evaluation [facility]No [facility] [employer] Other Evaluation note* Diagnosis Onset Date Resolution Status Benign prostatic hyperplasia with lower urinary tract symptoms acute Gastroesophageal reflux dise ase with esophagitis without hemorrhage acute IFG (impaired fasting glucose) acute Primary hypertension [facility] Work Phone: Evaluation note* Diagnosis Onset Date Resolution Status Benign prostatic hyperplasia with lower urinary tract symptoms acute Gastroesophageal reflux dise ase with esophagitis without hemorrhage acute H/O colonoscopy acute Hypercholesterolemia acute IFG (impaired fasting glucose) acute Medicare annual wellness visit, subsequent acute Primary hypertension acute Screening for colon cancer a cute Screening PSA (prostate specific antigen) [facility] Work Phone: History general Narrative - [...] 202 0 Hospitalization History SEE SURGICAL HX [facility] Other Hospital course Narrative No data available for this section [facility] progress note No data available for this section [facility] Summary Purpose Family History No Family History Records Found Relationship Condition Age at Onset Recorded Date/T [...] father Unknown Heart disease Unknown Advance Directives No Advanced Directives Records Found Advance Directive Response Recorded Date/ Time Advance [...] Active Member Role Status Dates Tao Martines , DO Primary Care Provider Active Team Status: Inactive Member Role Status Dates Tao Martines , Primary Care Provide r, Attending Provider Active Start: May 31, 2024 End: May 31, 2024 Team Status: Active Member Role Status Dates Tao Martines , DO Primary Care Provide r, Attending Provider Active Start: November 13, 2023 Team Status: Inactive Member Role Status Dates Tao Martines , DO Primary Care Provide r, Attending Provider Active Start: November 17, 2023 End: November 17, 2023 (unrecognized sect ion and content) No Status Records FoundNo Status Records FoundNo Status Records Found INFORMATION SOURCE (unrecogn ized section and content) DATE CREATED AUTHOR 07/09/2022 [facility] DATE CREATED AUTHOR AUTHOR'S ORGANIZ ATION 01/16/2023 [facility] DATE CREATED AUTHOR AUTHOR'S ORGANIZ ATION 06/08/[address] [facility] REASON FOR VISIT (unrecogniz ed section and content) Not Sleeping WellTBHNo Infor [facility] resultsCOVID [phone] Goals (unrecognized section and content) Goals may [...] BE BASED ON THE PRIMARY CLINICAL RECORDS. [employer] [facility]. provides no warranty or guarantee of the accuracy or completeness of information in this document.
--- NOTE | 2024-08-31 08:32 | P.CN_ITS ---
Consult Note: HPI Data of Consult Patient: known to practice within the last 3 years Requesting Physician: Priya Sky NP Primary Care Provider: Tao Martines DO Consult Narrative Reason for consult: low back, SIJ pain Narrative: Go Martinez a pleasant 68 year old male with longstanding low back pain post L4-5 L5-S1 fusion, historically has had significant improvement with caudal ESIs >50% improvement greater than 3 months. Patient failed tylenol and motrin, as well as topical lidocaine. no falls since last visit. has engaged in HEP greater than 6 weeks without benefit. recently underwent bilateral SIJ injection with 90% improvement ongoing, patient noticing significant pain relief and improved ability to complete ADLs. pain today 0/10, increasing to 1/10 with lifting. cc:: CC: Priya Sky NP Review of Systems ROS Status of ROS 10 or more systems reviewed and unremark able except as noted in history and below Musculoskeletal Denies: back pain, extremity pain or joint pain PFSH PFSH Social History Smoking status: Never smoker Meds Home Medications and Allergies Home Medications ?Medication ?Instructions ?Recorded ?Confirmed ?Type atenolol 25 mg tablet 25 mg PO Q12H 08/04/23 06/01/24 History benazepril 20 mg tablet 20 mg PO DAILY 08/04/23 06/01/24 History hyoscyamine sulfate 0.125 mg 0.125 mg PO Q6H PRN abdominal pain 08/04/23 05/23/24 Rx sublingual tablet (Levsin/SL) #20 tabs omeprazole 40 mg capsule,delayed 40 mg PO DAILY 08/04/23 05/23/24 History release ondansetron 4 mg disintegrating 4 mg PO Q6H PRN nausea and 08/04/23 05/23/24 Rx tablet vomiting #20 tabs Allergies Allergy/AdvReac Type Severity Reaction Status Date / Time acetaminophen (From Vicodin) AdvReac Severe Vomiting Verified 05/23/24 07:07 codeine AdvReac Severe Vomiting Verified 05/23/24 07:07 hydrocodone (From Vicodin) AdvReac Severe Vomiting Verified 05/23/24 07:07 Exam Constitutional Documenting provider has reviewed patient's vital signs: yes Common normals: no apparent distress, oriented x3, healthy appearing, alert and well nourished General appearance: cooperative HENMT Common normals: normocephalic, hearing grossly normal bilaterally and moist oral mucous membranes Head and scalp: normocephalic Eye Common normals: PERRL Pupil: PERRL Neck & C-Spine Common normals: full ROM General: normal visual inspection Chest Common normals: inspection of chest normal Respiratory Common normals: normal respiratory effort, no retractions and no use of accessory muscles Back & Pelvis Lumbar spine/lower back: ROM not limited and no pain with ROM Sacroiliac joints: SI joints normal Other: bilateral sij negative letty(patricks), gaenslens, thigh thrust, compression test strength 5/5 in BLE Extremity Common normals: normal to inspection and full ROM Neuro Common normals: oriented x3, CN's II-XII intact bilaterally, moves all extremities, no focal motor deficits, no sensory deficits noted and deep tendon reflexes 2+ bilaterally Sensorium/orientation: alert Motor exam: strength 5/5 throughout and no movement abnormalities noted Psych Common normals: mental status grossly normal, thought process normal, cooperative, affect normal, speech normal and activity/motor behavior normal Speech: normal speech Thought process: normal thought process Results Additional Findings Additional findings: If on a controlled substance or opioids, I have checked an [place] report on this patient and there are no aberrancies noted in the prescribing history.??If on a controlled substance or opioid a drug screen was completed and reviewed within t he last year, and if there has not been a drug screen completed we ordered one today to monitor higher risk, state monitored pain medication use. As part of providing excellent, safe, comprehensive care, the following was completed at our patient's visit: 1. A medication reconciliation and review to ensure accurate knowledge of current/active medications, including asking our patients to inform us about any [id number] medications or herbal remedies/nutritional supplements/alternative remedies. 2. A review to specifically ensure our patients have had annual screening for screening for depression, screening for tobacco use, and screening for unhealthy alcohol use. For concerning screenings had a discussion with the patient, provided patient education, and recommended follow-up with primary care provider when appropriate. If patient noted with a risk of falling, they received education on strength, gait, and balance training to prevent future risk of falling. Portions of this note may have been carried over from the previous visit and updated as appropriate. Please note this office utilizes paper charting in addition to the electronic medical record. A list of current medications, vitals, and PMH is available there as the clinical staff outside of myself do not have access to [employer] charting during the clinic day operations. As part of providing quality comprehensive care the current medications, vitals, and PMH were reviewed in the paper chart. Assessment and Plan Assessment and Plan (1) Sacroiliac joint dysfunction: (2) Lumbar radiculopathy: (3) Failed back syndrome: Plan bilateral SIJ injection providing significant ongoing relief defer medication management per pt request continue HEP as tolerated f/u PRN
== END 2024-08-31 08:10 | disposition home or self-care (01) ==
LOC: PM 08:10
PROVIDERS: PCP Internal Medicine; Visit Provider Nurse Practitioner
DX: M53.3 Sacrococcygeal disorders, not elsewhere classified (principal); M54.16 Radiculopathy, lumbar region; M96.1 Postlaminectomy syndrome, not elsewhere classified
CPT/HCPCS: G0463

== ENCOUNTER 2024-10-23 09:33 | Emergency (ER) | payer MEDICARE, SELFPAY ==
[2024-10-23 09:41] VITALS: PULSE 94; TEMP 36.9; O2SAT 96; BMI 24.7
--- OUTSIDE RECORDS SUMMARY | 2024-10-23 09:42 | XMS_ITS | CCD ---
Author Organization [facility] Care Team Providers Care It Sales Executive Name Role Phone TAO MARTINES Primary Care Physician [phone] MD Salomon PITTS Attending Unavailable MD Salomon PITTS Attending Unavailable Conrad, aTo Unavailable MARBELLA, DR SERRANO Admitting Unavailable STEPANIC, [...] drocodone] Drug Allergy Nausea (finding) [facility] (9 sources) Codeine; Translations: [codeine] Drug Allergy 08-29-19 15 Nausea (finding) [facility] (6 sources) Codeine Drug Allergy Unknown [facility] Other (6 sources) HMG-CoA reductase inhibitor Drug allergy Unknown [facility] Other (2 sources) Acetaminophen / HYDROcodone Drug Allergy 12-28-19 13 [facility] (2 sources) Codeine Drug Allergy 12-21-19 13 [facility] (4 sources) Vicodin *ANALGESICS - OPIOID* Propensity to adverse reactions 08-29-19 15 Unknown [facility] Other (1 source) patient allergy list reviewed by nurse or physicia Propensity to adverse reactions 06-08-20 17 Comment:Done [facility] Other (3 sources) Acetaminophen Drug Allergy 11-14-19 24 Unknown Reaction [facility] Comment on above: Onset Date: 08/29/19 15 (3 sources) HYDROcodone Drug Allergy 08-04-20 23 Vomiting [facility] Comment on above: Onset Date: 08/29/19 15 (3 sources) [id number]-[id number] Reductase Inhibitor Allergy to substance 11-14-19 24 Unknown Reaction [facility] Medications Current Medications Medication Drug Class(es) [...] 1 tablet by mouth twice daily Atenolol 25 mg tablet Active 0 .ROUTE .COMPLEX 180 March 17, 2024 8:51am TAKE 1 TABLET BY MOUTH TWICE A DAY Start: 11-17-2023 End: 03-17-2024 take 1 tablet by mouth once daily Atenolol 25 mg tablet Discontinued 25 MG PO Daily November 17, 2023 1:09pm March 17, 2024 8:51am Start: 11-14-2023 End: 11-17-2023 take 1 tablet by mouth twice daily Atenolol 25 mg tablet Discontinued 25 MG PO Twice daily November 13, 2023 11:00pm November 17, 2023 1:09pm Start: 12-27-2019 atenolol Oral, Daily, Refills(s) 0 Start Date: 12/27/19 Status: Ordered Start: 11-11-2017 End: 11-14-2023 take 0.5 tablet by mouth once daily in the morning Atenolol 25 mg tablet Discontinued 0.5 TAB PO Every morning November 10, 2017 11:00pm November 14, 2023 8:56am Start: 11-11-2017 End: 11-14-2023 take 0.5 tablet by mouth once daily in the morning Atenolol Discontinued 0.5 TAB PO Every morning November 11, 2017 12:00am November 14, 2023 9:56am take 1 tablet by armond th twice daily Atenolol 25 MG TAKE 1 TABLET BY MOUTH TWICE A DAY Active Atenolol Not-Fito ing/PRN Atenolol Not-Fito ing azithromycin 250 mg oral tablet (1 source) Macrolide Antimicrobial Start: 09-15-2024 Azithromycin 250 mg tablet Active 250 MG PO .COMPLEX 6 September 15, 2024 12:00am 2 tabs on first day followed by 1 tab on days 2-5 benazepril hydrochloride 20 mg oral tablet (20 sources) Angiotensin Converting Enzyme Inhibitor Start: 08-28-2024 take 1 tablet by mouth once daily Benazepril 20 mg tablet Active 0 .ROUTE .COMPLEX 90 August 28, 2024 9:13am TAKE 1 TABLET BY MOUTH EVERY DAY Start: 12-27-2019 benazepril Ora l, Daily, Refills(s) 0 Start Date: 12/27/19 Status: Ordered Start: 11-11-2017 End: 08-28-2024 take 1 tablet by mouth once daily Benazepril 20 mg tablet Discontinued 20 MG PO Daily November 13, 2023 11:00pm August 28, 2024 9:13am Benazepril HCl N ot-Taking/PRN Benazepril HCl N ot-Taking Zetia (10 sources) Dietary Cholesterol Absorption Inhibitor Start: 06-01-2020 take 1 mg by mouth once daily Zetia mg, Oral, Daily, Refills(s) 0 Start Date: 06/01/20 Status: Ordered Start: 11-11-2017 End: 11-14-2023 Ezetimibe 10 mg tablet Disco ntinued 1 CAP PO As Directed November 10, 2017 11:00pm November 14, 2023 8:56am Start: 11-11-2017 End: 11-14-2023 Ezetimibe Discontinued 1 [...] Weight Dosing Start Date: 02/17/22 Status: Ordered [place] 5-Eel-Ivi-Fish Oil (Ultra [place]-3) 200-300-1,000 mg capsule (1 source) Start: 09-15-2024 [place] 0-Osw-Udl-Fish Oil (Ultra [place]-3) 200-300-1,000 mg capsule Active CAP PO September 15, 2024 12:00am omeprazole 40 mg delayed release oral capsule (20 sources) Proton Pump Inhibitor Start: 04-27-2024 Omeprazole 40 mg capsule,delayed release(DR/EC) Active 0 .ROUTE .COMPLEX 90 April 27, 2024 7:36am TAKE 1 CAPSULE DAILY ON AN EMPTY STOMACH FOLLOWED IN 30 MINUTES BY BREAKFAST Start: 11-14-2023 End: 04-27-2024 take 1 capsule by mouth once daily Omeprazole 40 mg capsule,delayed release(DR/EC) Discontinued 40 MG PO Daily November 13, 2023 11:00pm April 27, 2024 7:36am Start: 06-01-2020 omeprazole Ora l, Daily, Refills(s) 0 Start Date: 06/01/20 Status: Ordered Start: 05-17-2018 End: 11-14-2023 take 1 tablet by mouth once daily Omeprazole Magnesium (Prilosec Otc) 20 mg Tablet,Delayed Release (Dr/Ec) Discontinued 20 MG PO Daily May 16, 2018 11:00pm November 14, 2023 8:57am Omeprazole 40 MG TAKE 1 CAPSULE DAILY [...] for 90 day(s), 360 tab(s), Refill(s) 3, [id number], 175, cm, 05/20/21 15:07:00 EDT, Height/Length Dosing, 74, kg, 05/20/21 15:07:00 EDT, Weight Dosing Start Date: 05/20/21 Stop Date: 05/15/22 Status: Ordered red yeast rice 600 mg oral capsule (1 source) Start: 09-15-2024 take 1 capsule by mouth once daily Red Yeast Rice 600 mg capsule Active 600 MG PO Daily September 15, 2024 12:00am give with meal/snack rosuvastatin calcium 10 mg oral tablet (1 source) HMG-CoA Reductase Inhibitor Start: 05-28-2023 take 1 tablet by mouth every twenty-four hours Rosuvastatin Calcium 10 MG 1 tablet Orally Once a day for 30 days May, Active super beets (1 source) Start: 09-15-2024 super beets Ac tive PO September 15, 2024 12:00am traMADol hydrochloride 50 mg oral tablet (3 sources) Opioid Agonist Start: 09-16-2022 take 1 tablet by mouth every twenty-four hours traMADol HCl 50 MG 1 tablet as needed Orally Once a day for 30 days Sep, Active Completed/Discontinued Medications Medication Drug Class(es) Dates Sig (Normalized) Sig (Original) acetaminophen 500 mg oral tablet (3 sources) Start: 01-06-2020 End: 11-14-2023 take 2 tablets by mouth every six hours as needed for pain Acetaminophen (Tylenol Extra Strength) 500 mg Tablet Discontinued 1000 MG PO Q6H as needed for Pain January 05, 2020 11:00pm November 14, 2023 8:56am Cbd Oil (3 sources) Start: 01-06-2020 End: 11-14-2023 Cbd Oil Discontinued TOPICAL as needed for Pain January 05, 2020 11:00pm November 14, 2023 8:56am Start: 01-06-2020 End: 11-14-2023 Cbd Oil Discontinued TOPICAL January 06, 2020 12:00am November 14, 2023 9:56am cephalexin 500 mg oral capsule (9 sources) Cephalosporin Antibacterial Start: 01-11-2020 End: 11-14-2023 take 1 capsule by mouth every six hours Cephalexin 500 mg capsule Discontinued 500 MG PO Q6H January 10, 2020 11:00pm November 14, 2023 8:56am Start: 11-16-2017 End: 01-06-2020 take 1 capsule by mouth every twelve hours Cephalexin 500 mg capsule Discontinued 500 MG PO Q12H May 16, 2018 11:00pm January 06, 2020 9:29am ketorolac tromethamine 10 mg oral tablet (9 sources) Nonsteroidal Anti-inflammatory Drug, Cyclooxygenase Inhibitor Start: 01-11-2020 End: 11-14-2023 take 1 tablet by mouth every six hours as needed for pain Ketorolac 10 mg tablet Discontinued 10 MG PO Q6H as needed for pain 20 January 10, 2020 11:00pm November 14, 2023 8:56am Start: 05-17-2018 End: 05-22-2018 take 4 tablets by mouth every twenty-four hours as needed for pain Ketorolac 10 mg tablet Discontinued 10 MG PO EVERY 4-6 HOURS as needed for pain 20 May 16, 2018 11:00pm May 20, 2018 11:00pm May 21, 2018 11:02pm do not exceed 4 doses per 24 hrs Start: 11-16-2017 End: 11-21-2017 take 1 tablet by mouth every six hours as needed for pain Ketorolac 10 mg tablet Discontinued 10 MG PO Q6H as needed for pain 20 November 15, 2017 11:00pm November 19, 2017 11:00pm November 20, 2017 11:01pm Multivitamin preparation (2 sources) Start: 05-17-2018 End: 01-06-2020 take 1 tablet by mouth once daily Multivitamin Discontinued 1 TAB PO Daily May 17, 2018 12:00am January 06, 2020 10:30am Multivitamin Tablet (1 source) Start: 05-17-2018 End: 01-06-2020 take 1 tablet by mouth once daily Multivitamin Tablet Discontinued 1 TAB PO Daily May 16, 2018 11:00pm January 06, 2020 9:30am [place] 1-Zqa-Cvo-Fish Oil (Fish Oil) 1,000 mg (120 mg-180 mg) Capsule (3 sources) Start: 05-17-2018 End: 11-14-2023 [place] 8-Yas-Xxg-Fish Oil (Fish Oil) 1,000 mg (120 mg-180 mg) Capsule Discontinued 3000 MG PO Daily May 16, 2018 11:00pm November 14, 2023 8:57am Start: 05-17-2018 End: 11-14-2023 [place] 6-Xub-Brc-Fish Oil (Fi sh Oil) 1,000 mg (120 mg-180 mg) Capsule Discontinued 3000 MG PO Daily May 17, 2018 12:00am November 14, 2023 9:57am paxlovid (300/100) 20 x 150 mg & 10 x 100mg tablet therapy pack (1 source) Start: 07-14-2023 Paxlovid (300/ 100) 20 x 150 MG & 10 x 100MG as directed Orally bid for 5 days Jul, Not-Taking/PRN tamsulosin hydrochloride 0.4 mg oral capsule (9 sources) alpha-Adrenerg ic Melissa Start: 11-11-2017 End: 01-06-2020 take 1 capsule by mouth every twenty-four hours Tamsulosin 0.4 mg capsule,extended release 24hr Discontinued 1 TAB PO As Directed November 10, 2017 11:00pm January 06, 2020 9:31am Flomax Not-Takin g/PRN Flomax Not-Takin g valACYclovir 1000 mg oral tablet (9 sources) Herpesvirus Nucleoside Analog DNA Polymerase Inhibitor, Herpes Simplex Virus Nucleoside Analog DNA Polymerase Inhibitor, Herpes Zoster Virus Nucleoside Analog DNA Polymerase Inhibitor Start: 04-27-2024 End: 05-31-2024 take 2 tablets by mouth twice daily Valacyclovir 1 gram tablet Discontinued 0 .ROUTE .COMPLEX 4 April 27, 2024 9:26pm May 31, 2024 7:34am TAKE 2 TABLETS BY MOUTH TWICE A DAY FOR 1 DAY Start: 11-14-2023 End: 04-27-2024 Valacyclovir 1 gram tablet Discontinued 2000 MG PO Twice daily November 13, 2023 11:00pm April 27, 2024 9:26pm Start: 11-14-2023 End: 04-27-2024 take 2000 mg [...] Abdominal pain; Translations: [Unspecified abdominal pain] Onset: Episodic Acute bronchitis (2 sources) Acute bronchitis; Translations: [Acute bronchitis due to other specified organisms] 09-15-2024 Episodic Anxiety disorders (1 source) Other specified anxiety disorders; Translations: [OTHER SPECIFIED ANXIETY DISORDERS] Onset: 3 Chronic Calculus of urinary tract (20 sources) Kidney stone; Translations: [Calculus of kidney] Onset: 6 Episodic Cardiac dysrhythmias (16 sources) Palpitations; Translations: [Palpitations] Onset: 3 Episodic Diabetes mellitus without complication (14 sources) Impaired fasting glycemia; Translations: [Impaired fasting glucose] Episodic Disorders of lipid metabolism (20 sources) Hyperlipidemia; Translations: [Pure hypercholesterolemia] Onset: 0 12-27-2019 Chronic Esophageal disorders (12 sources) Gastroesophageal reflux disease; Translations: [Gastro-esophageal reflux disease without esophagitis] Onset: 3 12-27-2019 Chronic Essential hypertension (20 sources) Hypertensive disorder; Translations: [Essential hypertension] Onset: 3 12-27-2019 Chronic Gastrointestinal hemorrhage (12 sources) Hemorrhage of rectum and anus; Translations: [Hemorrhage of anus and rectum] Episodic Hyperplasia of prostate (15 sources) Benign prostatic hypertrophy without outflow obstruction; Translations: [Benign prostatic hyperplasia without lower urinary tract symptoms] Onset: 6 Chronic Immunizations and screening for infectious disease (1 source) Vaccination given; Translations: [Encounter for immunization] Episodic Miscellaneous mental health disorders (10 sources) Transient insomnia; Translations: [Adjustment insomnia] 11-14-2023 Episodic Nonspecific chest pain (1 source) Other chest pain Episodic Other aftercare (2 sources) Other bed bug exterminator (current) drug therapy; Translations: [OTH OPERATIONAL ASSISTANT CURRENT DRUG THERAPY] Onset: 3 Episodic Other aftercare (1 source) Long-term current use of drug therapy; Translations: [Other bed bug exterminator (current) drug therapy] Episodic Other connective tissue disease (4 sources) Adhesive capsulitis of left shoulder; Translations: [ADHESIVE CAPSULITIS LEFT SHOULDER] Onset: 3 Episodic Other diseases of kidney and ureters (6 sources) Hydroureter; Translations: [Hydroureter] Episodic Other ear and sense organ disorders (7 sources) Hearing loss; Translations: [Unspecified hearing loss, left ear] Chronic Other gastrointestinal disorders (9 sources) Irritable bowel syndrome with diarrhea; Translations: [Irritable bowel syndrome with diarrhea] 11-14-2023 Chronic Other hereditary and degenerative nervous system conditions (10 sources) Essential tremor; Translations: [Essential tremor] 11-14-2023 Chronic Other injuries and conditions due to external causes (1 source) History of fall; Translations: [History of falling] Episodic Other lower respiratory disease (1 source) Solitary nodule of lung; Translations: [Solitary pulmonary nodule] Episodic Other lower respiratory disease (1 source) Cough; Translations: [Cough] 09-15-2024 Episodic Other nervous system disorders (1 source) [...] conditions (not mental disorders or infectious disease) (8 sources) Encounter for screening for malignant neoplasm of prostate; Translations: [Patient encounter status] Onset: 2 Episodic Comment on above: PSA: 0.67 - 05/2024, Otitis media and related conditions (7 sources) [...] infection, site not specified] Episodic Viral infection (11 sources) Herpes simplex type 1 infection; Translations: [...] 11-13-2023 Cholesterol in LDL [Mass/Vol] 209.0 mg/dL [facility] Comment on above: <100 mg/dl [id number] 0-129 mg/dl NEAR OR ABOVE [id number] mg/dl BORDERLINE [id number] mg/dl HIGH>190 mg/dl VERY HIGH Cholesterol in VLDL Calc [Ma ss/Vol]on 11-13-2023 Cholesterol in VLDL [Mass/Vol] 22.4 mg/dL [facility] Laboratory - Chemistry and C hemistry - challengeon 11-13-2023 Cholesterol [Mass/Vol] 284 mg/dL <=200 [facility] Cholesterol in HDL [Mass/Vol] 53 mg/dL 40-60 [facility] Comment on above: > or =60 mg/dl - LOW CARDIOVASCULAR RISK<40 mg/dl - HIGH CARDIOVASCULAR RISK Triglyceride [Mass/Vol] 112 mg/dL <=150 [facility] No Panel Informationon 11-12 Prostate Specific Antigen Screen 1.00 ng/mL <=4.00 [facility] Serum or plasma total choles terol/high density lipoprotein (HDL) cholesterol mass mahamed 11-13-2023 Cholesterol.total/ Cholesterol in HDL [Mass ratio] 5.4 {ratio} [facility] Comment on above: 3.3 - 4.4 LOW RISK4. 4 - 7.1 AVERAGE RISK7.1 - 11.0 MODERATE RISK>11.0 HIGH RISK CARDIAC LONNIE ADMITon 023 CK [Catalytic activity/Vol] 57 U/L Normal 39-308 [facility] Comment on above: Performed By: #### Eliana RAY CMP #### [facility] [address] [place] [address] Dr. Sarthak Cleveland CK.MB [Mass/Vol] 0.54 ng/mL Normal <=3.60 [facility] Comment on above: Performed By: #### Eliana RAY, CMP #### [facility] [address] [place] [address] Dr. Sarthak Cleveland HSTROP <4.0 Normal 4.0-76.1 [facility] Comment on above: Result Comment: CUT- OFF POINTS HAVE BEEN ESTABLISHED BASED ON THE FOURTH UNIVERSAL DEFINITIONS OF MYOCARDIAL INFARCTION. THE UPPER REFERENCE LIMIT (URL) OF TROPONIN, DEFINED THE 99TH PERCENTILE OF cTnI DISTRIBUTION IN A REFERENCE POPULATION, HAS BEEN CONFIRMED THE DECISION THRESHOLD FOR NM DIAGNOSIS. Performed By: #### Eliana RAY, CMP #### [facility] [address] [place] [address] Dr. Sarthak Cleveland MAL 37 ng/mL Normal 16-96 [facility] Comment on above: Performed By: #### C CORY, CMP #### [facility] [address] [place] [address] Dr. Sarthak Cleveland CBC AUTO DIFFon 11-25-2022 BASO # 0.0 103/ul Normal 0.0-0.1 [facility] Comment on above: Performed By: #### B MP, LIPID, ALT #### [facility] [address] [place] [address] Dr. Sarthak Cleveland Basophils/100 WBC (Bld) 0.5 % Normal 0.2-2.0 [facility] Comment on above: Performed By: #### B MP, LIPID, ALT #### [facility] [address] [place] [address] Dr. Sarthak Cleveland EO # 0.3 103/ul Normal 0.0-0.7 [facility] Comment on above: Performed By: #### B MP, LIPID, ALT #### [facility] [address] [place] [address] Dr. Sarthak Cleveland Eosinophils/100 WBC (Bld) 3.0 % Normal 0.9-7.0 [facility] Comment on above: Performed By: #### B MP, LIPID, ALT #### [facility] [address] [place] [address] Dr. Sarthak Cleveland Erythrocyte distribution width (RBC) [Ratio] 12.4 % Normal 11.0-15.0 [facility] Comment on above: Performed By: #### B MP, LIPID, ALT #### [facility] [address] [place] [address] Dr. Sarthak Cleveland Hematocrit (Bld) [Volume fraction] 47.3 % Normal 42.0-54.0 [facility] Comment on above: Performed By: #### B MP, LIPID, ALT #### [facility] [address] [place] [address] Dr. Sarthak Cleveland Hemoglobin (Bld) [Mass/Vol] 15.9 g/dL Normal 14.0-18.0 [facility] Comment on above: Performed By: #### B MP, LIPID, ALT #### [facility] [address] [place] [address] Dr. Sarthak Cleveland IG # 0.04 10e3/ul Critically high 0.00-0.03 [facility] Comment on above: Performed By: #### B MP, LIPID, ALT #### [facility] [address] [place] [address] Dr. Sarthak Cleveland IG % 0.5 % Normal 0.0-0.5 [facility] Comment on above: Performed By: #### B MP, LIPID, ALT #### [facility] [address] [address] [address] Sarthak Cleveland LYMPH # 2.2 103/ul Normal 1.2-3.8 [facility] Comment on above: Performed By: #### B MP, LIPID, ALT #### [facility] [address] [place] [address] Dr. Sarthak Cleveland Lymphocytes/100 WBC (Bld) 26.6 % Normal 20.5-60.0 [facility] Comment on above: Performed By: #### B MP, LIPID, ALT #### [facility] [address] [place] [address] Dr. Sarthak Cleveland MANUAL DIFF REQ NO Normal [facility] Comment on above: Performed By: #### B MP, LIPID, ALT #### [facility] [address] [place] [address] Dr. Sarthak Cleveland MCH (RBC) [Entitic mass] 31.7 pg Normal 25.9-34.0 [facility] Comment on above: Performed By: #### B MP, LIPID, ALT #### [facility] [address] [place] [address] Dr. Sarthak Cleveland MCHC (RBC) [Mass/Vol] 33.6 g/dL Normal 29.9-35.2 [facility] Comment on above: Performed By: #### B MP, LIPID, ALT #### [facility] [address] [place] [address] Dr. Sarthak Cleveland MCV (RBC) [Entitic vol] 94.2 fL Critically high 80.0-94.0 [facility] Comment on above: Performed By: #### B MP, LIPID, ALT #### [facility] [address] [place] [address] Dr. Sarthak Cleveland MONO # 0.8 103/ul Normal 0.3-0.8 [facility] Comment on above: Performed By: #### B MP, LIPID, ALT #### [facility] [address] [place] [address] Dr. Sarthak Cleveland Monocytes/100 WBC (Bld) 9.7 % Normal 1.7-12.0 [facility] Comment on above: Performed By: #### B MP, LIPID, ALT #### [facility] [address] [place] [address] Dr. Sarthak Cleveland NEUT # 5.0 103/ul Normal 1.4-6.5 [facility] Comment on above: Performed By: #### B MP, LIPID, ALT #### [facility] [address] [place] [address] Dr. Sarthak Cleveland Neutrophils/100 WBC (Bld) 59.7 % Normal 43.0-75.0 [facility] Comment on above: Performed By: #### B MP, LIPID, ALT #### [facility] [address] [place] [address] Dr. Sarthak Cleveland Platelet mean volume (Bld) [Entitic vol] 11.0 fL Normal 9.5-13.5 [facility] Comment on above: Performed By: #### B MP, LIPID, ALT #### [facility] [address] [place] [address] Dr. Sarthak Cleveland PLT 241 103/ul Normal 150-450 [facility] Comment on above: Performed By: #### B MP, LIPID, ALT #### [facility] [address] [place] [address] Dr. Sarthak Cleveland RBC 5.02 106/ul Normal 4.70-6.10 [facility] Comment on above: Performed By: #### B MP, LIPID, ALT #### [facility] [address] [place] [address] Dr. Sarthak Cleveland WBC 8.4 103/ul Normal 4.0-11.0 [facility] Comment on above: Performed By: #### B MP, LIPID, ALT #### [facility] [address] [place] [address] Dr. Sarthak Cleveland PROF 14(COMP METB)on 023 Albumin [Mass/Vol] 3.8 g/dL Normal 3.4-5.0 [facility] Comment on above: Performed By: #### C MADM, CMP #### [facility] [address] [address] [address] Sarthak Cleveland Albumin/Globulin [Mass ratio] 0.9 {ratio} Normal [facility] Comment on above: Performed By: #### C EDISONM, CMP #### [facility] [address] [address] [address] Sarthak Cleveland ALP [Catalytic activity/Vol] 57 U/L Normal 46-116 [facility] Comment on above: Performed By: #### C EDISONM, CMP #### [facility] [address] [address] [address] Sarthak Cleveland ALT [Catalytic activity/Vol] 21 U/L Normal 16-63 [facility] Comment on above: Performed By: #### C EDISONM, CMP #### [facility] [address] [address] [address] Sarthak Cleveland Anion gap [Moles/Vol] 12.3 mmol/L Normal [facility] Comment on above: Performed By: #### C CORY, CMP #### [facility] [address] [place] [address] Dr. Sarthak Cleveland AST [Catalytic activity/Vol] 17 U/L Normal 15-37 [facility] Comment on above: Performed By: #### C CORY, CMP #### [facility] [address] [address] [address] Sarthak Cleveland Bilirubin [Mass/Vol] 0.3 mg/dL Normal 0.2-1.0 [facility] Comment on above: Performed By: #### C CORY, CMP #### [facility] [address] [address] [address] Sarthak Cleveland Calcium [Mass/Vol] 9.2 mg/dL Normal 8.5-10.1 [facility] Comment on above: Performed By: #### C EDISONM, CMP #### [facility] [address] [address] [address] Sarthak Cleveland Chloride [Moles/Vol] 103 mmol/L Normal 98-107 [facility] Comment on above: Performed By: #### C EDISONM, CMP #### [facility] [address] [address] [address] Sarthak Cleveland CO2 [Moles/Vol] 28.7 mmol/L Normal 21.0-32.0 [facility] Comment on above: Performed By: #### C CORY, CMP #### [facility] [address] [address] [address] Sarthak Cleveland Creatinine [Mass/Vol] 0.83 mg/dL Normal 0.70-1.30 [facility] Comment on above: Performed By: #### C EDISONM, CMP #### [facility] [address] [address] [address] Sarthak Cleveland EGFR-AF MOLDOVAN >60 Normal >=60 [facility] Comment on above: Performed By: #### C CORY, CMP #### [facility] [address] [address] [address] Sarthak Cleveland EGFR-NON AF MOLDOVAN >60 Normal >=60 [facility] Comment on above: Performed By: #### C CORY, CMP #### [facility] [address] [address] [address] Sarthak Cleveland Globulin (S) [Mass/Vol] 4.1 g/dL Normal [facility] Comment on above: Performed By: #### C CORY, CMP #### [facility] [address] [address] [address] Sarthak Cleveland Glucose [Mass/Vol] 89 mg/dL Normal 74-106 [facility] [facility] Comment on above: Performed By: #### C CORY, CMP #### [facility] [address] [address] [address] Sarthak Cleveland Potassium [Moles/Vol] 4.0 mmol/L Normal 3.5-5.1 [facility] Comment on above: Performed By: #### C CORY, CMP #### [facility] [address] [address] [address] Sarthak Cleveland Protein [Mass/Vol] 7.9 g/dL Normal 6.4-8.2 [facility] Comment on above: Performed By: #### C CORY, CMP #### [facility] [address] [address] [address] Sarthak Cleveland Sodium [Moles/Vol] 140 mmol/L Normal 136-145 [facility] Comment on above: Performed By: #### C CORY, CMP #### [facility] [address] [address] [address] Sarthak Cleveland Urea nitrogen [Mass/Vol] 12.0 mg/dL Normal 7.0-18.0 [facility] Comment on above: Performed By: #### C CORY, CMP #### [facility] [address] [address] [address] Sarthak Cleveland Urea nitrogen/Creatinin e [Mass ratio] 14.5 mg/mg Normal [facility] Comment on above: Performed By: #### C CORY, CMP #### [facility] [address] [address] [address] Sarthak Cleveland TSHon 11-25-2022 TSH 1.919 uIU/mL Normal 0.358-3.740 [facility] Comment on above: Performed By: #### B MP, LIPID, ALT #### [facility] [address] [address] [address] SHOULDER LT WO [...] OLYA PEREYRA Date: 2022-05-27 19:58 Normal [facility] XR ARTHRO SHOULDER LTon 05-10 [...] OLYA PEREYRA Date: 2022-05-27 12:36 Normal [facility] CBC AUTO DIFFon 05-26-2022 BASO # 0.1 103/ul Normal 0.0-0.1 [facility] Comment on above: Performed By: #### B MP, LIPID, ALT #### [facility] [address] [place] [address] Dr. Sarthak Cleveland Basophils/100 WBC (Bld) 0.6 % Normal 0.2-2.0 [facility] Comment on above: Performed By: #### B MP, LIPID, ALT #### [facility] [address] [place] [address] Dr. Sarthak Cleveland EO # 0.2 103/ul Normal 0.0-0.7 [facility] Comment on above: Performed By: #### B MP, LIPID, ALT #### [facility] [address] [place] [address] Dr. Sarthak Cleveland Eosinophils/100 WBC (Bld) 2.4 % Normal 0.9-7.0 [facility] Comment on above: Performed By: #### B MP, LIPID, ALT #### [facility] [address] [place] [address] Dr. Sarthak Cleveland Erythrocyte distribution width (RBC) [Ratio] 12.6 % Normal 11.0-15.0 [facility] Comment on above: Performed By: #### B MP, LIPID, ALT #### [facility] [address] [place] [address] Dr. Sarthak Cleveland Hematocrit (Bld) [Volume fraction] 46.1 % Normal 42.0-54.0 [facility] Comment on above: Performed By: #### B MP, LIPID, ALT #### [facility] [address] [place] [address] Dr. Sarthak Cleveland Hemoglobin (Bld) [Mass/Vol] 15.0 g/dL Normal 14.0-18.0 [facility] Comment on above: Performed By: #### B MP, LIPID, ALT #### [facility] [address] [place] [address] Dr. Sarthak Cleveland IG # 0.07 10e3/ul Critically high 0.00-0.03 [facility] Comment on above: Performed By: #### B MP, LIPID, ALT #### [facility] [address] [place] [address] Dr. Sarthak Cleveland IG % 0.9 % Critically high 0.0-0.5 [facility] Comment on above: Performed By: #### B MP, LIPID, ALT #### [facility] [address] [place] [address] Dr. Sarthak Cleveland LYMPH # 1.9 103/ul Normal 1.2-3.8 [facility] Comment on above: Performed By: #### B MP, LIPID, ALT #### [facility] [address] [place] [address] Dr. Sarthak Cleveland Lymphocytes/100 WBC (Bld) 22.7 % Normal 20.5-60.0 [facility] Comment on above: Performed By: #### B MP, LIPID, ALT #### [facility] [address] [address] [address] Sarthak Cleveland MANUAL DIFF REQ NO Normal [facility] Comment on above: Performed By: #### B MP, LIPID, ALT #### [facility] [address] [address] [address] Sarthak Cleveland MCH (RBC) [Entitic mass] 31.6 pg Normal 25.9-34.0 [facility] Comment on above: Performed By: #### B MP, LIPID, ALT #### [facility] [address] [place] [address] Dr. Sarthak Cleveland MCHC (RBC) [Mass/Vol] 32.5 g/dL Normal 29.9-35.2 [facility] Comment on above: Performed By: #### B MP, LIPID, ALT #### [facility] [address] [place] [address] Dr. Sarthak Cleveland MCV (RBC) [Entitic vol] 97.1 fL Critically high 80.0-94.0 [facility] Comment on above: Performed By: #### B MP, LIPID, ALT #### [facility] [address] [place] [address] Dr. Sarthak Cleveland MONO # 1.0 103/ul Critically high 0.3-0.8 [facility] Comment on above: Performed By: #### B MP, LIPID, ALT #### [facility] [address] [place] [address] Dr. Sarthak Cleveland Monocytes/100 WBC (Bld) 11.8 % Normal 1.7-12.0 [facility] Comment on above: Performed By: #### B MP, LIPID, ALT #### [facility] [address] [place] [address] Dr. Sarthak Cleveland NEUT # 5.1 103/ul Normal 1.4-6.5 [facility] Comment on above: Performed By: #### B MP, LIPID, ALT #### [facility] [address] [place] [address] Dr. Sarthak Cleveland Neutrophils/100 WBC (Bld) 61.6 % Normal 43.0-75.0 [facility] Comment on above: Performed By: #### B MP, LIPID, ALT #### [facility] [address] [place] [address] Dr. Sarthak Cleveland Platelet mean volume (Bld) [Entitic vol] 10.4 fL Normal 9.5-13.5 [facility] Comment on above: Performed By: #### B MP, LIPID, ALT #### [facility] [address] [address] [address] Sarthak Cleveland PLT 243 103/ul Normal 150-450 [facility] Comment on above: Performed By: #### B MP, LIPID, ALT #### [facility] [address] [place] [address] Dr. Sarthak Cleveland RBC 4.75 106/ul Normal 4.70-6.10 [facility] Comment on above: Performed By: #### B MP, LIPID, ALT #### [facility] [address] [place] [address] Dr. Sarthak Cleveland WBC 8.2 103/ul Normal 4.0-11.0 [facility] Comment on above: Performed By: #### B MP, LIPID, ALT #### [facility] [address] [place] [address] Dr. Sarthak Cleveland LIPID PROFILEon 05-26-2022 CHOL-HDL RATIO NORM SEE BELOW Normal [facility] Comment on above: Result Comment: 3.3 - 4.4 LOW RISK 4.4 - 7.1 AVERAGE RISK 7.1 - 11.0 MODERATE RISK >11.0 HIGH RISK Performed By: #### B MP, LIPID, ALT #### [facility] [address] [place] [address] Dr. Sarthak Cleveland Cholesterol [Mass/Vol] 309 mg/dL Critically high <=200 [facility] Comment on above: Performed By: #### B MP, LIPID, ALT #### [facility] [address] [place] [address] Dr. Sarthak Cleveland Cholesterol in HDL [Mass/Vol] 46 mg/dL Normal 40-60 [facility] Comment on above: Performed By: #### B MP, LIPID, ALT #### [facility] [address] [address] [address] Sarthak Cleveland Cholesterol in LDL [Mass/Vol] 242.6 mg/dL Normal [facility] Comment on above: Performed By: #### B MP, LIPID, ALT #### [facility] [address] [address] [address] Sarthak Cleveland Cholesterol.total/ Cholesterol in HDL [Mass ratio] 6.7 {ratio} Normal [facility] Comment on above: Performed By: #### B MP, LIPID, ALT #### [facility] [address] [address] [address] Sarthak Cleveland HDL NORMAL > or = 60 mg/dl - LO W CARDIOVASCULAR RISK <40 mg/dl - HIGH CARDIOVASCULAR RISK Normal [facility] Comment on above: Performed By: #### B MP, LIPID, ALT #### [facility] [address] [address] [address] Sarthak Cleveland LDL CALC NORMAL SEE BELOW Normal [facility] Comment on above: Result Comment: <100 mg/dl OPTIMAL 100 - 129 mg/dl NEAR OR ABOVE OPTIMAL 130 - 159 mg/dl BORDERLINE HIGH 160 - 189 mg/dl HIGH >190 mg/dl VERY HIGH Performed By: #### B MP, LIPID, ALT #### [facility] [address] [place] [address] Dr. Sarthak Cleveland Triglyceride [Mass/Vol] 102 mg/dL Normal <=150 [facility] Comment on above: Performed By: #### B MP, LIPID, ALT #### [facility] [address] [place] [address] Dr. Sarthak Cleveland VLDL CALC 20.4 mg/dL Normal [facility] Comment on above: Performed By: #### B MP, LIPID, ALT #### [facility] [address] [address] [address] Sarthak Cleveland PROF CHEM 8 (BAS METB)on Anion gap [Moles/Vol] 11.6 mmol/L Normal [facility] Comment on above: Performed By: #### B MP, LIPID, ALT #### [facility] [address] [address] [address] Sarthak Cleveland Calcium [Mass/Vol] 8.7 mg/dL Normal 8.5-10.1 [facility] Comment on above: Performed By: #### B MP, LIPID, ALT #### [facility] [address] [address] [address] Sarthak Cleveland Chloride [Moles/Vol] 104 mmol/L Normal 98-107 [facility] Comment on above: Performed By: #### B MP, LIPID, ALT #### [facility] [address] [address] [address] Sarthak Cleveland CO2 [Moles/Vol] 28.7 mmol/L Normal 21.0-32.0 [facility] Comment on above: Performed By: #### B MP, LIPID, ALT #### [facility] [address] [place] [address] Dr. Sarthak Cleveland Creatinine [Mass/Vol] 0.84 mg/dL Normal 0.70-1.30 [facility] Comment on above: Performed By: #### B MP, LIPID, ALT #### [facility] [address] [place] [address] Dr. Sarthak Cleveland EGFR-AF MOLDOVAN >60 Normal >=60 [facility] Comment on above: Performed By: #### B MP, LIPID, ALT #### [facility] [address] [place] [address] Dr. Sarthak Cleveland EGFR-NON AF MOLDOVAN >60 Normal >=60 [facility] Comment on above: Performed By: #### B MP, LIPID, ALT #### [facility] [address] [place] [address] Dr. Sarthak Cleveland Glucose [Mass/Vol] 115 mg/dL Critically high 74-106 [facility] Comment on above: Performed By: #### B MP, LIPID, ALT #### [facility] [address] [place] [address] Dr. Sarthak Cleveland Potassium [Moles/Vol] 4.3 mmol/L Normal 3.5-5.1 [facility] Comment on above: Performed By: #### B MP, LIPID, ALT #### [facility] [address] [address] [address] Sarthak Cleveland Sodium [Moles/Vol] 140 mmol/L Normal 136-145 [facility] Comment on above: Performed By: #### B MP, LIPID, ALT #### [facility] [address] [address] [address] Sarthak Cleveland Urea nitrogen [Mass/Vol] 9.0 mg/dL Normal 7.0-18.0 [facility] Comment on above: Performed By: #### B MP, LIPID, ALT #### [facility] [address] [address] [address] Sarthak Cleveland Urea nitrogen/Creatinin e [Mass ratio] 10.7 mg/mg Normal [facility] Comment on above: Performed By: #### B MP, LIPID, ALT #### [facility] [address] [place] [address] Dr. Sarthak Cleveland PTon 05-26-2022 ALT [Catalytic activity/Vol] 20 U/L Normal 16-63 [facility] Comment on above: Performed By: #### B MP, LIPID, ALT #### [facility] [address] [address] [address] Sarthak Cleveland [facility] SARS-CoV-2 (COVID-19) RNA LILIANA+probe Ql (Unsp spec) Not detected Normal NOT DETECTED [facility] Comment on above: Result Comment: This test is not yet approved or cleared by the [place] FDA. When there are no FDA-approved or cleared tests available, and other criteria are met, FDA can make tests available under an emergency access mechanism called an Emergency Use Authorization (EUA). The EUA for this test is supported by the [employer] of Health and Human Service's (HHS's) declaration [...] consistent with SARS-CoV-2. Performed By: #### C [facility] #### [facility] [address] [address] [address] Sarthak Cleveland RAD - MISCon 03-24-2022 RAD - MISC [id number]: 127 Normal [facility] Ambulatory Visit Summaryon 0 03-21-2022 Ambulatory Visit Summary DON NATION :1955 Visit Date:03/21/2022 Ambulatory Visit Instructions Your Diagnosis BPH without urinary obstruction Kidney stone Tests Performed Urnls Dip Stick Auto w/o Microscopy POC 50507 Your Care Team Attending Physician - KELBY [...] 3 months Comments: f/up new med Where: [address] [place] [address]- Medications What How Much When Instructions New alfuzosin (alfuzosin 10 mg ER Tab) 1 Tablets By Mouth Every day Refills: 11 Pickup at [facility]/pharmacy #[id number] Unchanged hydrochlorothiazide (hydrochlorothiazide 12.5 mg Cap) 1 [...] Information [facility]/pharmacy #[id number]: [address] [place], [place] [id number] [phone] Test Results Urnls Dip Stick Auto w/o Microscopy POC 94273 (03/21/2022) Bilirubin Urine Dipstick - Negative Blood Urine Dipstick - Negative Glucose Urine Dipstick - Negative Ketones Urine Dipstick - Negative Leukocytes Urine Dipstick - Negative Nitrite Urine Dipstick - Negative Protein Urine Dipstick - Negative Specific [place] Urine Dipstick - 1.010 Urine Appearance Urine [...] Follow these instructions at home: ? Take qjur-qua-mofmzom and prescription medicines only as told by [...] Normal [facility] Screenson 03-21-2022 Screens [id number]: 127 Normal [facility] Urology Office/Clinic Noteon 03-21-2022 Urology Office/Clinic Note Chief Complaint 10 month follow up with KUB HPI Staff Don is here today for a a 10 month follow up with KUB. KUB done [facility]/22 at [facility] impression showed small scattered stable bilateral [...] stopped and the office notified. [facility] [place]. All questions/concerns were discussed. Pt. to call [...] When Contact Information KELBY PULIDO, [place], URL In [address] [place], [place] [id number]- Additional Instructions: f/up new med Patient Education [...] Date: 2022-03-20 18:33 Normal [facility] Vital Signs Date Time Vital Sign Value Performing Clinician Facility 09-15-2024 09:30-0500 Body height 175.26 cm [facility] 09-15-2024 09:30-0500 Body mass index (BMI) [Ratio] 25.4 kg/m2 [facility] 09-15-2024 09:30-0500 Body weight 78.1 kg [facility] 09-15-2024 09:30-0500 Diastolic blood pressure 72 mm[Hg] [facility] 09-15-2024 09:30-0500 Heart rate 62 /min [facility] 09-15-2024 09:30-0500 SaO2% (BldA) [Mass fraction] 95 % [facility] 09-15-2024 09:30-0500 Systolic blood pressure 124 mm[Hg] [facility] 05-31-2024 08:33-0400 Body height 175.26 cm [facility] 05-31-2024 08:33-0400 Body mass index (BMI) [Ratio] 24.7 kg/m2 [facility] 05-31-2024 08:33-0400 Body weight 75.97 kg [facility] 05-31-2024 08:33-0400 Diastolic blood pressure 79 mm[Hg] [facility] 05-31-2024 08:33-0400 Heart rate 56 /min [facility] 05-31-2024 08:33-0400 Respiratory rate 12 /min [facility] 05-31-2024 08:33-0400 Systolic blood pressure 133 mm[Hg] [facility] 11-17-2023 14:10-0400 Body height 175.26 cm [facility] 11-17-2023 14:10-0400 Body mass index (BMI) [Ratio] 25.5 kg/m2 [facility] 11-17-2023 14:10-0400 Body weight 78.58 kg [facility] 11-17-2023 14:10-0400 Diastolic blood pressure 75 mm[Hg] [facility] 11-17-2023 14:10-0400 Heart rate 61 /min [facility] 11-17-2023 14:10-0400 Respiratory rate 12 /min [facility] 11-17-2023 14:10-0400 Systolic blood pressure 145 mm[Hg] [facility] 05-25-2023 10:00-0400 Body height 175.26 cm Tao Ball Other [facility] [employer] Other 05-25-2023 10:00-0400 Body mass index (BMI) [Ratio] 25.6 kg/m2 Tao Ball Other [facility] [employer] Other 05-25-2023 10:00-0400 Body weight 78.65 kg Tao Ball Other [facility] [employer] Other 05-25-2023 10:00-0400 Diastolic blood pressure 76 mm[Hg] Tao Ball Other [facility] Other 05-25-2023 10:00-0400 Respiratory rate 12 /min Tao Ball Other [facility] [employer] Other 05-25-2023 10:00-0400 Systolic blood pressure 120 mm[Hg] Tao Ball Other [facility] Other 11-28-2022 11:00-0400 Body height 175.26 cm Tao Ball Other [facility] Other 11-28-2022 11:00-0400 Body mass index (BMI) [Ratio] 24.36 kg/m2 Tao Ball Other [facility] Other 11-28-2022 11:00-0400 Body weight 74.84 kg Tao Ball Other [facility] Other 11-28-2022 11:00-0400 Diastolic blood pressure 76 mm[Hg] Tao Ball Other [facility] Other 11-28-2022 11:00-0400 Respiratory rate 12 /min Tao Ball Other [facility] Other 11-28-2022 11:00-0400 Systolic blood pressure 122 mm[Hg] Tao Ball Other [facility] Other 09-16-2022 15:15-0500 Body height 175.26 cm Tao Ball Other [facility] Other 09-16-2022 15:15-0500 Body mass index (BMI) [Ratio] 24.45 kg/m2 Tao Ball Other [facility] Other 09-16-2022 15:15-0500 Body weight 75.12 kg Tao Ball Other [facility] Other 09-16-2022 15:15-0500 Diastolic blood pressure 70 mm[Hg] Tao Ball Other [facility] Other 09-16-2022 15:15-0500 Respiratory rate 12 /min Tao Ball Other [facility] Other 09-16-2022 15:15-0500 Systolic blood pressure 118 mm[Hg] Tao Martines Other [facility] Other 03-21-2022 09:54-0400 Blood Pressure Location [place] [facility] 03-21-2022 09:54-0400 Diastolic blood pressure 83 mm[Hg] [place] [facility] 03-21-2022 09:54-0400 Heart rate 79 /min [place] [facility] [facility] 03-21-2022 09:54-0400 Respiratory rate 16 /min [place] [facility] 03-21-2022 09:54-0400 Systolic blood pressure 137 mm[Hg] [place] [facility] Encounters Encounter Date Encounter Type Care Provider Facility Start: 09-15-2024 End: 09-15-[address] [facility] Work Phone: Start: 09-15-2024 End: 09-15-2024 Patient encounter procedure [facility] Work Phone: Start: 05-31-2024 End: 05-31-[address] [facility] Work Phone: Start: 05-31-2024 End: 05-31-2024 Patient encounter procedure [facility] Work Phone: Start: 05-27-2024 Patient encounter procedure [facility] Start: 05-23-2024 End: 05-23-2024 ambulatory Belgica Cano MD Facility: [facility] Start: 11-17-2023 End: 11-17-[address] [facility] Work Phone: Start: 11-17-2023 End: 11-17-2023 Patient encounter procedure [facility] Work Phone: Start: 11-13-2023 Non-patient / Non-visit [id number] [employer] Work Phone: Start: 07-14-2023 End: 07-14-2023 ambulatory Tao Martines Other [facility] Other Start: 07-14-2023 Office outpatient vi sit 15 minutes Tao Martines [facility] Start: 05-28-2023 End: 05-28-2023 ambulatory Tao Martines Other [facility] Other Start: 05-28-2023 Telephone encounter Tao RIVAS [facility] Start: 05-25-2023 End: 05-25-2023 ambulatory Tao Martines Other [facility] Other Start: 05-25-2023 Patient encounter procedure Tao Martines [facility] Start: 05-04-2023 End: 05-04-2023 ambulatory Tao Martines Other [facility] Other Start: 05-04-2023 Telephone encounter Tao RIVAS [facility] Start: 12-09-2022 End: 01-07-[address] TAO MARTINES Facility: Start: 11-28-2022 End: 11-28-2022 ambulatory Tao Martines Other [facility] Other Start: 11-28-2022 Office outpatient vi sit 25 minutes Tao Martines [facility] Start: 11-25-2022 End: 11-26-[address] TAO MARTINES Facility:[facility] Start: 09-16-2022 End: 09-16-2022 ambulatory Tao Martines Other [facility] Other Start: 09-16-2022 Office outpatient vi sit 15 minutes Tao Martines [facility] Start: 08-10-2022 End: 11-08-[address] TAO MARTINES Facility:[facility] Start: 07-30-2022 End: 08-09-2022 ambulatory MR SAMIR JACOBSON . Facility:[facility] Start: 07-11-2022 ambulatory MD [place] Fac ility:[facility] [place] Start: 07-10-[address] KIM LARA . Faci lity:[facility] Start: 05-27-2022 End: 05-27-[address] ZACH TYSON Facility:[facility] Start: 05-26-2022 End: 05-27-[address] TAO MARTINES Facility:[facility] Start: 05-22-2022 End: 05-23-[address] KIM LARA . Facility:[facility] Start: 05-22-2022 Adult health examination Eliezer Martines Other [facility] Other Start: 05-06-2022 Encounter for preprocedural laboratory examination DR KIM LARA . [facility] Start: 05-06-2022 End: 05-06-[address] KIM LARA . Facility:[facility] Start: 05-02-2022 End: 05-03-[address] KIM LARA . Facility:[facility] Start: 05-02-2022 End: 05-03-2022 Encounter for preprocedural laboratory examination DR KIM LARA . Facility:[facility] Start: 03-21-2022 End: 03-22-2022 ambulatory MD [place] P[facility]TS Facility:[facility] Start: 03-21-2022 End: 03-21-2022 Patient encounter procedure [place] [facility] Start: 03-20-2022 End: 03-21-[address] [place]OM[place] PITTS . Facility:[facility] Start: 03-14-[address] KIM LARA . Faci lity:[facility] Start: 02-18-2022 End: 02-19-[address] KIM LARA . Facility:[facility] Start: 05-14-2020 End: 05-14-2020 Preoperative cardiovascular examination Tao Martines Other [facility] [employer] Other Procedures Date Procedure Procedure Detail Performing Clinician Start: 05-26-[address] ZACH TYSON Comment on above: Performed By: #### B MP, LIPID, ALT #### [facility] [address] [place] [address] Dr. Sarthak Cleveland Start: 02-23-2020 Fluoroscopy guided [...] lic 2000 panel - Serum or Plasma [facility] enter [facility] Immunizations Immunization Date Immunization Notes Care Provider Shannan meier 05-31-2024 influenza, high dose seasonal, preservative-free [facility] 06-02-2023 Prevnar 20 Tao Martines Other [facility] 05-25-2023 influenza virus vaccine, unspecified formulation [facility] 05-25-2023 influenza, high dose seasonal, preservative-free Tao Martines Other [facility] Other 05-22-2022 influenza virus vaccine, split virus (incl. purified surface antigen) Tao Martines Other [facility] Other 05-22-2022 influenza virus vaccine, unspecified formulation [facility] 05-21-2021 influenza virus vaccine, split virus (incl. purified surface antigen) Tao Martines Other [facility] Other 05-21-2021 influenza virus vaccine, unspecified formulation [facility] Payers Date Payer Category Payer Medicare 1959 Medicare [id number] 1959 Unknown [id number] 1959 Unknown [id number] 2.16 .840.1.498084.19 1955 Unknown [id number] 2.16.840.1.919670.3.579.2.727 1955 Unknown [id number] 2.16.840.1.095244.3.579.2.727 1955 Unknown [id number] 2.16.840.1.359746.3.579.2.593 1955 Unknown [id number] 2.16.840.1.727552.3.579.2.593 1955 Unknown [id number] 2.16.840.1.901149.3.579.2.593 1955 Unknown [id number] 2.16.840.1.620863.3.579.2.593 1955 Unknown [id number] 2.16.840.1.179756.3.579.2.593 1955 Unknown [id number] 2.16.840.1.498379.3.579.2.593 1955 Unknown [id number] 2.16.840.1.360620.3.579.2.593 1955 Unknown [id number] 2.16.840.1.827471.3.579.2.593 1955 Unknown [id number] 2.16.840.1.235874.3.579.2.593 1955 Unknown [id number] 2.16.840.1.186053.3.579.2.593 1955 Unknown [id number] 2.16.840.1.922886.3.579.2.593 1955 Unknown [id number] 2.16.840.1.693744.3.579.2.593 1955 Unknown [id number] 2.16.840.1.988760.3.579.2.593 1955 Unknown [id number] 2.16.840.1.893190.3.579.2.196 Medicare [employer] [facility] DEGWGF [id number] Self-pay Self Pay [id number] Unknown Anthony [facility] P[facility]S [id number] Social History Date Type Detail Facility Start: 03-21-2022 End: 08-04-2023 Tobacco smoking status Never smoked tobacco (finding) [facility] Sex Assigned At Male [facility] Start: 1955 Sex Assigned At Male [facility] Start: 09-15-2024 Sex Male (finding) [facility] Functional Status Date Assessment Result Facility 03-21-2022 Functional Status N/A [facility] Clinical Notes 02-18-2022 to 07-14-2023 Note [...] exercise to achieve/mainta in a normal BMI. [facility] Other 10-19-2023 Evaluation note* Encounter Date Diagnosis Assessment Notes Treatment Notes Treatment Clinical Notes May, Elevated cholesterol (ICD-10 - E78.00) [facility] Other 10-16-2023 Evaluation note* Encounter Date Diagnosis [...] (ICD-10 - Z12.5) yearly ANNELIESE and PSA [facility] Other 04-21-2023 Evaluation note* Encounter Date Diagnosis [...] for increased CP, dyspnea, palpitations or lightheadedness [facility] Other 02-07-2023 Evaluation note* Encounter Date Diagnosis [...] continue exercise to achieve/maintain a normal BMI. [facility] Other 10-13-2022 NoteCONSULTATION CONSULTATION DATE: 05/22/2022 This [...] of care and all questions were answered.[id number] Discharge instructions Patient Education 03/21/2022 10:30:52 [...] urethra. Follow these instructions at home: Take ubro-wjm-trosenf and prescription medicines only as told by [...] 07/27/2006 Document Revised: 06/21/2019 Document Reviewed: 08/31/2017 [employer] Patient Education 2020 [employer] Follow Up Care 05/20/2021 16:25:31 With:KELBY PULIDO, Salomon West, URL Address: [address] [place] [phone]- When:Within 3 Month(s) Comments:f/up [facility] 07-12-2022 NoteCONSULTATION PROCEDURE DATE: 02/18/2022 PREOPERATIVE [...] his pain symptomatology and range of motion. [facility] Signed and Approved by: DR KIM LARA . 02/25/2022 09:28:00[facility]07[facility] NoteCONSULTATION CONSULTATION DATE: 02/18/2022 CHIEF COMPLAINT: 1. [...] The patient states he is close to group home and does not wish to see an [...] like to proceed. CC: Tao Martines D.O. [facility] Signed and Approved by: DR KIM LARA . 02/25/2022 09:28[facility]00[facility] Future Appointments Appointment Date:07/11/2022 08:00:00 AM Scheduled Provider:KELBY PULIDO, Salomon West Location:[facility] Appointment Type:URO Office Visit [facility] evaluation noteNo InformationNort Invoiceable Other Evaluation note* Diagnosis Onset Date Resolution Status Benign prostatic hyperplasia with lower urinary tract symptoms acute Gastroesophageal reflux dise ase with esophagitis without hemorrhage acute IFG (impaired fasting glucose) acute Primary hypertension acute [facility] Work Phone: Evaluation note* Diagnosis Onset Date Resolution Status Benign prostatic hyperplasia with lower urinary tract symptoms acute Gastroesophageal reflux dise ase with esophagitis without hemorrhage acute H/O colonoscopy acute Hypercholesterolemia acute IFG (impaired fasting glucose) acute Medicare annual wellness visit, subsequent acute Primary hypertension acute Screening for colon cancer a cute Screening PSA (prostate specific antigen) acute [facility] Work Phone: Evaluation note* Diagnosis Onset Date Resolution Status Admit Date Primary hypertension acute Febr uary 2024 9:25am Cough noneactive September 15, 2024 9:25am Acute bronchitis due to other specified organisms noneactive Februa ry 2024 9:25am [facility] Work Phone: History general Narrative - Reported* [...] 202 0 Hospitalization History SEE SURGICAL HX [facility] Other Hospital course Narrative No data available for this section [facility] progress note No data available for this section [facility] Summary Purpose Family History Relationship Condition [...] Time Advance Directives No November 11 9:00am Advance Directive Response Recorded Date/ Time Advance Directives No November 11 8:00am Chief Complaint and Reason for Visit Chief [...] colon cancer Screening PSA (prostate specific antigen) Chief Complaint Admit Date cough, congestion x3 weeks September 15, 2024 9:25am Reason for Visit Admit Date Primary hypertension September 15, 2024 9:25am Cough September 15, 2024 9 :25am Acute bronchitis due to other specified organisms September 15, 2024 9:25am Additional Source Comments Care Team (unrecognized sect [...] Care Provide r, Attending Provider Active Start: September 15, 2024 End: September 15, 2024 (unrecognized sect ion and content) No Status Records FoundNo Status Records FoundNo Status Records Found INFORMATION SOURCE (unrecogn ized section and content) DATE CREATED AUTHOR 07/09/2022 [facility] DATE CREATED AUTHOR AUTHOR'S ORGANIZ ATION 01/16/2023 [facility] DATE CREATED AUTHOR AUTHOR'S ORGANIZ ATION 06/08/2024 [facility] REASON FOR VISIT (unrecogniz ed section and content) Not Sleeping WellTBHNo Infor mationWellnessLab resultsCOVID [id number] Goals (unrecognized section and content) Goals may [...] BE BASED ON THE PRIMARY CLINICAL RECORDS. [facility]. provides no warranty or guarantee of the accuracy or completeness of information in this document.
[2024-10-23 10:17] LABS: Basophils Percent Auto 0.3 % (0.2-2.0); Eosinophils Percent Auto 0.3 % (0.9-7.0); Hematocrit 51.3 % (42.0-54.0); Hemoglobin 17.2 g/dL (14.0-18.0); Immature Granulocytes Abs Auto 0.03 10^3/uL (0.00-0.03); Immature Granulocytes Pct Auto 0.3 % (0.0-0.5); Lymphocytes Absolute Auto 1.4 10^3/uL (1.2-3.8); Lymphocytes Percent Auto 14.7 % (20.5-60.0); Mean Corpuscular HGB Conc 33.5 g/dL (29.9-35.2); Mean Corpuscular Hemoglobin 31.6 pg (25.9-34.0); Mean Corpuscular Volume 94.3 fL (80.0-94.0); Mean Platelet Volume 10.9 fL (9.5-13.5); Monocytes Absolute Auto 1.2 10^3/uL (0.3-0.8); Monocytes Percent Auto 12.9 % (1.7-12.0); Neutrophils Absolute Auto 6.8 10^3/uL (1.4-6.5); Neutrophils Percent Auto 71.5 % (43.0-75.0); Platelet Count 240 10^3/uL (150-450); Red Blood Count 5.44 10^6/uL (4.70-6.10); Red Cell Distribution Width 12.2 % (11.0-15.0); White Blood Count 9.6 10^3/uL (4.0-11.0)
[2024-10-23] MEDS: ONDANSETRON PF 4 MG/2 ML VIAL IV (10:27)
[2024-10-23] MEDS: FAMOTIDINE/PF 20 MG/2 ML VIAL IV (10:27)
[2024-10-23] MEDS: 0.9 % SODIUM CHLORIDE 1,000 ML 1000 ML IV (10:27)
[2024-10-23 10:34] LABS: Alanine Aminotransferase 16 U/L (16-63); Albumin Globulin Ratio 0.8; Albumin Level 3.5 g/dL (3.4-5.0); Alkaline Phosphatase 55 U/L (46-116); Aspartate Amino Transferase 23 U/L (15-37); BUN Creatinine Ratio 20.8; Bilirubin Total 0.5 mg/dL (0.2-1.0); Calcium 9.7 mg/dL (8.5-10.1); Carbon Dioxide 24.2 mmol/L (21.0-32.0); Chloride 101 mmol/L (98-107); Estimated GFR (African America >60 (>=60 mL/min/1.73m^2); Estimated GFR (Non-African Ame >60 (>=60 mL/min/1.73m^2); Globulin 4.4 g/dL; Glucose 109 mg/dL (74-106); Potassium 4.2 mmol/L (3.5-5.1); Sodium 139 mmol/L (136-145); Total Protein 7.9 g/dL (6.4-8.2)
[2024-10-23 11:04] LABS: Influenza Virus A Antigen Negative; Influenza Virus B Antigen Negative; Internal Control Within Normal Limits; SARS-CoV-2 Ag NEGATIVE (NEGATIVE)
--- NOTE | 2024-10-23 11:32 | ED.ABDPAIN1 ---
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 and he does not know if he has been exposed to anybody with similar symptoms, nobody have similar symptoms at home The patient have generalized abdominal cramping, he had at least multiple episodes of vomiting since and also multiple sewed of diarrhea, he mentioned having some lightheadedness Related Data Home Medications ?Medication ?Instructions ?Recorded ?Confirmed atenolol 25 mg tablet 25 mg PO Q12H 08/04/23 10/23/24 benazepril 20 mg tablet 20 mg PO DAILY 08/04/23 10/23/24 omeprazole 40 mg capsule,delayed 40 mg PO DAILY 08/04/23 10/23/24 release Previous Rx's ?Medication ?Instructions ?Recorded famotidine 20 mg tablet (Pepcid) 20 mg PO BID #10 tabs 10/23/24 ondansetron 4 mg disintegrating 4 mg PO Q8H PRN nausea and 10/23/24 tablet vomiting 3 days #10 tabs Allergies Allergy/AdvReac Type Severity Reaction Status Date / Time acetaminophen (From Vicodin) AdvReac Severe Vomiting Verified 05/23/24 07:07 codeine AdvReac Severe Vomiting Verified 05/23/24 07:07 hydrocodone (From Vicodin) AdvReac Severe Vomiting Verified 05/23/24 07:07 Review of Systems ROS Status of ROS 10 or more systems reviewed and unremarkable except as noted in history and below [facility] PFS Social History Smoking status: Never smoker Little interest or pleasure in doing things: not at all Feeling down, depressed, or hopeless: not at all Exam Narrative Exam Narrative: Nurses notes and vital signs reviewed and patient is not hypoxic. General: Well-appearing and in no apparent distress. Skin: Warm, dry, no pallor noted. No rash. Head: Normocephalic, atraumatic. Neck: Supple, non-tender. Eye: Pupils are equal, round and EOMI. No scleral icterus. Ears, Nose, Mouth, and Throat: TM are clear, no nasal mucosal hypertrophy. Oral mucosa is moist, no posterior oropharynx erythema, uvula is mid-line Cardiovascular: Regular Rate and Rhythm without murmur, gallop or rub. Respiratory: No accessory muscle use or respiratory distress. Lungs are clear to auscultation, no wheezing, rales or rhonchi Chest Wall: no tenderness Back: No midline thoracic or lumbar vertebral tenderness. No CVA tenderness Musculoskeletal: normal ROM, no calf or popliteal tenderness, no lower extremity edema/swelling GI: Abdomen is soft, non-distended. Normal bowel sounds. No masses appreciated. No tenderness to palpation. No rebound, guarding, or rigidity noted. Neurological: A&O x4. No cranial nerve dysfunction observed. No truncal ataxia. Moves all extremities. Sensation intact. Psychiatric: Cooperative and interactive. Normal mood and affect. Constitutional Vital Signs, click to edit/add: Last Vital Signs Temp 98.5 F 10/23/24 09:41 Pulse 94 H 10/23/24 09:41 Resp 18 10/23/24 09:41 Pulse Ox 96 10/23/24 09:41 O2 Del Method Room Air 10/23/24 09:41 Course Vital Signs Vital signs: Vital Signs Temperature 98.5 F 10/23/24 09:41 Pulse Rate 94 H 10/23/24 09:41 Respiratory Rate 18 10/23/24 09:41 Pulse Oximetry 96 10/23/24 09:41 Oxygen Delivery Method Room Air 10/23/24 09:41 Temperature 98.5 F 10/23/24 09:41 Pulse Rate 94 H 10/23/24 09:41 Respiratory Rate 18 10/23/24 09:41 Pulse Oximetry 96 10/23/24 09:41 Oxygen Delivery Method Room Air 10/23/24 09:41 MDM - Abdominal Pain MDM Narrative Medical decision making narrative: The patient presentation is mostly secondary to gastroenteritis His CBC and chemistry showed no acute pathology except for the elevated BUN He was feeling much better after being treated with Zofran Pepcid and he also was provided with Toradol for the pain Patient was able to tolerate p.o. intake with no difficulty Right now the patient was discharged with instruction to continue hydration and come back in case of any alarming symptoms of blood in stool or fever or abdominal pain The patient is to follow up with primary care physician in next 2-3 days or to return to the emergency department should any of the signs or symptoms worsen or new symptoms develop. The patient agrees with the following Diagnosis and Treatment plan and the patient will be discharged home. Lab Data Labs: Lab Results 10/23/24 10/23/24 Range/Units 10:05 10:43 WBC 9.6 (4.0-11.0) 10^3/uL RBC 5.44 (4.70-6.10) 10^6/uL Hgb 17.2 (14.0-18.0) g/dL Hct 51.3 (42.0-54.0) % MCV 94.3 H (80.0-94.0) fL MCH 31.6 (25.9-34.0) pg MCHC 33.5 (29.9-35.2) g/dL RDW 12.2 (11.0-15.0) % Plt Count 240 (150-450) 10^3/uL MPV 10.9 (9.5-13.5) fL Neut % (Auto) 71.5 (43.0-75.0) % Lymph % (Auto) 14.7 L (20.5-60.0) % Kimball % (Auto) 12.9 H (1.7-12.0) % Eos % (Auto) 0.3 L (0.9-7.0) % Baso % (Auto) 0.3 (0.2-2.0) % Neut # (Auto) 6.8 H (1.4-6.5) 10^3/uL Lymph # (Auto) 1.4 (1.2-3.8) 10^3/uL Kimball # (Auto) 1.2 H (0.3-0.8) 10^3/uL Eos # (Auto) 0.0 (0.0-0.7) 10^3/uL Baso # (Auto) 0.0 (0.0-0.1) 10^3/uL Abs Immat Gran (auto) 0.03 (0.00-0.03) 10^3/uL Imm/Tot Granulo (auto) 0.3 (0.0-0.5) % Sodium 139 (136-145) mmol/L Potassium 4.2 (3.5-5.1) mmol/L Chloride 101 (98-107) mmol/L Carbon Dioxide 24.2 (21.0-32.0) mmol/L Anion Gap 18.0 BUN 25.0 H (7.0-18.0) mg/dL Creatinine 1.20 (0.70-1.30) mg/dL Est GFR ( Amer) >60 (>=60 mL/min/1.73m^2) Est GFR (Non-Af Amer) >60 (>=60 mL/min/1.73m^2) BUN/Creatinine Ratio 20.8 Glucose 109 H (74-106) mg/dL Calcium 9.7 (8.5-10.1) mg/dL Total Bilirubin 0.5 (0.2-1.0) mg/dL AST 23 (15-37) U/L ALT 16 (16-63) U/L Alkaline Phosphatase 55 (46-116) U/L Total Protein 7.9 (6.4-8.2) g/dL Albumin 3.5 (3.4-5.0) g/dL Globulin 4.4 g/dL Albumin/Globulin Ratio 0.8 Lipase 42.0 (16.0-77.0) U/L Influenza Type A Ag Negative Influenza Type B Ag Negative SARS-CoV-2 Ag (CV2AG) Negative (NEGATIVE) Discharge Plan Discharge Chief Complaint: Abdominal Pain Clinical Impression: Gastroenteritis, Dehydration Patient Disposition: Home, Self-Care Time of Disposition Decision: 12:21 Condition: Good Prescriptions / Home Meds: New ondansetron 4 mg tablet,disintegrating 4 mg PO Q8H PRN (Reason: nausea and vomiting) 3 Days Qty: 10 0RF famotidine [Pepcid] 20 mg tablet 20 mg PO BID Qty: 10 0RF No Action atenolol 25 mg tablet 25 mg PO Q12H benazepril 20 mg tablet 20 mg PO DAILY omeprazole 40 mg capsule,delayed release(DR/EC) 40 mg PO DAILY Print Language: [place] Instructions: Gastroenteritis (ED) Referrals: Tao Martines DO [Primary Care Provider] - 1 week Discharge Date/Time: 10/23/24 12:39
[2024-10-23] MEDS: KETOROLAC TROMETHAMINE 30 MG/ML VIAL 15 MG IVP (12:02)
== END 2024-10-23 12:39 | disposition home or self-care (01) ==
PROVIDERS: Emergency Provider Emergency Medicine; PCP Internal Medicine
DX: E86.0 Dehydration (principal); K52.9 Noninfective gastroenteritis and colitis, unspecified
CPT/HCPCS: 36415; 80053; 83690; 85025; 87804; 87811; 96361; 96374; 96375; 99284; J1885; J2405; J3490

== ENCOUNTER 2025-01-05 08:13 | Outpatient (OUT) | payer MEDICARE, SELFPAY ==
--- OUTSIDE RECORDS SUMMARY | 2025-01-05 08:16 | XMS_ITS | Encounter Summary ---
Author Organization [facility] Address [address] [facility] [place] [address] Care Team Providers Care Supervisor Furnace Process Name Role Phone Tao Martinse DO Primary Care Provider [phone] Encounter Details Date Type Department Care Team (Late st Contact Info) Description 01/01/2023 Abstract [facility] [address] [facility] [address] [place] [address] Faustino Reyes PA [address] [facility] [address] [place] [address] Social History Tobacco Use Types Packs/Day Years Used Date Smoking Tobacco: Never Tobacco Cessation:Counseling Given: Not Answered Alcohol Use Standard Drinks/Week Comments Yes 0 (1 standard drink = 0.6 oz pure alcohol) 2-4x a month; caffeine: 1-2 cups per day Sex and Gender Information Value Date Recorded Sex Assigned at Not on file Legal Sex Male 7:11 PM EDT Gender Identity Not on file Sexual Orientation Not on file documented as of this encounter Plan of Treatment Not on file documented as of this encounter Visit Diagnoses Not on filedocumented in this encounter Care Teams Supervisor Furnace Process Relationship Specialty Start Date End Date Tao Martines DO PCP - General Internal Medicine 01/01/23 documented as of this encounter
--- OUTSIDE RECORDS SUMMARY | 2025-01-05 08:16 | XMS_ITS | Clinical Summary ---
Author Organization [facility] Address [address] [place] [address] Phone Care Team Providers Care Software Sales Name Role Phone Unavailable Primary Care Provider Unavailabl e Social History Tobacco Use Types Packs/Day Years Used Date Smoking Tobacco: Never Assessed Sex and Gender Information Value Date Recorded Sex Assigned at Not on file Legal Sex Male 8:38 AM EST Gender Identity Not on file Sexual Orientation Not on file Plan of Treatment Not on file
--- OUTSIDE RECORDS SUMMARY | 2025-01-05 08:26 | XMS_ITS | CCD ---
Author Organization [facility] [place] [facility] Providers Care Drying Machine Back Tender Name Role Phone TAO MARTINES Primary Care Physician [phone] MD Salomon PITTS Attending Unavailable MD Salomon [...] drocodone] Drug Allergy Nausea (finding) [facility] (10 sources) Codeine; Translations: [codeine] Drug Allergy 08-29-19 15 Nausea (finding) [facility] (6 sources) Codeine Drug Allergy Unknown [facility] [employer] Other (6 sources) HMG-CoA reductase inhibitor Drug allergy Unknown [facility] [employer] Other (2 sources) Acetaminophen / HYDROcodone Drug Allergy 12-28-19 13 [facility] (2 sources) Codeine Drug Allergy 12-21-19 13 [facility] (4 sources) Vicodin *ANALGESICS - OPIOID* Propensity to adverse reactions 08-29-19 15 Unknown [employer] Other (1 source) patient allergy list reviewed by nurse or physicia Propensity to adverse reactions 06-08-20 17 Comment:Done [employer] Other (4 sources) Acetaminophen Drug Allergy 11-14-19 24 Unknown Reaction [facility] Comment on above: Onset Date: 08/29/19 15 (4 sources) HYDROcodone Drug Allergy 08-04-20 23 Vomiting [facility] Comment on above: Onset Date: 08/29/19 15 (4 sources) Tuynoem-EXF-HpF Reductase Inhibitor Allergy to substance 11-14-19 24 Unknown Reaction [facility] Medications Current Medications Medication Drug Class(es) Dates Sig (Normalized) Sig (Original) 24 hr alfuzosin hydrochloride 10 mg extended release oral tablet (1 source) alpha-Adrenergic Melissa Start: 03-21-2022 take 1 tablet by mouth once daily alfuzosin 10 mg ER Tab 10 mg = 1 tab(s), Oral, Daily, # 30 tab(s), Refills(s) 11, Pharmacy: [facility]/pharmacy #[id number], 175, cm, 03/21/22 9:55:00 EDT, [...] 2024 9:51am Start: 11-14-2023 End: 11-17-2023 take 1 tablet [...] 11, 2017 12:00am November 14, 2023 9:56am Start: 11-11-2017 End: 11-14-2023 take 0.5 tablet by mouth once daily in the morning Atenolol Discontinued 0.5 TAB PO Every morning November 11, 2017 12:00am November 14, 2023 9:56am take 1 tablet by armond th twice daily Atenolol 25 MG TAKE 1 TABLET BY MOUTH TWICE A DAY Active Atenolol Not-Fito ing/PRN Atenolol Not-Fito ing benazepril hydrochloride 20 mg oral tablet (20 sources) Angiotensin Converting Enzyme Inhibitor Start: 08-28-2024 take 1 tablet by mouth once daily Benazepril 20 mg tablet Active 0 .ROUTE .COMPLEX 90 August 28, 2024 10:13am TAKE 1 TABLET BY MOUTH EVERY DAY Start: 12-27-2019 benazepril Ora l, Daily, Refills(s) 0 Start Date: 12/27/19 Status: Ordered Start: 11-11-2017 End: 08-28-2024 take 1 tablet by mouth once daily Benazepril 20 mg tablet Discontinued 20 MG PO Daily November 14, 2023 12:00am August 28, 2024 10:13am Benazepril HCl N ot-Taking/PRN Benazepril HCl N ot-Taking Zetia (11 sources) Dietary Cholesterol Absorption Inhibitor Start: 06-01-2020 take 1 mg by mouth once daily Zetia mg, Oral, Daily, Refills(s) 0 Start Date: 06/01/20 Status: Ordered Start: 11-11-2017 End: 11-14-2023 Ezetimibe 10 mg tablet Disco ntinued 1 CAP PO As Directed November 11, 2017 12:00am November 14, 2023 9:56am Start: 11-11-2017 End: 11-14-2023 Ezetimibe Discontinued 1 CAP PO As Directed November 11, 2017 12:00am November 14, 2023 9:56am Zetia Not-Taking /PRN Zetia Not-Taking famotidine 20 mg oral tablet (1 source) Histamine-2 Receptor Antagonist Start: 10-26-2024 take 1 tablet by mouth once daily Famotidine (Pepcid) 20 mg tablet Active 20 MG PO Daily October 26, 2024 12:00am Fish Oils (1 source) Start: 12-27-2019 Fish Oil Oral, Refill(s) 0 Start Date: 12/27/19 Status: Ordered hydroCHLOROthiazide 12.5 mg oral capsule (1 source) Thiazide Diuretic Start: 02-17-2022 take 1 capsule by mouth once daily hydrochlorothiazide 12.5 mg Cap 12.5 mg = 1 cap(s), Oral, Daily, # 90 cap(s), Refills(s) 3, Pharmacy: [facility]/pharmacy #[id number], 175, cm, 05/20/21 15:07:00 EDT, Height/Length Dosing, 74, kg, 05/20/21 15:07:00 EDT, Weight Dosing Start Date: 02/17/22 Status: Ordered hyoscyamine sulfate 0.125 mg sublingual tablet (1 source) Start: 10-26-2024 Hyoscyamine Sulfate 0.125 mg tablet, sublingual Active 0.125 MG SUBLINGUAL 2-4 TIMES PER DAY as needed for dyspepsia 7 October 26, 2024 12:00am [place] 7-Vey-Jjd-Fish Oil (Ultra [place]-3) 200-300-1,000 mg capsule (2 sources) Start: 09-15-2024 [place] 3-Rdi-Tqt-Fish Oil (Ultra [place]-3) 200-300-1,000 mg capsule Active CAP PO September 15, 2024 1:00am Start: 09-15-2024 [place] 3-Dha-Ep a-Fish Oil (Ultra [place]-3) 200-300-1,000 mg capsule Active CAP PO September [...] release(DR/EC) Discontinued 40 MG PO Daily November 14, [...] Active PriLOSEC Not-Fito ing/PRN PriLOSEC Not-Fito ing ondansetron 4 mg oral tablet (1 source) Serotonin-3 Receptor Antagonist Start: 10-26-2024 take 1 tablet by mouth every eight hours Ondansetron Hcl 4 mg tablet Active 4 MG PO Every 8 hours October 26, 2024 12:00am Protonix (1 source) Proton Pump Inhibitor Start: 12-27-2019 Protonix Oral, Daily, Refills(s) 0 Start Date: 12/27/19 Status: Ordered potassium citrate 10 meq extended release oral tablet (1 source) Start: 05-20-2021 End: 05-15-2022 potassium CITRATE 10 mEq ER Tab 20 mEq, 2 tab(s), Oral, BID for 90 day(s), 360 tab(s), Refill(s) 3, [facility]/pharmacy #[id number], 175, cm, 05/20/21 15:07:00 EDT, Height/Length Dosing, 74, kg, 05/20/21 15:07:00 EDT, Weight Dosing Start Date: 05/20/21 Stop Date: 05/15/22 Status: Ordered red yeast rice 600 mg oral capsule (2 sources) Start: 09-15-2024 take 1 capsule by mouth once daily Red Yeast Rice 600 mg capsule Active 600 MG PO Daily September 15, 2024 1:00am give with meal/snack rosuvastatin calcium 10 mg oral tablet (1 source) HMG-CoA Reductase Inhibitor Start: 05-28-2023 take 1 tablet by mouth every twenty-four hours Rosuvastatin Calcium 10 MG 1 tablet Orally Once a day for 30 days May, Active super beets (2 sources) Start: 09-15-2024 super beets Ac tive PO September 15, 2024 1:00am Start: 09-15-2024 super beets Ac tive PO September 15, 2024 12:00am traMADol hydrochloride 50 mg oral tablet (3 sources) Opioid Agonist Start: 09-16-2022 take 1 tablet by mouth every twenty-four hours traMADol HCl 50 MG 1 tablet as needed Orally Once a day for 30 days Sep, Active Completed/Discontinued Medications Medication Drug Class(es) Dates Sig (Normalized) Sig (Original) acetaminophen 500 mg oral tablet (4 sources) Start: 01-06-2020 End: 11-14-2023 take 2 tablets by mouth every six hours as needed for pain Acetaminophen (Tylenol Extra Strength) 500 mg Tablet Discontinued 1000 MG PO Q6H as needed for Pain January 06, 2020 12:00am November 14, 2023 9:56am azithromycin 250 mg oral tablet (2 sources) Macrolide Antimicrobial Start: 09-15-2024 End: 10-26-2024 Azithromycin 250 mg tablet Discontinued 250 MG PO .COMPLEX 6 September 15, 2024 1:00am October 26, 2024 9:57am 2 tabs on first day followed by 1 tab on days 2-5 Cbd Oil (4 sources) Start: 01-06-2020 End: 11-14-2023 Cbd Oil Discontinued TOPICAL as needed for Pain January 06, 2020 12:00am November 14, 2023 9:56am Start: 01-06-2020 End: 11-14-2023 Cbd Oil Discontinued TOPICAL as needed for Pain January 05, 2020 11:00pm November 14, 2023 8:56am Start: 01-06-2020 End: 11-14-2023 Cbd Oil Discontinued TOPICAL January 06, 2020 12:00am November 14, 2023 9:56am cephalexin 500 mg oral capsule (12 sources) Cephalosporin Antibacterial Start: 01-11-2020 End: 11-14-2023 take 1 capsule by mouth every six hours Cephalexin 500 mg capsule Discontinued 500 MG PO Q6H January 11, 2020 12:00am November 14, 2023 9:56am Start: 11-16-2017 End: 01-06-2020 take 1 capsule by mouth every twelve hours Cephalexin 500 mg capsule Discontinued 500 MG PO Q12H May 17, 2018 12:00am January 06, 2020 10:29am ketorolac tromethamine 10 mg oral tablet (12 sources) Nonsteroidal Anti-inflammatory Drug, Cyclooxygenase Inhibitor Start: 01-11-2020 End: 11-14-2023 take 1 tablet by mouth every six hours as needed for pain Ketorolac 10 mg tablet Discontinued 10 MG PO Q6H as needed for pain 20 January 11, 2020 12:00am November 14, 2023 9:56am Start: 05-17-2018 End: 05-22-2018 take 4 tablets by mouth every twenty-four hours as needed for pain Ketorolac 10 mg tablet Discontinued 10 MG PO EVERY 4-6 HOURS as needed for pain 20 May 17, 2018 12:00am May 21, 2018 12:00am May 22, 2018 12:02am do not exceed 4 doses per 24 hrs Start: 11-16-2017 End: 11-21-2017 take 1 tablet by mouth every six hours as needed for pain Ketorolac 10 mg tablet Discontinued 10 MG PO Q6H as needed for pain 20 5 November 16, 2017 12:00am November 20, 2017 12:00am November 21, 2017 12:01am Multivitamin preparation (2 sources) Start: 05-17-2018 End: 01-06-2020 take 1 tablet by mouth once daily Multivitamin Discontinued 1 TAB PO Daily May 17, 2018 12:00am January 06, 2020 10:30am Multivitamin Tablet (2 sources) Start: 05-17-2018 End: 01-06-2020 take 1 tablet by mouth once daily Multivitamin Tablet Discontinued 1 TAB PO Daily May 17, 2018 12:00am January 06, 2020 10:30am Start: 05-17-2018 End: 01-06-2020 take 1 tablet by mouth once daily Multivitamin Tablet Discontinued 1 TAB PO Daily May 16, 2018 11:00pm January 06, 2020 9:30am [place] 6-Fcu-Byu-Fish Oil (Fi sh Oil) 1,000 mg (120 mg-180 mg) Capsule (4 sources) Start: 05-17-2018 End: 11-14-2023 [place] 3-Cuo-Xyg-Fish Oil (Fi sh Oil) 1,000 mg (120 mg-180 mg) Capsule Discontinued 3000 MG PO Daily May 16, 2018 11:00pm November 14, 2023 8:57am Start: 05-17-2018 End: 11-14-2023 [place] 9-Mzd-Kux-Fish Oil (Fi sh Oil) 1,000 mg (120 [...] Not-Taking/PRN tamsulosin hydrochloride 0.4 mg oral capsule (10 sources) alpha-Adrenerg ic Melissa Start: 11-11-2017 End: 01-06-2020 take 1 capsule by mouth every twenty-four hours Tamsulosin 0.4 mg capsule,extended release 24hr Discontinued 1 TAB PO As Directed November 11, 2017 12:00am January 06, 2020 10:31am Flomax Not-Takin g/PRN Flomax Not-Takin g valACYclovir 1000 mg oral tablet (11 sources) Herpesvirus Nucleoside Analog DNA Polymerase Inhibitor, [...] 14, 2023 12:00am April 27, 2024 10:26pm Start: 11-14-2023 End: 04-27-2024 take 2000 mg [...] abdominal pain] Onset: 9 Episodic Acute bronchitis (3 sources) Acute bronchitis; Translations: [Acute bronchitis due to other specified organisms] 09-15-2024 Episodic Anxiety disorders (1 source) Other specified anxiety disorders; Translations: [OTHER SPECIFIED ANXIETY DISORDERS] Onset: 3 Chronic Calculus of urinary tract (20 sources) Kidney stone; Translations: [Calculus of kidney] Onset: 6 Episodic Cardiac dysrhythmias (17 sources) Palpitations; Translations: [Palpitations] Onset: 3 Episodic Diabetes mellitus without complication (15 sources) Impaired fasting glycemia; Translations: [Impaired fasting glucose] Episodic Disorders of lipid metabolism (20 sources) Hyperlipidemia; Translations: [Pure hypercholesterolemia] Onset: 0 12-27-2019 Chronic Esophageal disorders (13 sources) Gastroesophageal reflux disease; Translations: [Gastro-esophageal reflux disease without esophagitis] Onset: 3 12-27-2019 Chronic Essential hypertension (20 sources) Hypertensive disorder; Translations: [Essential hypertension] Onset: 3 12-27-2019 Chronic Gastrointestinal hemorrhage (12 sources) Hemorrhage of rectum and anus; Translations: [Hemorrhage of anus and rectum] Episodic Hyperplasia of prostate (16 sources) Benign prostatic hypertrophy without outflow obstruction; Translations: [Benign prostatic hyperplasia without lower urinary tract symptoms] Onset: 6 Chronic Immunizations and screening for infectious disease (1 source) Vaccination given; Translations: [Encounter for immunization] Episodic Miscellaneous mental health disorders (11 sources) Transient insomnia; Translations: [Adjustment insomnia] 11-14-2023 Episodic Nonspecific chest pain (1 source) Other chest pain Episodic Other aftercare (2 sources) Other correction (current) drug therapy; Translations: [[employer]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] Onset: 3 Episodic Other aftercare (1 source) Long-term current use of drug therapy; Translations: [Other correction (current) drug therapy] Episodic Other connective tissue disease (4 sources) Adhesive capsulitis of left shoulder; Translations: [ADHESIVE CAPSULITIS LEFT SHOULDER] Onset: 3 Episodic Other diseases of kidney and ureters (6 sources) Hydroureter; Translations: [Hydroureter] Episodic Other ear and sense organ disorders (7 sources) Hearing loss; Translations: [Unspecified hearing loss, left ear] Chronic Other gastrointestinal disorders (10 sources) Irritable bowel syndrome with diarrhea; Translations: [Irritable bowel syndrome with diarrhea] 11-14-2023 Chronic Other hereditary and degenerative nervous system conditions (11 sources) Essential tremor; Translations: [Essential tremor] 11-14-2023 Chronic Other injuries and conditions due to external causes (1 source) History of fall; Translations: [History of falling] Episodic Other lower respiratory disease (1 source) Solitary nodule of lung; Translations: [Solitary pulmonary nodule] Episodic Other lower respiratory disease (2 sources) Cough; Translations: [Cough] 09-15-2024 Episodic Other nervous [...] conditions (not mental disorders or infectious disease) (10 sources) Encounter for screening for malignant neoplasm [...] infection, site not specified] Episodic Viral infection (12 sources) Herpes simplex type 1 infection; Translations: [...] Test Name Value Interpretation Reference Range Facility Basophils Auto (Bld) [#/Vol] on 10-23-2024 Basophils (Bld) [#/Vol] Automated basophil count 0.0-0.1 [facility] Basophils/100 WBC Auto (Bld) on 10-23-2024 Basophils/100 WBC (Bld) Automated basophil % 0.2-2.0 [facility] Eosinophils/100 WBC Auto (Bl d)on 10-23-2024 Eosinophils/100 WBC (Bld) Automated eosinophil % Low 0.9-7.0 [facility] Erythrocyte distribution wid th Auto (RBC) [Ratio]on 10-23-2024 Erythrocyte distribution width (RBC) [Ratio] Erythrocyte distribution width [Ratio] by Automated count 11.0-15.0 [facility] Estimated glomerular filtrat ion rate (GFR) non- Americanon 10-23-2024 GFR/1.73 sq M.predicted among non-blacks MDRD (S/P/Bld) [Vol rate/Area] Estimated glomerular filtration rate (GFR) non- >=60 mL/min/1.73m 2 [facility] Globulin Calc (S) [Mass/Vol] on 10-23-2024 Globulin (S) [Mass/Vol] Serum globulin measurement by calculation (mass/volume) [facility] Hematocrit Auto (Bld) [Volum e fraction]on 10-23-2024 Hematocrit (Bld) [Volume fraction] Hematocrit [Volume Fraction] of Blood by Automated count 42.0-54.0 [facility] Hemoglobin [Mass/volume] in Bloodon 10-23-2024 Hemoglobin (Bld) [Mass/Vol] Hemoglobin [Mass/volume] in Blood 14.0-18.0 [facility] Laboratory - Chemistry and C hemistry - challengeon 10-23-2024 Albumin [Mass/Vol] 3.5 g/dL 3.4-5.0 [facility] ALP [Catalytic activity/Vol] 55 U/L 46-116 [facility] ALT [Catalytic activity/Vol] 16 U/L 16-63 [facility] AST [Catalytic activity/Vol] 23 U/L 15-37 [facility] Bilirubin [Mass/Vol] 0.5 mg/dL 0.2-1.0 [facility] Calcium [Mass/Vol] 9.7 mg/dL 8.5-10.1 [facility] Chloride [Moles/Vol] 101 mmol/L 98-107 [facility] CO2 [Moles/Vol] 24.2 mmol/L 21.0-32.0 [facility] Creatinine [Mass/Vol] 1.20 mg/dL 0.70-1.30 [facility] GFR/1.73 sq M.predicted MDRD (S/P/Bld) [Vol rate/Area] mL/min/{1.73_m2} >=60 mL/min/1.73m 2 [facility] Glucose [Mass/Vol] 109 mg/dL High 74-106 [facility] Lipase [Catalytic activity/Vol] 42.0 U/L 16.0-77.0 [facility] Potassium [Moles/Vol] 4.2 mmol/L 3.5-5.1 [facility] Protein [Mass/Vol] 7.9 g/dL 6.4-8.2 [facility] Sodium [Moles/Vol] 139 mmol/L 136-145 [facility] Urea nitrogen [Mass/Vol] 25.0 mg/dL High 7.0-18.0 [facility] Urea nitrogen/Creatinine [Mass ratio] 20.8 mg/mg [facility] - Hematology and Cell countson 10-23-2024 Immature granulocytes/100 WBC (Bld) 0.3 % 0.0-0.5 [facility] - Microbiology an d Antimicrobial susceptibilityon 10-23-2024 SARS-CoV-2 (COVID-19) RNA LILIANA+probe Ql (Unsp spec) Negative NEGATIVE [facility] Comment on above: This test has not be en FDA cleared or approved, but has beenauthorized by the FDA under an Emergency Use Authorization(EUA) for use by authorized laboratories certified underIA that meet the requirements to perform moderate or highcomplexity testing. This test has been authorized only forthe detection of proteins from SARS-CoV-2, not for any otherviruses or pathogens. The emergency use of this test isauthorized for the duration of the declaration thatcircumstances exist justifying the authorization ofemergency use of in vitro diagnostic tests for detectionand/or diagnosis of Covid-19 under section 564(b)(1) of the[facility], [place] 360bbb-3(b)(1), unless the declaration isterminated or authorization is revoked sooner. Leukocytes [#/volume] correc nawaf for nucleated erythrocytes in Blood by Automated counon 10-23-2024 WBC corrected for nucl RBC Auto (Bld) [#/Vol] Leukocytes [#/volume] corrected for nucleated erythrocytes in Blood by Automated coun 4.0-11.0 [facility] Lymphocytes Auto (Bld) [#/Vo l]on 10-23-2024 Lymphocytes (Bld) [#/Vol] Lymphocytes [#/volume] in Blood by Automated count 1.2-3.8 [facility] Lymphocytes/100 WBC Auto (Bl d)on 10-23-2024 Lymphocytes/100 WBC (Bld) Lymphocytes/100 leukocytes in Blood by Automated count Low 20.5-60.0 [facility] MCH Auto (RBC) [Entitic mass ]on 10-23-2024 MCH (RBC) [Entitic mass] MCH [Entitic mass] by Automated count 25.9-34.0 [facility] MCHC Auto (RBC) [Mass/Vol]on 10-23-2024 MCHC (RBC) [Mass/Vol] MCHC [Mass/volume] by Automated count 29.9-35.2 [facility] MCV Auto (RBC) [Entitic vol] on 10-23-2024 MCV (RBC) [Entitic vol] MCV [Entitic volume] by Automated count High 80.0-94.0 [facility] Monocytes Auto (Bld) [#/Vol] on 10-23-2024 Monocytes (Bld) [#/Vol] Automated blood monocyte count High 0.3-0.8 [facility] Monocytes/100 WBC Auto (Bld) on 10-23-2024 Monocytes/100 WBC (Bld) Automated monocyte % High 1.7-12.0 [facility] Neutrophils Auto (Bld) [#/Vo l]on 10-23-2024 Neutrophils (Bld) [#/Vol] Neutrophils [#/volume] in Blood by Automated count High 1.4-6.5 [facility] Neutrophils/100 WBC Auto (Bl d)on 10-23-2024 Neutrophils/100 WBC (Bld) Automated neutrophil % 43.0-75.0 [facility] No Panel Informationon 10-23 Bedside Influenza Type A Antigen Negative [facility] Comment on above: Negative for Flu A p rotein antigen. Infection due to Flu Acannot be ruled out. Flu A antigen in the sample may bebelow the detection limit of the test. Bedside Influenza Type B Antigen Negative [facility] Comment on above: Negative for Flu B p rotein antigen. Infection due to Flu Bcannot be ruled out. Flu B antigen in the sample may bebelow the detection limit of the test. Eosinophils # (Auto) 0.0 10 3/uL 0.0-0.7 [facility] Immature Granulocyte # (Auto) 0.03 10 3/uL 0.00-0.03 [facility] Platelet mean volume Auto (B ld) [Entitic vol]on 10-23-2024 Platelet mean volume (Bld) [Entitic vol] Platelet mean volume [Entitic volume] in Blood by Automated count 9.5-13.5 [facility] Platelets Auto (Bld) [#/Vol] on 10-23-2024 Platelets (Bld) [#/Vol] Platelets [#/volume] in Blood by Automated count 150-450 [facility] RBC Auto (Bld) [#/Vol]on RBC (Bld) [#/Vol] Erythrocytes [#/volu me] in Blood by Automated count 4.70-6.10 [facility] Serum or plasma albumin/glob ulin mass ratioon 10-23-2024 Albumin/Globulin [Mass ratio] Serum or plasma albumin/globulin mass ratio [facility] Serum or plasma anion gap de terminationon 10-23-2024 Anion gap [Moles/Vol] Serum or plasma anion gap determination [facility] Influenza virus B Ag [Presen ce] in Upper respiratory specimen by Rapid immunoassayon 09-15-2024 FLUBV Ag IA.rapid Ql (Nph) Influenza virus B Ag [Presence] in Upper respiratory specimen by Rapid immunoassay [facility] No Panel Informationon 09-15 Influenza Type A (Rapid) Negative [facility] POC SARS CoV-2 Antigen Negative [facility] Cholesterol in LDL Calc [Mas s/Vol]on 11-13-2023 Cholesterol in LDL [Mass/Vol] 209.0 mg/dL [facility] Comment on above: <100 mg/dl [id number] 0-129 mg/dl NEAR OR ABOVE [id number] mg/dl BORDERLINE [id number] mg/dl HIGH>190 mg/dl VERY HIGH Cholesterol in VLDL Calc [Ma ss/Vol]on 11-13-2023 Cholesterol in VLDL [Mass/Vol] 22.4 mg/dL [facility] - Chemistry and C hemistry - challengeon 11-13-2023 Cholesterol [Mass/Vol] 284 mg/dL <=200 [facility] Cholesterol in HDL [Mass/Vol] 53 mg/dL 40-60 [facility] Comment on above: > or =60 mg/dl - LOW CARDIOVASCULAR RISK<40 mg/dl - HIGH CARDIOVASCULAR RISK Triglyceride [Mass/Vol] 112 mg/dL <=150 [facility] No Panel Informationon 11-12 Prostate Specific Antigen Screen 1.00 ng/mL <=4.00 [facility] Serum or plasma total choles terol/high density lipoprotein (HDL) cholesterol mass mahamed 11-13-2023 Cholesterol.total/Ch olesterol in HDL [Mass ratio] 5.4 {ratio} [facility] Comment on above: 3.3 - 4.4 LOW RISK4. 4 - 7.1 AVERAGE RISK7.1 - 11.0 MODERATE RISK>11.0 HIGH RISK CARDIAC LONNIE ADMITon 023 CK [Catalytic activity/Vol] 57 U/L Normal 39-308 [facility] Comment on above: Performed By: #### C MADM, CMP #### [facility] [address] [address] [address] Sarthak Cleveland CK.MB [Mass/Vol] 0.54 ng/mL Normal <=3.60 [facility] Comment on above: Performed By: #### C MADM, CMP #### [facility] [address] [address] [address] Sarthak Cleveland HSTROP <4.0 Normal 4.0-76.1 [facility] Comment on above: Result Comment: CUT- OFF POINTS HAVE BEEN ESTABLISHED BASED ON THE FOURTH UNIVERSAL DEFINITIONS OF MYOCARDIAL INFARCTION. THE UPPER REFERENCE LIMIT (URL) OF TROPONIN, DEFINED THE 99TH PERCENTILE OF cTnI DISTRIBUTION IN A REFERENCE POPULATION, HAS BEEN CONFIRMED THE DECISION THRESHOLD FOR ND DIAGNOSIS. Performed By: #### C MADM, CMP #### [facility] [address] [address] [address] Sarthak Cleveland MAL 37 ng/mL Normal 16-96 [facility] Comment on above: Performed By: #### C MADM, CMP #### [facility] [address] [address] [address] Sarthak Cleveland CBC AUTO DIFFon 11-25-2022 BASO # 0.0 103/ul Normal 0.0-0.1 [facility] Comment on above: Performed By: #### B MP, LIPID, ALT #### [facility] [address] [address] [address] Sarthak Cleveland Basophils/100 WBC (Bld) 0.5 % Normal 0.2-2.0 [facility] Comment on above: Performed By: #### B MP, LIPID, ALT #### [facility] [address] [address] [address] Sarthak Cleveland EO # 0.3 103/ul Normal 0.0-0.7 [facility] Comment on above: Performed By: #### B MP, LIPID, ALT #### [facility] [address] [place] [address] Dr. Sarthak Cleveland Eosinophils/100 WBC (Bld) 3.0 % Normal 0.9-7.0 [facility] Comment on above: Performed By: #### B MP, LIPID, ALT #### [facility] [address] [place] [address] Dr. Sarthak Cleveland Erythrocyte distribution width (RBC) [Ratio] 12.4 % Normal 11.0-15.0 [facility] Comment on above: Performed By: #### B MP, LIPID, ALT #### [facility] [address] [place] [address] Dr. Sarthak Cleveland Hematocrit (Bld) [Volume fraction] 47.3 % Normal 42.0-54.0 [facility] Comment on above: Performed By: #### B MP, LIPID, ALT #### [facility] [address] [place] [address] Dr. Sarthak [place] Hemoglobin (Bld) [Mass/Vol] 15.9 g/dL Normal 14.0-18.0 [facility] Comment on above: Performed By: #### B MP, LIPID, ALT #### [facility] [address] [place] [address] Dr. Sarthak [place] IG # 0.04 10e3/ul Critically high 0.00-0.03 [facility] Comment on above: Performed By: #### B MP, LIPID, ALT #### [facility] [address] [place] [address] Dr. Sarthak [place] IG % 0.5 % Normal 0.0-0.5 [facility] Comment on above: Performed By: #### B MP, LIPID, ALT #### [facility] [address] [place] [address] Dr. Sarthak [place] LYMPH # 2.2 103/ul Normal 1.2-3.8 [facility] Comment on above: Performed By: #### B MP, LIPID, ALT #### [facility] [address] [place] [address] Dr. Sarthak [place] Lymphocytes/100 WBC (Bld) 26.6 % Normal 20.5-60.0 [facility] Comment on above: Performed By: #### B MP, LIPID, ALT #### [facility] [address] [place] [address] Dr. Sarthak [place] MANUAL DIFF REQ NO Normal [facility] Comment on above: Performed By: #### B MP, LIPID, ALT #### [facility] [address] [address] [address] Sarthak [place] MCH (RBC) [Entitic mass] 31.7 pg Normal 25.9-34.0 [facility] Comment on above: Performed By: #### B MP, LIPID, ALT #### [facility] [address] [place] [address] Dr. Sarthak [place] MCHC (RBC) [Mass/Vol] 33.6 g/dL Normal 29.9-35.2 [facility] Comment on above: Performed By: #### B MP, LIPID, ALT #### [facility] [address] [place] [address] Dr. Sarthak [place] MCV (RBC) [Entitic vol] 94.2 fL Critically high 80.0-94.0 [facility] Comment on above: Performed By: #### B MP, LIPID, ALT #### [facility] [address] [place] [address] Dr. Sarthak [place] MONO # 0.8 103/ul Normal 0.3-0.8 [facility] Comment on above: Performed By: #### B MP, LIPID, ALT #### [facility] [address] [place] [address] Dr. Sarthak [place] Monocytes/100 WBC (Bld) 9.7 % Normal 1.7-12.0 [facility] Comment on above: Performed By: #### B MP, LIPID, ALT #### [facility] [address] [place] [address] Dr. Sarthak [place] NEUT # 5.0 103/ul Normal 1.4-6.5 [facility] Comment on above: Performed By: #### B MP, LIPID, ALT #### [facility] [address] [address] [address] Sarthak [place] Neutrophils/100 WBC (Bld) 59.7 % Normal 43.0-75.0 [facility] Comment on above: Performed By: #### B MP, LIPID, ALT #### [facility] [address] [address] [address] Sarthak [place] Platelet mean volume (Bld) [Entitic vol] 11.0 fL Normal 9.5-13.5 [facility] Comment on above: Performed By: #### B MP, LIPID, ALT #### [facility] [address] [address] [address] Sarthak [place] PLT 241 103/ul Normal 150-450 [facility] Comment on above: Performed By: #### B MP, LIPID, ALT #### [facility] [address] [place] [address] Dr. Sarthak [place] RBC 5.02 106/ul Normal 4.70-6.10 [facility] Comment on above: Performed By: #### B MP, LIPID, ALT #### [facility] [address] [address] [address] Sarthak [place] WBC 8.4 103/ul Normal 4.0-11.0 [facility] Comment on above: Performed By: #### B MP, LIPID, ALT #### [facility] [address] [place] [address] Dr. Sarthak [place] PROF 14(COMP METB)on 023 Albumin [Mass/Vol] 3.8 g/dL Normal 3.4-5.0 [facility] Comment on above: Performed By: #### C MADM, CMP #### [facility] [address] [place] [address] Dr. Sarthak [place] Albumin/Globulin [Mass ratio] 0.9 {ratio} Normal [facility] Comment on above: Performed By: #### C MADM, CMP #### [facility] [address] [address] [address] Sarthak [place] ALP [Catalytic activity/Vol] 57 U/L Normal 46-116 [facility] Comment on above: Performed By: #### C MADM, CMP #### [facility] [address] [address] [address] Sarthak [place] ALT [Catalytic activity/Vol] 21 U/L Normal 16-63 [facility] Comment on above: Performed By: #### C MADM, CMP #### [facility] [address] [address] [address] Sarthak [place] Anion gap [Moles/Vol] 12.3 mmol/L Normal [facility] Comment on above: Performed By: #### C MADM, CMP #### [facility] [address] [address] [address] Sarthak [place] AST [Catalytic activity/Vol] 17 U/L Normal 15-37 [facility] Comment on above: Performed By: #### C MADM, CMP #### [facility] [address] [address] [address] Sarthak [place] Bilirubin [Mass/Vol] 0.3 mg/dL Normal 0.2-1.0 [facility] Comment on above: Performed By: #### C MADM, CMP #### [facility] [address] [address] [address] Sarthak [place] Calcium [Mass/Vol] 9.2 mg/dL Normal 8.5-10.1 [facility] Comment on above: Performed By: #### C MADM, CMP #### [facility] [address] [address] [address] Sarthak [place] Chloride [Moles/Vol] 103 mmol/L Normal 98-107 [facility] Comment on above: Performed By: #### C MADM, CMP #### [facility] [address] [address] [address] Sarthak [place] CO2 [Moles/Vol] 28.7 mmol/L Normal 21.0-32.0 [facility] Comment on above: Performed By: #### C MADM, CMP #### [facility] [address] [address] [address] Sarthak [place] Creatinine [Mass/Vol] 0.83 mg/dL Normal 0.70-1.30 [facility] Comment on above: Performed By: #### C MADM, CMP #### [facility] [address] [place] [address] Dr. Sarthak [place] EGFR-AF GRENADIAN >60 Normal >=60 [facility] Comment on above: Performed By: #### C MADM, CMP #### [facility] [address] [address] [address] Sarthak [place] EGFR-NON AF GRENADIAN >60 Normal >=60 [facility] Comment on above: Performed By: #### C MADM, CMP #### [facility] [address] [address] [address] Sarthak [place] Globulin (S) [Mass/Vol] 4.1 g/dL Normal [facility] Comment on above: Performed By: #### C MADM, CMP #### [facility] [address] [place] [address] Dr. Sarthak [place] Glucose [Mass/Vol] 89 mg/dL Normal 74-106 [facility] Comment on above: Performed By: #### C MADM, CMP #### [facility] [address] [place] [address] Dr. Sarthak [place] Potassium [Moles/Vol] 4.0 mmol/L Normal 3.5-5.1 [facility] Comment on above: Performed By: #### C MADM, CMP #### [facility] [address] [place] [address] Dr. Sarthak [place] Protein [Mass/Vol] 7.9 g/dL Normal 6.4-8.2 [facility] Comment on above: Performed By: #### C MADM, CMP #### [facility] [address] [place] [address] Dr. Sarthak [place] Sodium [Moles/Vol] 140 mmol/L Normal 136-145 [facility] Comment on above: Performed By: #### C MADM, CMP #### [facility] [address] [place] [address] Dr. Sarthak [place] Urea nitrogen [Mass/Vol] 12.0 mg/dL Normal 7.0-18.0 [facility] Comment on above: Performed By: #### C MADM, CMP #### [facility] [address] [address] [address] Sarthak [place] Urea nitrogen/Creatinine [Mass ratio] 14.5 mg/mg Normal [facility] Comment on above: Performed By: #### C MADM, CMP #### [facility] [address] [address] [address] Sarthak [place] TSHon 11-25-2022 TSH 1.919 uIU/mL Normal 0.358-3.740 [facility] Comment on above: Performed By: #### B MP, LIPID, ALT #### [facility] [address] [address] [address] S[address] [place] CT SHOULDER LT WO [...] by: OLYA PEREYRA Date: 2022-05-27 19:58 Normal [facility] XR ARTHRO SHOULDER LTon 05-10 XR [...] OLYA PEREYRA Date: 2022-05-27 12:36 Normal [facility] CBC AUTO DIFFon 05-26-2022 BASO # 0.1 103/ul Normal 0.0-0.1 [facility] Comment on above: Performed By: #### B MP, LIPID, ALT #### [facility] [address] [address] [address] Sarthak [place] Basophils/100 WBC (Bld) 0.6 % Normal 0.2-2.0 [facility] Comment on above: Performed By: #### B MP, LIPID, ALT #### [facility] [address] [address] [address] Sarthak [place] EO # 0.2 103/ul Normal 0.0-0.7 [facility] Comment on above: Performed By: #### B MP, LIPID, ALT #### [facility] [address] [address] [address] Sarthak [place] Eosinophils/100 WBC (Bld) 2.4 % Normal 0.9-7.0 [facility] Comment on above: Performed By: #### B MP, LIPID, ALT #### [facility] [address] [address] [address] Sarthak [place] Erythrocyte distribution width (RBC) [Ratio] 12.6 % Normal 11.0-15.0 [facility] Comment on above: Performed By: #### B MP, LIPID, ALT #### [facility] [address] [address] [address] Sarthak [place] Hematocrit (Bld) [Volume fraction] 46.1 % Normal 42.0-54.0 [facility] Comment on above: Performed By: #### B MP, LIPID, ALT #### [facility] [address] [address] [address] Sarthak [place] Hemoglobin (Bld) [Mass/Vol] 15.0 g/dL Normal 14.0-18.0 [facility] Comment on above: Performed By: #### B MP, LIPID, ALT #### [facility] [address] [place] [address] Dr. Sarthak [place] IG # 0.07 10e3/ul Critically high 0.00-0.03 [facility] Comment on above: Performed By: #### B MP, LIPID, ALT #### [facility] [address] [place] [address] Dr. Sarthak [place] IG % 0.9 % Critically high 0.0-0.5 [facility] Comment on above: Performed By: #### B MP, LIPID, ALT #### [facility] [address] [place] [address] Dr. Sarthak [place] LYMPH # 1.9 103/ul Normal 1.2-3.8 [facility] Comment on above: Performed By: #### B MP, LIPID, ALT #### [facility] [address] [place] [address] Dr. Sarthak [place] Lymphocytes/100 WBC (Bld) 22.7 % Normal 20.5-60.0 [facility] Comment on above: Performed By: #### B MP, LIPID, ALT #### [facility] [address] [place] [address] Dr. Sarthak [place] MANUAL DIFF REQ NO Normal [facility] Comment on above: Performed By: #### B MP, LIPID, ALT #### [facility] [address] [place] [address] Dr. Sarthak [place] MCH (RBC) [Entitic mass] 31.6 pg Normal 25.9-34.0 [facility] Comment on above: Performed By: #### B MP, LIPID, ALT #### [facility] [address] [place] [address] Dr. Sarthak [place] MCHC (RBC) [Mass/Vol] 32.5 g/dL Normal 29.9-35.2 [facility] Comment on above: Performed By: #### B MP, LIPID, ALT #### [facility] [address] [place] [address] Dr. Sarthak [place] MCV (RBC) [Entitic vol] 97.1 fL Critically high 80.0-94.0 [facility] Comment on above: Performed By: #### B MP, LIPID, ALT #### [facility] [address] [place] [address] Dr. Sarthak [place] MONO # 1.0 103/ul Critically high 0.3-0.8 [facility] Comment on above: Performed By: #### B MP, LIPID, ALT #### [facility] [address] [place] [address] Dr. Sarthak [place] Monocytes/100 WBC (Bld) 11.8 % Normal 1.7-12.0 [facility] Comment on above: Performed By: #### B MP, LIPID, ALT #### [facility] [address] [place] [address] Dr. Sarthak [place] NEUT # 5.1 103/ul Normal 1.4-6.5 [facility] Comment on above: Performed By: #### B MP, LIPID, ALT #### [facility] [address] [place] [address] Dr. Sarthak [place] Neutrophils/100 WBC (Bld) 61.6 % Normal 43.0-75.0 [facility] Comment on above: Performed By: #### B MP, LIPID, ALT #### [facility] [address] [place] [address] Dr. Sarthak [place] Platelet mean volume (Bld) [Entitic vol] 10.4 fL Normal 9.5-13.5 [facility] Comment on above: Performed By: #### B MP, LIPID, ALT #### [facility] [address] [address] [address] Sarthak [place] PLT 243 103/ul Normal 150-450 [facility] Comment on above: Performed By: #### B MP, LIPID, ALT #### [facility] [address] [address] [address] Sarthak [place] RBC 4.75 106/ul Normal 4.70-6.10 [facility] Comment on above: Performed By: #### B MP, LIPID, ALT #### [facility] [address] [address] [address] Sarthak [place] WBC 8.2 103/ul Normal 4.0-11.0 [facility] Comment on above: Performed By: #### B MP, LIPID, ALT #### [facility] [address] [place] [address] Dr. Sarthak [place] LIPID PROFILEon 05-26-2022 CHOL-HDL RATIO NORM SEE BELOW Normal [facility] Comment on above: Result Comment: 3.3 - 4.4 LOW RISK 4.4 - 7.1 AVERAGE RISK 7.1 - 11.0 MODERATE RISK >11.0 HIGH RISK Performed By: #### B MP, LIPID, ALT #### [facility] [address] [place] [address] Dr. Sarthak [place] Cholesterol [Mass/Vol] 309 mg/dL Critically high <=200 [facility] Comment on above: Performed By: #### B MP, LIPID, ALT #### [facility] [address] [address] [address] Sarthak [place] Cholesterol in HDL [Mass/Vol] 46 mg/dL Normal 40-60 [facility] Comment on above: Performed By: #### B MP, LIPID, ALT #### [facility] [address] [place] [address] Dr. Sarthak [place] Cholesterol in LDL [Mass/Vol] 242.6 mg/dL Normal [facility] Comment on above: Performed By: #### B MP, LIPID, ALT #### [facility] [address] [place] [address] Dr. Sarthak [place] Cholesterol.total/Ch olesterol in HDL [Mass ratio] 6.7 {ratio} Normal [facility] Comment on above: Performed By: #### B MP, LIPID, ALT #### [facility] [address] [address] [address] Sarthak [place] HDL NORMAL > or = 60 mg/dl - LO W CARDIOVASCULAR RISK <40 mg/dl - HIGH CARDIOVASCULAR RISK Normal [facility] Comment on above: Performed By: #### B MP, LIPID, ALT #### [facility] [address] [address] [address] Sarthak [place] LDL CALC NORMAL SEE BELOW Normal [facility] Comment on above: Result Comment: <100 mg/dl OPTIMAL 100 - 129 mg/dl NEAR OR ABOVE OPTIMAL 130 - 159 mg/dl BORDERLINE HIGH 160 - 189 mg/dl HIGH >190 mg/dl VERY HIGH Performed By: #### B MP, LIPID, ALT #### [facility] [address] [address] [address] Sarthak [place] Triglyceride [Mass/Vol] 102 mg/dL Normal <=150 [facility] Comment on above: Performed By: #### B MP, LIPID, ALT #### [facility] [address] [place] [address] Dr. Sarthak [place] VLDL CALC 20.4 mg/dL Normal [facility] Comment on above: Performed By: #### B MP, LIPID, ALT #### [facility] [address] [address] [address] Sarthak [place] PROF CHEM 8 (BAS METB)on Anion gap [Moles/Vol] 11.6 mmol/L Normal [facility] Comment on above: Performed By: #### B MP, LIPID, ALT #### [facility] [address] [address] [address] Sarthak [place] Calcium [Mass/Vol] 8.7 mg/dL Normal 8.5-10.1 [facility] Comment on above: Performed By: #### B MP, LIPID, ALT #### [facility] [address] [address] [address] Sarthak [place] Chloride [Moles/Vol] 104 mmol/L Normal 98-107 [facility] Comment on above: Performed By: #### B MP, LIPID, ALT #### [facility] [address] [address] [address] Sarthak [place] CO2 [Moles/Vol] 28.7 mmol/L Normal 21.0-32.0 [facility] Comment on above: Performed By: #### B MP, LIPID, ALT #### [facility] [address] [address] [address] Sarthak [place] Creatinine [Mass/Vol] 0.84 mg/dL Normal 0.70-1.30 [facility] Comment on above: Performed By: #### B MP, LIPID, ALT #### [facility] [address] [place] [address] Dr. Sarthak [place] EGFR-AF GRENADIAN >60 Normal >=60 [facility] Comment on above: Performed By: #### B MP, LIPID, ALT #### [facility] [address] [address] [address] Sarthak [place] EGFR-NON AF GRENADIAN >60 Normal >=60 [facility] Comment on above: Performed By: #### B MP, LIPID, ALT #### [facility] [address] [address] [address] Sarthak [place] Glucose [Mass/Vol] 115 mg/dL Critically high 74-106 [facility] Comment on above: Performed By: #### B MP, LIPID, ALT #### [facility] [address] [address] [address] Sarthak [place] Potassium [Moles/Vol] 4.3 mmol/L Normal 3.5-5.1 [facility] Comment on above: Performed By: #### B MP, LIPID, ALT #### [facility] [address] [address] [address] Sarthak [place] Sodium [Moles/Vol] 140 mmol/L Normal 136-145 [facility] Comment on above: Performed By: #### B MP, LIPID, ALT #### [facility] [address] [address] [address] Sarthak [place] Urea nitrogen [Mass/Vol] 9.0 mg/dL Normal 7.0-18.0 [facility] Comment on above: Performed By: #### B MP, LIPID, ALT #### [facility] [address] [address] [address] Sarthak [place] Urea nitrogen/Creatinine [Mass ratio] 10.7 mg/mg Normal [facility] Comment on above: Performed By: #### B MP, LIPID, ALT #### [facility] [address] [address] [address] Sarthak [place] SGPTon 05-26-2022 ALT [Catalytic activity/Vol] 20 U/L Normal 16-63 [facility] Comment on above: Performed By: #### B MP, LIPID, ALT #### [facility] [address] [place] [address] Dr. Sarthak [place] Covid-19 PCR (CVDTB)on 04-11 SARS-CoV-2 (COVID-19) RNA LILIANA+probe Ql (Unsp spec) Not detected Normal NOT DETECTED [facility] Comment on above: Result Comment: This test is not yet approved or cleared by the [place] FDA. When there are no FDA-approved or cleared tests available, and other criteria are met, FDA can make tests available under an emergency access mechanism called an Emergency Use Authorization (EUA). The EUA for this test is supported by the [place] of Health and Human Service's (HHS's) declaration [...] consistent with SARS-CoV-2. Performed By: #### C VDTBH #### [facility] [address] [place] [address] Dr. Sarthak [place] RAD - MISCon 03-24-2022 RAD - MISC [id number] D:127 Normal [facility] Ambulatory Visit Summaryon 0 03-21-2022 Ambulatory Visit Summary DON NATION :1955 Visit Date:03/21/2022 Ambulatory Visit Instructions Your Diagnosis BPH without urinary obstruction Kidney stone Tests Performed Urnls Dip Stick Auto w/o Microscopy POC 79048 Your Care Team Attending Physician - Salomon [...] 3 months Comments: f/up new med Where: [address] [place] [address]- Medications What How Much When Instructions New alfuzosin (alfuzosin 10 mg ER Tab) 1 Tablets By Mouth Every day Refills: 11 Pickup at [id number] Unchanged hydrochlorothiazide (hydrochlorothiazide 12.5 mg Cap) 1 [...] physician if questions or concerns Pharmacy Information [id number]: [address], [place] [id number] [phone] Test Results Urnls Dip Stick Auto w/o Microscopy POC 81127 (03/21/2022) Bilirubin Urine Dipstick - Negative Blood Urine Dipstick - Negative Glucose Urine Dipstick - Negative Ketones Urine Dipstick - Negative Leukocytes Urine Dipstick - Negative Nitrite Urine Dipstick - Negative Protein Urine Dipstick - Negative Specific [place] Urine Dipstick - 1.010 Urine Appearance Urine [...] is this (more content not included)... Normal [facility] Patient Educationon 03-21-20 Patient Education Urology [...] Follow these instructions at home: ? Take ycxv-rih-tsoocmr and prescription medicines only as told by [...] You d (more content not included)... Normal [facility] Screenson 03-21-2022 Screens [id number] D:127 Normal [facility] Urology Office/Clinic Noteon 03-21-2022 Urology Office/Clinic Note Chief Complaint 10 month follow up with KUB HPI Staff Don is here today for a a 10 month follow up with KUB. KUB done on 03/20/22 at [facility] impression showed small scattered stable bilateral nephrolithiasis. [...] stopped and the office notified. [facility] [place]. All questions/concerns were discussed. Pt. to call [...] Salomon PITTS MD, URL In 3 months [facility] [place] [address]- Additional Instructions: f/up new med Patient Education [...] Vicodin (Naus (more content not included)... Normal [facility] Comment on above: Result Comment: Elec [...] by: GLORIA JETT Date: 2022-03-20 18:33 Normal [facility] Vital Signs Date Time Vital Sign Value Performing Clinician Facility 10-26-2024 09:56-0400 Body height 175.26 cm [facility] 10-26-2024 09:56-0400 Body mass index (BMI) [Ratio] 25 kg/m2 [facility] 10-26-2024 09:56-0400 Body weight 76.71 kg [facility] 10-26-2024 09:56-0400 Diastolic blood pressure 70 mm[Hg] [facility] 10-26-2024 09:56-0400 Heart rate 64 /min [facility] 10-26-2024 09:56-0400 Respiratory rate 12 /min [facility] 10-26-2024 09:56-0400 Systolic blood pressure 113 mm[Hg] [facility] 09-15-2024 09:30-0500 Body height 175.26 cm [facility] 09-15-2024 09:30-0500 Body mass index (BMI) [Ratio] 25.4 kg/m2 [facility] 09-15-2024 09:30-0500 Body weight 78.1 kg [facility] 09-15-2024 09:30-0500 Diastolic blood pressure 72 mm[Hg] [facility] 09-15-2024 09:30-0500 Heart rate 62 /min [facility] 09-15-2024 09:30-0500 SaO2% (BldA) [Mass fraction] 95 % [facility] 09-15-2024 09:30-0500 Systolic blood pressure 124 mm[Hg] [facility] 05-31-2024 08:33-0400 Body height 175.26 cm [facility] 05-31-2024 08:33-0400 Body mass index (BMI) [Ratio] 24.7 kg/m2 [facility] 05-31-2024 08:33-0400 Body weight 75.97 kg [facility] 05-31-2024 08:33-0400 Diastolic blood pressure 79 mm[Hg] [facility] 05-31-2024 08:33-0400 Heart rate 56 /min [facility] 05-31-2024 08:33-0400 Respiratory rate 12 /min [facility] 05-31-2024 08:33-0400 Systolic blood pressure 133 mm[Hg] [facility] 11-17-2023 14:10-0400 Body height 175.26 cm [facility] 11-17-2023 14:10-0400 Body mass index (BMI) [Ratio] 25.5 kg/m2 [facility] 11-17-2023 14:10-0400 Body weight 78.58 kg [facility] 11-17-2023 14:10-0400 Diastolic blood pressure 75 mm[Hg] [facility] 11-17-2023 14:10-0400 Heart rate 61 /min [facility] 11-17-2023 14:10-0400 Respiratory rate 12 /min [facility] [facility] 11-17-2023 14:10-0400 Systolic blood pressure 145 mm[Hg] [facility] 05-25-2023 10:00-0400 Body height 175.26 cm Tao Ball Other [employer] [facility] [employer] Other 05-25-2023 10:00-0400 Body mass index (BMI) [Ratio] 25.6 kg/m2 Tao Ball Other [employer] [facility] [employer] Other 05-25-2023 10:00-0400 Body weight 78.65 kg Tao Ball Other [employer] [facility] [employer] Other 05-25-2023 10:00-0400 Diastolic blood pressure 76 mm[Hg] Tao Ball Other [employer] [facility] Other 05-25-2023 10:00-0400 Respiratory rate 12 /min Tao Ball Other [employer] Other 05-25-2023 10:00-0400 Systolic blood pressure 120 mm[Hg] Tao Ball Other [employer] Other 11-28-2022 11:00-0400 Body height 175.26 cm Tao Ball Other [employer] Other 11-28-2022 11:00-0400 Body mass index (BMI) [Ratio] 24.36 kg/m2 Tao Ball Other [employer] Other 11-28-2022 11:00-0400 Body weight 74.84 kg Tao Ball Other [employer] Other 11-28-2022 11:00-0400 Diastolic blood pressure 76 mm[Hg] Tao Ball Other [employer] Other 11-28-2022 11:00-0400 Respiratory rate 12 /min Tao Ball Other [employer] Other 11-28-2022 11:00-0400 Systolic blood pressure 122 mm[Hg] Tao Ball Other [employer] Other 09-16-2022 15:15-0500 Body height 175.26 cm Tao Ball Other [employer] Other 09-16-2022 15:15-0500 Body mass index (BMI) [Ratio] 24.45 kg/m2 Tao Ball Other [employer] Other 09-16-2022 15:15-0500 Body weight 75.12 kg Tao Ball Other [employer] Other 09-16-2022 15:15-0500 Diastolic blood pressure 70 mm[Hg] Tao Martines Other [employer] Other 09-16-2022 15:15-0500 Respiratory rate 12 /min Tao Martines Other [employer] Other 09-16-2022 15:15-0500 Systolic blood pressure 118 mm[Hg] Tao Martines Other [employer] Other 03-21-2022 09:54-0400 Blood Pressure Location Salomon PITTS [facility] 03-21-2022 09:54-0400 Diastolic blood pressure 83 mm[Hg] Salomon PITTS [facility] 03-21-2022 09:54-0400 Heart rate 79 /min Salomon PITTS [facility] 03-21-2022 09:54-0400 Respiratory rate 16 /min Salomon PITTS [facility] 03-21-2022 09:54-0400 Systolic blood pressure 137 mm[Hg] Salomon PITTS [facility] Encounters Encounter Date Encounter Type Care Provider Facility Start: 10-26-2024 End: 10-26-2024 ambulatory [facility] Work Phone: Start: 10-26-2024 End: 10-26-2024 Patient encounter procedure [facility] Work Phone: Start: 10-24-2024 Non-patient / Non-visit [facility] Work Phone: Start: 10-23-2024 Non-patient / Non-visit [facility] [employer] Work Phone: Start: 09-15-2024 End: 09-15-2024 ambulatory [facility] Work Phone: Start: 09-15-2024 End: 09-15-2024 Patient encounter procedure [facility] Work Phone: Start: 05-31-2024 End: 05-31-2024 ambulatory [facility] Work Phone: Start: 05-31-2024 End: 05-31-2024 Patient encounter procedure [facility] Work Phone: Start: 05-27-2024 Patient encounter procedure [facility] Start: 05-23-2024 End: 05-23-2024 ambulatory Belgica Cano MD Facility:[facility] Start: 11-17-2023 End: 11-17-2023 ambulatory [facility] Work Phone: Start: 11-17-2023 End: 11-17-2023 Patient encounter procedure [facility] Work Phone: Start: 11-13-2023 Non-patient / Non-visit [facility] Work Phone: Start: 07-14-2023 End: 07-14-2023 ambulatory Tao Martines Other [employer] Other Start: 07-14-2023 Office outpatient vi sit 15 minutes Tao Martines [facility] Start: 05-28-2023 End: 05-28-2023 ambulatory Tao Martines Other [employer] Other Start: 05-28-2023 Telephone encounter Tao Martines [facility] Start: 05-25-2023 End: 05-25-2023 ambulatory Tao Martines Other [employer] Other Start: 05-25-2023 Patient encounter procedure Tao Martines [facility] Start: 05-04-2023 End: 05-04-2023 ambulatory Tao Martines Other [employer] Other Start: 05-04-2023 Telephone encounter Tao Martines [facility] Start: 12-09-2022 End: 01-07-[address] TAO MARTINES Facility:[facility] Start: 11-28-2022 End: 11-28-2022 ambulatory Tao Martines Other [employer] Other Start: 11-28-2022 Office outpatient vi sit 25 minutes Tao Martines [facility] Start: 11-25-2022 End: 11-26-[address] TAO MARTINES Facility:[facility] Start: 09-16-2022 End: 09-16-2022 ambulatory Tao Martines Other [employer] Other Start: 09-16-2022 Office outpatient vi sit 15 minutes Tao Martines [facility] Start: 08-10-2022 End: 11-08-[address] TAO MARTINES Facility:[facility] Start: 07-30-2022 End: 08-09-2022 ambulatory MR SAMIR JACOBSON . Facility:[facility] Start: 07-11-2022 ambulatory MD Salomon PITTS Fac ility:[facility] Start: 07-10-[address] KIM LARA . Faci lity:[facility] Start: 05-27-2022 End: 05-27-[address] ZACH TYSON Facility:[facility] Start: 05-26-2022 End: 05-27-[address] TAO MARTINES Facility:[facility] Start: 05-22-2022 End: 05-23-[address] KIM LARA . Facility:[facility] Start: 05-22-2022 Adult health examination Eliezer karyn Martines Other [employer] Other Start: 05-06-2022 Encounter for preprocedural laboratory examination DR KIM LARA . [facility] Start: 05-06-2022 End: 05-06-[address] KIM LARA . Facility:[facility] Start: 05-02-2022 End: 05-03-[address] KIM LARA . Facility:[facility] Start: 05-02-2022 End: 05-03-2022 Encounter for preprocedural laboratory examination DR KIM LARA . Facility:[facility] Start: 03-21-2022 End: 03-22-2022 ambulatory MD Salomon PITTS Facility:[facility] Start: 03-21-2022 End: 03-21-2022 Patient encounter procedure Salomon PITTS [facility] Start: 03-20-2022 End: 03-21-[address] SALMOON PITTS . Facility:[facility] Start: 03-14-[address] KIM LARA . Faci lity:[facility] Start: 02-18-2022 End: 02-19-[address] KIM LARA . Facility:[facility] Start: 05-14-2020 End: 05-14-2020 Preoperative cardiovascular examination Tao Martines Other [facility] [employer] Other Procedures Date Procedure Procedure Detail Performing Clinician Start: 05-26-[address] ZACH TYSON Comment on above: Performed By: #### B MP, LIPID, ALT #### [facility] [address] [place] [address] Dr. Sarthak [place] Start: 02-23-2020 Fluoroscopy guided [...] sasha PITTS Reconstruction of fa cial bones Salomon PITTS Repair of sliding in guinal hernia Salomon PITTS Screening for malign ant neoplasm of prostate Tao Martines Other Plan of Treatment Date Care Activity Detail Author Comprehensive metabo lic 2000 panel - Serum or Plasma [facility] Immunizations Immunization Date Immunization Notes Care Provider Shannan meier 05-31-2024 influenza, high dose seasonal, preservative-free [facility] 06-02-2023 Prevnar 20 Tao Martines Other [facility] 05-25-2023 influenza virus vaccine, unspecified formulation [facility] 05-25-2023 influenza, high dose seasonal, preservative-free Tao Martines Other [facility] [employer] Other 05-22-2022 influenza virus vaccine, split virus (incl. purified surface antigen) Tao Martines Other [employer] [facility] [employer] Other 05-22-2022 influenza virus vaccine, unspecified formulation [facility] 05-21-2021 influenza virus vaccine, split virus (incl. purified surface antigen) Tao Martines Other [employer] [facility] [employer] Other 05-21-2021 influenza virus vaccine, unspecified formulation [facility] Payers Date Payer Category Payer Medicare 1959 Medicare [id number] 1959 Unknown [id number] 1959 Unknown [id number] 2.16 .[id number] 1955 Unknown [id number] 2.16.840.1.211458.3.579.2.727 1955 Unknown [id number] 2.16.840.1.451086.3.579.2.727 1955 Unknown [id number] 2.16.840.1.048230.3.579.2.593 1955 Unknown [id number] 2.16.840.1.474600.3.579.2.593 1955 Unknown [id number] 2.16.840.1.015192.3.579.2.593 1955 Unknown [id number] 2.16.840.1.194538.3.579.2.593 1955 Unknown [id number] 2.16.840.1.029222.3.579.2.593 1955 Unknown [id number] 2.16.840.1.753178.3.579.2.593 1955 Unknown [id number] 2.16.840.1.689512.3.579.2.593 1955 Unknown [id number] 2.16.840.1.093399.3.579.2.593 1955 Unknown [id number] 2.16.840.1.245361.3.579.2.593 1955 Unknown [id number] 2.16.840.1.881133.3.579.2.593 1955 Unknown [id number] 2.16.840.1.047762.3.579.2.593 1955 Unknown [id number] 2.16.840.1.231244.3.579.2.593 1955 Unknown [id number] 2.16.840.1.602571.3.579.2.593 1955 Unknown [id number] 2.16.840.1.109629.3.579.2.196 Medicare [employer] [facility] DEGWGF [id number] Self-pay Self Pay [id number] Unknown Anthony [facility] [id number] Social History Date Type Detail Facility Start: 03-21-2022 End: 08-04-2023 Tobacco smoking status Never smoked tobacco (finding) [facility] Sex Assigned At Male [facility] Start: 1955 Sex Assigned At Male F [facility] Start: 09-15-2024 End: 10-26-2024 Sex Male (finding) [facility] Functional Status Date Assessment Result Facility 03-21-2022 Functional Status N/A [facility] Clinical Notes 02-18-2022 to 09-15-2024 Note Date & Type Note Facility 09-15-2024 Evaluation note Diagnosis Onset Date Resolution Primary hypertension acute Febr ua2024 9:25am Cough noneactive September 15, 2024 9:25am Acute bronchitis due to other specified organisms noneactive September 15 9:25am [facility] Work Phone: [phone] Evaluation note* Encounter Date Diagnosis Assessment Notes Treatment Notes Treatment Clinical Notes Jul, COVID-19 (ICD-10 - U07.1) Instructed [...] continue exercise to achieve/maintain a normal BMI. [employer] Other 10-19-2023 Evaluation note* Encounter Date Diagnosis Assessment Notes Treatment Notes Treatment Clinical Notes May, Elevated cholesterol (ICD-10 - E78.00) [employer] Other 10-16-2023 Evaluation note* Encounter Date Diagnosis [...] (ICD-10 - Z12.5) yearly ANNELIESE and PSA [employer] Other 04-21-2023 Evaluation note* Encounter Date Diagnosis [...] for increased CP, dyspnea, palpitations or lightheadedness [employer] Other 02-07-2023 Evaluation note* Encounter Date Diagnosis [...] continue exercise to achieve/maintain a normal BMI. [employer] Other 10-13-2022 NoteCONSULTATION CONSULTATION DATE: 05/22/2022 This [...] of care and all questions were answered.[id number] Discharge instructions Patient Education 03/21/2022 10:30:52 [...] urethra. Follow these instructions at home: Take lqiq-lkl-yanbver and prescription medicines only as told by [...] 07/27/2006 Document Revised: 06/21/2019 Document Reviewed: 08/31/2017 [employer] Patient Education [employer]. Follow Up Care 05/20/2021 16:25:31 With:KELBY PULIDO, [facility], URL Address: [address] [place] [address]- When:Within 3 Month(s) Comments:f/up [facility] 07-12-2022 NoteCONSULTATION PROCEDURE DATE: 02/18/2022 PREOPERATIVE DIAGNOSIS: [...] his pain symptomatology and range of motion. [facility] Signed and Approved by: DR KIM LARA . 02/25/2022 09:28:00[facility]07-12-2022 NoteCONSULTATION CONSULTATION DATE: 02/18/2022 CHIEF COMPLAINT: [...] The patient states he is close to detention and does not wish to see an [...] like to proceed. CC: Tao Martines D.O. [facility] Signed and Approved by: DR KIM LARA . 02/25/2022 [facility]00[facility] Future Appointments Appointment Date:07/11/2022 08:00:00 AM Scheduled Provider:Salomon PITTS MD Location:[facility] Appointment Type:URO Office Visit [facility] evaluation noteNo [employer] Other Evaluation note* Diagnosis Onset Date Resolution Status Benign prostatic hyperplasia with lower urinary tract symptoms acute Gastroesophageal reflux dise ase with esophagitis without hemorrhage acute IFG (impaired fasting glucose) acute Primary hypertension acute [facility] Work Phone: Evaluation note* Diagnosis Onset Date Resolution Status Benign prostatic hyperplasia with lower urinary tract symptoms acute Gastroesophageal reflux dise ase with esophagitis without hemorrhage acute H/O colonoscopy acute Hypercholesterolemia acute IFG (impaired fasting glucose) acute Medicare annual wellness visit, subsequent acute Primary hypertension acute Screening for colon cancer a cute Screening PSA (prostate specific antigen) acute [facility] Work Phone: Evaluation note* Diagnosis Onset Date Resolution Status Admit Date Primary hypertension acute Febr ua2024 9:25am Cough noneactive September 15, 2024 9:25am Acute bronchitis due to other specified organisms noneactive ua 2024 9:25am [facility] Work Phone: History general Narrative - Reported* [...] 202 0 Hospitalization History SEE SURGICAL [facility] [place] [facility] Other Hospital course Narrative No data available for this section [facility] progress note No data available for this section [facility] Summary Purpose Family History Relationship Condition Age [...] other specified organisms September 15, 2024 9:25am Chief Complaint Admit Date cough, congestion x3 weeks September 15, 2024 9:25am Amb Documentation October 24, 2024 2:4 8pm TB; abdominal pain October 26, 2024 9:5 1am Additional Source Comments Care Team (unrecognized sect [...] 2023 Team Status: Inactive Member Role Status Maurisio Martines DO Primary Care Provide r, Attending Provider Active Start: September 15, 2024 End: September 15, 2024 Team Status: Active Member Role Status Dates Tao Martines DO Primary Care Provider Active Start: October 23, 2024 Guillermina Tsai MD Attending Provider Active Sta rt: October 23, 2024 Team Status: Active Member Role Status Dates Tao Martines DO Primary Care Provider Active Start: October 24, 2024 Karen Tubbs CMA Attending Provider Active Start: October 24, 2024 Team Status: Inactive Member Role Status Dates Tao Martines DO Primary Care Provide r, Attending Provider Active Start: October 26, 2024 End: October 26, 2024 (unrecognized sect ion and content) No Status Records FoundNo Status Records FoundNo Status Records Found INFORMATION SOURCE (unrecogn ized section and content) DATE CREATED AUTHOR 07/09/2022 [facility] DATE CREATED AUTHOR AUTHOR'S ORGANIZ ATION 01/16/2023 [facility] DATE CREATED AUTHOR AUTHOR'S ORGANIZ ATION 06/08/2024 [facility] REASON FOR VISIT (unrecogniz ed section and content) Not Sleeping WellTBHNo Infor [facility] resultsCOVID [phone] Goals (unrecognized section and content) Goals may [...] BE BASED ON THE PRIMARY CLINICAL RECORDS. [facility] [employer] [facility]. provides no warranty or guarantee of the accuracy or completeness of information in this document.
--- NOTE | 2025-01-05 08:37 | PM.CN ---
Consult Note: HPI Data of Consult Patient: known to practice within the last 3 years Requesting Physician: Priya Sky NP Primary Care Provider: Tao Martines, DO Consult Narrative Reason for consult: low back, SIJ pain Narrative: Go Martinez a pleasant 68 year old male with longstanding low back pain post L4-5 L5-S1 fusion, historically has had significant improvement with caudal ESIs and bilateral SIJ injections with >50% improvement greater than 3 months. Patient failed tylenol and motrin, as well as topical lidocaine. no falls since last visit. has engaged in HEP greater than 6 weeks without benefit. cc:: CC: Priya Sky NP Review of Systems ROS Musculoskeletal Reports: back pain and joint pain; Denies: extremity pain PFSH PFSH Social History Smoking status: Never smoker Little interest or pleasure in doing things: not at all Feeling down, depressed, or hopeless: not at all Meds Home Medications and Allergies Home Medications ?Medication ?Instructions ?Recorded ?Confirmed ?Type atenolol 25 mg tablet 25 mg PO Q12H 08/04/23 10/23/24 History benazepril 20 mg tablet 20 mg PO DAILY 08/04/23 10/23/24 History omeprazole 40 mg capsule,delayed 40 mg PO DAILY 08/04/23 10/23/24 History release famotidine 20 mg tablet (Pepcid) 20 mg PO BID #10 tabs 10/23/24 Rx ondansetron 4 mg disintegrating 4 mg PO Q8H PRN nausea and 10/23/24 Rx tablet vomiting 3 days #10 tabs Allergies Allergy/AdvReac Type Severity Reaction Status Date / Time acetaminophen (From Vicodin) AdvReac Severe Vomiting Verified 05/23/24 07:07 codeine AdvReac Severe Vomiting Verified 05/23/24 07:07 hydrocodone (From Vicodin) AdvReac Severe Vomiting Verified 05/23/24 07:07 Exam Narrative Exam Narrative: diffuse intermittent joint pain of bilateral thumbs, knees, wrists Constitutional Documenting provider has reviewed patient's vital signs: yes Common normals: no apparent distress, oriented x3, healthy appearing, alert and well nourished General appearance: cooperative HENMT Common normals: normocephalic, hearing grossly normal bilaterally and moist oral mucous membranes Head and scalp: normocephalic Eye Common normals: PERRL Pupil: PERRL Neck & C-Spine Common normals: full ROM General: normal visual inspection Chest Common normals: inspection of chest normal Respiratory Common normals: normal respiratory effort, no retractions and no use of accessory muscles Back & Pelvis Lumbar spine/lower back: lumbar spinal tenderness (positive facet loading, right > left) Lumbar spinal tenderness location: L2, L3 and L4; ROM not limited and no pain with ROM Sacroiliac joints: SI joints normal Other: bilateral sij positive letty(patricks), gaenslens, thigh thrust, compression test right>left strength 5/5 in BLE Extremity Common normals: normal to inspection and full ROM Neuro Common normals: oriented x3 Sensorium/orientation: alert Motor exam: strength 5/5 throughout and no movement abnormalities noted Psych Common normals: mental status grossly normal, thought process normal, cooperative, affect normal, speech normal and activity/motor behavior normal Speech: normal speech Thought process: normal thought process Results Additional Findings Additional findings: If on a controlled substance or opioids, I have checked an OARRS report on this patient and there are no aberrancies noted in the prescribing history.??If on a controlled substance or opioid a drug screen was completed and reviewed within the last year, and if there has not been a drug screen completed we ordered one today to monitor higher risk, state monitored pain medication use. As part of providing excellent, safe, comprehensive care, the following was completed at our patient's visit: 1. A medication reconciliation and review to ensure accurate knowledge of current/active medications, including asking our patients to inform us about any [id number]-[id number] medications or herbal remedies/nutritional supplements/alternative remedies. 2. A review to specifically ensure our patients have had annual screening for screening for depression, screening for tobacco use, and screening for unhealthy alcohol use. For concerning screenings had a discussion with the patient, provided patient education, and recommended follow-up with primary care provider when appropriate. If patient noted with a risk of falling, they received education on strength, gait, and balance training to prevent future risk of falling. Portions of this note may have been carried over from the previous visit and updated as appropriate. Please note this office utilizes paper charting in addition to the electronic medical record. A list of current medications, vitals, and PMH is available there as the clinical staff outside of myself do not have access to [facility] charting during the clinic day operations. As part of providing quality comprehensive care the current medications, vitals, and PMH were reviewed in the paper chart. Assessment and Plan Assessment and Plan (1) Sacroiliitis: Assessment and Plan: The patient has had over 3 months of moderate to severe low back and bilateral SIJ pain with functional impairment and inadequate response to conservative care including NSAIDS (unless there are contraindication such as concurrent blood thinners), multiple oral or topical pain medications, and home exercise program/physical therapy.? Patient has completed >6 weeks of guided home exercise program and/or formal physical therapy program without relief of their symptoms.? I have reviewed the imaging of the lumbar spine and no red flags were identified.? The Oswestry Disability Index was completed, and the patient scored a 48%.? The patient noted the following:?? moderate to severe pain impacting ADLs, sitting, standing, walking, lifting, sleeping, social life, and travel We discussed the risks and benefits of the procedure with the patient, and we are NOT planning on using sedation as outlined in the guidelines from Medicare unless there is a documented reason that sedation would be strongly recommended.?? ?The procedure will be completed with fluoroscopic guidance.? (2) Sacroiliac joint dysfunction: (3) Lumbar radiculopathy: (4) Failed back syndrome: (5) Polyarthralgia: Plan repeat bilateral SIJ injection under fluoroscopy, previous injection >50% improvement greater than 3 months defer medication management per pt request, will start transdermal cream 8a TID for diffuse joint pain including thumbs, wrists, knees continue HEP as tolerated f/u 2 weeks after injection
== END 2025-01-05 08:14 | disposition home or self-care (01) ==
PROVIDERS: PCP Internal Medicine; Visit Provider Nurse Practitioner
DX: M46.1 Sacroiliitis, not elsewhere classified (principal); M53.3 Sacrococcygeal disorders, not elsewhere classified; M54.16 Radiculopathy, lumbar region; M96.1 Postlaminectomy syndrome, not elsewhere classified; M25.50 Pain in unspecified joint
CPT/HCPCS: G0463

== ENCOUNTER 2025-01-16 09:41 | Day surgery (SDC) | payer MEDICARE, SELFPAY ==
--- OUTSIDE RECORDS SUMMARY | 2025-01-16 09:44 | XMS_ITS | Clinical Summary ---
Author Organization [facility] Address [address] [place] [address] Phone Care Team Providers Care Social Services Analyst Name Role Phone Unavailable Primary Care Provider [...]
--- OUTSIDE RECORDS SUMMARY | 2025-01-16 09:44 | XMS_ITS | Encounter Summary ---
Author Organization [facility] Address [address] [place] [address] Care Team Providers Care Residential Electrician Name Role Phone Tao Martines DO Primary Care Provider [phone] Encounter Details Date Type Department Care Team (Late st Contact Info) Description 01/01/2023 Abstract [facility] [address] [facility] [address] [place] [address] Faustino Reyes PA [address] [place] [facility] [address] [place] [address] Social History Tobacco Use Types Packs/Day Years [...] on filedocumented in this encounter Care Teams Residential Electrician Relationship Specialty Start Date End Date Tao Martines DO PCP - General Internal Medicine 01/01/23 documented as of this encounter
[2025-01-16 09:57] VITALS: BP 124/76; PULSE 58; TEMP 36.2; O2SAT 97
[2025-01-16 10:05] LABS: Glucometer 108 mg/dL (74-106)
[2025-01-16 10:41] VITALS: BP 139/70; BP 142/71; PULSE 58; PULSE 60; O2SAT 94; O2SAT 98
[2025-01-16] MEDS: LIDOCAINE HCL 2% 400 MG/20 ML MDV INJ (10:43)
[2025-01-16] MEDS: BUPIVACAINE HCL 0.25% PF 25 MG/10 ML VIAL 4 ML INJ (10:43)
[2025-01-16] MEDS: IOHEXOL 240 MG/ML - 10 ML VIAL 24 MG INJ (10:43)
[2025-01-16] MEDS: METHYLPREDNISOLONE ACETATE 40 MG/ML VIAL 80 MG INJ (10:44)
--- NOTE | 2025-01-16 10:45 | W.PM.PROCNOT ---
Date of procedure: 01/16/25 Pre-op diagnosis: Pain due to bilateral sacroiliitis Post-op diagnosis: same as pre-op Procedure: Procedure: Bilateral sacroiliac joint injection Medications: Bupivacaine 0.25% 4cc, depomedrol 40mg x2 After informed consent was obtained, the patient was brought to the medical procedure unit and placed in the prone position, when a timeout was completed verifying correct patient, procedure, site, positioning, implant, and/or special equipment.? The skin overlying the area was prepped and draped in standard sterile fashion using alcohol.? A 25-gauge needle was inserted towards the left sacroiliac joint under direct fluoroscopic imaging.? Needle tip was advanced until the joint was encountered.? We instilled a total of 2 mL of solution.? The same procedure was then completed on the right side.? Postoperatively needles were removed.? The patient tolerated the procedure well without complication.? The patient reported reduction in pain symptoms postoperatively. Anesthesia: Local Surgeon: Belgica Cano Pathology: none sent Condition: stable Disposition: no change
== END 2025-01-16 10:48 | disposition home or self-care (01) ==
LOC: SURGOUT 09:41
PROVIDERS: PCP Internal Medicine; Visit Provider Anesthesiology
DX: M46.1 Sacroiliitis, not elsewhere classified (principal); E11.8 Type 2 diabetes mellitus with unspecified complications
CPT/HCPCS: 27096; 36415; 82948; J0665; J1010; Q9966

== ENCOUNTER 2025-01-26 09:01 | Outpatient (OUT) | payer MEDICARE, SELFPAY ==
--- OUTSIDE RECORDS SUMMARY | 2025-01-26 13:29 | XMS_ITS | Clinical Summary ---
Author Organization [facility] Address [address] [place] [address] Phone Care Team Providers Care Hydroponics Grower Name Role Phone Unavailable Primary Care Provider [...]
--- OUTSIDE RECORDS SUMMARY | 2025-01-26 13:29 | XMS_ITS | Encounter Summary ---
Author Organization [facility] Address [address] [facility] [place] [address] Care Team Providers Care Trust Vault Clerk Name Role Phone Tao Martines DO Primary Care Provider Encounter Details Date Type Department Care Team (Late st Contact Info) Description 01/01/2023 Abstract [facility] [address] [facility] [address] [place] [address] Faustino Reyes PA [address] [facility] [address] [place] [address] Social History Tobacco Use Types Packs/Day Years [...] on filedocumented in this encounter Care Teams Trust Vault Clerk Relationship Specialty Start Date End Date Tao Martines DO PCP - General Internal Medicine 01/01/23 documented as of this encounter
--- OUTSIDE RECORDS SUMMARY | 2025-01-26 13:29 | XMS_ITS | Clinical Summary ---
Author Organization [facility] Address [address] [place] [address] Care Team Providers Care Forming Machine Adjuster Name Role Phone Tao Martines DO Primary Care Provider [phone] Allergies Active Allergy Reactions Criticality Noted Date Comments Codeine GI intolerance 12/15/2022 Hydrocodone-Acetaminophen Unknown 12/15/2022 Medications ibuprofen 200 MG tablet Ibuprofen Active Acetaminophen (TYLENOL 8 HOUR PO) Tylenol Active benazepril (Lotensin) 20 MG tablet TAKE 1 TABLET BY MOUTH EVERY DAY Oral for 30 Days Active omeprazole (PriLOSEC) [address] capsule TAKE 1 CAPSULE BY MOUTH ON AN EMPTY STOMACH 30 MINUTES BEFORE BREAKFAST Oral for 90 Days Active atenolol (Tenormin) 25 MG tablet TAKE 1/2 TABLET BY MOUTH EVERY DAY Oral for 90 Days Active oxyCODONE-aceta minophen (Percocet) 5-325 MG tablet every 6 (six) hours. Active Active Problems Problem Noted Date Diagnosed Date Internal derangement of left shoulder 12/15/2022 Sensorineural hearing loss (SNHL) of both ears 0 12/15/2022 Tinnitus of both ears 12/15/2022 Calculus of kidney 10/04/2012 Essential hypertension 10/04/2012 Pure hypercholesterolemia 10/04/2012 Family History Medical History Relation Name Comments Heart disease Father Diabetes Mother Heart disease Mother Relation Name Status Comments Father Mother Social History Tobacco Use Types Packs/Day Years [...] on file Sexual Orientation Not on file Last Filed Vital Signs Vital Sign Reading Time Taken Comments Blood Pressure 126/82 10/25/2020 12:00 PM EDT Pulse - - Temperature - - Respiratory Rate - - Oxygen Saturation - - Inhaled Oxygen Concentration - - Weight 74.8 kg (165 lb) 11/13/2022 12:00 PM EDT Height 177.8 cm (5' 10 ) 11/13/2022 12:00 PM EDT Body Mass Index 23.68 11/13/2022 12:00 PM EDT Plan of Treatment Health Maintenance Due Date Last Done Comments CT Colonography 1955 Colonoscopy 1955 Colorectal Cancer Screening 1955 FIT-DNA 1955 FIT 1955 FOBT 1955 Sigmoidoscopy 1955 Pneumococcal Vaccine: 65+ Ye ars (1 of 1 - PCV) 12/01/2005 Influenza Vaccine (Season Ended) 2025 05/22/20, 06/02/2020 Insurance MEDICARE [facility] MEDIC[facility] SUPPLEMENT Care Teams Forming Machine Adjuster Relationship Specialty Start Date End Date Tao Martines DO PCP - General Internal Medicine 01/01/23
--- OUTSIDE RECORDS SUMMARY | 2025-01-26 13:32 | XMS_ITS | CCD ---
Author Organization [facility] Care Team Providers Care Volleyball Referee Name Role Phone TAO MARTINES Primary Care Physician [phone] MD Salomon PITTS Attending Unavailable MD Salomon [...] Admitting Unavailable GARCIA ., [employer] Consulting Unavailable CNORAD, DR LICEA Primary Care Unavailable CONRAD, DR [...] drocodone] Drug Allergy Nausea (finding) [facility] (10 sources) Codeine; Translations: [codeine] Drug Allergy 08-29-19 15 Nausea (finding) [facility] (6 sources) Codeine Drug Allergy Unknown [facility] Other (6 sources) HMG-CoA reductase inhibitor Drug allergy Unknown [employer] [facility] Other (2 sources) Acetaminophen / HYDROcodone Drug Allergy 12-28-19 13 [facility] (2 sources) Codeine Drug Allergy 12-21-19 13 [facility] (4 sources) Vicodin *ANALGESICS - OPIOID* Propensity to adverse reactions 08-29-19 15 Unknown [employer] [employer] Other (1 source) patient allergy list reviewed by nurse or physicia Propensity to adverse reactions 06-08-20 17 Comment:Done [employer] Other (4 sources) Acetaminophen Drug Allergy 11-14-19 24 Unknown Reaction [facility] Comment on above: Onset Date: 08/29/19 15 (4 sources) HYDROcodone Drug Allergy 08-04-20 23 Vomiting [facility] Comment on above: Onset Date: 08/29/19 15 (4 sources) Lrbyprp-MGV-BqZ Reductase Inhibitor Allergy to substance 11-14-19 24 Unknown Reaction [facility] Medications Current Medications Medication Drug Class(es) Dates Sig (Normalized) Sig (Original) 24 hr alfuzosin hydrochloride 10 mg extended release oral tablet (1 source) alpha-Adrenergic Melissa Start: 03-21-2022 take 1 tablet by mouth once daily alfuzosin 10 mg ER Tab 10 mg = 1 tab(s), Oral, Daily, # 30 tab(s), Refills(s) 11, Pharmacy: [facility]/pharmacy #[id number], 175, cm, 03/21/22 9:55:00 EDT, Height/Length [...] Daily, # 90 cap(s), Refills(s) 3, Pharmacy: [facility]/pharmacy #[id number], 175, cm, 05/20/21 15:07:00 EDT, Height/Length Dosing, 74, kg, 05/20/21 15:07:00 EDT, Weight Dosing Start Date: 02/17/22 Status: Ordered hyoscyamine sulfate 0.125 mg sublingual tablet (1 source) Start: 10-26-2024 Hyoscyamine Sulfate 0.125 mg tablet, sublingual Active 0.125 MG SUBLINGUAL 2-4 TIMES PER DAY as needed for dyspepsia 7 October 26, 2024 12:00am [place] 6-Xzj-Cri-Fish Oil (Ultra [place]-3) 200-300-1,000 mg capsule (2 sources) Start: 09-15-2024 [place] 1-Frb-Prp-Fish Oil (Ultra [place]-3) 200-300-1,000 mg capsule Active CAP PO September 15, 2024 1:00am Start: 09-15-2024 [place] 3-Dha-Ep a-Fish Oil (Ultra [place]-3) 200-300-1,000 mg capsule Active CAP PO September [...] for 90 day(s), 360 tab(s), Refill(s) 3, [facility]/pharmacy #[id number], 175, cm, 05/20/21 15:07:00 EDT, Height/Length [...] 16, 2018 11:00pm January 06, 2020 9:30am [place] 0-Yla-Pax-Fish Oil (Fi sh Oil) 1,000 mg (120 mg-180 mg) Capsule (4 sources) Start: 05-17-2018 End: 11-14-2023 [place] 4-Glc-Oyh-Fish Oil (Fi sh Oil) 1,000 mg (120 mg-180 mg) Capsule Discontinued 3000 MG PO Daily May 16, 2018 11:00pm November 14, 2023 8:57am Start: 05-17-2018 End: 11-14-2023 [place] 6-Uca-Nyv-Fish Oil (Fi sh Oil) 1,000 mg (120 [...] pain Episodic Other aftercare (2 sources) Other fdc (current) drug therapy; Translations: [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] Onset: 3 Episodic Other aftercare (1 source) Long-term current use of drug therapy; Translations: [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] Episodic Other connective tissue [...] Basophils (Bld) [#/Vol] Automated basophil count 0.0-0.1 [facility] Basophils/100 WBC Auto (Bld) on 10-23-2024 Basophils/100 WBC (Bld) Automated basophil % 0.2-2.0 [facility] Eosinophils/100 WBC Auto (Bl d)on 10-23-2024 Eosinophils/100 WBC (Bld) Automated eosinophil % Low 0.9-7.0 [facility] Erythrocyte distribution wid th Auto (RBC) [Ratio]on 10-23-2024 Erythrocyte distribution width (RBC) [Ratio] Erythrocyte distribution width [Ratio] by Automated count 11.0-15.0 [facility] Estimated glomerular filtrat ion rate (GFR) non- Americanon 10-23-2024 GFR/1.73 sq M.predicted among non-blacks MDRD (S/P/Bld) [Vol rate/Area] Estimated glomerular filtration rate (GFR) non- >=60 mL/min/1.73m 2 [facility] Globulin Calc (S) [Mass/Vol] on 10-23-2024 Globulin (S) [Mass/Vol] Serum globulin measurement by calculation (mass/volume) [facility] Hematocrit Auto (Bld) [Volum e fraction]on 10-23-2024 Hematocrit (Bld) [Volume fraction] Hematocrit [Volume Fraction] of Blood by Automated count 42.0-54.0 [facility] Hemoglobin [Mass/volume] in Bloodon 10-23-2024 Hemoglobin (Bld) [Mass/Vol] Hemoglobin [Mass/volume] in Blood 14.0-18.0 [facility] Laboratory - Chemistry and C hemistry - challengeon 10-23-2024 Albumin [Mass/Vol] 3.5 g/dL 3.4-5.0 [facility] ALP [Catalytic activity/Vol] 55 U/L 46-116 [facility] ALT [Catalytic activity/Vol] 16 U/L 16-63 [facility] AST [Catalytic activity/Vol] 23 U/L 15-37 [facility] Bilirubin [Mass/Vol] 0.5 mg/dL 0.2-1.0 [facility] Calcium [Mass/Vol] 9.7 mg/dL 8.5-10.1 [facility] Chloride [Moles/Vol] 101 mmol/L 98-107 [facility] CO2 [Moles/Vol] 24.2 mmol/L 21.0-32.0 [facility] Creatinine [Mass/Vol] 1.20 mg/dL 0.70-1.30 [facility] GFR/1.73 sq M.predicted MDRD (S/P/Bld) [Vol rate/Area] mL/min/{1.73_m2} >=60 mL/min/1.73m 2 [facility] Glucose [Mass/Vol] 109 mg/dL High 74-106 [facility] Lipase [Catalytic activity/Vol] 42.0 U/L 16.0-77.0 [facility] Potassium [Moles/Vol] 4.2 mmol/L 3.5-5.1 [facility] Protein [Mass/Vol] 7.9 g/dL 6.4-8.2 [facility] Sodium [Moles/Vol] 139 mmol/L 136-145 [facility] Urea nitrogen [Mass/Vol] 25.0 mg/dL High 7.0-18.0 [facility] Urea nitrogen/Creatinine [Mass ratio] 20.8 mg/mg [facility] Laboratory - Hematology and Cell countson 10-23-2024 Immature granulocytes/100 WBC (Bld) 0.3 % 0.0-0.5 [facility] Laboratory - Microbiology an d Antimicrobial susceptibilityon 10-23-2024 SARS-CoV-2 (COVID-19) RNA LILIANA+probe Ql (Unsp spec) Negative NEGATIVE [facility] Comment on above: This test has not [...] diagnosis of Covid-19 under section 564(b)(1) [facility] [place] 360bbb-3(b)(1), unless the declaration isterminated or authorization is revoked sooner. Leukocytes [#/volume] correc nawaf for nucleated erythrocytes in Blood by Automated counon 10-23-2024 WBC corrected for nucl RBC Auto (Bld) [#/Vol] Leukocytes [#/volume] corrected for nucleated erythrocytes in Blood by Automated coun 4.0-11.0 [facility] Lymphocytes Auto (Bld) [#/Vo l]on 10-23-2024 Lymphocytes (Bld) [#/Vol] Lymphocytes [#/volume] in Blood by Automated count 1.2-3.8 [facility] Lymphocytes/100 WBC Auto (Bl d)on 10-23-2024 Lymphocytes/100 WBC (Bld) Lymphocytes/100 leukocytes in Blood by Automated count Low 20.5-60.0 [facility] MCH Auto (RBC) [Entitic mass ]on 10-23-2024 MCH (RBC) [Entitic mass] MCH [Entitic mass] by Automated count 25.9-34.0 [facility] MCHC Auto (RBC) [Mass/Vol]on 10-23-2024 MCHC (RBC) [Mass/Vol] MCHC [Mass/volume] by Automated count 29.9-35.2 [facility] MCV Auto (RBC) [Entitic vol] on 10-23-2024 MCV (RBC) [Entitic vol] MCV [Entitic volume] by Automated count High 80.0-94.0 [facility] Monocytes Auto (Bld) [#/Vol] on 10-23-2024 Monocytes (Bld) [#/Vol] Automated blood monocyte count High 0.3-0.8 [facility] Monocytes/100 WBC Auto (Bld) on 10-23-2024 Monocytes/100 WBC (Bld) Automated monocyte % High 1.7-12.0 [facility] Neutrophils Auto (Bld) [#/Vo l]on 10-23-2024 Neutrophils (Bld) [#/Vol] Neutrophils [#/volume] in Blood by Automated count High 1.4-6.5 [facility] Neutrophils/100 WBC Auto (Bl d)on 10-23-2024 Neutrophils/100 WBC (Bld) Automated neutrophil % 43.0-75.0 [facility] No Panel Informationon 10-23 Bedside Influenza Type A Antigen Negative [facility] Comment on above: Negative for Flu A p rotein antigen. Infection due to Flu Acannot be ruled out. Flu A antigen in the sample may bebelow the detection limit of the test. Bedside Influenza Type B Antigen Negative [facility] Comment on above: Negative for Flu B p rotein antigen. Infection due to Flu Bcannot be ruled out. Flu B antigen in the sample may bebelow the detection limit of the test. Eosinophils # (Auto) 0.0 10 3/uL 0.0-0.7 [facility] Immature Granulocyte # (Auto) 0.03 10 3/uL 0.00-0.03 [facility] Platelet mean volume Auto (B ld) [Entitic vol]on 10-23-2024 Platelet mean volume (Bld) [Entitic vol] Platelet mean volume [Entitic volume] in Blood by Automated count 9.5-13.5 [facility] Platelets Auto (Bld) [#/Vol] on 10-23-2024 Platelets (Bld) [#/Vol] Platelets [#/volume] in Blood by Automated count 150-450 [facility] RBC Auto (Bld) [#/Vol]on RBC (Bld) [#/Vol] Erythrocytes [#/volu me] in Blood by Automated count 4.70-6.10 [facility] Serum or plasma albumin/glob ulin mass ratioon 10-23-2024 Albumin/Globulin [Mass ratio] Serum or plasma albumin/globulin mass ratio [facility] Serum or plasma anion gap de terminationon 10-23-2024 Anion gap [Moles/Vol] Serum or plasma anion gap determination [facility] Influenza virus B Ag [Presen ce] in Upper respiratory specimen by Rapid immunoassayon 09-15-2024 FLUBV Ag IA.rapid Ql (Nph) Influenza virus B Ag [Presence] in Upper respiratory specimen by Rapid immunoassay [facility] No Panel Informationon 09-15 Influenza Type A (Rapid) Negative [facility] POC SARS CoV-2 Antigen Negative [facility] Cholesterol in LDL Calc [Mas s/Vol]on 11-13-2023 Cholesterol in LDL [Mass/Vol] 209.0 mg/dL [facility] Comment on above: <100 mg/dl [id number] 0-129 mg/dl NEAR OR ABOVE [id number] mg/dl BORDERLINE [id number] mg/dl HIGH>190 mg/dl VERY HIGH Cholesterol in VLDL Calc [Ma ss/Vol]on 11-13-2023 Cholesterol in VLDL [Mass/Vol] 22.4 mg/dL [facility] Laboratory - Chemistry and C hemistry - challengeon 11-13-2023 Cholesterol [Mass/Vol] 284 mg/dL <=200 [facility] Cholesterol in HDL [Mass/Vol] 53 mg/dL 40-60 [facility] Comment on above: > or =60 mg/dl - LOW CARDIOVASCULAR RISK<40 mg/dl - HIGH CARDIOVASCULAR RISK Triglyceride [Mass/Vol] 112 mg/dL <=150 [facility] No Panel Informationon 11-12 Prostate Specific Antigen Screen 1.00 ng/mL <=4.00 [facility] Serum or plasma total choles terol/high density lipoprotein (HDL) cholesterol mass mahamed 11-13-2023 Cholesterol.total/Ch olesterol in HDL [Mass ratio] 5.4 {ratio} [facility] Comment on above: 3.3 - 4.4 LOW RISK4. 4 - 7.1 AVERAGE RISK7.1 - 11.0 MODERATE RISK>11.0 HIGH RISK CARDIAC LONNIE ADMITon 023 CK [Catalytic activity/Vol] 57 U/L Normal 39-308 [facility] Comment on above: Performed By: #### C MADM, CMP #### [facility] [address] [address] [address] Sarthak Cleveland CK.MB [Mass/Vol] 0.54 ng/mL Normal <=3.60 [facility] Comment on above: Performed By: #### C MADM, CMP #### [facility] [address] [address] [address] Sarthak Cleveland HSTROP <4.0 Normal 4.0-76.1 [facility] Comment on above: Result Comment: CUT- OFF POINTS HAVE BEEN ESTABLISHED BASED ON THE FOURTH UNIVERSAL DEFINITIONS OF MYOCARDIAL INFARCTION. THE UPPER REFERENCE LIMIT (URL) OF TROPONIN, DEFINED THE 99TH PERCENTILE OF cTnI DISTRIBUTION IN A REFERENCE POPULATION, HAS BEEN CONFIRMED THE DECISION THRESHOLD FOR VT DIAGNOSIS. Performed By: #### C MADM, CMP #### [facility] [address] [address] [address] Sarthak Cleveland MAL 37 ng/mL Normal 16-96 [facility] Comment on above: Performed By: #### C MADM, CMP #### [facility] [address] [address] [address] Sarthak Cleveland CBC AUTO DIFFon 11-25-2022 BASO # 0.0 103/ul Normal 0.0-0.1 [facility] Comment on above: Performed By: #### B MP, LIPID, ALT #### [facility] [address] [address] [address] Sarthak Cleveland Basophils/100 WBC (Bld) 0.5 % Normal 0.2-2.0 [facility] Comment on above: Performed By: #### B MP, LIPID, ALT #### [facility] [address] [address] [address] Sarthak Cleveland EO # 0.3 103/ul Normal 0.0-0.7 [facility] Comment on above: Performed By: #### B MP, LIPID, ALT #### [facility] [address] [place] [address] Dr. Sarthak Cleveland Eosinophils/100 WBC (Bld) 3.0 % Normal 0.9-7.0 [facility] Comment on above: Performed By: #### B MP, LIPID, ALT #### [facility] [address] [place] [address] Dr. Sarthak Cleveland Erythrocyte distribution width (RBC) [Ratio] 12.4 % Normal 11.0-15.0 [facility] Comment on above: Performed By: #### B MP, LIPID, ALT #### [facility] [address] [place] [address] Dr. Sarthak Cleveland Hematocrit (Bld) [Volume fraction] 47.3 % Normal 42.0-54.0 [facility] Comment on above: Performed By: #### B MP, LIPID, ALT #### [facility] [address] [place] [address] Dr. Sarthak Cleveland Hemoglobin (Bld) [Mass/Vol] 15.9 g/dL Normal 14.0-18.0 [facility] Comment on above: Performed By: #### B MP, LIPID, ALT #### [facility] [address] [place] [address] Dr. Sarthak Cleveland IG # 0.04 10e3/ul Critically high 0.00-0.03 [facility] Comment on above: Performed By: #### B MP, LIPID, ALT #### [facility] [address] [place] [address] Dr. Sarthak Cleveland IG % 0.5 % Normal 0.0-0.5 [facility] Comment on above: Performed By: #### B MP, LIPID, ALT #### [facility] [address] [place] [address] Dr. Sarthak Cleveland LYMPH # 2.2 103/ul Normal 1.2-3.8 [facility] Comment on above: Performed By: #### B MP, LIPID, ALT #### [facility] [address] [place] [address] Dr. Sarthak Cleveland Lymphocytes/100 WBC (Bld) 26.6 % Normal 20.5-60.0 [facility] Comment on above: Performed By: #### B MP, LIPID, ALT #### [facility] [address] [place] [address] Dr. Sarthak Cleveland MANUAL DIFF REQ NO Normal [facility] Comment on above: Performed By: #### B MP, LIPID, ALT #### [facility] [address] [address] [address] Sarthak Cleveland MCH (RBC) [Entitic mass] 31.7 pg Normal 25.9-34.0 [facility] Comment on above: Performed By: #### B MP, LIPID, ALT #### [facility] [address] [place] [address] Dr. Sarthak Cleveland MCHC (RBC) [Mass/Vol] 33.6 g/dL Normal 29.9-35.2 [facility] Comment on above: Performed By: #### B MP, LIPID, ALT #### [facility] [address] [place] [address] Dr. Sarthak Cleveland MCV (RBC) [Entitic vol] 94.2 fL Critically high 80.0-94.0 [facility] Comment on above: Performed By: #### B MP, LIPID, ALT #### [facility] [address] [place] [address] Dr. Sarthak Cleveland MONO # 0.8 103/ul Normal 0.3-0.8 [facility] Comment on above: Performed By: #### B MP, LIPID, ALT #### [facility] [address] [place] [address] Dr. Sarthak Cleveland Monocytes/100 WBC (Bld) 9.7 % Normal 1.7-12.0 [facility] Comment on above: Performed By: #### B MP, LIPID, ALT #### [facility] [address] [place] [address] Dr. Sarthak Cleveland NEUT # 5.0 103/ul Normal 1.4-6.5 [facility] Comment on above: Performed By: #### B MP, LIPID, ALT #### [facility] [address] [address] [address] Sarthak Cleveland Neutrophils/100 WBC (Bld) 59.7 % Normal 43.0-75.0 [facility] Comment on above: Performed By: #### B MP, LIPID, ALT #### [facility] [address] [address] [address] Sarthak Cleveland Platelet mean volume (Bld) [Entitic vol] 11.0 fL Normal 9.5-13.5 [facility] Comment on above: Performed By: #### B MP, LIPID, ALT #### [facility] [address] [address] [address] Sarthak Cleveland PLT 241 103/ul Normal 150-450 [facility] Comment on above: Performed By: #### B MP, LIPID, ALT #### [facility] [address] [place] [address] Dr. Sarthak Cleveland RBC 5.02 106/ul Normal 4.70-6.10 [facility] Comment on above: Performed By: #### B MP, LIPID, ALT #### [facility] [address] [address] [address] Sarthak Cleveland WBC 8.4 103/ul Normal 4.0-11.0 [facility] Comment on above: Performed By: #### B MP, LIPID, ALT #### [facility] [address] [place] [address] Dr. Sarthak Cleveland PROF 14(COMP METB)on 023 Albumin [Mass/Vol] 3.8 g/dL Normal 3.4-5.0 [facility] Comment on above: Performed By: #### C MADM, CMP #### [facility] [address] [place] [address] Dr. Sarthak Cleveland Albumin/Globulin [Mass ratio] 0.9 {ratio} Normal [facility] Comment on above: Performed By: #### C MADM, CMP #### [facility] [address] [address] [address] Sarthak Cleveland ALP [Catalytic activity/Vol] 57 U/L Normal 46-116 [facility] Comment on above: Performed By: #### C MADM, CMP #### [facility] [address] [address] [address] Sarthak Cleveland ALT [Catalytic activity/Vol] 21 U/L Normal 16-63 [facility] Comment on above: Performed By: #### C MADM, CMP #### [facility] [address] [address] [address] Sarthak Cleveland Anion gap [Moles/Vol] 12.3 mmol/L Normal [facility] Comment on above: Performed By: #### C MADM, CMP #### [facility] [address] [address] [address] Sarthak Cleveland AST [Catalytic activity/Vol] 17 U/L Normal 15-37 [facility] Comment on above: Performed By: #### C MADM, CMP #### [facility] [address] [address] [address] Sarthak Cleveland Bilirubin [Mass/Vol] 0.3 mg/dL Normal 0.2-1.0 [facility] Comment on above: Performed By: #### C MADM, CMP #### [facility] [address] [address] [address] Sarthak Cleveland Calcium [Mass/Vol] 9.2 mg/dL Normal 8.5-10.1 [facility] Comment on above: Performed By: #### C MADM, CMP #### [facility] [address] [address] [address] Sarthak Cleveland Chloride [Moles/Vol] 103 mmol/L Normal 98-107 [facility] Comment on above: Performed By: #### C MADM, CMP #### [facility] [address] [address] [address] Sarthak Cleveland CO2 [Moles/Vol] 28.7 mmol/L Normal 21.0-32.0 [facility] Comment on above: Performed By: #### C MADM, CMP #### [facility] [address] [address] [address] Sarthak Cleveland Creatinine [Mass/Vol] 0.83 mg/dL Normal 0.70-1.30 [facility] Comment on above: Performed By: #### C MADM, CMP #### [facility] [address] [place] [address] Dr. Sarthak Cleveland EGFR-AF MAURITIAN >60 Normal >=60 [facility] Comment on above: Performed By: #### C MADM, CMP #### [facility] [address] [address] [address] Sarthak Cleveland EGFR-NON AF MAURITIAN >60 Normal >=60 [facility] Comment on above: Performed By: #### C MADM, CMP #### [facility] [address] [address] [address] Sarthak Cleveland Globulin (S) [Mass/Vol] 4.1 g/dL Normal [facility] Comment on above: Performed By: #### C MADM, CMP #### [facility] [address] [place] [address] Dr. Sarthak Cleveland Glucose [Mass/Vol] 89 mg/dL Normal 74-106 [facility] Comment on above: Performed By: #### C MADM, CMP #### [facility] [address] [place] [address] Dr. Sarthak Cleveland Potassium [Moles/Vol] 4.0 mmol/L Normal 3.5-5.1 [facility] Comment on above: Performed By: #### C MADM, CMP #### [facility] [address] [place] [address] Dr. Sarthak Cleveland Protein [Mass/Vol] 7.9 g/dL Normal 6.4-8.2 [facility] Comment on above: Performed By: #### C MADM, CMP #### [facility] [address] [place] [address] Dr. Sarthak Cleveland Sodium [Moles/Vol] 140 mmol/L Normal 136-145 [facility] Comment on above: Performed By: #### C MADM, CMP #### [facility] [address] [place] [address] Dr. Sarthak Cleveland Urea nitrogen [Mass/Vol] 12.0 mg/dL Normal 7.0-18.0 [facility] Comment on above: Performed By: #### C MADM, CMP #### [facility] [address] [address] [address] Sarthak Cleveland Urea nitrogen/Creatinine [Mass ratio] 14.5 mg/mg Normal [facility] Comment on above: Performed By: #### C MADM, CMP #### [facility] [address] [address] [address] Sarthak Cleveland TSHon 11-25-2022 TSH 1.919 uIU/mL Normal 0.358-3.740 [facility] Comment on above: Performed By: #### B MP, LIPID, ALT #### [facility] [address] [address] [address] SHOULDER LT WO [...] by: OLYA PEREYRA Date: 2022-05-27 19:58 Normal [facility] XR ARTHRO SHOULDER LTon 05-10 XR [...] OLYA PEREYRA Date: 2022-05-27 12:36 Normal [facility] CBC AUTO DIFFon 05-26-2022 BASO # 0.1 103/ul Normal 0.0-0.1 [facility] Comment on above: Performed By: #### B MP, LIPID, ALT #### [facility] [address] [address] [address] Sarthak Cleveland Basophils/100 WBC (Bld) 0.6 % Normal 0.2-2.0 [facility] Comment on above: Performed By: #### B MP, LIPID, ALT #### [facility] [address] [address] [address] Sarthak Cleveland EO # 0.2 103/ul Normal 0.0-0.7 [facility] [facility] Comment on above: Performed By: #### B MP, LIPID, ALT #### [facility] [address] [address] [address] Sarthak Cleveland Eosinophils/100 WBC (Bld) 2.4 % Normal 0.9-7.0 [facility] Comment on above: Performed By: #### B MP, LIPID, ALT #### [facility] [address] [address] [address] Sarthak Cleveland Erythrocyte distribution width (RBC) [Ratio] 12.6 % Normal 11.0-15.0 [facility] Comment on above: Performed By: #### B MP, LIPID, ALT #### [facility] [address] [address] [address] aSrthak Cleveland Hematocrit (Bld) [Volume fraction] 46.1 % Normal 42.0-54.0 [facility] Comment on above: Performed By: #### B MP, LIPID, ALT #### [facility] [address] [address] [address] Sarthak Cleveland Hemoglobin (Bld) [Mass/Vol] 15.0 g/dL Normal 14.0-18.0 [facility] Comment on above: Performed By: #### B MP, LIPID, ALT #### [facility] [address] [place] [address] Dr. Sarthak Cleveland IG # 0.07 10e3/ul Critically high 0.00-0.03 [facility] Comment on above: Performed By: #### B MP, LIPID, ALT #### [facility] [address] [place] [address] Dr. Sarthak Cleveland IG % 0.9 % Critically high 0.0-0.5 [facility] Comment on above: Performed By: #### B MP, LIPID, ALT #### [facility] [address] [place] [address] Dr. Sarthak Cleveland LYMPH # 1.9 103/ul Normal 1.2-3.8 [facility] Comment on above: Performed By: #### B MP, LIPID, ALT #### [facility] [address] [place] [address] Dr. Sarthak Cleveland Lymphocytes/100 WBC (Bld) 22.7 % Normal 20.5-60.0 [facility] Comment on above: Performed By: #### B MP, LIPID, ALT #### [facility] [address] [place] [address] Dr. Sarthak Cleveland MANUAL DIFF REQ NO Normal [facility] Comment on above: Performed By: #### B MP, LIPID, ALT #### [facility] [address] [place] [address] Dr. Sarthak Cleveland MCH (RBC) [Entitic mass] 31.6 pg Normal 25.9-34.0 [facility] Comment on above: Performed By: #### B MP, LIPID, ALT #### [facility] [address] [place] [address] Dr. Sarthak Cleveland MCHC (RBC) [Mass/Vol] 32.5 g/dL Normal 29.9-35.2 [facility] Comment on above: Performed By: #### B MP, LIPID, ALT #### [facility] [address] [place] [address] Dr. Sarthak Cleveland MCV (RBC) [Entitic vol] 97.1 fL Critically high 80.0-94.0 [facility] Comment on above: Performed By: #### B MP, LIPID, ALT #### [facility] [address] [place] [address] Dr. Sarthak Cleveland MONO # 1.0 103/ul Critically high 0.3-0.8 [facility] Comment on above: Performed By: #### B MP, LIPID, ALT #### [facility] [address] [place] [address] Dr. Sarthak Cleveland Monocytes/100 WBC (Bld) 11.8 % Normal 1.7-12.0 [facility] Comment on above: Performed By: #### B MP, LIPID, ALT #### [facility] [address] [place] [address] Dr. Sarthak Cleveland NEUT # 5.1 103/ul Normal 1.4-6.5 [facility] Comment on above: Performed By: #### B MP, LIPID, ALT #### [facility] [address] [place] [address] Dr. Sarthak Cleveland Neutrophils/100 WBC (Bld) 61.6 % Normal 43.0-75.0 [facility] Comment on above: Performed By: #### B MP, LIPID, ALT #### [facility] [address] [place] [address] Dr. Sarthak Cleveland Platelet mean volume (Bld) [Entitic vol] 10.4 fL Normal 9.5-13.5 [facility] Comment on above: Performed By: #### B MP, LIPID, ALT #### [facility] [address] [address] [address] Sarthak Cleveland PLT 243 103/ul Normal 150-450 [facility] Comment on above: Performed By: #### B MP, LIPID, ALT #### [facility] [address] [address] [address] Sarthak Cleveland RBC 4.75 106/ul Normal 4.70-6.10 [facility] Comment on above: Performed By: #### B MP, LIPID, ALT #### [facility] [address] [address] [address] Sarthak Cleveland WBC 8.2 103/ul Normal 4.0-11.0 [facility] Comment on above: Performed By: #### B MP, LIPID, ALT #### [facility] [address] [place] [address] Dr. Sarthak Cleveland LIPID PROFILEon 05-26-2022 CHOL-HDL RATIO NORM SEE BELOW Normal [facility] Comment on above: Result Comment: 3.3 - 4.4 LOW RISK 4.4 - 7.1 AVERAGE RISK 7.1 - 11.0 MODERATE RISK >11.0 HIGH RISK Performed By: #### B MP, LIPID, ALT #### [facility] [address] [place] [address] Dr. Sarthak Cleveland Cholesterol [Mass/Vol] 309 mg/dL Critically high <=200 [facility] Comment on above: Performed By: #### B MP, LIPID, ALT #### [facility] [address] [address] [address] Sarthak Cleveland Cholesterol in HDL [Mass/Vol] 46 mg/dL Normal 40-60 [facility] Comment on above: Performed By: #### B MP, LIPID, ALT #### [facility] [address] [place] [address] Dr. Sarthak Cleveland Cholesterol in LDL [Mass/Vol] 242.6 mg/dL Normal [facility] Comment on above: Performed By: #### B MP, LIPID, ALT #### [facility] [address] [place] [address] Dr. Sarthak Cleveland Cholesterol.total/Ch olesterol in HDL [Mass ratio] 6.7 {ratio} Normal [facility] Comment on above: Performed By: #### B MP, LIPID, ALT #### [facility] [address] [address] [address] Sarthak Cleveland HDL NORMAL > or = 60 mg/dl - LO W CARDIOVASCULAR RISK <40 mg/dl - HIGH CARDIOVASCULAR RISK Normal [facility] Comment on above: Performed By: #### B MP, LIPID, ALT #### [facility] [address] [address] [address] Sarthak Cleveland LDL CALC NORMAL SEE BELOW Normal [facility] Comment on above: Result Comment: <100 mg/dl OPTIMAL 100 - 129 mg/dl NEAR OR ABOVE OPTIMAL 130 - 159 mg/dl BORDERLINE HIGH 160 - 189 mg/dl HIGH >190 mg/dl VERY HIGH Performed By: #### B MP, LIPID, ALT #### [facility] [address] [address] [address] Sarthak Cleveland Triglyceride [Mass/Vol] 102 mg/dL Normal <=150 [facility] Comment on above: Performed By: #### B MP, LIPID, ALT #### [facility] [address] [place] [address] Dr. Sarthak Cleveland VLDL CALC 20.4 mg/dL Normal [facility] Comment on above: Performed By: #### B MP, LIPID, ALT #### [facility] [address] [address] [address] Sarthak Cleveland PROF CHEM 8 (BAS METB)on Anion gap [Moles/Vol] 11.6 mmol/L Normal [facility] Comment on above: Performed By: #### B MP, LIPID, ALT #### [facility] [address] [address] [address] Sarthak Cleveland Calcium [Mass/Vol] 8.7 mg/dL Normal 8.5-10.1 [facility] Comment on above: Performed By: #### B MP, LIPID, ALT #### [facility] [address] [address] [address] Sarthak Cleveland Chloride [Moles/Vol] 104 mmol/L Normal 98-107 [facility] Comment on above: Performed By: #### B MP, LIPID, ALT #### [facility] [address] [address] [address] Sarthak Cleveland CO2 [Moles/Vol] 28.7 mmol/L Normal 21.0-32.0 [facility] Comment on above: Performed By: #### B MP, LIPID, ALT #### [facility] [address] [address] [address] Sarthak Cleveland Creatinine [Mass/Vol] 0.84 mg/dL Normal 0.70-1.30 [facility] Comment on above: Performed By: #### B MP, LIPID, ALT #### [facility] [address] [place] [address] Dr. Sarthak Cleveland EGFR-AF MAURITIAN >60 Normal >=60 [facility] Comment on above: Performed By: #### B MP, LIPID, ALT #### [facility] [address] [address] [address] Sarthak Cleveland EGFR-NON AF MAURITIAN >60 Normal >=60 [facility] Comment on above: Performed By: #### B MP, LIPID, ALT #### [facility] [address] [address] [address] Sarthak Cleveland Glucose [Mass/Vol] 115 mg/dL Critically high 74-106 [facility] Comment on above: Performed By: #### B MP, LIPID, ALT #### [facility] [address] [address] [address] Sarthak Cleveland Potassium [Moles/Vol] 4.3 mmol/L Normal 3.5-5.1 [facility] Comment on above: Performed By: #### B MP, LIPID, ALT #### [facility] [address] [address] [address] Sarthak Cleveland Sodium [Moles/Vol] 140 mmol/L Normal 136-145 [facility] Comment on above: Performed By: #### B MP, LIPID, ALT #### [facility] [address] [address] [address] Sarthak Cleveland Urea nitrogen [Mass/Vol] 9.0 mg/dL Normal 7.0-18.0 [facility] Comment on above: Performed By: #### B MP, LIPID, ALT #### [facility] [address] [address] [address] Sarthak Cleveland Urea nitrogen/Creatinine [Mass ratio] 10.7 mg/mg Normal [facility] Comment on above: Performed By: #### B MP, LIPID, ALT #### [facility] [address] [address] [address] Sarthak Cleveland SGPTon 05-26-2022 ALT [Catalytic activity/Vol] 20 U/L Normal 16-63 [facility] Comment on above: Performed By: #### B MP, LIPID, ALT #### [facility] [address] [place] [address] Dr. Sarthak Cleveland Covid-19 PCR (CVDTB)on 04-11 SARS-CoV-2 (COVID-19) RNA LILIANA+probe Ql (Unsp spec) Not detected Normal NOT DETECTED [facility] Comment on above: Result Comment: This test is not yet approved or cleared by the [place] FDA. When there are no FDA-approved or cleared tests available, and other criteria are met, FDA can make tests available under an emergency access mechanism called an Emergency Use Authorization (EUA). The EUA for this test is supported by the [place] of Health and Human Service's (HHS's) declaration [...] SARS-CoV-2. Performed By: #### C VDTBH #### [facility] [address] [place] [address] Dr. Sarthak Cleveland RAD - MISCon 03-24-2022 RAD - MISC [id number] D:127 Normal [facility] Ambulatory Visit Summaryon 0 03-21-2022 Ambulatory Visit Summary DON NATION :1955 Visit Date:03/21/2022 Ambulatory Visit Instructions Your Diagnosis BPH without urinary obstruction Kidney stone Tests Performed Urnls Dip Stick Auto w/o Microscopy POC 69721 Your Care Team Attending Physician - Salomon [...] 3 months Comments: f/up new med Where: [address] [place] [address]- Medications What How Much When Instructions New alfuzosin (alfuzosin 10 mg ER Tab) 1 Tablets By Mouth Every day Refills: 11 Pickup at [facility]/pharmacy #[id number] Unchanged hydrochlorothiazide (hydrochlorothiazide 12.5 mg Cap) 1 [...] concerns Pharmacy Information [id number]: [address], [place] [id number] [phone] Test Results Urnls Dip Stick Auto w/o Microscopy POC 66648 (03/21/2022) Bilirubin Urine Dipstick - Negative Blood Urine Dipstick - Negative Glucose Urine Dipstick - Negative Ketones Urine Dipstick - Negative Leukocytes Urine Dipstick - Negative Nitrite Urine Dipstick - Negative Protein Urine Dipstick - Negative Specific [place] Urine Dipstick - 1.010 Urine Appearance Urine [...] is this (more content not included)... Normal [facility] Patient Educationon 03-21-20 Patient Education [...] Follow these instructions at home: ? Take obza-aev-kmuqnji and prescription medicines only as told by [...] You d (more content not included)... Normal [facility] Screenson 03-21-2022 Screens [id number] D:127 Normal [facility] Urology Office/Clinic Noteon 03-21-2022 Urology Office/Clinic Note Chief Complaint 10 month follow up with KUB HPI Staff Don is here today for a a 10 month follow up with KUB. KUB done on 03/20/22 at [facility] impression showed small scattered stable bilateral [...] stopped and the office notified. [facility] [place]. All questions/concerns were discussed. Pt. to call [...] Salomon PITTS MD, URL In 3 months [facility] [place][note 2]0 [place] [address]- Additional Instructions: f/up new med Patient Education [...] Vicodin (Naus (more content not included)... Normal [facility] Comment on above: Result Comment: [...] by: GLORIA JETT Date: 2022-03-20 18:33 Normal [facility] Vital Signs Date Time Vital Sign Value Performing Clinician Facility 10-26-2024 09:56-0400 Body height 175.[address] [facility] 10-26-2024 09:56-0400 Body mass index (BMI) [Ratio] 25 kg/m2 [facility] 10-26-2024 09:56-0400 Body weight 76.[address] [facility] 10-26-2024 09:56-0400 Diastolic blood pressure 70 mm[Hg] [facility] 10-26-2024 09:56-0400 Heart rate 64 /min [facility] 10-26-2024 09:56-0400 Respiratory rate 12 /min [facility] 10-26-2024 09:56-0400 Systolic blood pressure 113 mm[Hg] [facility] 09-15-2024 09:30-0500 Body height 175.[address] [facility] 09-15-2024 09:30-0500 Body mass index (BMI) [Ratio] 25.4 kg/m2 [facility] 09-15-2024 09:30-0500 Body weight 78.[address] [facility] 09-15-2024 09:30-0500 Diastolic blood pressure 72 mm[Hg] [facility] 09-15-2024 09:30-0500 Heart rate 62 /min [facility] 09-15-2024 09:30-0500 SaO2% (BldA) [Mass fraction] 95 % [facility] 09-15-2024 09:30-0500 Systolic blood pressure 124 mm[Hg] [facility] 05-31-2024 08:33-0400 Body height 175.[address] [facility] 05-31-2024 08:33-0400 Body mass index (BMI) [Ratio] 24.7 kg/m2 [facility] 05-31-2024 08:33-0400 Body weight 75.[address] [facility] 05-31-2024 08:33-0400 Diastolic blood pressure 79 mm[Hg] [facility] 05-31-2024 08:33-0400 Heart rate 56 /min [facility] 05-31-2024 08:33-0400 Respiratory rate 12 /min [facility] 05-31-2024 08:33-0400 Systolic blood pressure 133 mm[Hg] [facility] 11-17-2023 14:10-0400 Body height 175.[address] [facility] 11-17-2023 14:10-0400 Body mass index (BMI) [Ratio] 25.5 kg/m2 [facility] 11-17-2023 14:10-0400 Body weight 78.[address] [facility] 11-17-2023 14:10-0400 Diastolic blood pressure 75 mm[Hg] [facility] 11-17-2023 14:10-0400 Heart rate 61 /min [facility] 11-17-2023 14:10-0400 Respiratory rate 12 /min [facility] 11-17-2023 14:10-0400 Systolic blood pressure 145 mm[Hg] [facility] 05-25-2023 10:00-0400 Body height 175.26 cm Tao Ball Other [employer] [facility] [employer] Other 05-25-2023 10:00-0400 Body mass index (BMI) [Ratio] 25.6 kg/m2 Tao Ball Other [facility] [employer] Other 05-25-2023 10:00-0400 Body weight 78.65 kg Tao Ball Other [facility] [employer] Other 05-25-2023 10:00-0400 Diastolic blood pressure 76 mm[Hg] Tao Ball Other [employer] Other 05-25-2023 10:00-0400 Respiratory rate 12 /min Tao Ball Other [employer] Other 05-25-2023 10:00-0400 Systolic blood pressure 120 mm[Hg] Tao Ball Other [employer] Other 11-28-2022 11:00-0400 Body height 175.26 cm Tao Ball Other [employer] Other 11-28-2022 11:00-0400 Body mass index (BMI) [Ratio] 24.36 kg/m2 Tao Ball Other [employer] Other 11-28-2022 11:00-0400 Body weight 74.84 kg Tao Ball Other [employer] Other 11-28-2022 11:00-0400 Diastolic blood pressure 76 mm[Hg] Tao Ball Other [employer] Other 11-28-2022 11:00-0400 Respiratory rate 12 /min Tao Ball Other [employer] Other 11-28-2022 11:00-0400 Systolic blood pressure 122 mm[Hg] Tao Ball Other [employer] Other 09-16-2022 15:15-0500 Body height 175.26 cm Tao Ball Other [employer] Other 09-16-2022 15:15-0500 Body mass index (BMI) [Ratio] 24.45 kg/m2 Tao Ball Other [employer] Other 09-16-2022 15:15-0500 Body weight 75.12 kg Tao Ball Other [employer] Other 09-16-2022 15:15-0500 Diastolic blood pressure 70 mm[Hg] Tao Martines Other [employer] Other 09-16-2022 15:15-0500 Respiratory rate 12 /min Tao Martines Other [employer] Other 09-16-2022 15:15-0500 Systolic blood pressure 118 mm[Hg] Tao Martines Other [employer] Other 03-21-2022 09:54-0400 Blood Pressure Location Salomon PITTS [facility] 03-21-2022 09:54-0400 Diastolic blood pressure 83 mm[Hg] Salomon PITTS [facility] 03-21-2022 09:54-0400 Heart rate 79 /min Salomon PITTS [facility] 03-21-2022 09:54-0400 Respiratory rate 16 /min Salomon PITTS [facility] 03-21-2022 09:54-0400 Systolic blood pressure 137 mm[Hg] Salomon PITTS [facility] Encounters Encounter Date Encounter Type Care Provider Facility Start: 10-26-2024 End: 10-26-2024 ambulatory [facility] Work Phone: Start: 10-26-2024 End: 10-26-2024 Patient encounter procedure [facility] Work Phone: Start: 10-24-2024 Non-patient / Non-visit [facility]ician [facility] Work Phone: Start: 10-23-2024 Non-patient / Non-visit [facility]ician [facility] Work Phone: Start: 09-15-2024 End: 09-15-2024 ambulatory [facility] Work Phone: Start: 09-15-2024 End: 09-15-2024 Patient encounter procedure [facility] Work Phone: Start: 05-31-2024 End: 05-31-2024 ambulatory [facility] Work Phone: Start: 05-31-2024 End: 05-31-2024 Patient encounter procedure [facility] Work Phone: Start: 05-27-2024 Patient encounter procedure [facility] Start: 05-23-2024 End: 05-23-2024 ambulatory Belgica Cano MD Facility:[facility] Start: 11-17-2023 End: 11-17-2023 ambulatory [facility] Work Phone: Start: 11-17-2023 End: 11-17-2023 Patient encounter procedure [facility]ician [facility] Work Phone: Start: 11-13-2023 Non-patient / Non-visit [facility] Phys[facility] Work Phone: Start: 07-14-2023 End: 07-14-2023 ambulatory Tao Martines Other [employer] Other Start: 07-14-2023 Office outpatient vi sit 15 minutes Tao Martines [facility] Start: 05-28-2023 End: 05-28-2023 ambulatory Tao Martines Other [employer] Other Start: 05-28-2023 Telephone encounter Tao Martines [facility] Start: 05-25-2023 End: 05-25-2023 ambulatory Tao Martines Other [employer] Other Start: 05-25-2023 Patient encounter procedure Tao Martines [facility] Start: 05-04-2023 End: 05-04-2023 ambulatory Tao Martines Other [employer] Other Start: 05-04-2023 Telephone encounter Tao Martines FP [facility] Start: 12-09-2022 End: 01-07-[address] TAO MARTINES Facility:[facility] Start: 11-28-2022 End: 11-28-2022 ambulatory Tao Martines Other [employer] Other Start: 11-28-2022 Office outpatient vi sit 25 minutes Tao Martines [facility] Start: 11-25-2022 End: 11-26-[address] TAO MARTINES Facility:[facility] Start: 09-16-2022 End: 09-16-2022 ambulatory Tao Martines Other [employer] Other Start: 09-16-2022 Office outpatient vi sit 15 minutes Tao Martines [facility] Start: 08-10-2022 End: 11-08-[address] [...] Adult health examination Eliezer karyn Martines Other [employer] Other Start: 05-06-2022 Encounter for preprocedural laboratory examination DR KIM LARA . [facility] Start: 05-06-2022 End: 05-06-[address] KIM LARA . Facility:[facility] Start: 05-02-2022 End: 05-03-[address] KIM LARA . Facility:[facility] Start: 05-02-2022 End: 05-03-2022 Encounter for preprocedural laboratory examination DR KIM LARA . Facility:[facility] Start: 03-21-2022 End: 03-22-2022 ambulatory MD Salomon PITTS Facility:[facility] Start: 03-21-2022 End: 03-21-2022 Patient encounter procedure Salomon PITTS [facility] Start: 03-20-2022 End: 03-21-[address] SALOMON PITTS . Facility:[facility] Start: 03-14-[address] KIM LARA . Faci lity:[facility] Start: 02-18-2022 End: 02-19-[address] KIM LARA . Facility:[facility] Start: 05-14-2020 End: 05-14-2020 Preoperative cardiovascular examination Tao Martines Other [facility] [employer] Other Procedures Date Procedure Procedure Detail Performing Clinician Start: 05-26-[address] ZACH TYSON Comment on above: Performed By: #### B MP, LIPID, ALT #### [facility] [address] [place] [address] Dr. Sarthak Cleveland Start: 02-23-2020 Fluoroscopy guided [...] lic 2000 panel - Serum or Plasma [facility] Immunizations Immunization Date Immunization Notes Care Provider Shannan meier 05-31-2024 influenza, high dose seasonal, preservative-free [facility] 06-02-2023 Prevnar 20 Tao Martines Other [facility] 05-25-2023 influenza virus vaccine, unspecified formulation [facility] 05-25-2023 influenza, high dose seasonal, preservative-free Tao Martines Other [facility] [employer] Other 05-22-2022 influenza virus vaccine, split virus (incl. purified surface antigen) Tao Martines Other [facility] [employer] Other 05-22-2022 influenza virus vaccine, unspecified formulation [facility] 05-21-2021 influenza virus vaccine, split virus (incl. purified surface antigen) Tao aMrtines Other [facility] [employer] Other 05-21-2021 influenza virus vaccine, unspecified formulation [facility] Payers Date Payer Category Payer Medicare 1959 Medicare [id number] 1959 Unknown [id number] 1959 Unknown [id number] 2.16 .840.1.129180.19 1955 Unknown [id number] 2.16.840.1.919180.3.579.2.727 1955 Unknown [id number] 2.16.840.1.927868.3.579.2.727 1955 Unknown [id number] 2.16.840.1.544965.3.579.2.593 1955 Unknown [id number] 2.16.840.1.056392.3.579.2.593 1955 Unknown [id number] 2.16.840.1.989783.3.579.2.593 1955 Unknown [id number] 2.16.840.1.969765.3.579.2.593 1955 Unknown [id number] 2.16.840.1.206832.3.579.2.593 1955 Unknown [id number] 2.16.840.1.513887.3.579.2.593 1955 Unknown [id number] 2.16.840.1.831857.3.579.2.593 1955 Unknown [id number] 2.16.840.1.279178.3.579.2.593 1955 Unknown [id number] 2.16.840.1.803463.3.579.2.593 1955 Unknown [id number] 2.16.840.1.974199.3.579.2.593 1955 Unknown [id number] 2.16.840.1.790776.3.579.2.593 1955 Unknown [id number] 2.16.840.1.950127.3.579.2.593 1955 Unknown [id number] 2.16.840.1.942641.3.579.2.593 1955 Unknown [id number] 2.16.840.1.451367.3.579.2.196 Medicare [facility] DEGWGF [id number] Self-pay Self Pay [id number] Unknown [facility] [id number] Social History Date Type Detail Facility Start: 03-21-2022 End: 08-04-2023 Tobacco smoking status Never smoked tobacco (finding) [facility] Sex Assigned At Male [facility] Start: 1955 Sex Assigned At Male [facility] Start: 09-15-2024 End: 10-26-2024 Sex Male (finding) [facility] Functional Status Date Assessment Result Facility 03-21-2022 Functional Status N/A [facility] Clinical Notes 02-18-2022 to 09-15-2024 Note Date & Type Note Facility 09-15-2024 Evaluation note Diagnosis Onset Date Resolution Primary hypertension acute Febr ua2024 9:25am Cough noneactive September 15, 2024 9:25am Acute bronchitis due to other specified organisms noneactive September 15 9:25am [facility] Work Phone: [phone] 480-386512-05-2023 Evaluation note* Encounter Date Diagnosis Assessment Notes [...] continue exercise to achieve/maintain a normal BMI. [employer] Other 10-19-2023 Evaluation note* Encounter Date Diagnosis Assessment Notes Treatment Notes Treatment Clinical Notes May, Elevated cholesterol (ICD-10 - E78.00) [facility] Other 10-16-2023 Evaluation note* Encounter Date Diagnosis [...] (ICD-10 - Z12.5) yearly ANNELIESE and PSA [facility] Other 04-21-2023 Evaluation note* Encounter Date Diagnosis [...] for increased CP, dyspnea, palpitations or lightheadedness [facility] Other 02-07-2023 Evaluation note* Encounter Date Diagnosis [...] continue exercise to achieve/maintain a normal BMI. [facility] [employer] [facility] Other 10-13-2022 NoteCONSULTATION CONSULTATION DATE: 05/22/2022 This [...] of care and all questions were answered.[id number] Discharge instructions Patient Education 03/21/2022 10:30:52 [...] urethra. Follow these instructions at home: Take imxr-gvn-fkldyha and prescription medicines only as told by [...] 07/27/2006 Document Revised: 06/21/2019 Document Reviewed: 08/31/2017 [employer] Patient Education [employer]. Follow Up Care 05/20/2021 16:25:31 With:KELBY PULIDO, Salomon West, URL Address: [address] [place] [address]- When:Within 3 Month(s) Comments:f/up [facility] 07-12-2022 NoteCONSULTATION PROCEDURE DATE: 02/18/2022 PREOPERATIVE DIAGNOSIS: [...] his pain symptomatology and range of motion. [facility] Signed and Approved by: DR KIM LARA . 02/25/2022 09:28:00[facility]07-12-2022 NoteCONSULTATION CONSULTATION DATE: 02/18/2022 CHIEF COMPLAINT: [...] The patient states he is close to long-term and does not wish to see an [...] like to proceed. CC: Tao Martines D.O. [facility] Signed and Approved by: DR KIM LARA . [facility]/25/2022 [facility] Future App[facility]ments Appointment Date:07/11/2022 08:00:00 AM Scheduled Provider:Salomon PITTS MD Location:[facility] Appointment Type:URO Office Visit [facility] evaluation noteNo [employer] Other Evaluation note* Diagnosis Onset Date Resolution Status Benign prostatic hyperplasia with lower urinary tract symptoms acute Gastroesophageal reflux dise ase with esophagitis without hemorrhage acute IFG (impaired fasting glucose) acute Primary hypertension acute [facility] Work Phone: Evaluation note* Diagnosis Onset Date Resolution Status Benign prostatic hyperplasia with lower urinary tract symptoms acute Gastroesophageal reflux dise ase with esophagitis without hemorrhage acute H/O colonoscopy acute Hypercholesterolemia acute IFG (impaired fasting glucose) acute Medicare annual wellness visit, subsequent acute Primary hypertension acute Screening for colon cancer a cute Screening PSA (prostate specific antigen) acute [facility] Work Phone: Evaluation note* Diagnosis Onset Date Resolution Status Admit Date Primary hypertension acute Febr ua2024 9:25am Cough noneactive September 15, 2024 9:25am Acute bronchitis due to other specified organisms noneactive ua 2024 9:25am [facility] Work Phone: History general Narrative [...] 202 0 Hospitalization History SEE SURGICAL HX [place] [employer] Other Hospital course Narrative No data available for this section [facility] progress note No data available for this section [facility] Summary Purpose Family History Relationship Condition [...] section and content) DATE CREATED AUTHOR 07/09/2022 [facility] DATE CREATED AUTHOR AUTHOR'S ORGANIZ ATION 01/16/2023 [facility] DATE CREATED AUTHOR AUTHOR'S ORGANIZ ATION 06/08/2024 [facility] REASON FOR VISIT (unrecogniz ed section and content) Not Sleeping WellTBHNo Infor [facility] resultsCOVID [phone] Goals (unrecognized section and content) Goals may [...] BE BASED ON THE PRIMARY CLINICAL RECORDS. [facility] [employer] [facility]. provides no warranty or guarantee of the accuracy or completeness of information in this document.
--- NOTE | 2025-01-26 14:11 | PM.CN ---
Consult Note: HPI Data of Consult Patient: known to practice within the last 3 years Requesting Physician: Priya Sky NP Primary Care Provider: Tao Martines, DO Consult Narrative Reason for consult: low back, SIJ pain Narrative: Go Martinez a pleasant 69 year old male with longstanding low back pain post L4-5 L5-S1 fusion, historically has had significant improvement with caudal ESIs and bilateral SIJ injections with >50% improvement greater than 3 months. Patient failed tylenol and motrin, as well as topical lidocaine. no falls since last visit. has engaged in HEP greater than 6 weeks without benefit. recently underwent bilateral SIJ injection with >80% improvement ongoing. notes pain 0/10 minimal with lifting and activity. cc:: CC: Priya Sky NP Review of Systems ROS Musculoskeletal Reports: back pain and joint pain; Denies: extremity pain PFSH PFSH Social History Smoking status: Never smoker Little interest or pleasure in doing things: not at all Feeling down, depressed, or hopeless: not at all Meds Home Medications and Allergies Home Medications ?Medication ?Instructions ?Recorded ?Confirmed ?Type atenolol 25 mg tablet 25 mg PO Q12H 08/04/23 01/16/25 History benazepril 20 mg tablet 20 mg PO DAILY 08/04/23 01/16/25 History omeprazole 40 mg capsule,delayed 40 mg PO DAILY 08/04/23 01/16/25 History release ondansetron 4 mg disintegrating 4 mg PO Q8H PRN nausea and 10/23/24 01/16/25 Rx tablet vomiting 3 days #10 tabs diazepam 10 mg tablet mg 01/16/25 History Allergies Allergy/AdvReac Type Severity Reaction Status Date / Time acetaminophen (From Vicodin) AdvReac Severe Vomiting Verified 01/16/25 09:58 codeine AdvReac Severe Vomiting Verified 01/16/25 09:58 hydrocodone (From Vicodin) AdvReac Severe Vomiting Verified 01/16/25 09:58 Exam Narrative Exam Narrative: diffuse intermittent joint pain of bilateral thumbs, knees, wrists Constitutional Documenting provider has reviewed patient's vital signs: yes Common normals: no apparent distress, oriented x3, healthy appearing, alert and well nourished General appearance: cooperative HENMT Common normals: normocephalic, hearing grossly normal bilaterally and moist oral mucous membranes Head and scalp: normocephalic Eye Common normals: PERRL Pupil: PERRL Neck & C-Spine Common normals: full ROM General: normal visual inspection Chest Common normals: inspection of chest normal Respiratory Common normals: normal respiratory effort, no retractions and no use of accessory muscles Back & Pelvis Lumbar spine/lower back: ROM not limited, no pain with ROM and no lumbar spinal tenderness (positive facet loading, right > left) Sacroiliac joints: SI joints normal Other: negative bilateral letty(patricks), gaenslens, thigh thrust, compression test strength 5/5 in BLE Extremity Common normals: normal to inspection and full ROM Neuro Common normals: oriented x3 Sensorium/orientation: alert Motor exam: strength 5/5 throughout and no movement abnormalities noted Psych Common normals: mental status grossly normal, thought process normal, cooperative, affect normal, speech normal and activity/motor behavior normal Speech: normal speech Thought process: normal thought process Results Additional Findings Additional findings: If on a controlled substance or opioids, I have checked an [place]AR[place] report on this patient and there are no aberrancies noted in the prescribing history.??If on a controlled substance or opioid a drug screen was completed and reviewed within the last year, and if there has not been a drug screen completed we ordered one today to monitor higher risk, state monitored pain medication use. As part of providing excellent, safe, comprehensive care, the following was completed at our patient's visit: 1. A medication reconciliation and review to ensure accurate knowledge of current/active medications, including asking our patients to inform us about any etrt-rrh-thqkvid medications or herbal remedies/nutritional supplements/alternative remedies. 2. A review to specifically ensure our patients have had annual screening for screening for depression, screening for tobacco use, and screening for unhealthy alcohol use. For concerning screenings had a discussion with the patient, provided patient education, and recommended follow-up with primary care provider when appropriate. If patient noted with a risk of falling, they received education on strength, gait, and balance training to prevent future risk of falling. Portions of this note may have been carried over from the previous visit and updated as appropriate. Please note this office utilizes paper charting in addition to the electronic medical record. A list of current medications, vitals, and PMH is available there as the clinical staff outside of myself do not have access to [employer] charting during the clinic day operations. As part of providing quality comprehensive care the current medications, vitals, and PMH were reviewed in the paper chart. Assessment and Plan Assessment and Plan (1) Sacroiliitis: Assessment and Plan: The patient has had over 3 months of moderate to severe low back and bilateral SIJ pain with functional impairment and inadequate response to conservative care including NSAIDS (unless there are contraindication such as concurrent blood thinners), multiple oral or topical pain medications, and home exercise program/physical therapy.? Patient has completed >6 weeks of guided home exercise program and/or formal physical therapy program without relief of their symptoms.? I have reviewed the imaging of the lumbar spine and no red flags were identified.? The Oswestry Disability Index was completed, and the patient scored a 2%.?prior 48% 01/16/25 bilateral SIJ injection >80% improvement ongoing (2) Sacroiliac joint dysfunction: (3) Lumbar radiculopathy: (4) Failed back syndrome: (5) Polyarthralgia: Plan continue transdermal cream 8a TID for diffuse joint pain including thumbs, wrists, knees continue HEP as tolerated f/u 3 months, sooner if needed
--- OUTSIDE RECORDS SUMMARY | 2025-02-01 09:06 | XMS_ITS | Encounter Summary ---
Author Organization [facility] Address [address] [facility] [place] [address] Care Team Providers Care Production Bow Maker Name Role Phone Tao Martines DO Primary Care Provider [phone] Encounter Details Date Type Department Care Team (Late st Contact Info) Description 01/01/2023 Abstract [facility] [address] [facility] [address] [place] [address] Faustino Reyes PA [address] [facility] [address] [place] [address] Social History Tobacco Use Types Packs/Day Years [...] on filedocumented in this encounter Care Teams Production Bow Maker Relationship Specialty Start Date End Date Tao Martines DO PCP - General Internal Medicine 01/01/23 documented as of this encounter
--- OUTSIDE RECORDS SUMMARY | 2025-02-01 09:06 | XMS_ITS | Clinical Summary ---
Author Organization [facility] Address [address] [place] [address] Care Team Providers Care Charge Rn Name Role Phone Tao Martines DO Primary Care Provider [phone] Allergies Active Allergy Reactions Criticality Noted Date [...] (Season Ended) 2025 05/22/20, 06/02/2020 Insurance [place]IC[place] [facility] [place] [place] Care Teams Charge Rn Relationship Specialty Start Date End Date Tao Martines DO PCP - General Internal Medicine 01/01/23
--- OUTSIDE RECORDS SUMMARY | 2025-02-01 09:06 | XMS_ITS | Clinical Summary ---
Author Organization [facility] Address [address] [place] [address] Phone Care Team Providers Care Machine Crater Name Role Phone Unavailable Primary Care Provider [...]
== END 2025-01-26 23:59 | disposition home or self-care (01) ==
LOC: PM 02-01 09:05
PROVIDERS: PCP Internal Medicine; Visit Provider Nurse Practitioner
DX: M46.1 Sacroiliitis, not elsewhere classified (principal); M53.3 Sacrococcygeal disorders, not elsewhere classified; M54.16 Radiculopathy, lumbar region; M96.1 Postlaminectomy syndrome, not elsewhere classified; M25.50 Pain in unspecified joint
CPT/HCPCS: G0463

== ENCOUNTER 2025-04-26 07:58 | Outpatient (OUT) | payer MEDICARE, SELFPAY ==
--- OUTSIDE RECORDS SUMMARY | 2025-04-26 08:01 | XMS_ITS | Encounter Summary ---
Author Organization [facility] Address [address] [place] [address] Care Team Providers Care Client Delivery Specialist Name Role Phone Tao Martines DO Primary Care Provider [phone] Encounter Details Date Type Department Care Team (Late st Contact Info) Description 01/01/2023 Abstract [facility] [address] [place] [address] Faustino Reyes, ASA [address] [place] [address] Social History Tobacco Use Types Packs/Day Years [...] on filedocumented in this encounter Care Teams Client Delivery Specialist Relationship Specialty Start Date End Date Tao Martines DO PCP - General Internal Medicine 01/01/23 documented as of this encounter
--- OUTSIDE RECORDS SUMMARY | 2025-04-26 08:01 | XMS_ITS | Clinical Summary ---
Author Organization [facility] Address [address] [place] [address] Phone Care Team Providers Care Event Organizer Name Role Phone Unavailable Primary Care Provider [...]
--- OUTSIDE RECORDS SUMMARY | 2025-04-26 08:03 | XMS_ITS | CCD ---
Author Organization [facility] Team Providers Care Case Management Assistant Name Role Phone TAO MARTINES Primary Care Physician [phone] MD Salomon PITTS Attending Unavailable MD Salomon PITTS Attending Unavailable Conrad, Tao Unavailable MARBELLA, DR SERRANO Admitting Unavailable STEPANIC, DR SERRANO Consulting Unavailable STEPANIC, DR SERRANO Attending Unavailable BALL, DR LICEA Primary Care Unavailable ZIEBER, DR OLYA West Consulting Unavailable LARA ., DR KIM Campbell Attending Unavailable LARA ., DR KIM Campbell Admitting Unavailable GARCIA ., LIZETT Consulting Unavailable CONRAD, DR LICEA Primary Care Unavailable LARA ., DR IKM Campbell Admitting Unavailable LARA ., DR KIM [...] LARA ., DR KIM Campbell Attending Unavailable JANE ., DR KIM Campbell Admitting Unavailable CONRAD, DR LICEA Primary Care Unavailable JANE ., DR KIM Campbell Admitting Unavailable JANE ., DR KIM Campbell Attending Unavailable CONRAD, DR LICEA Primary Care Unavailable Rachael PULIDO, Belg[place] Campos Attending Unavailable Rachael PULIDO, Belg[place] Campos Attending Unavailable Allergies Allergy Classification Reported Allergen(s) Allergy Type Date of Onset Reaction(s) Facility (5 sources) Acetaminophen / HYDROcodone; Translations: [acetaminophen-hy drocodone] Drug Allergy Nausea (finding) [facility] (10 sources) Codeine; Translations: [codeine] Drug Allergy 08-29-19 15 Nausea (finding) [facility] (6 sources) Codeine Drug Allergy Unknown [facility] Other (6 sources) HMG-CoA reductase inhibitor Drug allergy Unknown [facility] Other (2 sources) Acetaminophen / HYDROcodone Drug Allergy 12-28-19 13 [facility] (2 sources) Codeine Drug Allergy 12-21-19 13 [facility] (4 sources) Vicodin *ANALGESICS - OPIOID* Propensity to adverse reactions 08-29-19 15 Unknown [facility] Other (1 source) patient allergy list reviewed by nurse or physicia Propensity to adverse reactions 06-08-20 17 Comment:Done [facility] Other (4 sources) Acetaminophen Drug Allergy 11-14-[address] [facility] Comment on above: Onset Date: 08/29/19 15 (4 sources) HYDROcodone Drug Allergy 08-04-[address] [facility] Comment on above: Onset Date: 08/29/19 15 (4 sources) Oobmjpo-GMS-DbG Reductase Inhibitor Allergy to substance 11-14-[address] [facility] Medications Current Medications Medication Drug Class(es) Dates Sig (Normalized) Sig (Original) 24 hr alfuzosin hydrochloride 10 mg extended release oral tablet (1 source) alpha-Adrenergic Melissa Start: 03-21-2022 take 1 tablet by mouth once daily alfuzosin 10 mg ER Tab 10 mg = 1 tab(s), Oral, Daily, # 30 tab(s), Refills(s) 11, Pharmacy: [facility]/pharmacy #[id number], 175, cm, 03/21/22 9:55:00 EDT, [...] Daily, # 90 cap(s), Refills(s) 3, Pharmacy: [facility]/pharmacy #[id number], 175, cm, 05/20/21 15:07:00 EDT, Height/Length Dosing, 74, kg, 05/20/21 15:07:00 EDT, Weight Dosing Start Date: 02/17/22 Status: Ordered hyoscyamine sulfate 0.125 mg sublingual tablet (1 source) Start: 10-26-2024 Hyoscyamine Sulfate 0.125 mg tablet, sublingual Active 0.125 MG SUBLINGUAL 2-4 TIMES PER DAY as needed for dyspepsia 7 October 26, 2024 12:00am [place] 9-Zmt-Jle-Fish Oil (Ultra [place]-3) 200-300-1,000 mg capsule (2 sources) Start: 09-15-2024 [place] 3-Kbp-Xjr-Fish Oil (Ultra [place]-3) 200-300-1,000 mg capsule Active CAP PO September 15, 2024 1:00am Start: 09-15-2024 [place] 3-Dha-Ep a-Fish Oil (Ultra [place]-3) 200-300-1,000 mg capsule Active CAP PO September [...] for 90 day(s), 360 tab(s), Refill(s) 3, [facility]/pharmacy #[id number], 175, cm, 05/20/21 15:07:00 EDT, [...] MG PO Q6H as needed for pain 29 08January 11, 2020 12:00am November 14, 2023 9:56am [...] 16, 2018 11:00pm January 06, 2020 9:30am [place] 5-Jbm-Unc-Fish Oil (Fi sh Oil) 1,000 mg (120 mg-180 mg) Capsule (4 sources) Start: 05-17-2018 End: 11-14-2023 [place] 3-Wut-Hup-Fish Oil (Fi sh Oil) 1,000 mg (120 mg-180 mg) Capsule Discontinued 3000 MG PO Daily May 16, 2018 11:00pm November 14, 2023 8:57am Start: 05-17-2018 End: 11-14-2023 [place] 7-Ktb-Jxg-Fish Oil (Fi sh Oil) 1,000 mg (120 [...] pain Episodic Other aftercare (2 sources) Other intermediate (current) drug therapy; Translations: [OTH RETIREMENT CURRENT DRUG THERAPY] Onset: 3 Episodic Other aftercare (1 source) Long-term current use of drug therapy; Translations: [Other processing tech (current) drug therapy] Episodic Other connective tissue [...] Basophils (Bld) [#/Vol] Automated basophil count 0.0-0.1 [facility] Basophils/100 WBC Auto (Bld) on 10-23-2024 Basophils/100 WBC (Bld) Automated basophil % 0.2-2.0 [facility] Eosinophils/100 WBC Auto (Bl d)on 10-23-2024 Eosinophils/100 WBC (Bld) Automated eosinophil % Low 0.9-7.0 [facility] Erythrocyte distribution wid th Auto (RBC) [Ratio]on 10-23-2024 Erythrocyte distribution width (RBC) [Ratio] Erythrocyte distribution width [Ratio] by Automated count 11.0-15.0 [facility] Estimated glomerular filtrat ion rate (GFR) non- Americanon 10-23-2024 GFR/1.73 sq M.predicted among non-blacks MDRD (S/P/Bld) [Vol rate/Area] Estimated glomerular filtration rate (GFR) non- >=60 mL/min/1.73m 2 [facility] Globulin Calc (S) [Mass/Vol] on 10-23-2024 Globulin (S) [Mass/Vol] Serum globulin measurement by calculation (mass/volume) [facility] Hematocrit Auto (Bld) [Volum e fraction]on 10-23-2024 Hematocrit (Bld) [Volume fraction] Hematocrit [Volume Fraction] of Blood by Automated count 42.0-54.0 [facility] Hemoglobin [Mass/volume] in Bloodon 10-23-2024 Hemoglobin (Bld) [Mass/Vol] Hemoglobin [Mass/volume] in Blood 14.0-18.0 [facility] Laboratory - Chemistry and C hemistry - challengeon 10-23-2024 Albumin [Mass/Vol] 3.5 g/dL 3.4-5.0 [facility] ALP [Catalytic activity/Vol] 55 U/L 46-116 [facility] ALT [Catalytic activity/Vol] 16 U/L 16-63 [facility] AST [Catalytic activity/Vol] 23 U/L 15-37 [facility] Bilirubin [Mass/Vol] 0.5 mg/dL 0.2-1.0 [facility] Calcium [Mass/Vol] 9.7 mg/dL 8.5-10.1 [facility] Chloride [Moles/Vol] 101 mmol/L 98-107 [facility] CO2 [Moles/Vol] 24.2 mmol/L 21.0-32.0 [facility] Creatinine [Mass/Vol] 1.20 mg/dL 0.70-1.30 [facility] GFR/1.73 sq M.predicted MDRD (S/P/Bld) [Vol rate/Area] mL/min/{1.73_m2} >=60 mL/min/1.73m 2 [facility] Glucose [Mass/Vol] 109 mg/dL High 74-106 [facility] Lipase [Catalytic activity/Vol] 42.0 U/L 16.0-77.0 [facility] Potassium [Moles/Vol] 4.2 mmol/L 3.5-5.1 [facility] Protein [Mass/Vol] 7.9 g/dL 6.4-8.2 [facility] Sodium [Moles/Vol] 139 mmol/L 136-145 [facility] Urea nitrogen [Mass/Vol] 25.0 mg/dL High 7.0-18.0 [facility] Urea nitrogen/Creatinine [Mass ratio] 20.8 mg/mg [facility] Laboratory - Hematology and Cell countson 10-23-2024 Immature granulocytes/100 WBC (Bld) 0.3 % 0.0-0.5 [facility] - Microbiology an d Antimicrobial susceptibilityon 10-23-2024 SARS-CoV-2 (COVID-19) RNA LILIANA+probe Ql (Unsp spec) Negative NEGATIVE [facility] Comment on above: This test has not [...] diagnosis of Covid-19 under section 564(b)(1) [facility] [place] 360bbb-3(b)(1), unless the declaration isterminated or authorization is revoked sooner. Leukocytes [#/volume] correc nawaf for nucleated erythrocytes in Blood by Automated counon 10-23-2024 WBC corrected for nucl RBC Auto (Bld) [#/Vol] Leukocytes [#/volume] corrected for nucleated erythrocytes in Blood by Automated coun 4.0-11.0 [facility] Lymphocytes Auto (Bld) [#/Vo l]on 10-23-2024 Lymphocytes (Bld) [#/Vol] Lymphocytes [#/volume] in Blood by Automated count 1.2-3.8 [facility] Lymphocytes/100 WBC Auto (Bl d)on 10-23-2024 Lymphocytes/100 WBC (Bld) Lymphocytes/100 leukocytes in Blood by Automated count Low 20.5-60.0 [facility] MCH Auto (RBC) [Entitic mass ]on 10-23-2024 MCH (RBC) [Entitic mass] MCH [Entitic mass] by Automated count 25.9-34.0 [facility] MCHC Auto (RBC) [Mass/Vol]on 10-23-2024 MCHC (RBC) [Mass/Vol] MCHC [Mass/volume] by Automated count 29.9-35.2 [facility] MCV Auto (RBC) [Entitic vol] on 10-23-2024 MCV (RBC) [Entitic vol] MCV [Entitic volume] by Automated count High 80.0-94.0 [facility] Monocytes Auto (Bld) [#/Vol] on 10-23-2024 Monocytes (Bld) [#/Vol] Automated blood monocyte count High 0.3-0.8 [facility] Monocytes/100 WBC Auto (Bld) on 10-23-2024 Monocytes/100 WBC (Bld) Automated monocyte % High 1.7-12.0 [facility] Neutrophils Auto (Bld) [#/Vo l]on 10-23-2024 Neutrophils (Bld) [#/Vol] Neutrophils [#/volume] in Blood by Automated count High 1.4-6.5 [facility] Neutrophils/100 WBC Auto (Bl d)on 10-23-2024 Neutrophils/100 WBC (Bld) Automated neutrophil % 43.0-75.0 [facility] No Panel Informationon 10-23 Bedside Influenza Type A Antigen Negative [facility] Comment on above: Negative for Flu A p rotein antigen. Infection due to Flu Acannot be ruled out. Flu A antigen in the sample may bebelow the detection limit of the test. Bedside Influenza Type B Antigen Negative [facility] Comment on above: Negative for Flu B p rotein antigen. Infection due to Flu Bcannot be ruled out. Flu B antigen in the sample may bebelow the detection limit of the test. Eosinophils # (Auto) 0.0 10 3/uL 0.0-0.7 [facility] Immature Granulocyte # (Auto) 0.03 10 3/uL 0.00-0.03 [facility] Platelet mean volume Auto (B ld) [Entitic vol]on 10-23-2024 Platelet mean volume (Bld) [Entitic vol] Platelet mean volume [Entitic volume] in Blood by Automated count 9.5-13.5 [facility] Platelets Auto (Bld) [#/Vol] on 10-23-2024 Platelets (Bld) [#/Vol] Platelets [#/volume] in Blood by Automated count 150-450 [facility] RBC Auto (Bld) [#/Vol]on RBC (Bld) [#/Vol] Erythrocytes [#/volu me] in Blood by Automated count 4.70-6.10 [facility] Serum or plasma albumin/glob ulin mass ratioon 10-23-2024 Albumin/Globulin [Mass ratio] Serum or plasma albumin/globulin mass ratio [facility] Serum or plasma anion gap de terminationon 10-23-2024 Anion gap [Moles/Vol] Serum or plasma anion gap determination [facility] Influenza virus B Ag [Presen ce] in Upper respiratory specimen by Rapid immunoassayon 09-15-2024 FLUBV Ag IA.rapid Ql (Nph) Influenza virus B Ag [Presence] in Upper respiratory specimen by Rapid immunoassay [facility] No Panel Informationon 09-15 Influenza Type A (Rapid) Negative [facility] POC SARS CoV-[address] [facility] Cholesterol in LDL Calc [Mas s/Vol]on 11-13-2023 Cholesterol in LDL [Mass/Vol] 209.0 mg/dL [facility] Comment on above: <100 mg/dl [id number] 0-129 mg/dl NEAR OR ABOVE [id number] mg/dl BORDERLINE [id number] mg/dl HIGH>190 mg/dl VERY HIGH Cholesterol in VLDL Calc [Ma ss/Vol]on 11-13-2023 Cholesterol in VLDL [Mass/Vol] 22.4 mg/dL [facility] Laboratory - Chemistry and C hemistry - challengeon 11-13-2023 Cholesterol [Mass/Vol] 284 mg/dL <=200 [facility] Cholesterol in HDL [Mass/Vol] 53 mg/dL 40-60 [facility] Comment on above: > or =60 mg/dl - LOW CARDIOVASCULAR RISK<40 mg/dl - HIGH CARDIOVASCULAR RISK Triglyceride [Mass/Vol] 112 mg/dL <=150 [facility] No Panel Informationon 11-12 Prostate Specific Antigen Screen 1.00 ng/mL <=4.00 [facility] Serum or plasma total choles terol/high density lipoprotein (HDL) cholesterol mass mahamed 11-13-2023 Cholesterol.total/Ch olesterol in HDL [Mass ratio] 5.4 {ratio} [facility] Comment on above: 3.3 - 4.4 LOW RISK4. 4 - 7.1 AVERAGE RISK7.1 - 11.0 MODERATE RISK>11.0 HIGH RISK CARDIAC LONNIE ADMITon 023 CK [Catalytic activity/Vol] 57 U/L Normal 39-308 [facility] Comment on above: Performed By: #### C MADM, CMP #### [facility] [address] [place] [address] Dr. Sarthak Cleveland CK.MB [Mass/Vol] 0.54 ng/mL Normal <=3.60 [facility] Comment on above: Performed By: #### C MADM, CMP #### [facility] [address] [place] [address] Dr. Sarthak Cleveland HSTROP <4.0 Normal 4.0-76.1 [facility] Comment on above: Result Comment: CUT- OFF POINTS HAVE BEEN ESTABLISHED BASED ON THE FOURTH UNIVERSAL DEFINITIONS OF MYOCARDIAL INFARCTION. THE UPPER REFERENCE LIMIT (URL) OF TROPONIN, DEFINED THE 99TH PERCENTILE OF cTnI DISTRIBUTION IN A REFERENCE POPULATION, HAS BEEN CONFIRMED THE DECISION THRESHOLD FOR MD DIAGNOSIS. Performed By: #### C MADM, CMP #### [facility] [address] [place] [address] Dr. Sarthak Cleveland MAL 37 ng/mL Normal 16-96 [facility] Comment on above: Performed By: #### C MADM, CMP #### [facility] [address] [place] [address] Dr. Sarthak Cleveland CBC AUTO DIFFon 11-25-2022 BASO # 0.0 103/ul Normal 0.0-0.1 [facility] Comment on above: Performed By: #### B MP, LIPID, ALT #### [facility] [address] [place] [address] Dr. Sarthak Cleveland Basophils/100 WBC (Bld) 0.5 % Normal 0.2-2.0 [facility] Comment on above: Performed By: #### B MP, LIPID, ALT #### [facility] [address] [place] [address] Dr. Sarthak Cleveland EO # 0.3 103/ul Normal 0.0-0.7 [facility] Comment on above: Performed By: #### B MP, LIPID, ALT #### [facility] [address] [place] [address] Dr. Sarthak Cleveland Eosinophils/100 WBC (Bld) 3.0 % Normal 0.9-7.0 [facility] Comment on above: Performed By: #### B MP, LIPID, ALT #### [facility] [address] [place] [address] Dr. Sarthak Cleveland Erythrocyte distribution width (RBC) [Ratio] 12.4 % Normal 11.0-15.0 [facility] Comment on above: Performed By: #### B MP, LIPID, ALT #### [facility] [address] [place] [address] Dr. Sarthak Cleveland Hematocrit (Bld) [Volume fraction] 47.3 % Normal 42.0-54.0 [facility] Comment on above: Performed By: #### B MP, LIPID, ALT #### [facility] [address] [place] [address] Dr. Sarthak Cleveland Hemoglobin (Bld) [Mass/Vol] 15.9 g/dL Normal 14.0-18.0 [facility] Comment on above: Performed By: #### B MP, LIPID, ALT #### [facility] [address] [place] [address] Dr. Sarthak Cleveland IG # 0.04 10e3/ul Critically high 0.00-0.03 [facility] Comment on above: Performed By: #### B MP, LIPID, ALT #### [facility] [address] [place] [address] Dr. Sarthak Cleveland IG % 0.5 % Normal 0.0-0.5 [facility] Comment on above: Performed By: #### B MP, LIPID, ALT #### [facility] [address] [place] [address] Dr. Sarthak Cleveland LYMPH # 2.2 103/ul Normal 1.2-3.8 [facility] Comment on above: Performed By: #### B MP, LIPID, ALT #### [facility] [address] [address] [address] Sarthak Cleveland Lymphocytes/100 WBC (Bld) 26.6 % Normal 20.5-60.0 [facility] Comment on above: Performed By: #### B MP, LIPID, ALT #### [facility] [address] [address] [address] Sarthak Cleveland MANUAL DIFF REQ NO Normal [facility] Comment on above: Performed By: #### B MP, LIPID, ALT #### [facility] [address] [address] [address] Sarthak Cleveland MCH (RBC) [Entitic mass] 31.7 pg Normal 25.9-34.0 [facility] Comment on above: Performed By: #### B MP, LIPID, ALT #### [facility] [address] [place] [address] Dr. Sarthak Cleveland MCHC (RBC) [Mass/Vol] 33.6 g/dL Normal 29.9-35.2 [facility] Comment on above: Performed By: #### B MP, LIPID, ALT #### [facility] [address] [address] [address] Sarthak Cleveland MCV (RBC) [Entitic vol] 94.2 fL Critically high 80.0-94.0 [facility] Comment on above: Performed By: #### B MP, LIPID, ALT #### [facility] [address] [address] [address] Sarthak Cleveland MONO # 0.8 103/ul Normal 0.3-0.8 [facility] Comment on above: Performed By: #### B MP, LIPID, ALT #### [facility] [address] [address] [address] Sarthak Cleveland Monocytes/100 WBC (Bld) 9.7 % Normal 1.7-12.0 [facility] Comment on above: Performed By: #### B MP, LIPID, ALT #### [facility] [address] [address] [address] Sarthak Cleveland NEUT # 5.0 103/ul Normal 1.4-6.5 [facility] Comment on above: Performed By: #### B MP, LIPID, ALT #### [facility] [address] [place] [address] Dr. Sarthak Cleveland Neutrophils/100 WBC (Bld) 59.7 % Normal 43.0-75.0 [facility] Comment on above: Performed By: #### B MP, LIPID, ALT #### [facility] [address] [place] [address] Dr. Sarthak Cleveland Platelet mean volume (Bld) [Entitic vol] 11.0 fL Normal 9.5-13.5 [facility] Comment on above: Performed By: #### B MP, LIPID, ALT #### [facility] [address] [place] [address] Dr. Sarthak Cleveland PLT 241 103/ul Normal 150-450 [facility] Comment on above: Performed By: #### B MP, LIPID, ALT #### [facility] [address] [place] [address] Dr. Sarthak Cleveland RBC 5.02 106/ul Normal 4.70-6.10 [facility] Comment on above: Performed By: #### B MP, LIPID, ALT #### [facility] [address] [place] [address] Dr. Sarthak Cleveland WBC 8.4 103/ul Normal 4.0-11.0 [facility] Comment on above: Performed By: #### B MP, LIPID, ALT #### [facility] [address] [place] [address] Dr. Sarthak Cleveland PROF 14(COMP METB)on 023 Albumin [Mass/Vol] 3.8 g/dL Normal 3.4-5.0 [facility] Comment on above: Performed By: #### C CORY, CMP #### [facility] [address] [place] [address] Dr. Sarthak Cleveland Albumin/Globulin [Mass ratio] 0.9 {ratio} Normal [facility] Comment on above: Performed By: #### C CORY, CMP #### [facility] [address] [place] [address] Dr. Sarthak Cleveland ALP [Catalytic activity/Vol] 57 U/L Normal 46-116 [facility] Comment on above: Performed By: #### C CORY, CMP #### [facility] [address] [address] [address] Sarthak Cleveland ALT [Catalytic activity/Vol] 21 U/L Normal 16-63 [facility] Comment on above: Performed By: #### C CORY, CMP #### [facility] [address] [address] [address] Sarthak Cleveland Anion gap [Moles/Vol] 12.3 mmol/L Normal [facility] Comment on above: Performed By: #### C CORY, CMP #### [facility] [address] [place] [address] Dr. Sarthak Cleveland AST [Catalytic activity/Vol] 17 U/L Normal 15-37 [facility] Comment on above: Performed By: #### Eliana RAY, CMP #### [facility] [address] [address] [address] Sarthak Cleveland Bilirubin [Mass/Vol] 0.3 mg/dL Normal 0.2-1.0 [facility] Comment on above: Performed By: #### Eliana RAY, CMP #### [facility] [address] [address] [address] Sarthak Cleveland Calcium [Mass/Vol] 9.2 mg/dL Normal 8.5-10.1 [facility] Comment on above: Performed By: #### lEiana RAY, CMP #### [facility] [address] [place] [address] Dr. Sarthak Cleveland Chloride [Moles/Vol] 103 mmol/L Normal 98-107 [facility] Comment on above: Performed By: #### C CORY, CMP #### [facility] [address] [address] [address] Sarthak Cleveland CO2 [Moles/Vol] 28.7 mmol/L Normal 21.0-32.0 [facility] Comment on above: Performed By: #### Eliana RAY, CMP #### [facility] [address] [place] [address] Dr. Sarthak Cleveland Creatinine [Mass/Vol] 0.83 mg/dL Normal 0.70-1.30 [facility] Comment on above: Performed By: #### C CORY, CMP #### [facility] [address] [place] [address] Dr. Sarthak Cleveland EGFR-AF BRUNEIAN >60 Normal >=60 [facility] Comment on above: Performed By: #### C CORY, CMP #### [facility] [address] [address] [address] Sarthak Cleveland EGFR-NON AF BRUNEIAN >60 Normal >=60 [facility] Comment on above: Performed By: #### C CORY, CMP #### [facility] [address] [place] [address] Dr. Sarthak Cleveland Globulin (S) [Mass/Vol] 4.1 g/dL Normal [facility] Comment on above: Performed By: #### C CORY, CMP #### [facility] [address] [place] [address] Dr. Sarthak Cleveland Glucose [Mass/Vol] 89 mg/dL Normal 74-106 [facility] Comment on above: Performed By: #### C CORY, CMP #### [facility] [address] [place] [address] Dr. Sarthak Cleveland Potassium [Moles/Vol] 4.0 mmol/L Normal 3.5-5.1 [facility] Comment on above: Performed By: #### C CORY, CMP #### [facility] [address] [place] [address] Dr. Sarthak Cleveland Protein [Mass/Vol] 7.9 g/dL Normal 6.4-8.2 [facility] Comment on above: Performed By: #### C CORY, CMP #### [facility] [address] [place] [address] Dr. Sarthak Cleveland Sodium [Moles/Vol] 140 mmol/L Normal 136-145 [facility] Comment on above: Performed By: #### C CORY, CMP #### [facility] [address] [place] [address] Dr. Sarthak Cleveland Urea nitrogen [Mass/Vol] 12.0 mg/dL Normal 7.0-18.0 [facility] Comment on above: Performed By: #### C MADM, CMP #### [facility] [address] [address] [address] Sarthak Cleveland Urea nitrogen/Creatinine [Mass ratio] 14.5 mg/mg Normal [facility] Comment on above: Performed By: #### C MADM, CMP #### [facility] [address] [address] [address] Sarthak Cleveland TSHon 11-25-2022 TSH 1.919 uIU/mL Normal 0.358-3.740 [facility] Comment on above: Performed By: #### B MP, LIPID, ALT #### [facility] [address] [address] [address] SHOULDER LT WO [...] by: OLYA PEREYRA Date: 2022-05-27 19:58 Normal [facility] XR ARTHRO SHOULDER LTon 05-10 [...] by: OLYA PEREYRA Date: 2022-05-27 12:36 Normal [facility] CBC AUTO DIFFon 05-26-2022 BASO # 0.1 103/ul Normal 0.0-0.1 [facility] Comment on above: Performed By: #### B MP, LIPID, ALT #### [facility] [address] [address] [address] Sarthak Cleveland Basophils/100 WBC (Bld) 0.6 % Normal 0.2-2.0 [facility] Comment on above: Performed By: #### B MP, LIPID, ALT #### [facility] [address] [address] [address] Sarthak Cleveland EO # 0.2 103/ul Normal 0.0-0.7 [facility] Comment on above: Performed By: #### B MP, LIPID, ALT #### [facility] [address] [address] [address] Sarthak Cleveland Eosinophils/100 WBC (Bld) 2.4 % Normal 0.9-7.0 [facility] Comment on above: Performed By: #### B MP, LIPID, ALT #### [facility] [address] [address] [address] Sarthak Cleveland Erythrocyte distribution width (RBC) [Ratio] 12.6 % Normal 11.0-15.0 [facility] Comment on above: Performed By: #### B MP, LIPID, ALT #### [facility] [address] [place] [address] Dr. Sarthak Cleveland Hematocrit (Bld) [Volume fraction] 46.1 % Normal 42.0-54.0 [facility] Comment on above: Performed By: #### B MP, LIPID, ALT #### [facility] [address] [place] [address] Dr. Sarthak Cleveland Hemoglobin (Bld) [Mass/Vol] 15.0 g/dL Normal 14.0-18.0 [facility] Comment on above: Performed By: #### B MP, LIPID, ALT #### [facility] [address] [place] [address] Dr. Sarthak Cleveland IG # 0.07 10e3/ul Critically high 0.00-0.03 [facility] Comment on above: Performed By: #### B MP, LIPID, ALT #### [facility] [address] [place] [address] Dr. Sarthak Cleveland IG % 0.9 % Critically high 0.0-0.5 [facility] Comment on above: Performed By: #### B MP, LIPID, ALT #### [facility] [address] [place] [address] Dr. Sarthak Cleveland LYMPH # 1.9 103/ul Normal 1.2-3.8 [facility] Comment on above: Performed By: #### B MP, LIPID, ALT #### [facility] [address] [place] [address] Dr. Sarthak Cleveland Lymphocytes/100 WBC (Bld) 22.7 % Normal 20.5-60.0 [facility] Comment on above: Performed By: #### B MP, LIPID, ALT #### [facility] [address] [place] [address] Dr. Sarthak Cleveland MANUAL DIFF REQ NO Normal [facility] Comment on above: Performed By: #### B MP, LIPID, ALT #### [facility] [address] [place] [address] Dr. Sarthak Cleveland MCH (RBC) [Entitic mass] 31.6 pg Normal 25.9-34.0 [facility] Comment on above: Performed By: #### B MP, LIPID, ALT #### [facility] [address] [place] [address] Dr. Sarthak Cleveland MCHC (RBC) [Mass/Vol] 32.5 g/dL Normal 29.9-35.2 [facility] Comment on above: Performed By: #### B MP, LIPID, ALT #### [facility] [address] [place] [address] Dr. Sarthak Cleveland MCV (RBC) [Entitic vol] 97.1 fL Critically high 80.0-94.0 [facility] Comment on above: Performed By: #### B MP, LIPID, ALT #### [facility] [address] [place] [address] Dr. Sarthak Cleveland MONO # 1.0 103/ul Critically high 0.3-0.8 [facility] Comment on above: Performed By: #### B MP, LIPID, ALT #### [facility] [address] [place] [address] Dr. Sarthak Cleveland Monocytes/100 WBC (Bld) 11.8 % Normal 1.7-12.0 [facility] Comment on above: Performed By: #### B MP, LIPID, ALT #### [facility] [address] [place] [address] Dr. Sarthak Cleveland NEUT # 5.1 103/ul Normal 1.4-6.5 [facility] Comment on above: Performed By: #### B MP, LIPID, ALT #### [facility] [address] [place] [address] Dr. Sarthak Cleveland Neutrophils/100 WBC (Bld) 61.6 % Normal 43.0-75.0 [facility] Comment on above: Performed By: #### B MP, LIPID, ALT #### [facility] [address] [place] [address] Dr. Sarthak Cleveland Platelet mean volume (Bld) [Entitic vol] 10.4 fL Normal 9.5-13.5 [facility] Comment on above: Performed By: #### B MP, LIPID, ALT #### [facility] [address] [address] [address] Sarthak Cleveland PLT 243 103/ul Normal 150-450 [facility] Comment on above: Performed By: #### B MP, LIPID, ALT #### [facility] [address] [address] [address] Sarthak Cleveland RBC 4.75 106/ul Normal 4.70-6.10 [facility] Comment on above: Performed By: #### B MP, LIPID, ALT #### [facility] [address] [address] [address] Sarthak Cleveland WBC 8.2 103/ul Normal 4.0-11.0 [facility] Comment on above: Performed By: #### B MP, LIPID, ALT #### [facility] [address] [place] [address] Dr. Sarthak Cleveland LIPID PROFILEon 05-26-2022 CHOL-HDL RATIO NORM SEE BELOW Normal [facility] Comment on above: Result Comment: 3.3 - 4.4 LOW RISK 4.4 - 7.1 AVERAGE RISK 7.1 - 11.0 MODERATE RISK >11.0 HIGH RISK Performed By: #### B MP, LIPID, ALT #### [facility] [address] [place] [address] Dr. Sarthak Cleveland Cholesterol [Mass/Vol] 309 mg/dL Critically high <=200 [facility] Comment on above: Performed By: #### B MP, LIPID, ALT #### [facility] [address] [place] [address] Dr. Sarthak Cleveland Cholesterol in HDL [Mass/Vol] 46 mg/dL Normal 40-60 [facility] Comment on above: Performed By: #### B MP, LIPID, ALT #### [facility] [address] [place] [address] Dr. Sarthak Cleveland Cholesterol in LDL [Mass/Vol] 242.6 mg/dL Normal [facility] Comment on above: Performed By: #### B MP, LIPID, ALT #### [facility] [address] [address] [address] Sarthak Cleveland Cholesterol.total/Ch olesterol in HDL [Mass ratio] 6.7 {ratio} Normal [facility] Comment on above: Performed By: #### B MP, LIPID, ALT #### [facility] [address] [address] [address] Sarthak Cleveland HDL NORMAL > or = 60 mg/dl - LO W CARDIOVASCULAR RISK <40 mg/dl - HIGH CARDIOVASCULAR RISK Normal [facility] Comment on above: Performed By: #### B MP, LIPID, ALT #### [facility] [address] [address] [address] Sarthak Cleveland LDL CALC NORMAL SEE BELOW Normal [facility] Comment on above: Result Comment: <100 mg/dl OPTIMAL 100 - 129 mg/dl NEAR OR ABOVE OPTIMAL 130 - 159 mg/dl BORDERLINE HIGH 160 - 189 mg/dl HIGH >190 mg/dl VERY HIGH Performed By: #### B MP, LIPID, ALT #### [facility] [address] [address] [address] Sarthak Cleveland Triglyceride [Mass/Vol] 102 mg/dL Normal <=150 [facility] Comment on above: Performed By: #### B MP, LIPID, ALT #### [facility] [address] [address] [address] Sarthak Cleveland VLDL CALC 20.4 mg/dL Normal [facility] Comment on above: Performed By: #### B MP, LIPID, ALT #### [facility] [address] [address] [address] Sarthak Cleveland PROF CHEM 8 (BAS METB)on Anion gap [Moles/Vol] 11.6 mmol/L Normal [facility] Comment on above: Performed By: #### B MP, LIPID, ALT #### [facility] [address] [address] [address] Sarthak Cleevland Calcium [Mass/Vol] 8.7 mg/dL Normal 8.5-10.1 [facility] Comment on above: Performed By: #### B MP, LIPID, ALT #### [facility] [address] [address] [address] Sarthak Cleveland Chloride [Moles/Vol] 104 mmol/L Normal 98-107 [facility] Comment on above: Performed By: #### B MP, LIPID, ALT #### [facility] [address] [address] [address] Sarthak Cleveland CO2 [Moles/Vol] 28.7 mmol/L Normal 21.0-32.0 [facility] Comment on above: Performed By: #### B MP, LIPID, ALT #### [facility] [address] [address] [address] Sarthak Cleveland Creatinine [Mass/Vol] 0.84 mg/dL Normal 0.70-1.30 [facility] Comment on above: Performed By: #### B MP, LIPID, ALT #### [facility] [address] [address] [address] Sarthak Cleveland EGFR-AF BRUNEIAN >60 Normal >=60 [facility] Comment on above: Performed By: #### B MP, LIPID, ALT #### [facility] [address] [address] [address] Sarthak Cleveland EGFR-NON AF BRUNEIAN >60 Normal >=60 [facility] Comment on above: Performed By: #### B MP, LIPID, ALT #### [facility] [address] [address] [address] Sarthak Cleveland Glucose [Mass/Vol] 115 mg/dL Critically high 74-106 [facility] Comment on above: Performed By: #### B MP, LIPID, ALT #### [facility] [address] [address] [address] Sarthak Cleveland Potassium [Moles/Vol] 4.3 mmol/L Normal 3.5-5.1 [facility] Comment on above: Performed By: #### B MP, LIPID, ALT #### [facility] [address] [address] [address] Sarthak Cleveland Sodium [Moles/Vol] 140 mmol/L Normal 136-145 [facility] Comment on above: Performed By: #### B MP, LIPID, ALT #### [facility] [address] [address] [address] Sarthak Cleveland Urea nitrogen [Mass/Vol] 9.0 mg/dL Normal 7.0-18.0 [facility] Comment on above: Performed By: #### B MP, LIPID, ALT #### [facility] [address] [place], [place] [address] Dr. Sarthak Cleveland Urea nitrogen/Creatinine [Mass ratio] 10.7 mg/mg Normal [facility] Comment on above: Performed By: #### B MP, LIPID, ALT #### [facility] [address] [address] [address] Sarthak Cleveland SGPTon 05-26-2022 ALT [Catalytic activity/Vol] 20 U/L Normal 16-63 [facility] Comment on above: Performed By: #### B MP, LIPID, ALT #### [facility] [address] [address] [address] Sarthak Cleveland [facility]11 SARS-CoV-2 (COVID-19) RNA LILIANA+probe Ql (Unsp spec) Not detected Normal NOT DETECTED [facility] Comment on above: Result Comment: This test is not yet approved or cleared by the [place] FDA. When there are no FDA-approved or cleared tests available, and other criteria are met, FDA can make tests available under an emergency access mechanism called an Emergency Use Authorization (EUA). The EUA for this test is supported by the [place] of Health and Human Service's (HHS's) declaration [...] SARS-CoV-2. Performed By: #### C VDTBH #### [facility] [address] [place] [address] Dr. Sarthak Cleveland RAD - MISFormerly [facility] 03-24-2022 RAD - MIS [id number] D:127 Normal [facility] Ambulatory Visit Summaryon 0 03-21-2022 Ambulatory Visit Summary DON NATION :1955 Visit Date:03/21/2022 Ambulatory Visit Instructions Your Diagnosis BPH without urinary obstruction Kidney stone Tests Performed Urnls Dip Stick Auto w/o Microscopy POC [address]36[address] Your Care Team Attending Physician - KELBY [...] 3 months Comments: f/up new med Where: [address] [place] [address]- Medications What How Much When Instructions New alfuzosin (alfuzosin 10 mg ER Tab) 1 Tablets By Mouth Every day Refills: 11 Pickup at [facility]/pharmacy #[id number] Unchanged hydrochlorothiazide (hydrochlorothiazide 12.5 mg Cap) 1 [...] physician if questions or concerns Pharmacy Information [facility]/pharmacy #[id number]: [address], [place] [id number] [phone] Test Results Urnls Dip Stick Auto w/o Microscopy POC 24164 (03/21/2022) Bilirubin Urine Dipstick - Negative Blood Urine Dipstick - Negative Glucose Urine Dipstick - Negative Ketones Urine Dipstick - Negative Leukocytes Urine Dipstick - Negative Nitrite Urine Dipstick - Negative Protein Urine Dipstick - Negative Specific [place] Ari Urine Dipstick - 1.010 Urine Appearance Urine [...] is this (more content not included)... Normal [facility] Patient Educationon 03-21-20 Patient Education Urology [...] Follow these instructions at home: ? Take [id number] and prescription medicines only as told by [...] You d (more content not included)... Normal [facility] Screenson 03-21-2022 Screens [id number] D:127 Normal [facility] Urology Office/Clinic Noteon 03-21-2022 Urology Office/Clinic Note Chief Complaint 10 month follow up with KUB HPI Staff Don is here today for a a 10 month follow up with KUB. KUB done on 03/20/22 at [facility] impression showed small scattered stable bilateral [...] stopped and the office notified. [facility] [place]. All questions/concerns were discussed. Pt. to call [...] With When Contact Information Salomon PITTS MD, CLIFF In [address] [place] [address]- Additional Instructions: f/up new med Patient Education [...] Vicodin (Naus (more content not included)... Normal [facility] Comment on above: Result Comment: Elec [...] by: GLORIA JETT Date: 2022-03-20 18:33 Normal [facility] Vital Signs Date Time Vital Sign Value Performing Clinician Facility 10-26-2024 09:56-0400 Body height 175.26 cm [facility] 10-26-2024 09:56-0400 Body mass index (BMI) [Ratio] 25 kg/m2 [facility] 10-26-2024 09:56-0400 Body weight 76.71 kg [facility] 10-26-2024 09:56-0400 Diastolic blood pressure 70 mm[Hg] [facility] 10-26-2024 09:56-0400 Heart rate 64 /min [facility] 10-26-2024 09:56-0400 Respiratory rate 12 /min [facility] 10-26-2024 09:56-0400 Systolic blood pressure 113 mm[Hg] [facility] 09-15-2024 09:30-0500 Body height 175.26 cm [facility] 09-15-2024 09:30-0500 Body mass index (BMI) [Ratio] 25.4 kg/m2 [facility] 09-15-2024 09:30-0500 Body weight 78.1 kg [facility] 09-15-2024 09:30-0500 Diastolic blood pressure 72 mm[Hg] [facility] 09-15-2024 09:30-0500 Heart rate 62 /min [facility] 09-15-2024 09:30-0500 SaO2% (BldA) [Mass fraction] 95 % [facility] 09-15-2024 09:30-0500 Systolic blood pressure 124 mm[Hg] [facility] 05-31-2024 08:33-0400 Body height 175.26 cm [facility] 05-31-2024 08:33-0400 Body mass index (BMI) [Ratio] 24.7 kg/m2 [facility] 05-31-2024 08:33-0400 Body weight 75.97 kg [facility] 05-31-2024 08:33-0400 Diastolic blood pressure 79 mm[Hg] [facility] 05-31-2024 08:33-0400 Heart rate 56 /min [facility] 05-31-2024 08:33-0400 Respiratory rate 12 /min [facility] 05-31-2024 08:33-0400 Systolic blood pressure 133 mm[Hg] [facility] 11-17-2023 14:10-0400 Body height 175.26 cm [facility] 11-17-2023 14:10-0400 Body mass index (BMI) [Ratio] 25.5 kg/m2 [facility] 11-17-2023 14:10-0400 Body weight 78.58 kg [facility] 11-17-2023 14:10-0400 Diastolic blood pressure 75 mm[Hg] [facility] 11-17-2023 14:10-0400 Heart rate 61 /min [facility] 11-17-2023 14:10-0400 Respiratory rate 12 /min [facility] 11-17-2023 14:10-0400 Systolic blood pressure 145 mm[Hg] [facility] 05-25-2023 10:00-0400 Body height 175.26 cm Tao Ball Other [facility] [employer] Other 05-25-2023 10:00-0400 Body mass index (BMI) [Ratio] 25.6 kg/m2 Ato Ball Other [facility] [employer] Other 05-25-2023 10:00-0400 Body weight 78.65 kg Tao Ball Other [facility] [employer] Other 05-25-2023 10:00-0400 Diastolic blood pressure 76 mm[Hg] Tao Ball Other [facility] Other 05-25-2023 10:00-0400 Respiratory rate 12 /min Tao Ball Other [facility] Other 05-25-2023 10:00-0400 Systolic blood pressure 120 mm[Hg] Tao Ball Other [facility] Other 11-28-2022 11:00-0400 Body height 175.26 cm Tao Ball Other [facility] Other 11-28-2022 11:00-0400 Body mass index (BMI) [Ratio] 24.36 kg/m2 Tao Ball Other [facility] Other 11-28-2022 11:00-0400 Body weight 74.84 kg Tao Ball Other [facility] Other 11-28-2022 11:00-0400 Diastolic blood pressure 76 mm[Hg] Tao Ball Other [facility] Other 11-28-2022 11:00-0400 Respiratory rate 12 /min Tao Ball Other [facility] Other 11-28-2022 11:00-0400 Systolic blood pressure 122 mm[Hg] Tao Ball Other [facility] Other 09-16-2022 15:15-0500 Body height 175.26 cm Tao Ball Other [facility] Other 09-16-2022 15:15-0500 Body mass index (BMI) [Ratio] 24.45 kg/m2 Tao Ball Other [facility] Other 09-16-2022 15:15-0500 Body weight 75.12 kg Tao Ball Other [facility] Other 09-16-2022 15:15-0500 Diastolic blood pressure 70 mm[Hg] Tao Ball Other [facility] Other 09-16-2022 15:15-0500 Respiratory rate 12 /min Tao Ball Other [facility] Other 09-16-2022 15:15-0500 Systolic blood pressure 118 mm[Hg] Tao Ball Other [facility] Other 03-21-2022 09:54-0400 Blood Pressure Location Salomon [email or web address] [facility] 03-21-2022 09:54-0400 Diastolic blood pressure 83 mm[Hg] Salomon PITTS [facility] [employer] 03-21-2022 09:54-0400 Heart rate 79 /min Salomon PITTS [facility] 03-21-2022 09:54-0400 Respiratory rate 16 /min Salomon PITTS [facility] 03-21-2022 09:54-0400 Systolic blood pressure 137 mm[Hg] Salomon PITTS [facility] Encounters Encounter Date Encounter Type Care Provider Facility Start: 01-16-2025 End: 01-16-2025 ambulatory Belgica Cano MD Facility:[facility] Start: 10-26-2024 End: 10-26-2024 ambulatory [facility] Work Phone: Start: 10-26-2024 End: 10-26-2024 Patient encounter procedure [facility] Work Phone: Start: 10-24-2024 Non-patient / Non-visit [facility] Work Phone: Start: 10-23-2024 Non-patient / Non-visit [facility] Work Phone: Start: 09-15-2024 End: 09-15-2024 ambulatory [facility] Work Phone: Start: 09-15-2024 End: 09-15-2024 Patient encounter procedure [facility] Work Phone: Start: 05-31-2024 End: 05-31-2024 ambulatory [facility] Work Phone: Start: 05-31-2024 End: 05-31-2024 Patient encounter procedure [facility] Work Phone: Start: 05-27-[address] [facility] Start: 05-23-2024 End: 05-23-2024 ambulatory Belgica Cano MD Facility:[facility] Start: 11-17-2023 End: 11-17-2023 ambulatory [facility] Work Phone: Start: 11-17-2023 End: 11-17-2023 Patient encounter procedure [facility] Work Phone: Start: 11-13-2023 Non-patient / Non-visit [facility] Work Phone: Start: 07-14-2023 End: 07-14-2023 ambulatory [facility] Other [facility] Other Start: 07-14-2023 Office outpatient vi sit 15 minutes Tao Martines [facility] Start: 05-28-2023 End: 05-28-2023 ambulatory Tao Martines Other [facility] Other Start: 05-28-2023 Telephone encounter Tao Conrad [facility] Start: 05-25-2023 End: 05-25-2023 ambulatory Tao Martines Other [facility] Other Start: 05-25-2023 Patient encounter procedure Tao Martines [facility] Start: 05-04-2023 End: 05-04-2023 ambulatory Tao Martines Other [facility] Other Start: 05-04-2023 Telephone encounter Tao Martines [facility] Start: 12-09-2022 End: 01-07-[address] TAO MARTINES Facility:[facility] Start: 11-28-2022 End: 11-28-2022 ambulatory Tao Martines Other [facility] Other Start: 11-28-2022 Office outpatient vi sit 25 minutes Tao Martines [facility] Start: 11-25-2022 End: 11-26-[address] TAO MARTINES Facility:[facility] Start: 09-16-2022 End: 09-16-2022 ambulatory Tao Martines Other [facility] Other Start: 09-16-2022 Office outpatient vi sit 15 minutes Tao Martines [facility] Start: 08-10-2022 End: 11-08-[address] TAO MARTINES Facility:[facility] Start: 07-30-2022 End: 08-09-2022 ambulatory MR SAMIR JACOBSON . Facility:[facility] Start: 07-11-2022 ambulatory MD Salomon Urena ility:[facility] Start: 07-10-[address] KIM LARA . Faci lity:[facility] Start: 05-27-2022 End: 05-27-[address] ZACH TYSON Facility:[facility] Start: 05-26-2022 End: 05-27-[address] TAO MARTINES Facility:[facility] Start: 05-22-2022 End: 05-23-[address] KIM LARA . Facility:[facility] Start: 05-22-2022 Adult health examination Eliezer Martines Other [facility] Other Start: 05-06-2022 Encounter for preprocedural laboratory examination DR KIM LARA . [facility] Start: 05-06-2022 End: 05-06-[address] KIM LARA . Facility:[facility] Start: 05-02-2022 End: 05-03-[address] KIM LARA . Facility:[facility] Start: 05-02-2022 End: 05-03-2022 Encounter for preprocedural laboratory examination DR KIM LARA . Facility: Start: 03-21-2022 End: 03-22-2022 ambulatory MD Salomon PITTS Facility:[facility] Start: 03-21-2022 End: 03-21-2022 Patient encounter procedure Salomon PITTS [facility] Start: 03-20-2022 End: 03-21-[address] SALOMON PITTS . Facility: Start: 03-14-[address] KIM LARA . Faci lity:[facility] Start: 02-18-2022 End: 02-19-[address] KIM LARA . Facility:[facility] Start: 05-14-2020 End: 05-14-2020 Preoperative cardiovascular examination Tao Martines Other [facility] Other Procedures Date Procedure Procedure Detail Performing Clinician Start: 05-26-[address] ZACH TYSON Comment on above: Performed By: #### B MP, LIPID, ALT #### [facility] [address] [place] [address] Dr. Sarthak Cleveland Start: 02-23-2020 Fluoroscopy guided [...] ick KELBY Reconstruction of fa cial bones Salomonpatrick PITTS Repair of sliding in guinal hernia Salomon PITTS Screening for malign ant neoplasm of prostate Tao Martines Other Plan of Treatment Date Care Activity Detail Author Comprehensive metabo lic 2000 panel - Serum or Plasma [facility] Immunizations Immunization Date Immunization Notes Care Provider Fa cility 05-31-2024 influenza, high dose seasonal, preservative-free [facility] 06-02-2023 Prevnar [address] [facility] 05-25-2023 influenza virus vaccine, unspecified formulation [facility] 05-25-2023 influenza, high dose seasonal, preservative-free Tao Martines Other [facility] [employer] Other 05-22-2022 influenza virus vaccine, split virus (incl. purified surface antigen) Tao Martines Other [facility] [employer] Other 05-22-2022 influenza virus vaccine, unspecified formulation [facility] 05-21-2021 influenza virus vaccine, split virus (incl. purified surface antigen) Tao Martines Other [facility] [employer] Other 05-21-2021 influenza virus vaccine, unspecified formulation [facility] Payers Date Payer Category Payer Unknown 2023 Medicare 1959 Medicare [id number] [id number] 1959 Unknown [id number] 1959 Unknown [id number] 2.16 .840.1.329458.19 1955 Unknown [id number] 2.16.840.1.983631.3.579.2.727 1955 Unknown [id number] 2.16.840.1.857936.3.579.2.727 1955 Unknown [id number] 2.16.840.1.908692.3.579.2.593 1955 Unknown [id number] 2.16.840.1.480432.3.579.2.593 1955 Unknown [id number] 2.16.840.1.330736.3.579.2.593 1955 Unknown [id number] 2.16.840.1.971198.3.579.2.593 1955 Unknown [id number] 2.16.840.1.734117.3.579.2.593 1955 Unknown [id number] 2.16.840.1.906052.3.579.2.593 1955 Unknown [id number] 2.16.840.1.737856.3.579.2.593 1955 Unknown [id number] 2.16.840.1.768153.3.579.2.593 1955 Unknown [id number] 2.16.840.1.789280.3.579.2.593 1955 Unknown [id number] 2.16.840.1.746695.3.579.2.593 1955 Unknown [id number] 2.16.840.1.326304.3.579.2.593 1955 Unknown [id number] 2.16.840.1.557903.3.579.2.593 1955 Unknown [id number] 2.16.840.1.937365.3.579.2.593 1955 Unknown [id number] 2.16.840.1.217345.3.579.2.196 1955 Unknown [id number] 2.16.840.1.471580.3.579.2.196 Medicare [employer] [facility] PFFS DEGWGF [id number] Self-pay Self Pay [id number] Unknown Anthony [facility] PF [id number] Social History Date Type Detail Facility Start: 03-21-2022 End: 08-04-2023 Tobacco smoking status Never smoked tobacco (finding) [facility] Sex Assigned At Male [facility] Start: 1955 Sex Assigned At Male [facility] Start: 09-15-2024 End: 10-26-2024 Sex Male (finding) [facility] Functional Status Date Assessment Result Facility 03-21-2022 Functional Status N/A [facility] Clinical Notes 02-18-2022 to 09-15-2024 Note Date & Type Note Facility 09-15-2024 Evaluation note Diagnosis Onset Date Resolution Primary hypertension acute Febr ua2024 9:25am Cough noneactive September 15, 2024 9:25am Acute bronchitis due to other specified organisms noneactive September 15 9:25am [facility] Work Phone: [phone] 254-751312-05-2023 Evaluation note* Encounter Date Diagnosis Assessment Notes [...] continue exercise to achieve/maintain a normal BMI. [facility] Other 10-19-2023 Evaluation note* Encounter Date Diagnosis Assessment Notes Treatment Notes Treatment Clinical Notes May, Elevated cholesterol (ICD-10 - E78.00) [facility] Other 10-16-2023 Evaluation note* Encounter Date Diagnosis [...] (ICD-10 - Z12.5) yearly ANNELIESE and PSA [facility] Other 04-21-2023 Evaluation note* Encounter Date Diagnosis [...] for increased CP, dyspnea, palpitations or lightheadedness [facility] Other 02-07-2023 Evaluation note* Encounter Date Diagnosis [...] continue exercise to achieve/maintain a normal BMI. [facility] Other [id number] NoteCONSULTATION CONSULTATION DATE: 05/22/2022 This is a [...] of care and all questions were answered.[id number] Discharge instructions Patient Education 03/21/2022 10:30:52 [...] urethra. Follow these instructions at home: Take aaia-zzl-nruqniz and prescription medicines only as told by [...] 07/27/2006 Document Revised: 06/21/2019 Document Reviewed: 08/31/2017 [facility] Patient Education 2020 [employer]. Follow Up Care 05/20/2021 16:25:31 With:KELBY PULIDO, Salomon West, URL Address: [address] [place] [address]- When:Within 3 Month(s) Comments:f/up [facility] 07-12-2022 NoteCONSULTATION PROCEDURE DATE: 02/18/2022 PREOPERATIVE [...] symptomatology and range of motion. [facility] Signed and Approved by: DR KIM LARA . 02/25/2022 09:28:00[facility]07-12-2022 NoteCONSULTATION CONSULTATION DATE: 02/18/2022 CHIEF [...] The patient states he is close to fpc and does not wish to see an [...] proceed. CC: Tao Martines D.O. [facility] Signed and Approved by: DR KIM LARA . 02/25/2022 09:28:00[facility] Future Appointments Appointment Date:07/11/2022 08:00:00 AM Scheduled Provider:Salomon PITTS MD Location:[facility] Appointment Type:URO Office Visit [facility] evaluation noteNo [employer] Other Evaluation note* Diagnosis Onset Date Resolution Status Benign prostatic hyperplasia with lower urinary tract symptoms acute Gastroesophageal reflux dise ase with esophagitis without hemorrhage acute IFG (impaired fasting glucose) acute Primary hypertension [facility] Work Phone: Evaluation note* Diagnosis Onset Date Resolution Status Benign prostatic hyperplasia with lower urinary tract symptoms acute Gastroesophageal reflux dise ase with esophagitis without hemorrhage acute H/O colonoscopy acute Hypercholesterolemia acute IFG (impaired fasting glucose) acute Medicare annual wellness visit, subsequent acute Primary hypertension acute Screening for colon cancer a cute Screening PSA (prostate specific antigen) [facility] Work Phone: Evaluation note* Diagnosis Onset Date Resolution Status Admit Date Primary hypertension acute Febr 2024 9:25am Cough noneactive September 15, 2024 9:25am Acute bronchitis due to other specified organisms noneactive Februa ry 2024 9:25am [facility] Work Phone: History general Narrative - [...] 202 0 Hospitalization History SEE SURGICAL HX [facility] Other Hospital course Narrative No data available for this section [facility] progress note No data available for this section [facility] Summary Purpose Family History No Family [...] Amb Documentation October 24, 2024 2:4 8pm TBH; abdominal pain October 26, 2024 9:5 1am [...] 2024 Team Status: Inactive Member Role Status Maurisio Martines DO Primary Care Provide r, Attending Provider Active Start: October 26, 2024 End: October 26, 2024 (unrecognized sect ion and content) No Status Records FoundNo Status Records FoundNo Status Records Found INFORMATION SOURCE (unrecogn ized section and content) DATE CREATED AUTHOR 07/09/2022 [facility] DATE CREATED AUTHOR AUTHOR'S ORGANIZ ATION 01/16/2023 [facility] DATE CREATED AUTHOR AUTHOR'S ORGANIZ ATION 03/11/2025 [facility] REASON FOR VISIT (unrecogniz ed section and content) Not Sleeping WellTBHNo Infor [facility] resultsCOVID [id number] Goals (unrecognized section and content) Goals may [...] BE BASED ON THE PRIMARY CLINICAL RECORDS. [employer] provides no warranty or guarantee of the accuracy or completeness of information in this document.
--- NOTE | 2025-04-26 08:07 | PM.CN ---
Consult Note: HPI Data of Consult Patient: known to practice within the last 3 years Consult date: 04/26/25 Requesting Physician: Priya Sky NP Primary Care Provider: Tao Martines DO Consult Narrative Reason for consult: chronic joint and low back pain Narrative: Go teague pleasant 69 year old male presents for evaluation of diffuse joint and low back pain. Noting significant relief in low back pain since last visit, has had increased pain in hands, feet, and thumbs. Utilizing transdermal cream, tylenol, motrin with significant benefit without side effects. Pain 0/10 in back. LELE 24% with chronic diffuse joint pain. cc:: CC: Priya Sky NP Review of Systems ROS Musculoskeletal Reports: joint pain; Denies: back pain PFSH PFSH Social History Smoking status: Never smoker Little interest or pleasure in doing things: not at all Feeling down, depressed, or hopeless: not at all Meds Home Medications and Allergies Home Medications ?Medication ?Instructions ?Recorded ?Confirmed ?Type atenolol 25 mg tablet 25 mg PO Q12H 08/04/23 01/16/25 History benazepril 20 mg tablet 20 mg PO DAILY 08/04/23 01/16/25 History omeprazole 40 mg capsule,delayed 40 mg PO DAILY 08/04/23 01/16/25 History release ondansetron 4 mg disintegrating 4 mg PO Q8H PRN nausea and 10/23/24 01/16/25 Rx tablet vomiting 3 days #10 tabs diazepam 10 mg tablet mg 01/16/25 History Allergies Allergy/AdvReac Type Severity Reaction Status Date / Time acetaminophen (From Vicodin) AdvReac Severe Vomiting Verified 01/16/25 09:58 codeine AdvReac Severe Vomiting Verified 01/16/25 09:58 hydrocodone (From Vicodin) AdvReac Severe Vomiting Verified 01/16/25 09:58 Exam Constitutional Documenting provider has reviewed patient's vital signs: yes Common normals: no apparent distress, oriented x3, healthy appearing, alert and well nourished General appearance: cooperative HENWA Common normals: normocephalic, hearing grossly normal bilaterally and moist oral mucous membranes Head and scalp: normocephalic Eye Common normals: PERRL Pupil: PERRL Neck & C-Spine Common normals: full ROM General: normal visual inspection Chest Common normals: inspection of chest normal Respiratory Common normals: normal respiratory effort, no retractions and no use of accessory muscles Back & Pelvis Lumbar spine/lower back: lumbar ROM normal and ROM limited; no pain with ROM and no lumbar spinal tenderness Sacroiliac joints: SI joints normal Other: negative facet loading negative bilateral letty(patricks), gaenslens, thigh thrust, compression test Neuro Common normals: oriented x3 Sensorium/orientation: alert Psych Common normals: mental status grossly normal, thought process normal, cooperative, affect normal, speech normal and activity/motor behavior normal Speech: normal speech Thought process: normal thought process Results Additional Findings Additional findings: If on a controlled substance or opioids, I have checked an [place] report on this patient and there are no aberrancies noted in the prescribing history.??If on a controlled substance or opioid a drug screen was completed and reviewed within the last year, and if there has not been a drug screen completed we ordered one today to monitor higher risk, state monitored pain medication use. As part of providing excellent, safe, comprehensive care, the following was completed at our patient's visit: 1. A medication reconciliation and review to ensure accurate knowledge of current/active medications, including asking our patients to inform us about any [id number] medications or herbal remedies/nutritional supplements/alternative remedies. 2. A review to specifically ensure our patients have had annual screening for screening for depression, screening for tobacco use, and screening for unhealthy alcohol use. For concerning screenings had a discussion with the patient, provided patient education, and recommended follow-up with primary care provider when appropriate. If patient noted with a risk of falling, they received education on strength, gait, and balance training to prevent future risk of falling. Portions of this note may have been carried over from the previous visit and updated as appropriate. Please note this office utilizes paper charting in addition to the electronic medical record. A list of current medications, vitals, and PMH is available there as the clinical staff outside of myself do not have access to [employer] charting during the clinic day operations. As part of providing quality comprehensive care the current medications, vitals, and PMH were reviewed in the paper chart. Assessment and Plan Assessment and Plan (1) Sacroiliitis: (2) Failed back syndrome: (3) Polyarthralgia: Plan pt declining left hand/thumb xray after pain from hitting his hand with a hammer 1 month ago continue tylenol/motrin otc prn continue transdermal compound cream prn f/u PRN, pain well controlled at this time
== END 2025-04-26 07:59 | disposition home or self-care (01) ==
LOC: PM 07:58
PROVIDERS: PCP Internal Medicine; Visit Provider Nurse Practitioner
DX: M46.1 Sacroiliitis, not elsewhere classified (principal); M96.1 Postlaminectomy syndrome, not elsewhere classified; M25.50 Pain in unspecified joint
CPT/HCPCS: G0463